=== PATIENT | female | born 1980 | race Caucasian/White ===

== ENCOUNTER 2022-09-08 14:30 | Inpatient (IN) | payer MEDICAID ==
[~2022-09-08] VITALS: Ht 157.5 cm; Wt 93.1 kg
[2022-09-08] MEDS ORDERED: SODIUM CHLORIDE 0.9% 1,000 ML IV ONE (15:00)
[2022-09-08 15:38] LABS: Mean Corpuscular Hemoglobin 28.1 pg (28.0-32.0); Mean Corpuscular Hgb Conc. 32.6 g/dL (32.0-36.0)
[2022-09-08 15:40] LABS: Mean Corpuscular Volume 86.1 fL (80.0-100.0); Red Blood Cells 4.99 10^6/uL (4.0-5.20)
[2022-09-08 15:49] LABS: White Blood Cell 34.9 10^3/uL (4.4-10.8)
[2022-09-08 15:50] LABS: Basophils % (manual) 0 (0.0-2.0); Blast Cells 0; Metamyelocytes % 0; Myelocytes % 0; Promyelocytes % 0
[2022-09-08 15:56] LABS: Anion Gap 7 (5-15); Blood Urea Nitrogen 25 mg/dL (7-18); Calcium 9.1 mg/dL (8.5-10.1); Carbon Dioxide 25 mmol/L (21-32); Chloride 104 mmol/L (98-107); Glucose 98 mg/dL (74-106); Potassium 3.8 mmol/L (3.5-5.1); Sodium 136 mmol/L (136-145)
[2022-09-08 15:58] LABS: Alanine Aminotransferase 15 U/L (13-56); Aspartate Aminotransferase 13 U/L (15-37); GFR African American 76 mL/min; GFR Non-African American 63 mL/min
[2022-09-08 16:00] LABS: Alkaline Phosphatase 116 U/L (45-117); Bilirubin, Total 0.4 mg/dL (0.2-1.0); Total Protein 7.1 g/dL (6.4-8.2)
[2022-09-08 16:01] LABS: Albumin 2.4 g/dL (3.4-5.0); BUN/Creatinine Ratio 24.5
[2022-09-08 16:20] LABS: Band Neutrophils % (manual) 9; Eosinophils % (manual) 1 (0-7); Lymphocytes % (manual) 8 (10.0-50.0); Monocytes % (manual) 6 (0-12); Reactive Lymphocytes 1
[2022-09-08] MEDS ORDERED: LABETALOL HCL 5 MG/ML 4ML SYRINGE IV ONE (16:45)
[2022-09-08] MEDS ORDERED: AZITHROMYCIN 500MG/ 250ML 250 ML IV ONE (16:45)
[2022-09-08] MEDS ORDERED: cefTRIAXone 1GM/50ML D5W 50 ML IV ONE (16:45)
[2022-09-08] MEDS ORDERED: IOHEXOL 350 MG/ML 100ML IJ ONE (16:46)
[2022-09-08 17:34] LABS: Urine Bacteria NONE SEEN /hpf (None Seen); Urine Blood 1+ /uL (Negative); Urine Specific Gravity 1.042 (1.001-1.035); Urine WBC 6 /hpf (0 - 5)
[2022-09-08] MEDS ORDERED: ACETAMINOPHEN 325 MG TAB PO PRN (18:15)
[2022-09-08] MEDS: HYDROcodone-ACET 5/325MG TAB PO PRN (18:46)
[2022-09-08 20:46] LABS: Basophils # (auto) 0 10 ^3/uL (0-0.2); Basophils % (auto) 0.1 % (0.0-2.0); Eosinophils # (auto) 0 10 ^3/uL (0-0.8); Hematocrit 37.1 % (36.0-46.0); Lymphocytes # (auto) 1.4 10 ^3/uL (0.4-5.4); Lymphocytes % (auto) 5.2 % (10.0-50.0); Mean Corpuscular Hemoglobin 27.6 pg (28.0-32.0); Mean Corpuscular Hgb Conc. 32.3 g/dL (32.0-36.0); Mean Corpuscular Volume 85.3 fL (80.0-100.0); Monocytes % (auto) 3.9 % (0.0-12.0); Neutrophils # (auto) 23.4 10 ^3/uL (1.6-8.6); Neutrophils % (auto) 90.8 % (37.0-80.0); Red Blood Cells 4.35 10^6/uL (4.0-5.20); White Blood Cell 25.7 10^3/uL (4.4-10.8)
[2022-09-08] MEDS: MORPHINE SULFATE INJ 2 MG/ml SYRG IV PRN (20:52)
[2022-09-08 20:58] LABS: BUN/Creatinine Ratio 21.1; Calcium 8.2 mg/dL (8.5-10.1)
[2022-09-09] MEDS: HYDROcodone-ACET 5/325MG TAB PO PRN ×3 (00:22→10:21)
[2022-09-09] MEDS: NITROGLYCERIN 0.4 MG SL TAB SL PRN (06:09)
[2022-09-09] MEDS: MORPHINE SULFATE INJ 2 MG/ml SYRG IV PRN ×4 (07:41→19:04)
[2022-09-09 10:00] VITALS: BP 125/74
[2022-09-09] MEDS: PANTOPRAZOLE 40 MG TAB PO SCH (10:21)
[2022-09-09 12:36] VITALS: BP 127/70
[2022-09-09] MEDS ORDERED: DEXTROSE (50%) 50ML SYRG IV PRN (14:45)
[2022-09-09] MEDS: AZITHROMYCIN 500MG/ 250ML 250 ML IV SCH (14:58)
[2022-09-09] MEDS ORDERED: ALBUTEROL MEDNEB 2.5 mg/3ml NEB NEB PRN (15:45)
[2022-09-09 16:59] VITALS: BP 131/73
[2022-09-09] MEDS: InsuLIN REG 1unit/0.01ml Soln (100units/ml) SC SCH ×2 (17:00→21:51)
[2022-09-09] MEDS: ACCU-CHEK COMFORT CURVE STRIP VI SCH ×2 (17:00→21:46)
[2022-09-09] MEDS: SODIUM CHLORIDE 0.9% 1,000 ML IV SCH (18:45)
[2022-09-09] MEDS: PIPERACILLIN-TAZOB 3.375GM 100 ML IV SCH (19:11)
[2022-09-09 19:28] VITALS: BP 127/70
[2022-09-09 22:00] VITALS: BP 120/55
[2022-09-09] MEDS: PROMETHAZINE W/CODEINE 5 ML ORAL SYRUP PO PRN (22:52)
[2022-09-10] MEDS: PIPERACILLIN-TAZOB 3.375GM 100 ML IV SCH ×3 (01:30→17:00)
[2022-09-10] MEDS: SODIUM CHLORIDE 0.9% 1,000 ML IV SCH ×3 (02:45→18:54)
[2022-09-10 05:00] VITALS: BP 120/60
[2022-09-10] MEDS: PROMETHAZINE W/CODEINE 5 ML ORAL SYRUP PO PRN ×2 (05:04→22:07)
[2022-09-10] MEDS: ACCU-CHEK COMFORT CURVE STRIP VI SCH ×4 (06:45→22:06)
[2022-09-10] MEDS: InsuLIN REG 1unit/0.01ml Soln (100units/ml) SC SCH ×5 (06:45→22:08)
[2022-09-10] MEDS: HYDROcodone-ACET 5/325MG TAB PO PRN ×3 (06:46→23:54)
[2022-09-10 09:13] VITALS: BP 116/62
[2022-09-10] MEDS: NITROGLYCERIN 0.4 MG SL TAB SL PRN (09:26)
[2022-09-10] MEDS: MORPHINE SULFATE INJ 2 MG/ml SYRG IV PRN (09:27)
[2022-09-10] MEDS: METHADONE HCL 10 MG TAB PO SCH (09:53)
[2022-09-10] MEDS: PANTOPRAZOLE 40 MG TAB PO SCH (09:54)
[2022-09-10] MEDS: ENOXAPARIN SOD 40 MG/0.4 ML SYRINGE SC SCH (09:54)
[2022-09-10 12:16] LABS: Albumin 1.6 g/dL (3.4-5.0); Calcium 7.9 mg/dL (8.5-10.1); Potassium 3.6 mmol/L (3.5-5.1)
[2022-09-10 12:19] LABS: BUN/Creatinine Ratio 17.3; Bilirubin, Total 0.2 mg/dL (0.2-1.0); Total Protein 5.9 g/dL (6.4-8.2)
[2022-09-10 12:51] VITALS: BP 118/66
[2022-09-10 13:49] LABS: Basophils # (auto) 0 10 ^3/uL (0-0.2); Basophils % (auto) 0.1 % (0.0-2.0); Eosinophils # (auto) 0.1 10 ^3/uL (0-0.8); Eosinophils % (auto) 0.4 % (0.0-7.0); Hematocrit 36.5 % (36.0-46.0); Hemoglobin 12.1 g/dL (12.2-16.2); Lymphocytes # (auto) 1.6 10 ^3/uL (0.4-5.4); Lymphocytes % (auto) 8.8 % (10.0-50.0); Mean Corpuscular Hemoglobin 27.9 pg (28.0-32.0); Mean Corpuscular Hgb Conc. 33.1 g/dL (32.0-36.0); Mean Corpuscular Volume 84.4 fL (80.0-100.0); Monocytes # (auto) 1.2 10 ^3/uL (0-1.3); Monocytes % (auto) 6.3 % (0.0-12.0); Neutrophils # (auto) 15.7 10 ^3/uL (1.6-8.6); Neutrophils % (auto) 84.4 % (37.0-80.0); Nucleated Red Blood Cells % 0.1 %; Red Blood Cells 4.32 10^6/uL (4.0-5.20); Red Cell Distribution Width 15.2 % (11.8-14.3); White Blood Cell 18.6 10^3/uL (4.4-10.8)
[2022-09-10] MEDS: AZITHROMYCIN 500MG/ 250ML 250 ML IV SCH (14:08)
[2022-09-10 16:39] VITALS: BP 119/72
[2022-09-10] MEDS: ALPRAZolam 0.5 MG TAB PO PRN (20:44)
[2022-09-10 22:00] VITALS: BP 127/69
[2022-09-11] MEDS: PIPERACILLIN-TAZOB 3.375GM 100 ML IV SCH ×3 (00:22→17:09)
[2022-09-11] MEDS: SODIUM CHLORIDE 0.9% 1,000 ML IV SCH ×3 (00:22→18:45)
[2022-09-11 05:00] VITALS: BP 110/58
[2022-09-11] MEDS: PROMETHAZINE W/CODEINE 5 ML ORAL SYRUP PO PRN ×3 (06:11→23:34)
[2022-09-11] MEDS: InsuLIN REG 1unit/0.01ml Soln (100units/ml) SC SCH ×4 (06:11→21:40)
[2022-09-11] MEDS: ACCU-CHEK COMFORT CURVE STRIP VI SCH ×4 (06:11→21:40)
[2022-09-11 08:20] VITALS: BP 115/59
[2022-09-11 09:00] VITALS: BP 115/59
[2022-09-11] MEDS: METHADONE HCL 10 MG TAB PO SCH (09:10)
[2022-09-11] MEDS: AZITHROMYCIN 500MG/ 250ML 250 ML IV SCH (09:11)
[2022-09-11] MEDS: PANTOPRAZOLE 40 MG TAB PO SCH (09:11)
[2022-09-11] MEDS: ENOXAPARIN SOD 40 MG/0.4 ML SYRINGE SC SCH (09:12)
[2022-09-11] MEDS: NICOTINE 21MG/24 HR TOPICAL PATCH TD SCH (09:16)
[2022-09-11 13:00] VITALS: BP 129/77
[2022-09-11 17:00] VITALS: BP 129/59
[2022-09-11] MEDS ORDERED: diphenhdrAMINE HCL 25 MG CAP PO PRN (18:15)
[2022-09-11] MEDS: ALPRAZolam 0.5 MG TAB PO PRN (21:17)
[2022-09-11 22:00] VITALS: BP 117/65
[2022-09-11 22:18] LABS: Alcohol, Urine < 3.0 mg/dL (0-10); Barbiturate Scree,Urine NEGATIVE (NEGATIVE); Benzodiazephine Screen, Urine NEGATIVE (NEGATIVE); Cannabinoid Screen, Urine NEGATIVE (NEGATIVE); Cocaine Screen, Urine NEGATIVE (NEGATIVE); Opiate Scree,Urine POSITIVE (NEGATIVE); Phencyclidine Screen, Urine NEGATIVE (NEGATIVE)
[2022-09-11 22:25] LABS: Amphetamine Screen, Urine NEGATIVE (NEGATIVE)
[2022-09-12] MEDS: PIPERACILLIN-TAZOB 3.375GM 100 ML IV SCH ×2 (00:53→10:30)
[2022-09-12] MEDS: SODIUM CHLORIDE 0.9% 1,000 ML IV SCH ×3 (02:45→18:45)
[2022-09-12] MEDS: HYDROcodone-ACET 5/325MG TAB PO PRN ×2 (03:07→23:39)
[2022-09-12 05:00] VITALS: BP 105/63
[2022-09-12] MEDS: ACCU-CHEK COMFORT CURVE STRIP VI SCH ×4 (06:45→22:16)
[2022-09-12] MEDS: InsuLIN REG 1unit/0.01ml Soln (100units/ml) SC SCH ×4 (06:46→22:00)
[2022-09-12] MEDS: PROMETHAZINE W/CODEINE 5 ML ORAL SYRUP PO PRN ×3 (07:20→20:59)
[2022-09-12 08:00] VITALS: BP 113/88
[2022-09-12] MEDS: AZITHROMYCIN 500MG/ 250ML 250 ML IV SCH (09:30)
[2022-09-12] MEDS: ENOXAPARIN SOD 40 MG/0.4 ML SYRINGE SC SCH (09:30)
[2022-09-12] MEDS: PANTOPRAZOLE 40 MG TAB PO SCH (09:31)
[2022-09-12] MEDS: NICOTINE 21MG/24 HR TOPICAL PATCH TD SCH (09:31)
[2022-09-12] MEDS: METHADONE HCL 10 MG TAB PO SCH (09:32)
[2022-09-12 12:00] VITALS: BP 129/71
[2022-09-12] MEDS: CEFEPIME 2 GM in SODIUM CHL 0.9% 50 ML IV SCH ×2 (14:34→20:59)
[2022-09-12 16:00] VITALS: BP 119/66
[2022-09-12] MEDS: ALPRAZolam 0.5 MG TAB PO PRN (20:58)
[2022-09-12 22:00] VITALS: BP 138/60
[2022-09-13 01:04] VITALS: BP 138/60
[2022-09-13 05:00] VITALS: BP 120/53
[2022-09-13] MEDS: CEFEPIME 2 GM in SODIUM CHL 0.9% 50 ML IV SCH ×2 (05:16→13:32)
[2022-09-13] MEDS: InsuLIN REG 1unit/0.01ml Soln (100units/ml) SC SCH (06:09)
[2022-09-13] MEDS: SODIUM CHLORIDE 0.9% 1,000 ML IV SCH ×3 (06:09→18:45)
[2022-09-13] MEDS: ACCU-CHEK COMFORT CURVE STRIP VI SCH (06:09)
[2022-09-13 09:00] VITALS: BP 136/74
[2022-09-13] MEDS: NICOTINE 21MG/24 HR TOPICAL PATCH TD SCH (10:00)
[2022-09-13] MEDS: METHADONE HCL 10 MG TAB PO SCH (10:06)
[2022-09-13] MEDS: AZITHROMYCIN 500MG/ 250ML 250 ML IV SCH (10:06)
[2022-09-13] MEDS: PANTOPRAZOLE 40 MG TAB PO SCH (10:07)
[2022-09-13] MEDS: ENOXAPARIN SOD 40 MG/0.4 ML SYRINGE SC SCH (10:07)
[2022-09-13] MEDS: PROMETHAZINE W/CODEINE 5 ML ORAL SYRUP PO PRN ×2 (10:07→16:28)
[2022-09-13 13:00] VITALS: BP 130/64
[2022-09-13 14:01] LABS: Albumin 1.5 g/dL (3.4-5.0); BUN/Creatinine Ratio 12.9; Bilirubin, Total 0.2 mg/dL (0.2-1.0); Calcium 7.7 mg/dL (8.5-10.1); Potassium 3.4 mmol/L (3.5-5.1); Total Protein 6.3 g/dL (6.4-8.2)
[2022-09-13] MEDS: CEFTRIAXONE SODIUM 2 GM in D5W 5% 50 ML IV SCH (14:30)
[2022-09-13 17:00] VITALS: BP 127/62
[2022-09-13 19:45] LABS: Basophils # (auto) 0.2 10 ^3/uL (0-0.2); Basophils % (auto) 1.1 % (0.0-2.0); Eosinophils # (auto) 0.1 10 ^3/uL (0-0.8); Eosinophils % (auto) 0.5 % (0.0-7.0); Hematocrit 33.9 % (36.0-46.0); Hemoglobin 11.1 g/dL (12.2-16.2); Lymphocytes # (auto) 2.4 10 ^3/uL (0.4-5.4); Lymphocytes % (auto) 11.6 % (10.0-50.0); Mean Corpuscular Hemoglobin 27.7 pg (28.0-32.0); Mean Corpuscular Hgb Conc. 32.7 g/dL (32.0-36.0); Mean Corpuscular Volume 84.6 fL (80.0-100.0); Monocytes # (auto) 1.5 10 ^3/uL (0-1.3); Monocytes % (auto) 7.3 % (0.0-12.0); Neutrophils # (auto) 16.2 10 ^3/uL (1.6-8.6); Neutrophils % (auto) 79.5 % (37.0-80.0); Nucleated Red Blood Cells % 0.1 %; Red Blood Cells 4.01 10^6/uL (4.0-5.20); Red Cell Distribution Width 15.5 % (11.8-14.3); White Blood Cell 20.3 10^3/uL (4.4-10.8)
[2022-09-13 20:07] LABS: Albumin 1.6 g/dL (3.4-5.0); BUN/Creatinine Ratio 14.1; Magnesium 2.1 mg/dL (1.6-2.6); Potassium 3.3 mmol/L (3.5-5.1)
[2022-09-13 20:10] LABS: Bilirubin, Total 0.4 mg/dL (0.2-1.0); Total Protein 7.1 g/dL (6.4-8.2)
[2022-09-13] MEDS: ALPRAZolam 0.5 MG TAB PO PRN (20:58)
[2022-09-13 22:00] VITALS: BP 115/66
[2022-09-14] MEDS: HYDROcodone-ACET 5/325MG TAB PO PRN ×2 (01:24→13:57)
[2022-09-14] MEDS: PROMETHAZINE W/CODEINE 5 ML ORAL SYRUP PO PRN ×3 (01:25→20:40)
[2022-09-14] MEDS: SODIUM CHLORIDE 0.9% 1,000 ML IV SCH ×3 (02:45→18:48)
[2022-09-14 05:00] VITALS: BP 127/66
[2022-09-14] MEDS: ALPRAZolam 0.5 MG TAB PO PRN ×2 (07:50→20:39)
[2022-09-14] MEDS: PANTOPRAZOLE 40 MG TAB PO SCH (08:54)
[2022-09-14] MEDS: METHADONE HCL 10 MG TAB PO SCH (08:54)
[2022-09-14] MEDS: AZITHROMYCIN 500MG/ 250ML 250 ML IV SCH (08:55)
[2022-09-14] MEDS: ENOXAPARIN SOD 40 MG/0.4 ML SYRINGE SC SCH (08:55)
[2022-09-14 09:00] VITALS: BP 137/80
[2022-09-14] MEDS: NICOTINE 21MG/24 HR TOPICAL PATCH TD SCH (09:00)
[2022-09-14] MEDS: CEFTRIAXONE SODIUM 2 GM in D5W 5% 50 ML IV SCH (10:49)
[2022-09-14 13:00] VITALS: BP 146/70
[2022-09-14 17:00] VITALS: BP 122/62
[2022-09-14 22:00] VITALS: BP 126/61
[2022-09-15] MEDS: SODIUM CHLORIDE 0.9% 1,000 ML IV SCH ×3 (00:06→18:14)
[2022-09-15] MEDS: HYDROcodone-ACET 5/325MG TAB PO PRN ×2 (00:07→14:21)
[2022-09-15] MEDS: PIPERACILLIN-TAZOB 3.375GM 100 ML IV SCH ×5 (00:07→23:09)
[2022-09-15] MEDS: ALPRAZolam 0.5 MG TAB PO PRN ×3 (04:40→23:09)
[2022-09-15] MEDS: PROMETHAZINE W/CODEINE 5 ML ORAL SYRUP PO PRN ×3 (04:41→23:10)
[2022-09-15 05:00] VITALS: BP 127/71
[2022-09-15 05:57] LABS: Basophils # (auto) 0 10 ^3/uL (0-0.2); Basophils % (auto) 0.2 % (0.0-2.0); Eosinophils # (auto) 0.1 10 ^3/uL (0-0.8); Eosinophils % (auto) 0.8 % (0.0-7.0); Hematocrit 30.1 % (36.0-46.0); Hemoglobin 9.5 g/dL (12.2-16.2); Lymphocytes # (auto) 1.6 10 ^3/uL (0.4-5.4); Lymphocytes % (auto) 11.2 % (10.0-50.0); Mean Corpuscular Hemoglobin 27.2 pg (28.0-32.0); Mean Corpuscular Hgb Conc. 31.8 g/dL (32.0-36.0); Mean Corpuscular Volume 85.5 fL (80.0-100.0); Monocytes # (auto) 1.3 10 ^3/uL (0-1.3); Neutrophils # (auto) 11.4 10 ^3/uL (1.6-8.6); Neutrophils % (auto) 78.8 % (37.0-80.0); Nucleated Red Blood Cells % 0.1 %; Red Blood Cells 3.52 10^6/uL (4.0-5.20); Red Cell Distribution Width 15.3 % (11.8-14.3); White Blood Cell 14.5 10^3/uL (4.4-10.8)
[2022-09-15 06:15] LABS: Albumin 1.3 g/dL (3.4-5.0); Calcium 7.9 mg/dL (8.5-10.1); Potassium 3.6 mmol/L (3.5-5.1)
[2022-09-15 06:17] LABS: BUN/Creatinine Ratio 15.8
[2022-09-15 06:19] LABS: Bilirubin, Total 0.3 mg/dL (0.2-1.0); Total Protein 6.5 g/dL (6.4-8.2)
[2022-09-15 08:33] VITALS: BP 105/56
[2022-09-15] MEDS: NICOTINE 21MG/24 HR TOPICAL PATCH TD SCH (08:42)
[2022-09-15] MEDS: PANTOPRAZOLE 40 MG TAB PO SCH (09:14)
[2022-09-15] MEDS: ENOXAPARIN SOD 40 MG/0.4 ML SYRINGE SC SCH (09:14)
[2022-09-15] MEDS: METOPROLOL SUCCINATE XL 50 MG TAB PO SCH (09:14)
[2022-09-15] MEDS: METHADONE HCL 10 MG TAB PO SCH (09:16)
[2022-09-15 13:07] VITALS: BP 131/64
[2022-09-15 16:54] VITALS: BP 110/65
[2022-09-15 20:00] VITALS: BP 101/57
[2022-09-15 22:00] VITALS: BP 101/57
[2022-09-16] VITALS (7 sets, daily range): BP systolic 101–121; BP diastolic 62–87
[2022-09-16] MEDS: SODIUM CHLORIDE 0.9% 1,000 ML IV SCH ×3 (02:45→17:52)
[2022-09-16] MEDS: ALPRAZolam 0.5 MG TAB PO PRN ×2 (05:28→21:42)
[2022-09-16] MEDS: PIPERACILLIN-TAZOB 3.375GM 100 ML IV SCH ×3 (05:28→17:51)
[2022-09-16] MEDS: PROMETHAZINE W/CODEINE 5 ML ORAL SYRUP PO PRN ×2 (05:30→21:42)
[2022-09-16 06:22] LABS: Albumin 1.4 g/dL (3.4-5.0); BUN/Creatinine Ratio 13.1; Calcium 7.4 mg/dL (8.5-10.1)
[2022-09-16 06:26] LABS: Basophils # (auto) 0 10 ^3/uL (0-0.2); Basophils % (auto) 0.3 % (0.0-2.0); Bilirubin, Total 0.4 mg/dL (0.2-1.0); Eosinophils # (auto) 0.1 10 ^3/uL (0-0.8); Eosinophils % (auto) 0.5 % (0.0-7.0); Hematocrit 27.9 % (36.0-46.0); Hemoglobin 9.1 g/dL (12.2-16.2); Lymphocytes # (auto) 1.6 10 ^3/uL (0.4-5.4); Lymphocytes % (auto) 10.3 % (10.0-50.0); Mean Corpuscular Hemoglobin 27.4 pg (28.0-32.0); Mean Corpuscular Hgb Conc. 32.6 g/dL (32.0-36.0); Mean Corpuscular Volume 84.1 fL (80.0-100.0); Monocytes # (auto) 1.5 10 ^3/uL (0-1.3); Monocytes % (auto) 9.6 % (0.0-12.0); Neutrophils # (auto) 12.5 10 ^3/uL (1.6-8.6); Neutrophils % (auto) 79.3 % (37.0-80.0); Red Blood Cells 3.32 10^6/uL (4.0-5.20); Total Protein 5.8 g/dL (6.4-8.2); White Blood Cell 15.8 10^3/uL (4.4-10.8)
[2022-09-16] MEDS: NICOTINE 21MG/24 HR TOPICAL PATCH TD SCH (10:21)
[2022-09-16] MEDS: METHADONE HCL 10 MG TAB PO SCH (10:21)
[2022-09-16] MEDS: METOPROLOL SUCCINATE XL 50 MG TAB PO SCH (10:21)
[2022-09-16] MEDS: ASPirin 81 mg TAB PO SCH (10:21)
[2022-09-16] MEDS: PANTOPRAZOLE 40 MG TAB PO SCH (10:21)
[2022-09-16] MEDS: ENOXAPARIN SOD 40 MG/0.4 ML SYRINGE SC SCH (10:22)
[2022-09-17] MEDS: SODIUM CHLORIDE 0.9% 1,000 ML IV SCH ×3 (02:53→21:01)
[2022-09-17] MEDS: HYDROcodone-ACET 5/325MG TAB PO PRN ×2 (03:06→23:00)
[2022-09-17 05:00] VITALS: BP 106/60
[2022-09-17] MEDS: PIPERACILLIN-TAZOB 3.375GM 100 ML IV SCH ×2 (06:00)
[2022-09-17] MEDS: ALPRAZolam 0.5 MG TAB PO PRN ×2 (07:33→18:16)
[2022-09-17 09:00] VITALS: BP 123/54
[2022-09-17] MEDS: ASPirin 81 mg TAB PO SCH (09:29)
[2022-09-17] MEDS: Pro-Stat SF 30ml Vanilla PO SCH (09:30)
[2022-09-17] MEDS: PANTOPRAZOLE 40 MG TAB PO SCH (09:30)
[2022-09-17] MEDS: METOPROLOL SUCCINATE XL 50 MG TAB PO SCH (09:30)
[2022-09-17] MEDS: ENOXAPARIN SOD 40 MG/0.4 ML SYRINGE SC SCH (09:31)
[2022-09-17] MEDS: NICOTINE 21MG/24 HR TOPICAL PATCH TD SCH (09:31)
[2022-09-17] MEDS: METHADONE HCL 10 MG TAB PO SCH (09:32)
[2022-09-17 10:48] LABS: Basophils # (auto) 0 10 ^3/uL (0-0.2); Eosinophils # (auto) 0.1 10 ^3/uL (0-0.8); Hematocrit 25.6 % (36.0-46.0); Hemoglobin 8.3 g/dL (12.2-16.2); Lymphocytes # (auto) 1.7 10 ^3/uL (0.4-5.4); Mean Corpuscular Hemoglobin 27.6 pg (28.0-32.0); Mean Corpuscular Volume 85.6 fL (80.0-100.0); Monocytes # (auto) 1.2 10 ^3/uL (0-1.3); Red Blood Cells 2.99 10^6/uL (4.0-5.20)
[2022-09-17 10:49] LABS: Basophils % (auto) 0.2 % (0.0-2.0); Eosinophils % (auto) 0.7 % (0.0-7.0); Lymphocytes % (auto) 13.5 % (10.0-50.0); Mean Corpuscular Hgb Conc. 32.3 g/dL (32.0-36.0); Monocytes % (auto) 9.5 % (0.0-12.0); Neutrophils # (auto) 9.5 10 ^3/uL (1.6-8.6); Neutrophils % (auto) 76.1 % (37.0-80.0); Red Cell Distribution Width 15.3 % (11.8-14.3); White Blood Cell 12.5 10^3/uL (4.4-10.8)
[2022-09-17 11:12] LABS: Albumin 1.4 g/dL (3.4-5.0); Calcium 7.7 mg/dL (8.5-10.1); Magnesium 2.6 mg/dL (1.6-2.6); Potassium 3.6 mmol/L (3.5-5.1)
[2022-09-17 11:27] LABS: BUN/Creatinine Ratio 11.4; Bilirubin, Total 0.4 mg/dL (0.2-1.0); Total Protein 6.6 g/dL (6.4-8.2)
[2022-09-17] MEDS: DOXYCYCLINE 100 MG TAB/CAP PO SCH ×2 (12:16→21:02)
[2022-09-17] MEDS: PROMETHAZINE W/CODEINE 5 ML ORAL SYRUP PO PRN ×2 (12:16→18:16)
[2022-09-17 13:00] VITALS: BP 111/69
[2022-09-17] MEDS: cefTRIAXone 1GM/50ML D5W 50 ML IV SCH (14:38)
[2022-09-17 17:10] VITALS: BP 102/51
[2022-09-17 22:00] VITALS: BP 113/60
[2022-09-18] MEDS: SODIUM CHLORIDE 0.9% 1,000 ML IV SCH (02:45)
[2022-09-18] MEDS: ALPRAZolam 0.5 MG TAB PO PRN ×2 (03:00→14:13)
[2022-09-18 05:00] VITALS: BP 110/56
[2022-09-18] MEDS: PROMETHAZINE W/CODEINE 5 ML ORAL SYRUP PO PRN ×2 (06:59→21:16)
[2022-09-18 08:35] VITALS: BP 107/51
[2022-09-18] MEDS: Pro-Stat SF 30ml Vanilla PO SCH (10:00)
[2022-09-18] MEDS: NICOTINE 21MG/24 HR TOPICAL PATCH TD SCH (10:00)
[2022-09-18] MEDS: METHADONE HCL 10 MG TAB PO SCH (10:52)
[2022-09-18] MEDS: METOPROLOL SUCCINATE XL 50 MG TAB PO SCH (10:53)
[2022-09-18] MEDS: ASPirin 81 mg TAB PO SCH (10:53)
[2022-09-18] MEDS: PANTOPRAZOLE 40 MG TAB PO SCH (10:53)
[2022-09-18] MEDS: DOXYCYCLINE 100 MG TAB/CAP PO SCH ×2 (10:54→21:16)
[2022-09-18] MEDS: cefTRIAXone 1GM/50ML D5W 50 ML IV SCH (10:56)
[2022-09-18] MEDS: ENOXAPARIN SOD 40 MG/0.4 ML SYRINGE SC SCH (11:00)
[2022-09-18 12:17] VITALS: BP 128/72
[2022-09-18 16:20] VITALS: BP 118/63
[2022-09-18] MEDS: FUROSEMIDE 40 MG/4 ML VIAL IV SCH (19:26)
[2022-09-18 22:00] VITALS: BP 118/62
[2022-09-19] MEDS: ALPRAZolam 0.5 MG TAB PO PRN ×2 (01:54→17:35)
[2022-09-19 05:00] VITALS: BP 110/58
[2022-09-19 06:22] LABS: Basophils # (auto) 0.1 10 ^3/uL (0-0.2); Basophils % (auto) 0.9 % (0.0-2.0); Eosinophils # (auto) 0.1 10 ^3/uL (0-0.8); Eosinophils % (auto) 0.7 % (0.0-7.0); Hematocrit 24.4 % (36.0-46.0); Hemoglobin 7.9 g/dL (12.2-16.2); Lymphocytes # (auto) 1.7 10 ^3/uL (0.4-5.4); Lymphocytes % (auto) 16.6 % (10.0-50.0); Mean Corpuscular Hemoglobin 27.1 pg (28.0-32.0); Mean Corpuscular Hgb Conc. 32.4 g/dL (32.0-36.0); Mean Corpuscular Volume 83.6 fL (80.0-100.0); Monocytes # (auto) 1.1 10 ^3/uL (0-1.3); Monocytes % (auto) 10.9 % (0.0-12.0); Neutrophils # (auto) 7.3 10 ^3/uL (1.6-8.6); Neutrophils % (auto) 70.9 % (37.0-80.0); Nucleated Red Blood Cells % 0.2 %; Red Blood Cells 2.92 10^6/uL (4.0-5.20); Red Cell Distribution Width 14.9 % (11.8-14.3); White Blood Cell 10.4 10^3/uL (4.4-10.8)
[2022-09-19] MEDS: FUROSEMIDE 40 MG/4 ML VIAL IV SCH ×2 (06:39→17:42)
[2022-09-19] MEDS: cefTRIAXone 1GM/50ML D5W 50 ML IV SCH (08:21)
[2022-09-19] MEDS: PROMETHAZINE W/CODEINE 5 ML ORAL SYRUP PO PRN ×2 (08:21→20:37)
[2022-09-19 08:44] LABS: Albumin 1.6 g/dL (3.4-5.0); BUN/Creatinine Ratio 11.4; Calcium 8.1 mg/dL (8.5-10.1)
[2022-09-19 08:46] LABS: Bilirubin, Total 0.5 mg/dL (0.2-1.0)
[2022-09-19 09:40] VITALS: BP 113/55
[2022-09-19] MEDS ORDERED: ALBUTEROL MEDNEB 2.5 mg/3ml NEB ONE ×4 (09:55→21:39)
[2022-09-19] MEDS: NICOTINE 21MG/24 HR TOPICAL PATCH TD SCH (10:00)
[2022-09-19] MEDS: ASPirin 81 mg TAB PO SCH (10:01)
[2022-09-19] MEDS: METOPROLOL SUCCINATE XL 50 MG TAB PO SCH (10:02)
[2022-09-19] MEDS: METHADONE HCL 10 MG TAB PO SCH (10:02)
[2022-09-19] MEDS: DOXYCYCLINE 100 MG TAB/CAP PO SCH ×2 (10:03→21:27)
[2022-09-19] MEDS: PANTOPRAZOLE 40 MG TAB PO SCH (10:03)
[2022-09-19] MEDS: POTASSIUM CHL 20 Meq TABLET PO SCH (10:03)
[2022-09-19] MEDS: ENOXAPARIN SOD 40 MG/0.4 ML SYRINGE SC SCH (10:03)
[2022-09-19] MEDS: ALBUTEROL SULF 2.5 MG/0.5ML(0.5%) NEB SOLN NEB SCH ×4 (10:56→21:49)
[2022-09-19] MEDS: IPRATROPIUM BROM 0.5 MG/2.5ML INH SOL NEB SCH ×4 (10:56→21:49)
[2022-09-19] MEDS: Pro-Stat SF 30ml Vanilla PO SCH (11:55)
[2022-09-19 13:12] VITALS: BP 92/54
[2022-09-19 17:14] VITALS: BP 102/48
[2022-09-19 22:00] VITALS: BP 103/50
[2022-09-20] VITALS (7 sets, daily range): BP systolic 96–125; BP diastolic 50–64
[2022-09-20] MEDS: ALPRAZolam 0.5 MG TAB PO PRN ×3 (01:43→20:52)
[2022-09-20] MEDS ORDERED: ALBUTEROL MEDNEB 2.5 mg/3ml NEB ONE ×6 (01:58→22:12)
[2022-09-20] MEDS: ALBUTEROL SULF 2.5 MG/0.5ML(0.5%) NEB SOLN NEB SCH ×5 (02:11→22:00)
[2022-09-20] MEDS: PROMETHAZINE W/CODEINE 5 ML ORAL SYRUP PO PRN ×2 (05:24→20:26)
[2022-09-20] MEDS: FUROSEMIDE 40 MG/4 ML VIAL IV SCH ×2 (06:11→18:44)
[2022-09-20] MEDS: IPRATROPIUM BROM 0.5 MG/2.5ML INH SOL NEB SCH ×4 (06:29→22:00)
[2022-09-20] MEDS: Pro-Stat SF 30ml Vanilla PO SCH (10:00)
[2022-09-20] MEDS: NICOTINE 21MG/24 HR TOPICAL PATCH TD SCH (10:00)
[2022-09-20 11:00] LABS: Basophils # (auto) 0 10 ^3/uL (0-0.2); Eosinophils # (auto) 0.1 10 ^3/uL (0-0.8); Hemoglobin 8.4 g/dL (12.2-16.2); Lymphocytes # (auto) 1.7 10 ^3/uL (0.4-5.4); Monocytes # (auto) 0.9 10 ^3/uL (0-1.3); Neutrophils # (auto) 7.2 10 ^3/uL (1.6-8.6)
[2022-09-20 11:01] LABS: Basophils % (auto) 0.3 % (0.0-2.0); Eosinophils % (auto) 0.6 % (0.0-7.0); Hematocrit 24.9 % (36.0-46.0); Mean Corpuscular Hemoglobin 28.1 pg (28.0-32.0); Mean Corpuscular Hgb Conc. 33.9 g/dL (32.0-36.0); Monocytes % (auto) 9.1 % (0.0-12.0); Red Cell Distribution Width 15.1 % (11.8-14.3); White Blood Cell 9.8 10^3/uL (4.4-10.8)
[2022-09-20] MEDS: cefTRIAXone 1GM/50ML D5W 50 ML IV SCH (11:05)
[2022-09-20] MEDS: ASPirin 81 mg TAB PO SCH (11:05)
[2022-09-20] MEDS: POTASSIUM CHL 20 Meq TABLET PO SCH (11:06)
[2022-09-20] MEDS: METHADONE HCL 10 MG TAB PO SCH (11:07)
[2022-09-20] MEDS: DOXYCYCLINE 100 MG TAB/CAP PO SCH ×2 (11:08→21:56)
[2022-09-20] MEDS: PANTOPRAZOLE 40 MG TAB PO SCH (11:09)
[2022-09-20] MEDS: METOPROLOL SUCCINATE XL 50 MG TAB PO SCH (11:09)
[2022-09-20] MEDS: ENOXAPARIN SOD 40 MG/0.4 ML SYRINGE SC SCH (11:10)
[2022-09-20 11:11] LABS: Albumin 1.6 g/dL (3.4-5.0); Calcium 8.2 mg/dL (8.5-10.1); Potassium 3.8 mmol/L (3.5-5.1)
[2022-09-20 11:15] LABS: BUN/Creatinine Ratio 12.3; Bilirubin, Total 0.4 mg/dL (0.2-1.0); Total Protein 7.8 g/dL (6.4-8.2)
[2022-09-20] MEDS: ACETAMINOPHEN 325 MG TAB PO PRN (11:20)
[2022-09-20] MEDS ORDERED: OXYCODONE W/ ACETAMINOPHEN 5/325MG TABLET PO ONE (11:45)
[2022-09-20] MEDS ORDERED: MILK OF MAGNESIA 30ML SUSP PO ONE (16:00)
[2022-09-21] MEDS: PROMETHAZINE W/CODEINE 5 ML ORAL SYRUP PO PRN ×3 (01:07→21:46)
[2022-09-21 05:00] VITALS: BP 112/66
[2022-09-21] MEDS: ALPRAZolam 0.5 MG TAB PO PRN ×2 (05:24→16:10)
[2022-09-21] MEDS: IPRATROPIUM BROM 0.5 MG/2.5ML INH SOL NEB SCH ×5 (06:00→22:00)
[2022-09-21] MEDS: ALBUTEROL SULF 2.5 MG/0.5ML(0.5%) NEB SOLN NEB SCH ×5 (06:00→22:00)
[2022-09-21] MEDS ORDERED: ALBUTEROL MEDNEB 2.5 mg/3ml NEB ONE ×2 (06:06→17:43)
[2022-09-21 06:11] LABS: Basophils # (auto) 0 10 ^3/uL (0-0.2); Eosinophils # (auto) 0.1 10 ^3/uL (0-0.8); Hemoglobin 8.3 g/dL (12.2-16.2); Lymphocytes # (auto) 1.9 10 ^3/uL (0.4-5.4); Monocytes # (auto) 0.9 10 ^3/uL (0-1.3)
[2022-09-21 06:18] LABS: Basophils % (auto) 0.4 % (0.0-2.0); Eosinophils % (auto) 1.4 % (0.0-7.0); Lymphocytes % (auto) 19.6 % (10.0-50.0); Mean Corpuscular Hemoglobin 28.6 pg (28.0-32.0); Mean Corpuscular Hgb Conc. 34.4 g/dL (32.0-36.0); Mean Corpuscular Volume 83.1 fL (80.0-100.0); Monocytes % (auto) 9.3 % (0.0-12.0); Neutrophils # (auto) 6.7 10 ^3/uL (1.6-8.6); Neutrophils % (auto) 69.3 % (37.0-80.0); Red Blood Cells 2.89 10^6/uL (4.0-5.20); Red Cell Distribution Width 14.8 % (11.8-14.3); White Blood Cell 9.7 10^3/uL (4.4-10.8)
[2022-09-21] MEDS ORDERED: MILK OF MAGNESIA 30ML SUSP PO ONE (06:30)
[2022-09-21 06:35] LABS: Potassium 4.5 mmol/L (3.5-5.1)
[2022-09-21 06:39] LABS: INR 1.09 (0.9-1.15); Partial Thromboplastin Time 28.1 sec (24.6-33.4)
[2022-09-21 06:46] LABS: Albumin 1.6 g/dL (3.4-5.0); BUN/Creatinine Ratio 14.1; Bilirubin, Total 0.4 mg/dL (0.2-1.0); Calcium 7.9 mg/dL (8.5-10.1); Total Protein 6.8 g/dL (6.4-8.2)
[2022-09-21] MEDS: FUROSEMIDE 40 MG/4 ML VIAL IV SCH (06:57)
[2022-09-21 09:00] VITALS: BP 109/54
[2022-09-21] MEDS: PANTOPRAZOLE 40 MG TAB PO SCH (09:22)
[2022-09-21] MEDS: cefTRIAXone 1GM/50ML D5W 50 ML IV SCH (09:22)
[2022-09-21] MEDS: POTASSIUM CHL 20 Meq TABLET PO SCH (09:23)
[2022-09-21] MEDS: DOXYCYCLINE 100 MG TAB/CAP PO SCH ×2 (09:24→21:46)
[2022-09-21] MEDS: METOPROLOL SUCCINATE XL 50 MG TAB PO SCH (09:27)
[2022-09-21] MEDS: ASPirin 81 mg TAB PO SCH ×2 (09:28→10:50)
[2022-09-21] MEDS: ENOXAPARIN SOD 40 MG/0.4 ML SYRINGE SC SCH (09:28)
[2022-09-21] MEDS: Pro-Stat SF 30ml Vanilla PO SCH (09:29)
[2022-09-21] MEDS: METHADONE HCL 10 MG TAB PO SCH (09:29)
[2022-09-21 13:00] VITALS: BP 110/48
[2022-09-21 17:00] VITALS: BP 110/48
[2022-09-21] MEDS: DOCUSATE SOD 100 MG CAP PO PRN (17:29)
[2022-09-21 22:00] VITALS: BP 109/47
[2022-09-22] MEDS: ACETAMINOPHEN 325 MG TAB PO PRN ×2 (00:33→23:37)
[2022-09-22] MEDS: ALPRAZolam 0.5 MG TAB PO PRN ×3 (00:33→21:40)
[2022-09-22] MEDS: PROMETHAZINE W/CODEINE 5 ML ORAL SYRUP PO PRN ×2 (04:35→13:13)
[2022-09-22 05:00] VITALS: BP 97/53
[2022-09-22] MEDS ORDERED: ALBUTEROL MEDNEB 2.5 mg/3ml NEB ONE ×4 (05:49→21:52)
[2022-09-22] MEDS: IPRATROPIUM BROM 0.5 MG/2.5ML INH SOL NEB SCH ×6 (05:54→22:10)
[2022-09-22] MEDS: ALBUTEROL SULF 2.5 MG/0.5ML(0.5%) NEB SOLN NEB SCH ×6 (05:54→22:10)
[2022-09-22 08:15] VITALS: BP 99/56
[2022-09-22] MEDS: PANTOPRAZOLE 40 MG TAB PO SCH (08:38)
[2022-09-22] MEDS: DOXYCYCLINE 100 MG TAB/CAP PO SCH ×2 (08:38→21:39)
[2022-09-22] MEDS: POTASSIUM CHL 20 Meq TABLET PO SCH (08:39)
[2022-09-22] MEDS: cefTRIAXone 1GM/50ML D5W 50 ML IV SCH (08:39)
[2022-09-22] MEDS: Pro-Stat SF 30ml Vanilla PO SCH (08:44)
[2022-09-22] MEDS: METOPROLOL SUCCINATE XL 50 MG TAB PO SCH (10:00)
[2022-09-22] MEDS ORDERED: METHADONE HCL 10 MG TAB PO ONE (11:00)
[2022-09-22 12:56] VITALS: BP 107/60
[2022-09-22 16:59] VITALS: BP 100/50
[2022-09-22 22:00] VITALS: BP 109/58
[2022-09-23 02:53] VITALS: BP 109/58
[2022-09-23 05:00] VITALS: BP 108/46
[2022-09-23] MEDS ORDERED: ALBUTEROL MEDNEB 2.5 mg/3ml NEB ONE ×4 (05:56→17:50)
[2022-09-23] MEDS: ALBUTEROL SULF 2.5 MG/0.5ML(0.5%) NEB SOLN NEB SCH ×5 (07:05→22:20)
[2022-09-23] MEDS: IPRATROPIUM BROM 0.5 MG/2.5ML INH SOL NEB SCH ×5 (07:05→22:20)
[2022-09-23 07:39] LABS: Basophils # (auto) 0 10 ^3/uL (0-0.2); Eosinophils # (auto) 0.1 10 ^3/uL (0-0.8); Lymphocytes # (auto) 1.6 10 ^3/uL (0.4-5.4); Monocytes # (auto) 0.9 10 ^3/uL (0-1.3)
[2022-09-23 07:41] LABS: Basophils % (auto) 0.4 % (0.0-2.0); Eosinophils % (auto) 0.6 % (0.0-7.0); Hematocrit 24.5 % (36.0-46.0); Hemoglobin 8.2 g/dL (12.2-16.2); Lymphocytes % (auto) 16.7 % (10.0-50.0); Mean Corpuscular Hemoglobin 28.2 pg (28.0-32.0); Mean Corpuscular Hgb Conc. 33.5 g/dL (32.0-36.0); Monocytes % (auto) 9.6 % (0.0-12.0); Neutrophils # (auto) 6.7 10 ^3/uL (1.6-8.6); Neutrophils % (auto) 72.7 % (37.0-80.0); Red Blood Cells 2.92 10^6/uL (4.0-5.20); White Blood Cell 9.3 10^3/uL (4.4-10.8)
[2022-09-23 07:53] LABS: INR 1.17 (0.9-1.15); Partial Thromboplastin Time 29.1 sec (24.6-33.4)
[2022-09-23 07:57] LABS: BUN/Creatinine Ratio 15.9; Calcium 8.6 mg/dL (8.5-10.1); Potassium 4.5 mmol/L (3.5-5.1)
[2022-09-23] MEDS ORDERED: LIDOCAINE 2% JELLY 11ml (GLYDO) ONE (08:36)
[2022-09-23] MEDS ORDERED: EPINEPHrine HCL 1 MG/1 ML AMP ONE (08:37)
[2022-09-23] MEDS ORDERED: LIDOCAINE 2%HCL (LOCAL ANESTH.) INJ 20ML MDV ONE (08:37)
[2022-09-23] MEDS ORDERED: GLYCOPYRROLATE 0.2 MG/ML 1ML VIAL ONE (08:37)
[2022-09-23] MEDS ORDERED: MIDAZOLAM HCL 2MG/2ML 2ml VIAL (1mg/ml) ONE (08:38)
[2022-09-23] MEDS ORDERED: diphenhdrAMINE HCL 50 MG/1 ML VL ONE (08:57)
[2022-09-23] MEDS: fentaNYL CITRATE 100 MCG/2 ML VL ONE ×2 (08:59→09:03)
[2022-09-23 09:00] VITALS: BP 118/61
[2022-09-23] MEDS: Pro-Stat SF 30ml Vanilla PO SCH (10:00)
[2022-09-23] MEDS: METOPROLOL SUCCINATE XL 50 MG TAB PO SCH (10:00)
[2022-09-23] MEDS: cefTRIAXone 1GM/50ML D5W 50 ML IV SCH (11:06)
[2022-09-23] MEDS: DOXYCYCLINE 100 MG TAB/CAP PO SCH ×2 (11:07→20:12)
[2022-09-23] MEDS: PANTOPRAZOLE 40 MG TAB PO SCH (11:07)
[2022-09-23] MEDS: ASPirin 81 mg TAB PO SCH (11:07)
[2022-09-23] MEDS: POTASSIUM CHL 20 Meq TABLET PO SCH (11:07)
[2022-09-23] MEDS: PROMETHAZINE W/CODEINE 5 ML ORAL SYRUP PO PRN (11:46)
[2022-09-23 17:00] VITALS: BP 104/50
[2022-09-23] MEDS: METHADONE HCL 10 MG TAB PO SCH (18:30)
[2022-09-23] MEDS: ACETAMINOPHEN 325 MG TAB PO PRN (20:13)
[2022-09-23] MEDS: ALPRAZolam 0.5 MG TAB PO PRN (20:13)
[2022-09-23 22:00] VITALS: BP 110/47
[2022-09-24] MEDS: PROMETHAZINE W/CODEINE 5 ML ORAL SYRUP PO PRN ×2 (02:05→19:03)
[2022-09-24 05:00] VITALS: BP 109/59
[2022-09-24] MEDS ORDERED: ALBUTEROL MEDNEB 2.5 mg/3ml NEB ONE ×3 (05:53→21:40)
[2022-09-24] MEDS: ALBUTEROL SULF 2.5 MG/0.5ML(0.5%) NEB SOLN NEB SCH ×7 (06:00→22:00)
[2022-09-24] MEDS: IPRATROPIUM BROM 0.5 MG/2.5ML INH SOL NEB SCH ×7 (06:00→22:00)
[2022-09-24 09:00] VITALS: BP 110/62
[2022-09-24] MEDS: cefTRIAXone 1GM/50ML D5W 50 ML IV SCH (09:23)
[2022-09-24] MEDS: ASPirin 81 mg TAB PO SCH (09:24)
[2022-09-24] MEDS: DOXYCYCLINE 100 MG TAB/CAP PO SCH (09:24)
[2022-09-24] MEDS: POTASSIUM CHL 20 Meq TABLET PO SCH (09:24)
[2022-09-24] MEDS: METOPROLOL SUCCINATE XL 50 MG TAB PO SCH (09:25)
[2022-09-24] MEDS: METHADONE HCL 10 MG TAB PO SCH (09:26)
[2022-09-24] MEDS: PANTOPRAZOLE 40 MG TAB PO SCH (09:30)
[2022-09-24] MEDS: Pro-Stat SF 30ml Vanilla PO SCH (09:33)
[2022-09-24 13:15] VITALS: BP 109/55
[2022-09-24 17:00] VITALS: BP 106/46
[2022-09-24] MEDS: ALPRAZolam 0.5 MG TAB PO PRN (19:03)
[2022-09-24] MEDS: metroNIDAZOLE 500 MG TAB PO SCH (21:30)
[2022-09-24] MEDS: ACETAMINOPHEN 325 MG TAB PO PRN (21:31)
[2022-09-24 22:00] VITALS: BP 105/55
[2022-09-25 05:00] VITALS: BP 121/64
[2022-09-25] MEDS: metroNIDAZOLE 500 MG TAB PO SCH ×3 (05:50→22:38)
[2022-09-25 06:33] LABS: BUN/Creatinine Ratio 18.5; Calcium 8.1 mg/dL (8.5-10.1); Potassium 4.5 mmol/L (3.5-5.1)
[2022-09-25] MEDS: PROMETHAZINE W/CODEINE 5 ML ORAL SYRUP PO PRN ×3 (06:37→22:40)
[2022-09-25] MEDS: ALPRAZolam 0.5 MG TAB PO PRN ×2 (06:48→16:15)
[2022-09-25] MEDS: IPRATROPIUM BROM 0.5 MG/2.5ML INH SOL NEB SCH ×6 (07:09→22:00)
[2022-09-25] MEDS: ALBUTEROL SULF 2.5 MG/0.5ML(0.5%) NEB SOLN NEB SCH ×5 (07:09→22:00)
[2022-09-25 08:30] VITALS: BP 111/52
[2022-09-25] MEDS ORDERED: PHYTONADIONE(VitK) ORAL Susp 10mg/10ml(1mg/ml) PO ONE (08:30)
[2022-09-25] MEDS ORDERED: PHYTONADIONE (VIT K)10 MG/ML 1ML VIAL SUBCUT ONE (08:30)
[2022-09-25 09:46] LABS: Basophils # (auto) 0 10 ^3/uL (0-0.2); Basophils % (auto) 0.3 % (0.0-2.0); Eosinophils # (auto) 0.1 10 ^3/uL (0-0.8); Lymphocytes # (auto) 1.4 10 ^3/uL (0.4-5.4); Monocytes # (auto) 0.8 10 ^3/uL (0-1.3); Nucleated Red Blood Cells % 0.1 %
[2022-09-25 09:48] LABS: Eosinophils % (auto) 0.9 % (0.0-7.0); Hematocrit 26.9 % (36.0-46.0); Hemoglobin 8.7 g/dL (12.2-16.2); Mean Corpuscular Hemoglobin 27.1 pg (28.0-32.0); Mean Corpuscular Hgb Conc. 32.5 g/dL (32.0-36.0); Mean Corpuscular Volume 83.6 fL (80.0-100.0); Monocytes % (auto) 9.2 % (0.0-12.0); Neutrophils # (auto) 6.4 10 ^3/uL (1.6-8.6); Neutrophils % (auto) 73.6 % (37.0-80.0); Red Blood Cells 3.22 10^6/uL (4.0-5.20); White Blood Cell 8.7 10^3/uL (4.4-10.8)
[2022-09-25 09:59] LABS: INR 1.16 (0.9-1.15)
[2022-09-25] MEDS: METOPROLOL SUCCINATE XL 50 MG TAB PO SCH (10:00)
[2022-09-25 10:09] LABS: Albumin 1.8 g/dL (3.4-5.0); Calcium 8.6 mg/dL (8.5-10.1); Potassium 4.2 mmol/L (3.5-5.1)
[2022-09-25 10:12] LABS: BUN/Creatinine Ratio 15.1; Bilirubin, Total 0.2 mg/dL (0.2-1.0)
[2022-09-25] MEDS: ASPirin 81 mg TAB PO SCH (10:15)
[2022-09-25] MEDS: HYDROcodone-ACET 10/325MG TAB PO PRN ×2 (10:15→22:56)
[2022-09-25] MEDS: POTASSIUM CHL 20 Meq TABLET PO SCH (10:15)
[2022-09-25] MEDS: cefTRIAXone 1GM/50ML D5W 50 ML IV SCH (10:15)
[2022-09-25] MEDS: PANTOPRAZOLE 40 MG TAB PO SCH (10:15)
[2022-09-25] MEDS: METHADONE HCL 10 MG TAB PO SCH (10:16)
[2022-09-25] MEDS: Pro-Stat SF 30ml Vanilla PO SCH (10:16)
[2022-09-25] MEDS ORDERED: ALBUTEROL MEDNEB 2.5 mg/3ml NEB ONE ×3 (10:37→18:04)
[2022-09-25] MEDS: MORPHINE SULFATE 4 MG/ML SYR/VIAL IV PRN (12:35)
[2022-09-25 13:00] VITALS: BP 101/48
[2022-09-25 16:38] VITALS: BP 117/57
[2022-09-25 22:00] VITALS: BP 106/50
[2022-09-26] VITALS (16 sets, daily range): BP systolic 117–162; BP diastolic 56–96
[2022-09-26] MEDS: ALPRAZolam 0.5 MG TAB PO PRN ×2 (01:41→19:58)
[2022-09-26] MEDS ORDERED: ALBUTEROL MEDNEB 2.5 mg/3ml NEB ONE ×2 (06:00→18:29)
[2022-09-26] MEDS: metroNIDAZOLE 500 MG TAB PO SCH ×3 (06:30→21:51)
[2022-09-26] MEDS: PROMETHAZINE W/CODEINE 5 ML ORAL SYRUP PO PRN (06:30)
[2022-09-26] MEDS: ALBUTEROL SULF 2.5 MG/0.5ML(0.5%) NEB SOLN NEB SCH ×4 (06:53→22:00)
[2022-09-26] MEDS: IPRATROPIUM BROM 0.5 MG/2.5ML INH SOL NEB SCH ×4 (06:53→22:00)
[2022-09-26 07:43] LABS: INR 1.18 (0.9-1.15); Partial Thromboplastin Time 25.8 sec (24.6-33.4)
[2022-09-26] MEDS ORDERED: POVIDONE IODINE 10 % TOPICAL OINT 30GM TOP ONE (07:48)
[2022-09-26] MEDS ORDERED: LIDOCAINE W/ EPINEPHRINE 2% INJ 20ML VIAL ONE (08:38)
[2022-09-26] MEDS ORDERED: BUPIVACAINE HCL 0.25% P/F 10 ML VIAL ONE (08:38)
[2022-09-26] MEDS: cefTRIAXone 1GM/50ML D5W 50 ML IV SCH (09:00)
[2022-09-26] MEDS ORDERED: ceFAZolin 1GM/50ML 100 ML IV ONE (09:00)
[2022-09-26] MEDS ORDERED: MIDAZOLAM HCL 2MG/2ML 2ml VIAL (1mg/ml) ONE (09:18)
[2022-09-26] MEDS ORDERED: LIDOCAINE 2% (LOCAL ANESTH.) PF 5ml SDV ONE (09:18)
[2022-09-26] MEDS ORDERED: DexAMETHasone SOD PHOS 10MG/1ML VIAL INJ ONE (09:18)
[2022-09-26] MEDS ORDERED: PROPOFOL 10 MG/ML 20 ML IV ONE (09:18)
[2022-09-26] MEDS ORDERED: fentaNYL CITRATE 100 MCG/2 ML VL ONE (09:18)
[2022-09-26] MEDS ORDERED: GLYCOPYRROLATE 0.2 MG/ML 1ML VIAL ONE (09:18)
[2022-09-26] MEDS ORDERED: ROCURONIUM 10MG/ML 10ML VIAL IV ONE (09:18)
[2022-09-26] MEDS ORDERED: HYDROmorphone HCL 2 MG/ML VL/or syr ONE ×2 (09:18→13:12)
[2022-09-26] MEDS ORDERED: ONDANSETRON HCL 4 MG/2 ML VIAL ONE (09:18)
[2022-09-26] MEDS ORDERED: PHENYLEPHRINE HCL 10 MG/ML VL ONE (09:19)
[2022-09-26] MEDS ORDERED: ePHEDrine SULFATE 50 MG/ML AMP ONE (09:19)
[2022-09-26] MEDS: METOPROLOL SUCCINATE XL 50 MG TAB PO SCH (10:00)
[2022-09-26] MEDS: PANTOPRAZOLE 40 MG TAB PO SCH (10:00)
[2022-09-26] MEDS: Pro-Stat SF 30ml Vanilla PO SCH (10:00)
[2022-09-26] MEDS: POTASSIUM CHL 20 Meq TABLET PO SCH (10:00)
[2022-09-26] MEDS: ASPirin 81 mg TAB PO SCH (10:00)
[2022-09-26] MEDS ORDERED: SUGAMMADEX 200mg/2ml Vial (100MG/ML) IV ONE (11:37)
[2022-09-26] MEDS ORDERED: MEPERIDINE HCL (50 MG/ML) 1 ML VIAL ONE (12:11)
[2022-09-26] MEDS ORDERED: ACCU-CHEK COMFORT CURVE STRIP VI ONE (13:15)
[2022-09-26] MEDS ORDERED: ONDANSETRON HCL 4 MG/2 ML VIAL IV PRN (13:15)
[2022-09-26] MEDS ORDERED: HYDROmorphone HCL 2 MG/ML VL/or syr IV ONE ×4 (13:15→13:45)
[2022-09-26] MEDS ORDERED: HYDROmorphone HCL 2 MG/ML VL/or syr IV PRN (13:15)
[2022-09-26] MEDS: METHADONE HCL 10 MG TAB PO SCH (14:15)
[2022-09-26] MEDS: MORPHINE SULFATE 4 MG/ML SYR/VIAL IV PRN ×2 (17:14→23:23)
[2022-09-26] MEDS: ONDANSETRON HCL 4 MG/2 ML VIAL IV PRN (19:56)
[2022-09-26] MEDS: HYDROcodone-ACET 10/325MG TAB PO PRN (21:09)
[2022-09-26] MEDS: D5W/SOD CHL 0.45%/KCL 20MEQ 1,000 ML IV SCH (21:51)
[2022-09-26] MEDS: CEFTRIAXONE SODIUM 2 GM in D5W 5% 50 ML IV SCH (21:52)
[2022-09-27] VITALS (49 sets, daily range): BP systolic 102–170; BP diastolic 33–94
[2022-09-27] MEDS: D5W/SOD CHL 0.45%/KCL 20MEQ 1,000 ML IV SCH ×2 (01:35→15:59)
[2022-09-27] MEDS: ALPRAZolam 0.5 MG TAB PO PRN ×2 (04:07→19:39)
[2022-09-27] MEDS: MORPHINE SULFATE 4 MG/ML SYR/VIAL IV PRN ×2 (05:04→09:06)
[2022-09-27] MEDS: metroNIDAZOLE 500 MG TAB PO SCH ×3 (05:26→21:39)
[2022-09-27] MEDS: ALBUTEROL SULF 2.5 MG/0.5ML(0.5%) NEB SOLN NEB SCH ×5 (06:00→18:12)
[2022-09-27] MEDS: IPRATROPIUM BROM 0.5 MG/2.5ML INH SOL NEB SCH ×5 (06:00→18:12)
[2022-09-27] MEDS ORDERED: ALBUTEROL MEDNEB 2.5 mg/3ml NEB ONE ×3 (06:07→21:32)
[2022-09-27] MEDS: HYDROcodone-ACET 10/325MG TAB PO PRN (06:28)
[2022-09-27] MEDS ORDERED: HYDROmorphone HCL 2 MG/ML VL/or syr IV ONE (10:00)
[2022-09-27] MEDS: Pro-Stat SF 30ml Vanilla PO SCH (10:00)
[2022-09-27] MEDS: POTASSIUM CHL 20 Meq TABLET PO SCH (10:00)
[2022-09-27] MEDS: ASPirin 81 mg TAB PO SCH (10:00)
[2022-09-27] MEDS: PANTOPRAZOLE 40 MG TAB PO SCH (10:31)
[2022-09-27] MEDS: CEFTRIAXONE SODIUM 2 GM in D5W 5% 50 ML IV SCH (10:31)
[2022-09-27] MEDS: METOPROLOL SUCCINATE XL 50 MG TAB PO SCH (10:33)
[2022-09-27] MEDS: KETOROLAC TROMETH 30 MG/ML 1ML VIAL IV PRN ×2 (11:09→19:44)
[2022-09-27] MEDS: METHADONE HCL 10 MG TAB PO SCH (11:19)
[2022-09-27] MEDS: HYDROmorphone HCL 2 MG/ML VL/or syr IV PRN ×3 (13:43→21:40)
[2022-09-27] MEDS: PROMETHAZINE W/CODEINE 5 ML ORAL SYRUP PO PRN (17:08)
[2022-09-27] MEDS: SODIUM CHLORIDE 0.9% 1,000 ML IV SCH (20:31)
[2022-09-28] VITALS (39 sets, daily range): BP systolic 109–163; BP diastolic 61–96
[2022-09-28] MEDS: HYDROmorphone HCL 2 MG/ML VL/or syr IV PRN ×6 (00:37→19:10)
[2022-09-28] MEDS: KETOROLAC TROMETH 30 MG/ML 1ML VIAL IV PRN ×4 (01:19→21:13)
[2022-09-28] MEDS: ONDANSETRON HCL 4 MG/2 ML VIAL IV PRN ×2 (03:41→11:40)
[2022-09-28] MEDS: PROMETHAZINE W/CODEINE 5 ML ORAL SYRUP PO PRN (04:25)
[2022-09-28] MEDS: metroNIDAZOLE 500 MG TAB PO SCH ×3 (05:37→22:00)
[2022-09-28 05:42] LABS: Basophils # (auto) 0 10 ^3/uL (0-0.2); Eosinophils # (auto) 0 10 ^3/uL (0-0.8); Hemoglobin 11.2 g/dL (12.2-16.2); Lymphocytes # (auto) 1.7 10 ^3/uL (0.4-5.4); Monocytes # (auto) 0.6 10 ^3/uL (0-1.3); Nucleated Red Blood Cells % 0.1 %
[2022-09-28 05:46] LABS: Basophils % (auto) 0.2 % (0.0-2.0); Eosinophils % (auto) 0.4 % (0.0-7.0); Hematocrit 32.8 % (36.0-46.0); Lymphocytes % (auto) 15.2 % (10.0-50.0); Mean Corpuscular Hemoglobin 28.5 pg (28.0-32.0); Mean Corpuscular Volume 83.8 fL (80.0-100.0); Monocytes % (auto) 5.5 % (0.0-12.0); Neutrophils % (auto) 78.7 % (37.0-80.0); Red Blood Cells 3.92 10^6/uL (4.0-5.20); Red Cell Distribution Width 15.7 % (11.8-14.3); White Blood Cell 11.5 10^3/uL (4.4-10.8)
[2022-09-28 05:59] LABS: Potassium 4.5 mmol/L (3.5-5.1)
[2022-09-28 06:02] LABS: Albumin 1.7 g/dL (3.4-5.0); BUN/Creatinine Ratio 23.6; Calcium 8.5 mg/dL (8.5-10.1); Magnesium 2.2 mg/dL (1.6-2.6)
[2022-09-28] MEDS ORDERED: ALBUTEROL MEDNEB 2.5 mg/3ml NEB ONE ×5 (06:06→21:52)
[2022-09-28] MEDS: ALBUTEROL SULF 2.5 MG/0.5ML(0.5%) NEB SOLN NEB SCH ×5 (06:14→22:00)
[2022-09-28] MEDS: IPRATROPIUM BROM 0.5 MG/2.5ML INH SOL NEB SCH ×5 (06:14→22:00)
[2022-09-28 06:17] LABS: Bilirubin, Total 0.2 mg/dL (0.2-1.0); Total Protein 6.6 g/dL (6.4-8.2)
[2022-09-28] MEDS: PANTOPRAZOLE 40 MG TAB PO SCH (09:52)
[2022-09-28] MEDS: CEFTRIAXONE SODIUM 2 GM in D5W 5% 50 ML IV SCH (09:52)
[2022-09-28] MEDS: METOPROLOL SUCCINATE XL 50 MG TAB PO SCH (09:52)
[2022-09-28] MEDS: ASPirin 81 mg TAB PO SCH (09:52)
[2022-09-28] MEDS: Pro-Stat SF 30ml Vanilla PO SCH (10:00)
[2022-09-28] MEDS: METHADONE HCL 10 MG TAB PO SCH (12:23)
[2022-09-28] MEDS: SODIUM CHLORIDE 0.9% 1,000 ML IV SCH (15:45)
[2022-09-28] MEDS: ALPRAZolam 0.5 MG TAB PO PRN (20:54)
[2022-09-29] VITALS (24 sets, daily range): BP systolic 132–162; BP diastolic 59–92
[2022-09-29] MEDS: HYDROmorphone HCL 2 MG/ML VL/or syr IV PRN ×8 (01:49→22:12)
[2022-09-29] MEDS: SODIUM CHLORIDE 0.9% 1,000 ML IV SCH (02:38)
[2022-09-29] MEDS: KETOROLAC TROMETH 30 MG/ML 1ML VIAL IV PRN ×4 (03:13→23:54)
[2022-09-29] MEDS: ALBUTEROL SULF 2.5 MG/0.5ML(0.5%) NEB SOLN NEB SCH ×4 (05:54→18:00)
[2022-09-29] MEDS: IPRATROPIUM BROM 0.5 MG/2.5ML INH SOL NEB SCH ×4 (05:54→18:00)
[2022-09-29] MEDS: metroNIDAZOLE 500 MG TAB PO SCH ×3 (06:23→22:12)
[2022-09-29] MEDS: METHADONE HCL 10 MG TAB PO SCH (10:20)
[2022-09-29] MEDS: METOPROLOL SUCCINATE XL 50 MG TAB PO SCH (10:20)
[2022-09-29] MEDS: ASPirin 81 mg TAB PO SCH (10:20)
[2022-09-29] MEDS: Pro-Stat SF 30ml Vanilla PO SCH (10:21)
[2022-09-29] MEDS: PANTOPRAZOLE 40 MG TAB PO SCH (10:22)
[2022-09-29] MEDS: CEFTRIAXONE SODIUM 2 GM in D5W 5% 50 ML IV SCH (10:23)
[2022-09-29 12:27] LABS: Albumin 1.9 g/dL (3.4-5.0); Anion Gap 6 (5-15); Blood Urea Nitrogen 12 mg/dL (7-18); Carbon Dioxide 24 mmol/L (21-32); Chloride 106 mmol/L (98-107); Glucose 91 mg/dL (74-106); Potassium 4.9 mmol/L (3.5-5.1); Sodium 136 mmol/L (136-145)
[2022-09-29 12:30] LABS: Alanine Aminotransferase 20 U/L (13-56); Alkaline Phosphatase 140 U/L (45-117); Aspartate Aminotransferase 36 U/L (15-37); BUN/Creatinine Ratio 20.3; Bilirubin, Total 0.2 mg/dL (0.2-1.0); GFR African American 143 mL/min; GFR Non-African American 118 mL/min; Total Protein 6.5 g/dL (6.4-8.2)
[2022-09-29] MEDS ORDERED: ALBUTEROL MEDNEB 2.5 mg/3ml NEB ONE (21:53)
[2022-09-30] VITALS (22 sets, daily range): BP systolic 131–162; BP diastolic 65–98
[2022-09-30] MEDS: ALBUTEROL SULF 2.5 MG/0.5ML(0.5%) NEB SOLN NEB SCH ×2 (00:26→05:42)
[2022-09-30] MEDS: IPRATROPIUM BROM 0.5 MG/2.5ML INH SOL NEB SCH ×2 (00:26→05:41)
[2022-09-30] MEDS: HYDROmorphone HCL 2 MG/ML VL/or syr IV PRN ×7 (01:16→17:20)
[2022-09-30] MEDS: SODIUM CHLORIDE 0.9% 1,000 ML IV SCH (02:59)
[2022-09-30 05:33] LABS: Anion Gap 6 (5-15); BUN/Creatinine Ratio 19.4; Blood Urea Nitrogen 12 mg/dL (7-18); Calcium 8.2 mg/dL (8.5-10.1); Carbon Dioxide 26 mmol/L (21-32); Chloride 104 mmol/L (98-107); GFR African American 135 mL/min; GFR Non-African American 112 mL/min; Glucose 93 mg/dL (74-106); Magnesium 1.7 mg/dL (1.6-2.6); Potassium 4.6 mmol/L (3.5-5.1); Sodium 136 mmol/L (136-145)
[2022-09-30] MEDS: KETOROLAC TROMETH 30 MG/ML 1ML VIAL IV PRN ×2 (05:45→19:56)
[2022-09-30] MEDS: metroNIDAZOLE 500 MG TAB PO SCH ×3 (06:05→21:33)
[2022-09-30 07:59] LABS: Hematocrit 32.1 % (36.0-46.0); Hemoglobin 10.5 g/dL (12.2-16.2); Mean Corpuscular Hemoglobin 27.8 pg (28.0-32.0); Mean Corpuscular Hgb Conc. 32.9 g/dL (32.0-36.0); Mean Corpuscular Volume 84.7 fL (80.0-100.0); Red Blood Cells 3.79 10^6/uL (4.0-5.20); Red Cell Distribution Width 15.5 % (11.8-14.3); White Blood Cell 9.2 10^3/uL (4.4-10.8)
[2022-09-30] MEDS ORDERED: hydrALAZINE HCL 20 MG/ML VL IV PRN (08:00)
[2022-09-30 08:07] LABS: Basophils % (manual) 0 (0.0-2.0); Blast Cells 0; Myelocytes % 0; Promyelocytes % 0; Reactive Lymphocytes 0
[2022-09-30] MEDS: Pro-Stat SF 30ml Vanilla PO SCH (09:21)
[2022-09-30] MEDS: ASPirin 81 mg TAB PO SCH (09:43)
[2022-09-30] MEDS: PANTOPRAZOLE 40 MG TAB PO SCH (09:43)
[2022-09-30] MEDS: METOPROLOL SUCCINATE XL 50 MG TAB PO SCH (09:43)
[2022-09-30] MEDS: CEFTRIAXONE SODIUM 2 GM in D5W 5% 50 ML IV SCH (09:43)
[2022-09-30] MEDS: METHADONE HCL 10 MG TAB PO SCH (10:02)
[2022-09-30 10:36] LABS: Band Neutrophils % (manual) 7; Eosinophils % (manual) 1 (0-7); Lymphocytes % (manual) 16 (10.0-50.0); Metamyelocytes % 1; Monocytes % (manual) 4 (0-12)
[2022-09-30] MEDS: ALPRAZolam 0.5 MG TAB PO PRN ×2 (11:07→19:57)
[2022-09-30] MEDS: CYCLOBENZAPRINE HCL 10 MG TAB PO PRN (11:07)
[2022-09-30] MEDS: Ensure HIGH Protein Chocolate 8oz Bottle PO SCH (14:00)
[2022-10-01] VITALS (19 sets, daily range): BP systolic 115–146; BP diastolic 55–87
[2022-10-01] MEDS: SODIUM CHLORIDE 0.9% 1,000 ML IV SCH (02:19)
[2022-10-01] MEDS: KETOROLAC TROMETH 30 MG/ML 1ML VIAL IV PRN ×3 (03:04→21:49)
[2022-10-01] MEDS: HYDROmorphone HCL 2 MG/ML VL/or syr IV PRN ×4 (06:07→18:49)
[2022-10-01] MEDS: metroNIDAZOLE 500 MG TAB PO SCH ×3 (06:07→21:49)
[2022-10-01] MEDS: Ensure HIGH Protein Chocolate 8oz Bottle PO SCH ×2 (08:44→18:39)
[2022-10-01] MEDS: CEFTRIAXONE SODIUM 2 GM in D5W 5% 50 ML IV SCH (10:20)
[2022-10-01] MEDS: PANTOPRAZOLE 40 MG TAB PO SCH (10:20)
[2022-10-01] MEDS: ASPirin 81 mg TAB PO SCH (10:20)
[2022-10-01] MEDS: METOPROLOL SUCCINATE XL 50 MG TAB PO SCH (10:21)
[2022-10-01] MEDS: METHADONE HCL 10 MG TAB PO SCH (10:22)
[2022-10-01] MEDS: Pro-Stat SF 30ml Vanilla PO SCH (10:22)
[2022-10-01] MEDS: ALPRAZolam 0.5 MG TAB PO PRN (20:06)
[2022-10-02] MEDS: SODIUM CHLORIDE 0.9% 1,000 ML IV SCH ×2 (02:03→23:40)
[2022-10-02] MEDS: HYDROmorphone HCL 2 MG/ML VL/or syr IV PRN ×4 (02:03→18:45)
[2022-10-02] MEDS: KETOROLAC TROMETH 30 MG/ML 1ML VIAL IV PRN ×2 (04:01→14:45)
[2022-10-02 05:00] VITALS: BP 126/74
[2022-10-02] MEDS: metroNIDAZOLE 500 MG TAB PO SCH ×2 (06:11→12:31)
[2022-10-02] MEDS: Ensure HIGH Protein Chocolate 8oz Bottle PO SCH ×2 (08:00→18:01)
[2022-10-02 08:26] VITALS: BP 138/87
[2022-10-02] MEDS: METOPROLOL SUCCINATE XL 50 MG TAB PO SCH (10:28)
[2022-10-02] MEDS: ASPirin 81 mg TAB PO SCH (10:28)
[2022-10-02] MEDS: PANTOPRAZOLE 40 MG TAB PO SCH (10:28)
[2022-10-02] MEDS: METHADONE HCL 10 MG TAB PO SCH (11:29)
[2022-10-02] MEDS: Pro-Stat SF 30ml Vanilla PO SCH (11:30)
[2022-10-02] MEDS: CEFTRIAXONE SODIUM 2 GM in D5W 5% 50 ML IV SCH (12:31)
[2022-10-02] MEDS: MORPHINE SULF 15mg ER tab PO SCH ×2 (12:47→22:44)
[2022-10-02 12:59] VITALS: BP 145/79
[2022-10-02 16:33] VITALS: BP 117/62
[2022-10-02] MEDS: ALPRAZolam 0.5 MG TAB PO PRN (21:56)
[2022-10-02 22:00] VITALS: BP 159/79
[2022-10-03] MEDS: KETOROLAC TROMETH 30 MG/ML 1ML VIAL IV PRN ×2 (04:44→14:09)
[2022-10-03 05:00] VITALS: BP 131/77
[2022-10-03 06:43] LABS: Hematocrit 35.1 % (36.0-46.0); Hemoglobin 11.8 g/dL (12.2-16.2); Mean Corpuscular Hemoglobin 28.2 pg (28.0-32.0); Mean Corpuscular Hgb Conc. 33.7 g/dL (32.0-36.0); Mean Corpuscular Volume 83.6 fL (80.0-100.0); Red Cell Distribution Width 16.7 % (11.8-14.3); White Blood Cell 7.5 10^3/uL (4.4-10.8)
[2022-10-03 06:49] LABS: Basophils % (manual) 0 (0.0-2.0); Blast Cells 0; Myelocytes % 0; Reactive Lymphocytes 0
[2022-10-03 07:22] LABS: BUN/Creatinine Ratio 26.2; Calcium 8.6 mg/dL (8.5-10.1); Magnesium 1.9 mg/dL (1.6-2.6); Potassium 4.1 mmol/L (3.5-5.1)
[2022-10-03 08:40] LABS: Band Neutrophils % (manual) 3; Eosinophils % (manual) 1 (0-7); Lymphocytes % (manual) 16 (10.0-50.0); Metamyelocytes % 1; Monocytes % (manual) 8 (0-12); Promyelocytes % 1
[2022-10-03] MEDS: Ensure HIGH Protein Chocolate 8oz Bottle PO SCH ×2 (08:51→18:45)
[2022-10-03 09:24] VITALS: BP 156/83
[2022-10-03] MEDS: HYDROmorphone HCL 2 MG/ML VL/or syr IV PRN ×2 (10:10→19:46)
[2022-10-03] MEDS: ASPirin 81 mg TAB PO SCH (10:36)
[2022-10-03] MEDS: PANTOPRAZOLE 40 MG TAB PO SCH (10:36)
[2022-10-03] MEDS: CEFTRIAXONE SODIUM 2 GM in D5W 5% 100 ML IV SCH (10:36)
[2022-10-03] MEDS: METOPROLOL SUCCINATE XL 50 MG TAB PO SCH (10:37)
[2022-10-03] MEDS: MORPHINE SULF 15mg ER tab PO SCH ×2 (10:37→21:43)
[2022-10-03] MEDS: Pro-Stat SF 30ml Vanilla PO SCH (10:39)
[2022-10-03] MEDS: METHADONE HCL 10 MG TAB PO SCH (12:00)
[2022-10-03] MEDS ORDERED: SENNA 8.6 MG TAB PO ONE (12:15)
[2022-10-03 12:35] VITALS: BP 146/80
[2022-10-03] MEDS: SODIUM CHLORIDE 0.9% 1,000 ML IV SCH (15:59)
[2022-10-03 16:59] VITALS: BP 126/73
[2022-10-03] MEDS: ALPRAZolam 0.5 MG TAB PO PRN (18:46)
[2022-10-03 22:00] VITALS: BP 133/77
[2022-10-04] MEDS: HYDROmorphone HCL 2 MG/ML VL/or syr IV PRN ×3 (01:07→14:35)
[2022-10-04] MEDS: KETOROLAC TROMETH 30 MG/ML 1ML VIAL IV PRN ×2 (04:08→18:31)
[2022-10-04 05:00] VITALS: BP 130/76
[2022-10-04] MEDS: SODIUM CHLORIDE 0.9% 1,000 ML IV SCH (07:00)
[2022-10-04 09:00] VITALS: BP 148/71
[2022-10-04] MEDS: ALPRAZolam 0.5 MG TAB PO PRN ×2 (09:06→18:24)
[2022-10-04] MEDS: Ensure HIGH Protein Chocolate 8oz Bottle PO SCH ×2 (09:10→17:39)
[2022-10-04] MEDS: PANTOPRAZOLE 40 MG TAB PO SCH (10:10)
[2022-10-04] MEDS: MORPHINE SULF 15mg ER tab PO SCH ×2 (10:10→21:17)
[2022-10-04] MEDS: ASPirin 81 mg TAB PO SCH (10:10)
[2022-10-04] MEDS: CEFTRIAXONE SODIUM 2 GM in D5W 5% 100 ML IV SCH (10:11)
[2022-10-04] MEDS: METOPROLOL SUCCINATE XL 50 MG TAB PO SCH (10:11)
[2022-10-04] MEDS: METHADONE HCL 10 MG TAB PO SCH (11:08)
[2022-10-04] MEDS: Pro-Stat SF 30ml Vanilla PO SCH (11:11)
[2022-10-04] MEDS: DOCUSATE SOD 100 MG CAP PO PRN ×2 (12:47→21:17)
[2022-10-04 13:00] VITALS: BP 138/73
[2022-10-04 17:00] VITALS: BP 146/83
[2022-10-04 22:00] VITALS: BP 136/74
[2022-10-05] MEDS: HYDROmorphone HCL 2 MG/ML VL/or syr IV PRN ×4 (01:34→22:44)
[2022-10-05 05:00] VITALS: BP 150/80
[2022-10-05] MEDS: ALPRAZolam 0.5 MG TAB PO PRN ×2 (05:51→18:17)
[2022-10-05] MEDS: KETOROLAC TROMETH 30 MG/ML 1ML VIAL IV PRN ×2 (05:51→15:24)
[2022-10-05] MEDS: SODIUM CHLORIDE 0.9% 1,000 ML IV SCH (07:43)
[2022-10-05] MEDS: Ensure HIGH Protein Chocolate 8oz Bottle PO SCH ×2 (08:00→18:27)
[2022-10-05 09:00] VITALS: BP 128/78
[2022-10-05] MEDS: PANTOPRAZOLE 40 MG TAB PO SCH (09:05)
[2022-10-05] MEDS: DOCUSATE SOD 100 MG CAP PO PRN ×2 (09:05→21:34)
[2022-10-05] MEDS: ASPirin 81 mg TAB PO SCH (09:05)
[2022-10-05] MEDS: CEFTRIAXONE SODIUM 2 GM in D5W 5% 100 ML IV SCH (09:05)
[2022-10-05] MEDS: METOPROLOL SUCCINATE XL 50 MG TAB PO SCH (09:06)
[2022-10-05] MEDS: MORPHINE SULF 15mg ER tab PO SCH ×2 (09:07→21:34)
[2022-10-05] MEDS: METHADONE HCL 10 MG TAB PO SCH (09:09)
[2022-10-05] MEDS: Pro-Stat SF 30ml Vanilla PO SCH (10:00)
[2022-10-05 12:34] VITALS: BP 132/70
[2022-10-05 16:30] VITALS: BP 143/82
[2022-10-05 22:00] VITALS: BP 144/90
[2022-10-06] MEDS: KETOROLAC TROMETH 30 MG/ML 1ML VIAL IV PRN ×2 (02:01→08:22)
[2022-10-06 05:00] VITALS: BP 146/75
[2022-10-06] MEDS: SODIUM CHLORIDE 0.9% 1,000 ML IV SCH (05:11)
[2022-10-06] MEDS: HYDROmorphone HCL 2 MG/ML VL/or syr IV PRN ×5 (05:32→19:07)
[2022-10-06] MEDS: ALPRAZolam 0.5 MG TAB PO PRN ×2 (06:46→18:08)
[2022-10-06] MEDS: ASPirin 81 mg TAB PO SCH (08:08)
[2022-10-06] MEDS: METOPROLOL SUCCINATE XL 50 MG TAB PO SCH (08:17)
[2022-10-06] MEDS: CEFTRIAXONE SODIUM 2 GM in D5W 5% 100 ML IV SCH (08:19)
[2022-10-06 09:06] VITALS: BP 155/79
[2022-10-06] MEDS: DOCUSATE SOD 100 MG CAP PO PRN (09:47)
[2022-10-06] MEDS: Pro-Stat SF 30ml Vanilla PO SCH (10:00)
[2022-10-06] MEDS: PANTOPRAZOLE 40 MG TAB PO SCH (10:00)
[2022-10-06] MEDS: MORPHINE SULF 15mg ER tab PO SCH ×2 (11:05→21:33)
[2022-10-06] MEDS: METHADONE HCL 10 MG TAB PO SCH (11:05)
[2022-10-06 12:47] VITALS: BP 139/77
[2022-10-06] MEDS: Ensure HIGH Protein Chocolate 8oz Bottle PO SCH ×2 (14:14→19:36)
[2022-10-06 16:16] VITALS: BP 148/89
[2022-10-06 22:00] VITALS: BP 148/84
[2022-10-07] MEDS: HYDROmorphone HCL 2 MG/ML VL/or syr IV PRN ×6 (00:08→21:37)
[2022-10-07] MEDS: KETOROLAC TROMETH 30 MG/ML 1ML VIAL IV PRN (03:12)
[2022-10-07 05:00] VITALS: BP 136/74
[2022-10-07] MEDS: SODIUM CHLORIDE 0.9% 1,000 ML IV SCH ×2 (06:30→10:56)
[2022-10-07 09:00] VITALS: BP 147/80
[2022-10-07] MEDS: ALPRAZolam 0.5 MG TAB PO PRN ×2 (10:14→20:25)
[2022-10-07] MEDS: Ensure HIGH Protein Chocolate 8oz Bottle PO SCH ×2 (10:55→19:28)
[2022-10-07] MEDS: MORPHINE SULF 15mg ER tab PO SCH ×2 (10:55→21:10)
[2022-10-07] MEDS: CEFTRIAXONE SODIUM 2 GM in D5W 5% 100 ML IV SCH (10:55)
[2022-10-07] MEDS: ASPirin 81 mg TAB PO SCH (10:55)
[2022-10-07] MEDS: METHADONE HCL 10 MG TAB PO SCH (10:56)
[2022-10-07] MEDS: Pro-Stat SF 30ml Vanilla PO SCH (10:56)
[2022-10-07] MEDS: METOPROLOL SUCCINATE XL 50 MG TAB PO SCH (10:57)
[2022-10-07 13:00] VITALS: BP 154/85
[2022-10-07 16:58] VITALS: BP 146/78
[2022-10-07] MEDS: PANTOPRAZOLE 40 MG TAB PO SCH (19:28)
[2022-10-07] MEDS: CYCLOBENZAPRINE HCL 10 MG TAB PO PRN (20:25)
[2022-10-07 22:00] VITALS: BP 164/90
[2022-10-08] MEDS: HYDROmorphone HCL 2 MG/ML VL/or syr IV PRN ×5 (00:45→14:18)
[2022-10-08 05:00] VITALS: BP 150/88
[2022-10-08] MEDS: CYCLOBENZAPRINE HCL 10 MG TAB PO PRN (05:55)
[2022-10-08 06:04] LABS: Hematocrit 38.2 % (36.0-46.0); Hemoglobin 12.6 g/dL (12.2-16.2); Mean Corpuscular Hemoglobin 27.3 pg (28.0-32.0); Mean Corpuscular Volume 82.7 fL (80.0-100.0); Red Blood Cells 4.62 10^6/uL (4.0-5.20); Red Cell Distribution Width 16.9 % (11.8-14.3); White Blood Cell 12.1 10^3/uL (4.4-10.8)
[2022-10-08 06:05] LABS: Alanine Aminotransferase 31 U/L (13-56); Albumin 2.3 g/dL (3.4-5.0); Anion Gap 9 (5-15); Aspartate Aminotransferase 33 U/L (15-37); BUN/Creatinine Ratio 19.6; Blood Urea Nitrogen 10 mg/dL (7-18); Calcium 8.9 mg/dL (8.5-10.1); Carbon Dioxide 24 mmol/L (21-32); Chloride 104 mmol/L (98-107); GFR African American 169 mL/min; GFR Non-African American 140 mL/min; Glucose 89 mg/dL (74-106); Magnesium 1.9 mg/dL (1.6-2.6); Potassium 4.2 mmol/L (3.5-5.1); Sodium 137 mmol/L (136-145)
[2022-10-08 06:08] LABS: Alkaline Phosphatase 130 U/L (45-117); Bilirubin, Total 0.3 mg/dL (0.2-1.0); Total Protein 7.5 g/dL (6.4-8.2)
[2022-10-08 07:18] LABS: Basophils % (manual) 0 (0.0-2.0); Blast Cells 0; Metamyelocytes % 0; Myelocytes % 0; Promyelocytes % 0; Reactive Lymphocytes 0
[2022-10-08 07:39] LABS: Band Neutrophils % (manual) 4; Eosinophils % (manual) 1 (0-7); Lymphocytes % (manual) 54 (10.0-50.0); Monocytes % (manual) 7 (0-12)
[2022-10-08] MEDS: PANTOPRAZOLE 40 MG TAB PO SCH (08:20)
[2022-10-08] MEDS: ASPirin 81 mg TAB PO SCH (08:20)
[2022-10-08] MEDS: ALPRAZolam 0.5 MG TAB PO PRN ×2 (08:20→21:02)
[2022-10-08] MEDS: MORPHINE SULF 15mg ER tab PO SCH ×2 (08:20→21:23)
[2022-10-08] MEDS: DOCUSATE SOD 100 MG CAP PO PRN (08:20)
[2022-10-08] MEDS: METOPROLOL SUCCINATE XL 50 MG TAB PO SCH (08:21)
[2022-10-08] MEDS: Ensure HIGH Protein Chocolate 8oz Bottle PO SCH ×2 (08:21→18:28)
[2022-10-08] MEDS: Pro-Stat SF 30ml Vanilla PO SCH (08:22)
[2022-10-08 09:00] VITALS: BP 142/83
[2022-10-08] MEDS: CEFTRIAXONE SODIUM 2 GM in D5W 5% 100 ML IV SCH (10:38)
[2022-10-08] MEDS: METHADONE HCL 10 MG TAB PO SCH (11:37)
[2022-10-08 13:00] VITALS: BP 138/74
[2022-10-08 17:00] VITALS: BP 135/74
[2022-10-08] MEDS ORDERED: MORPHINE SULFATE 10 MG/5 ML ORAL SOLN PO PRN (17:30)
[2022-10-08] MEDS: MORPHINE SULFATE 10 MG/5 ML ORAL SOLN PO PRN (18:47)
[2022-10-08 22:00] VITALS: BP 135/73
[2022-10-09] MEDS: MORPHINE SULFATE 10 MG/5 ML ORAL SOLN PO PRN ×3 (02:28→15:20)
[2022-10-09] MEDS: CYCLOBENZAPRINE HCL 10 MG TAB PO PRN (04:54)
[2022-10-09 05:00] VITALS: BP 133/81
[2022-10-09 06:46] LABS: Basophils # (auto) 0 10 ^3/uL (0-0.2); Basophils % (auto) 0.7 % (0.0-2.0); Eosinophils # (auto) 0.2 10 ^3/uL (0-0.8); Eosinophils % (auto) 2.7 % (0.0-7.0); Hematocrit 35.2 % (36.0-46.0); Lymphocytes # (auto) 1.8 10 ^3/uL (0.4-5.4); Mean Corpuscular Hemoglobin 28.1 pg (28.0-32.0); Mean Corpuscular Volume 82.6 fL (80.0-100.0); Monocytes # (auto) 0.5 10 ^3/uL (0-1.3); Neutrophils # (auto) 3.7 10 ^3/uL (1.6-8.6); Neutrophils % (auto) 59.6 % (37.0-80.0); Nucleated Red Blood Cells % 0.1 %; Red Blood Cells 4.27 10^6/uL (4.0-5.20); White Blood Cell 6.1 10^3/uL (4.4-10.8)
[2022-10-09] MEDS: Ensure HIGH Protein Chocolate 8oz Bottle PO SCH ×2 (08:38→17:59)
[2022-10-09 08:52] LABS: Albumin 2.3 g/dL (3.4-5.0); BUN/Creatinine Ratio 32.1; Bilirubin, Total 0.2 mg/dL (0.2-1.0); Calcium 8.9 mg/dL (8.5-10.1); Potassium 4.2 mmol/L (3.5-5.1); Total Protein 7.4 g/dL (6.4-8.2)
[2022-10-09 09:00] VITALS: BP 144/75
[2022-10-09] MEDS: ALPRAZolam 0.5 MG TAB PO PRN ×2 (09:02→19:04)
[2022-10-09] MEDS: METHADONE HCL 10 MG TAB PO SCH (10:44)
[2022-10-09] MEDS: PANTOPRAZOLE 40 MG TAB PO SCH (10:45)
[2022-10-09] MEDS: MORPHINE SULF 15mg ER tab PO SCH ×2 (10:45→21:26)
[2022-10-09] MEDS: CEFTRIAXONE SODIUM 2 GM in D5W 5% 100 ML IV SCH (10:45)
[2022-10-09] MEDS: ASPirin 81 mg TAB PO SCH (10:45)
[2022-10-09] MEDS: METOPROLOL SUCCINATE XL 50 MG TAB PO SCH (10:46)
[2022-10-09] MEDS: Pro-Stat SF 30ml Vanilla PO SCH (10:46)
[2022-10-09 13:00] VITALS: BP 122/70
[2022-10-09] MEDS ORDERED: FLUCONAZOLE 100 MG TAB PO ONE (15:30)
[2022-10-09 16:41] VITALS: BP 118/65
[2022-10-09] MEDS ORDERED: LACTULOSE 20Gm/30ML SOLN PO PRN (17:45)
[2022-10-09 22:00] VITALS: BP 129/70
[2022-10-10] MEDS: MORPHINE SULFATE 10 MG/5 ML ORAL SOLN PO PRN ×3 (00:39→17:47)
[2022-10-10 05:00] VITALS: BP 130/69
[2022-10-10] MEDS: ALPRAZolam 0.5 MG TAB PO PRN ×2 (06:54→19:57)
[2022-10-10 09:00] VITALS: BP 134/75
[2022-10-10] MEDS: ASPirin 81 mg TAB PO SCH (09:22)
[2022-10-10] MEDS: METHADONE HCL 10 MG TAB PO SCH (09:23)
[2022-10-10] MEDS: MORPHINE SULF 15mg ER tab PO SCH ×2 (09:23→21:03)
[2022-10-10] MEDS: Pro-Stat SF 30ml Vanilla PO SCH (09:24)
[2022-10-10] MEDS: PANTOPRAZOLE 40 MG TAB PO SCH (09:24)
[2022-10-10] MEDS: METOPROLOL SUCCINATE XL 50 MG TAB PO SCH (09:24)
[2022-10-10] MEDS: Ensure HIGH Protein Chocolate 8oz Bottle PO SCH ×2 (09:25→18:32)
[2022-10-10] MEDS: CEFTRIAXONE SODIUM 2 GM in D5W 5% 100 ML IV SCH (09:25)
[2022-10-10] MEDS ORDERED: FLUCONAZOLE 100 MG TAB PO ONE (09:30)
[2022-10-10 12:29] VITALS: BP 124/67
[2022-10-10 17:00] VITALS: BP 110/54
[2022-10-10 22:00] VITALS: BP 109/53
[2022-10-11] MEDS: KETOROLAC TROMETH 30 MG/ML 1ML VIAL IV PRN ×2 (01:12→20:51)
[2022-10-11 05:00] VITALS: BP 125/73
[2022-10-11] MEDS: MORPHINE SULFATE 10 MG/5 ML ORAL SOLN PO PRN ×2 (05:56→15:31)
[2022-10-11 09:45] VITALS: BP 135/77
[2022-10-11] MEDS: CEFTRIAXONE SODIUM 2 GM in D5W 5% 100 ML IV SCH (10:47)
[2022-10-11] MEDS: ASPirin 81 mg TAB PO SCH (10:48)
[2022-10-11] MEDS: METHADONE HCL 10 MG TAB PO SCH (10:50)
[2022-10-11] MEDS: ALPRAZolam 0.5 MG TAB PO PRN ×2 (10:50→17:54)
[2022-10-11] MEDS: Ensure HIGH Protein Chocolate 8oz Bottle PO SCH ×2 (10:51→18:49)
[2022-10-11] MEDS: Pro-Stat SF 30ml Vanilla PO SCH (10:51)
[2022-10-11] MEDS: PANTOPRAZOLE 40 MG TAB PO SCH (10:51)
[2022-10-11] MEDS: MORPHINE SULF 15mg ER tab PO SCH ×2 (10:51→22:47)
[2022-10-11] MEDS: METOPROLOL SUCCINATE XL 50 MG TAB PO SCH (10:52)
[2022-10-11 13:13] VITALS: BP 135/74
[2022-10-11 16:13] VITALS: BP 132/72
[2022-10-11] MEDS: CYCLOBENZAPRINE HCL 10 MG TAB PO PRN (17:54)
[2022-10-11 21:51] VITALS: BP 123/66
[2022-10-12] MEDS: MORPHINE SULFATE 10 MG/5 ML ORAL SOLN PO PRN ×2 (04:42→15:38)
[2022-10-12 05:00] VITALS: BP 118/73
[2022-10-12 06:11] LABS: Basophils # (auto) 0 10 ^3/uL (0-0.2); Basophils % (auto) 0.1 % (0.0-2.0); Eosinophils # (auto) 0.3 10 ^3/uL (0-0.8); Eosinophils % (auto) 5.2 % (0.0-7.0); Hematocrit 34.1 % (36.0-46.0); Hemoglobin 11.1 g/dL (12.2-16.2); Lymphocytes # (auto) 2.3 10 ^3/uL (0.4-5.4); Mean Corpuscular Hemoglobin 27.6 pg (28.0-32.0); Mean Corpuscular Hgb Conc. 32.6 g/dL (32.0-36.0); Mean Corpuscular Volume 84.7 fL (80.0-100.0); Monocytes # (auto) 0.7 10 ^3/uL (0-1.3); Monocytes % (auto) 12.2 % (0.0-12.0); Neutrophils # (auto) 2.2 10 ^3/uL (1.6-8.6); Neutrophils % (auto) 40.5 % (37.0-80.0); Nucleated Red Blood Cells % 0.4 %; Red Blood Cells 4.03 10^6/uL (4.0-5.20); Red Cell Distribution Width 17.3 % (11.8-14.3); White Blood Cell 5.4 10^3/uL (4.4-10.8)
[2022-10-12 06:33] LABS: Potassium 4.7 mmol/L (3.5-5.1)
[2022-10-12] MEDS: CYCLOBENZAPRINE HCL 10 MG TAB PO PRN ×2 (07:56→17:07)
[2022-10-12] MEDS: ALPRAZolam 0.5 MG TAB PO PRN ×2 (07:56→18:55)
[2022-10-12] MEDS: Pro-Stat SF 30ml Vanilla PO SCH (08:15)
[2022-10-12] MEDS: Ensure HIGH Protein Chocolate 8oz Bottle PO SCH ×2 (08:15→17:42)
[2022-10-12 09:00] VITALS: BP 123/68
[2022-10-12] MEDS: ASPirin 81 mg TAB PO SCH (09:29)
[2022-10-12] MEDS: MORPHINE SULF 15mg ER tab PO SCH ×2 (09:29→22:17)
[2022-10-12] MEDS: PANTOPRAZOLE 40 MG TAB PO SCH (09:29)
[2022-10-12] MEDS: METOPROLOL SUCCINATE XL 50 MG TAB PO SCH (09:31)
[2022-10-12] MEDS: METHADONE HCL 10 MG TAB PO SCH (09:32)
[2022-10-12] MEDS: CEFTRIAXONE SODIUM 2 GM in D5W 5% 100 ML IV SCH (09:32)
[2022-10-12 13:00] VITALS: BP 115/62
[2022-10-12 17:00] VITALS: BP 124/74
[2022-10-12 21:41] VITALS: BP 115/58
[2022-10-13] MEDS: KETOROLAC TROMETH 30 MG/ML 1ML VIAL IV PRN ×2 (00:31→23:40)
[2022-10-13 04:34] VITALS: BP 139/78
[2022-10-13] MEDS: MORPHINE SULFATE 10 MG/5 ML ORAL SOLN PO PRN ×3 (06:24→20:36)
[2022-10-13 09:00] VITALS: BP 134/66
[2022-10-13] MEDS: Ensure HIGH Protein Chocolate 8oz Bottle PO SCH ×2 (10:13→18:35)
[2022-10-13] MEDS: ASPirin 81 mg TAB PO SCH (10:23)
[2022-10-13] MEDS: PANTOPRAZOLE 40 MG TAB PO SCH (10:23)
[2022-10-13] MEDS: CEFTRIAXONE SODIUM 2 GM in D5W 5% 100 ML IV SCH (10:23)
[2022-10-13] MEDS: MORPHINE SULF 15mg ER tab PO SCH (10:24)
[2022-10-13] MEDS: METOPROLOL SUCCINATE XL 50 MG TAB PO SCH (10:24)
[2022-10-13] MEDS: METHADONE HCL 10 MG TAB PO SCH (10:25)
[2022-10-13] MEDS: Pro-Stat SF 30ml Vanilla PO SCH (11:50)
[2022-10-13 12:52] VITALS: BP 149/79
[2022-10-13 17:00] VITALS: BP 134/83
[2022-10-13] MEDS: ALPRAZolam 0.5 MG TAB PO PRN (21:20)
[2022-10-13 22:16] VITALS: BP 134/81
[2022-10-14] MEDS: ACETAMINOPHEN 325 MG TAB PO PRN (04:44)
[2022-10-14 04:46] VITALS: BP 138/79
[2022-10-14] MEDS: ALPRAZolam 0.5 MG TAB PO PRN ×2 (06:12→14:36)
[2022-10-14] MEDS: Ensure HIGH Protein Chocolate 8oz Bottle PO SCH ×2 (08:00→17:54)
[2022-10-14 09:00] VITALS: BP 142/91
[2022-10-14] MEDS: METOPROLOL SUCCINATE XL 50 MG TAB PO SCH (09:01)
[2022-10-14] MEDS: METHADONE HCL 10 MG TAB PO SCH (09:02)
[2022-10-14] MEDS: PANTOPRAZOLE 40 MG TAB PO SCH (09:02)
[2022-10-14] MEDS: ASPirin 81 mg TAB PO SCH (09:03)
[2022-10-14] MEDS: MORPHINE SULFATE 10 MG/5 ML ORAL SOLN PO PRN ×4 (09:03→22:43)
[2022-10-14] MEDS: Pro-Stat SF 30ml Vanilla PO SCH (09:27)
[2022-10-14] MEDS: CEFTRIAXONE SODIUM 2 GM in D5W 5% 100 ML IV SCH (10:10)
[2022-10-14 13:00] VITALS: BP 121/77
[2022-10-14] MEDS: CYCLOBENZAPRINE HCL 10 MG TAB PO PRN ×2 (13:04→21:26)
[2022-10-14 17:06] VITALS: BP 128/73
[2022-10-14] MEDS: KETOROLAC TROMETH 30 MG/ML 1ML VIAL IV PRN (19:30)
[2022-10-14 22:42] VITALS: BP 115/58
[2022-10-15] MEDS: ACETAMINOPHEN 325 MG TAB PO PRN (04:02)
[2022-10-15 05:00] VITALS: BP 144/77
[2022-10-15] MEDS: ALPRAZolam 0.5 MG TAB PO PRN (06:32)
[2022-10-15] MEDS: CEFTRIAXONE SODIUM 2 GM in D5W 5% 100 ML IV SCH (08:36)
[2022-10-15] MEDS: PANTOPRAZOLE 40 MG TAB PO SCH (08:37)
[2022-10-15] MEDS: METOPROLOL SUCCINATE XL 50 MG TAB PO SCH (08:37)
[2022-10-15] MEDS: ASPirin 81 mg TAB PO SCH (08:37)
[2022-10-15] MEDS: Ensure HIGH Protein Chocolate 8oz Bottle PO SCH ×2 (08:38→17:50)
[2022-10-15] MEDS: METHADONE HCL 10 MG TAB PO SCH (08:38)
[2022-10-15 09:00] VITALS: BP 137/78
[2022-10-15] MEDS: Pro-Stat SF 30ml Vanilla PO SCH (09:53)
[2022-10-15] MEDS: MORPHINE SULFATE 10 MG/5 ML ORAL SOLN PO PRN ×2 (12:53→18:32)
[2022-10-15 13:00] VITALS: BP 167/84
[2022-10-15] MEDS: CYCLOBENZAPRINE HCL 10 MG TAB PO PRN (15:30)
[2022-10-15 16:44] VITALS: BP 154/83
[2022-10-15] MEDS ORDERED: ALPRAZolam 0.5 MG TAB PO PRN (20:15)
[2022-10-15 22:00] VITALS: BP 141/79
[2022-10-16] MEDS: MORPHINE SULFATE 10 MG/5 ML ORAL SOLN PO PRN ×3 (02:08→14:18)
[2022-10-16 05:00] VITALS: BP 150/89
[2022-10-16 08:00] VITALS: BP 135/94
[2022-10-16] MEDS: Ensure HIGH Protein Chocolate 8oz Bottle PO SCH (08:06)
[2022-10-16] MEDS: ASPirin 81 mg TAB PO SCH (09:33)
[2022-10-16] MEDS: CEFTRIAXONE SODIUM 2 GM in D5W 5% 100 ML IV SCH (09:33)
[2022-10-16] MEDS: PANTOPRAZOLE 40 MG TAB PO SCH (09:33)
[2022-10-16] MEDS: METHADONE HCL 10 MG TAB PO SCH (09:33)
[2022-10-16] MEDS: Pro-Stat SF 30ml Vanilla PO SCH (09:34)
[2022-10-16 12:00] VITALS: BP 145/83
[2022-10-16] MEDS ORDERED: LEVO500T31 PO (12:08)
[2022-10-16] MEDS ORDERED: ALPR0.25 PO (12:08)
[2022-10-16] MEDS ORDERED: ASPI-325 PO (12:08)
[2022-10-16] MEDS ORDERED: CLIN-203 PO (12:08)
[2022-10-16] MEDS ORDERED: MORP1TAB12 PO (12:08)
== END 2022-10-16 15:20 | disposition home or self-care (01) | DRG 710 ==
LOC: ER 14:30 → TELE 18:09 → TELE-EAST 09-09 09:50 → DOU IN ICU 09-26 16:30 → ICU CENTRL 09-28 22:41 → DOU IN ICU 10-01 02:33 → TELE-CENTR 10-01 17:54
PROVIDERS: ADMIT Internal Medicine; ATTEND Nurse Practitioner
PROC: 0W9B3ZZ Drainage of Left Pleural Cavity, Percutaneous Approach (ICD-10-PCS; principal; 2022-09-17)
PROC: 0BJ08ZZ Inspection of Tracheobronchial Tree, Via Natural or Artificial Opening Endoscopic (ICD-10-PCS; 2022-09-23)
PROC: 0BCJ0ZZ Extirpation of Matter from Left Lower Lung Lobe, Open Approach (ICD-10-PCS; 2022-09-26)
PROC: 30233N1 Transfusion of Nonautologous Red Blood Cells into Peripheral Vein, Percutaneous Approach (ICD-10-PCS; 2022-09-26)
PROC: 05HB33Z Insertion of Infusion Device into Right Basilic Vein, Percutaneous Approach (ICD-10-PCS; 2022-09-29)
DX: A41.9 Sepsis, unspecified organism (principal); J96.01 Acute respiratory failure with hypoxia; J86.9 Pyothorax without fistula; E43 Unspecified severe protein-calorie malnutrition; J18.9 Pneumonia, unspecified organism; J44.0 Chronic obstructive pulmonary disease with (acute) lower respiratory infection; J91.8 Pleural effusion in other conditions classified elsewhere; J45.901 Unspecified asthma with (acute) exacerbation; K76.0 Fatty (change of) liver, not elsewhere classified; S00.83XA Contusion of other part of head, initial encounter; E66.01 Morbid (severe) obesity due to excess calories; R91.1 Solitary pulmonary nodule; L02.31 Cutaneous abscess of buttock; J44.1 Chronic obstructive pulmonary disease with (acute) exacerbation; I16.0 Hypertensive urgency; J98.11 Atelectasis; Z90.49 Acquired absence of other specified parts of digestive tract; Z91.14 Patient's other noncompliance with medication regimen; E11.65 Type 2 diabetes mellitus with hyperglycemia; F11.20 Opioid dependence, uncomplicated; F17.210 Nicotine dependence, cigarettes, uncomplicated; K56.41 Fecal impaction; Z20.822 Contact with and (suspected) exposure to COVID-19; Z68.37 Body mass index [BMI] 37.0-37.9, adult; X58.XXXA Exposure to other specified factors, initial encounter; Y93.89 Activity, other specified; Y92.89 Other specified places as the place of occurrence of the external cause; Y99.8 Other external cause status; I10 Essential (primary) hypertension
CPT/HCPCS: 31622; 32555; 36415; 71045; 71046; 71250; 71260; 71275; 74176; 76604; 80048; 80053; 80307; 81001; 82270; 82962; 83036; 83605; 83735; 83880; 83986; 84443; 84484; 84702; 85007; 85025; 85027; 85379; 85610; 85730; 86850; 86900; 86901; 86920; 87040; 87070; 87075; 87077; 87081; 87186; 87205; 87426; 87804; 89051; 93005; 93306; 93970; 94640; 96361; 96365; 96367; 97110; 97116; 97163; 97530; 99291; A4565; G0378; J0171; J0690; J0696; J1100; J1815; J1885; J2001; J2250; J2405; J2543; J2704; J3430; J3490; J7060

== ENCOUNTER 2024-08-29 16:34 | Inpatient (IN) | payer MEDICAID ==
[~2024-08-29] VITALS: Ht 162.6 cm; Wt 100.7 kg
[~2024-08-29 16:34] MED LIST: ALPR0.25 PO; ASPI-325 PO; CLIN-203 PO; LEVO500T31 PO; MORP1TAB12 PO
[2024-08-29 17:30] LABS: Basophils # (auto) 0.1 10 ^3/uL (0-0.2); Basophils % (auto) 0.5 % (0.0-2.0); Eosinophils # (auto) 0.1 10 ^3/uL (0-0.8); Hemoglobin 13.1 g/dL (12.2-16.2); Lymphocytes # (auto) 1.8 10 ^3/uL (0.4-5.4); Monocytes # (auto) 0.7 10 ^3/uL (0-1.3); Nucleated Red Blood Cells % 0.1 %
[2024-08-29 17:31] LABS: Eosinophils % (auto) 0.7 % (0.0-7.0); Hematocrit 38.5 % (36.0-46.0); Lymphocytes % (auto) 15.1 % (10.0-50.0); Mean Corpuscular Hemoglobin 29.6 pg (28.0-32.0); Mean Corpuscular Hgb Conc. 33.9 g/dL (32.0-36.0); Mean Corpuscular Volume 87.3 fL (80.0-100.0); Monocytes % (auto) 5.7 % (0.0-12.0); Neutrophils # (auto) 9.3 10 ^3/uL (1.6-8.6); Platelet Count (auto) 514 10^3/uL (140-450); Red Blood Cells 4.41 10^6/uL (4.0-5.20); Red Cell Distribution Width 13.6 % (11.8-14.3); White Blood Cell 11.9 10^3/uL (4.4-10.8)
--- NOTE | 2024-08-29 17:49 | DVH ---
EXAM: XY CHEST PORTABLE TECHNIQUE: Single frontal chest radiograph CLINICAL HISTORY: SOB COMPARISON: XY CHEST PORTABLE on DOS: 10/16/22, XY CHEST PORTABLE on DOS: 10/15/22, XY CHEST XRAY 1 VIE W on DOS: 10/14/22 Findings/Impression: Frontal chest radiograph demonstrates no acute osseous or superficial soft tissue abnormalities. The trachea is midline. The cardiac silhouette and mediastinum are within normal limits. Patchy airspace opacities in the right mid to lower lung norman. No pneumothorax or pleural effusions.
[2024-08-29 17:53] LABS: Alanine Aminotransferase 16 U/L (7-40); Albumin 4.1 g/dL (3.2-4.8); Anion Gap 15 (5-15); BUN/Creatinine Ratio 24.1 (10.0-20.0); Bilirubin, Total 0.3 mg/dL (0.2-1.0); Blood Urea Nitrogen 14 mg/dL (9-23); Calcium 9.5 mg/dL (8.7-10.4); Carbon Dioxide 21 mmol/L (20-31); Chloride 101 mmol/L (98-107); Glucose 99 mg/dL (74-106); Potassium 4.4 mmol/L (3.5-5.1); Sodium 137 mmol/L (136-145); Total Protein 7.6 g/dL (5.7-8.2)
[2024-08-29] MEDS: cefTRIAXone 1GM/50ML D5W 50 ML IV ONE (18:01)
[2024-08-29] MEDS: SODIUM CHLORIDE 0.9% 1,000 ML IV ONE (18:01)
[2024-08-29 18:46] LABS: Alkaline Phosphatase 153 U/L (46-116); Aspartate Aminotransferase 51 U/L (13-40)
--- NOTE | 2024-08-29 18:51 | ED.PDOC ---
SOB-HPI HPI Comments 44y F who presents to the ED via EMS for chief complaint of shortness of breath. Pt states she has been having shortness of breath for the past 2 days with fever getting worse and called EMS to the scene. Per EMS arrival, pt had 02 sat of 76% on room air and was placed on 6 L via nc and 02 sat increased to 94% and pt was brought to the ED. Pt in the ED, noted to be short of breath when attempting to speak and has noted heart rate of 140 and BP is noted to be 240/ 120. Pt otherwise denies chest pain, fever, cough, or chills. Pt has noted history of COPD and states she has been out of her medications for the past 2 years. Pt also state she had bronchoscopy performed 2 years prior. Chief Complaint: Shortness of Breath Time Seen by MD: 18:45 Primary Care Provider: CHANG Coats notes: Hand Dry Cleaner Notes Information Source: Patient, Emergency Med Personnel Mode of Arrival: EMS Brought in by: EMS Past Medical History PAST MEDICAL HISTORY: COPD Surgical History: Denies all surgeries NURSERY HELPER History: No Pertinent NURSERY HELPER History Family History Family History: Unknown Social History Smoker: Non-Smoker Alcohol: Denies ETOH Use Drugs: Denies Drug Use Lives In: Home Constitutional: reports: fever; denies: chills, diaphoresis, fatigue, malaise, sweats, weakness, others EENTM: denies: blurred vision, double vision, ear bleeding, ear discharge, ear drainage, ear pain, ear ringing, eye pain, eye redness, hearing loss, mouth pain, mouth swelling, nasal discharge, nose bleeding, nose congestion, nose pain, photophobia, tearing, throat pain, throat swelling, voice changes, others Respiratory: reports: SOB at rest, shortness of breath, SOB with excertion; denies: cough, hemoptysis, orthopnea, stridor, wheezing, others Cardiovascular: denies: chest pain, dizzy spells, diaphoresis, Dyspnea on exertion, edema, irregular heart beat, left arm pain, lightheadedness, palpitations, PND, syncope, others Gastrointestinal: denies: abdomen distended, abdominal pain, blood streaked bowels, constipated, diarrhea, dysphagia, difficulty swallowing, hematemesis, melena, nausea, poor appetite, poor fluid intake, rectal bleeding, rectal pain, vomiting, others Genitourinary: denies: abnormal vagina bleeding, burning, dyspareunia, dysuria, flank pain, frequency, hematuria, incontinence, pain, , vagina d ischarge, urgency, others Neurological: denies: dizziness, fainting, headache, left sided numbness, left sided weakness, numbness, paresthesia, pre-existing deficit, right sided numbness, right sided weakness, seizure, speech problems, tingling, tremors, weakness, others Musculoskeletal: denies: back pain, gout, joint pain, joint swelling, muscle pain, muscle stiffness, neck pain, others Integumetry: denies: bruises, change in color, change in hair/nails, dryness, laceration, lesions, lumps, rash, wounds, others Allergic/Immunocompromised: denies: Difficulty Healing, Frequent Infections, Hives, Itching, others Hematologic/Lymphatic: denies: anemia, blood clots, easy bleeding, easy bruising, swollen glands, others Endocrine: denies: excessive hunger, excessive sweating, excessive thirst, excessive urination, flushing, intolerance to cold, intolerance to heat, unexplained weight gain, unexplained weight loss, others Psychiatric: denies: anxiety, bipolar disorder, depression, hopeless, panic disorder, schizophrenia, sleepless, suicidal, others All Other Systems: Reviewed and Negative Physical Exam General Appearance: Moderate Distress, Normal HEENT: Normal ENT Inspection, Pharynx Normal, TMs Normal Neck: Full Range of Motion, Non-Tender, Normal, Normal Inspection Respiratory: Decreased Breath Sounds, Respiratory Distress Cardiovascular: None, Tachycardia Breast Exam: Deferred Gastrointestinal: No Organomegaly, Non Tender, No Pulsatile Mass, Normal Bowel Sounds, Soft, Other (UROSTOMY BAG with yellow urine) Genitalia: Deferred Pelvic: Deferred Rectal: Deferred Extremities: No calf tenderness, Normal capillary refill, Normal inspection, Normal range of motion, Non-tender, No pedal edema Musculoskeletal : Apperance: Normal Neurologic: Alert, hand folder II-XII nml as Tested, No Motor Deficits, Normal Affect, Normal Mood, No Sensory Deficits Cerebellar Function: Normal Reflexes: Normal Skin: Dry, Normal Color, Warm Lymphatic: No Adenopathy Was a procedure done? Was a procedure done?: No Differential Dx Differential Diagnosis: Bronchitis, CHF, COPD, Pneumonia, Pulmonary Embolism, Respiratory Distress, Pharyngitis, URI Comments acute respiratory failure , Influeza A and B, X-Ray, Labs, Meds, VS Vital Signs Date Time Temp Pulse Resp B/P (MAP) Pulse Ox O2 Delivery O2 Flow Rate FiO2 08/29/24 19:03 113 25 182/105 08/29/24 17:47 118 08/29/24 17:31 100.2 133 32 205/115 (145) 95 100.2 08/29/24 17:07 94 Nasal Cannula* 6 44 08/29/24 17:07 28 94 Nasal Cannula* 6 44 08/29/24 16:58 100.0 140 28 240/120 (160) 94 08/29/24 16:50 131 Lab Test 08/29/24 18:27 08/29/24 18:18 08/29/24 17:49 08/29/24 16:58 Range/Units Troponin I High Sensitivity 44 *H 45 *H </=34 ng/L Influenza Type A Antigen Pending Influenza Type B Antigen Pending SARS-CoV-2 Antigen (Rapid) Pending Lactic Acid Level 1.4 0.4-2.0 mmol/L White Blood Count 11.9 H 4.4-10.8 10^3/uL Red Blood Count 4.41 4.0-5.20 10^6/uL Hemoglobin 13.1 12.2-16.2 g/dL Hematocrit 38.5 36.0-46.0 % Mean Corpuscular Volume 87.3 80.0-100.0 fL Mean Corpuscular Hemoglobin 29.6 28.0-32.0 pg Mean Corpuscular Hemoglobin Concent 33.9 32.0-36.0 g/dL Red Cell Distribution Width 13.6 11.8-14.3 % Platelet Count 514 H 140-450 10^3/uL Mean Platelet Volume 7.3 6.9-10.8 fL Neutrophils (%) (Auto) 78.0 37.0-80.0 % Lymphocytes (%) (Auto) 15.1 10.0-50.0 % Monocytes (%) (Auto) 5.7 0.0-12.0 % Eosinophils (%) (Auto) 0.7 0.0-7.0 % Basophils (%) (Auto) 0.5 0.0-2.0 % Neutrophils # (Auto) 9.3 H 1.6-8.6 10 ^3/uL Lymphocytes # (Auto) 1.8 0.4-5.4 10 ^3/uL Monocytes # (Auto) 0.7 0-1.3 10 ^3/uL Eosinophils # (Auto) 0.1 0-0.8 10 ^3/uL Basophils # (Auto) 0.1 0-0.2 10 ^3/uL Nucleated Red Blood Cells 0.1 % Platelet Estimate Pending Prothrombin Time 11.4 9.3-11.8 sec Prothrombin Time INR 1.08 0.9-1.15 Activated Partial Thromboplast Time 27.8 24.5-34.5 SEC D-Dimer, Quantitative 1.38 H 0.0-0.49 mg/L FEU Sodium Level 137 136-145 mmol/L Potassium Level 4.4 3.5-5.1 mmol/L Chloride Level 101 98-107 mmol/L Carbon Dioxide Level 21 20-31 mmol/L Anion Gap 15 5-15 Blood Urea Nitrogen 14 9-23 mg/dL Creatinine 0.58 0.550-1.02 mg/dL Glomerular Filtration Rate Calc 114 >90 mL/min BUN/Creatinine Ratio 24.1 H 10.0-20.0 Serum Glucose 99 74-106 mg/dL Calcium Level 9.5 8.7-10.4 mg/dL Total Bilirubin 0.3 0.2-1.0 mg/dL Aspartate Amino Transferase (AST) 51 H 13-40 U/L Alanine Aminotransferase (ALT) 16 7-40 U/L Alkaline Phosphatase 153 H 46-116 U/L Total Protein 7.6 5.7-8.2 g/dL Albumin 4.1 3.2-4.8 g/dL Current Medications Medications (Trade) Dose Ordered Sig/Mata Route Start Time Stop Time Status Last Admin Sodium Chloride 1,000 ml @ 1,000 mls/hr Q1H ONCE IV 08/29/24 17:30 08/29/24 18:29 DC 08/29/24 18:01 Ceftriaxone Sodium 50 ml @ 100 mls/hr ONCE ONCE IV 08/29/24 17:30 08/29/24 17:59 DC 08/29/24 18:01 Morphine Sulfate 4 mg ONCE ONCE IV 08/29/24 19:00 08/29/24 19:01 DC 08/29/24 19:03 Ondansetron HCl (Zofran) 4 mg ONCE ONCE IV 08/29/24 19:00 08/29/24 19:01 DC 08/29/24 19:[address] [address] Ph: [phone] DIAGNOSTIC IMAGING Diagnostic Imaging Report : [id number] Signed PATIENT: JENN RUSH ACCT: [id number] UNIT: [id number] : 1980 LOC: ER ROOM / BED: / AGE / SEX: 44 / F ADM STATUS: REG ER SERVICE 559 ORDERING PHYSICIAN: LASHON BEGUM MD PROCEDURE(s): CXRP - CHEST PORTABLE REASON: SOB ORDER NUMBER(s): [id number], ACCESSION NUMBER(s): [id number] EXAM: XY CHEST PORTABLE TECHNIQUE: Single frontal chest radiograph CLINICAL HISTORY: SOB COMPARISON: XY CHEST PORTABLE on DOS: 10/16/22, XY CHEST PORTABLE on DOS: 10/15/22, XY CHEST XRAY 1 VIEW on DOS: 10/14/22 Findings/Impression: Frontal chest radiograph demonstrates no acute osseous or superficial soft tissue abnormalities. The trachea is midline. The cardiac silhouette and mediastinum are within normal limits. Patchy airspace opacities in the right mid to lower lung norman. No pneumothorax or pleural effusions. ATED BY: EMILY FLETCHER DO DICTATED DATE/TIME: 08/29/241745 SIGNED BY: EMILY FLETCHER DO SIGNED DATE/TIME: 08/29/241745 CC: Time of 1ST Reevaluation: 19:15 Reevaluation 1ST: Unchanged Time of 2ND Reevaluation: 19:11 Reevaluation 2ND: Unchanged Patient Education/Counseling: Diagnosis, Treatment Family Education/Counseling: No Family Present Sepsis Sepsis Reasesment Focused Exam Sepsis focused exam: focus exam completed, time: (1800) Departure 1 Departure Time of Disposition: 19:12 Impression: Primary Impression: Pneumonia Additional Impressions: Disseminated ovarian cancer Intermediate coronary syndrome Disposition: ADMITTED INPATIENT Admit to: [facility] Condition: Guarded Discharged With: Self Critical Care Note Critical Care Time?: Yes (45 min-critical care time only) Critical care comment: Total critical care time: Approximately 36 minutes Due to a high probability of clinically significant, life threatening deterioration, the patient required my highest level of preparedness to intervene emergently and I personally spent this critical care time directly and personally managing the patient. This critical care time included obtaining a history; examining the patient; pulse oximetry; ordering and review of studies; arranging urgent treatment with development of a management plan; evaluation of patient's response to treatment; frequent reassessment; and, discussions with other providers. This critical care time was performed to assess and manage the high probability of imminent, life-threatening deterioration that could result in multi-organ failure. It was exclusive of separately billable procedures and treating other patients. Stability Stability form required: No Heart Score Heart Score: Heart Score Response (Comments) Value History Slightly Suspicious 0 EKG Normal 0 Age 45-64 1 Risk Factors 1 or 2 risk factors 1 Troponin 1-2 x's Normal limit 1 Total 3 I personally scribed for LASHON BEGUM MD ([email or web address]) on 08/29/24 at 18:51. Electronically submitted by Jimy Morris ([email or web address]). LASHON BEGUM MD Aug 29, 2024 18:51
[2024-08-29] MEDS: ONDANSETRON HCL 4 MG/2 ML VIAL IV ONE (19:02)
[2024-08-29] MEDS: MORPHINE SULFATE 4 MG/ML SYR/VIAL IV ONE (19:03)
[2024-08-29 19:06] LABS: INR 1.08 (0.9-1.15); Partial Thromboplastin Time 27.8 SEC (24.5-34.5); Prothrombin Time 11.4 sec (9.3-11.8)
[2024-08-29] MEDS: IOHEXOL 350 MG/ML 100ML IJ ONE (19:25)
[2024-08-29 19:26] LABS: Platelet Estimate Increased; RBC Morphology Normal
[2024-08-29 19:27] LABS: Large Platelets FEW
[2024-08-29 19:30] VITALS: PULSE 114; RESP 35; O2SAT 95
[2024-08-29 19:37] LABS: Rapid Influenza A Negative (Negative); Rapid Influenza B Negative (Negative)
[2024-08-29 19:38] LABS: COVID19 ANTIGEN SOFIA FIA NEGATIVE (NEGATIVE)
--- NOTE | 2024-08-29 19:42 | DVHHP2 ---
Admitting Diagnosis: Shortness of breath History of Present Illness 44 yo female patient with hx of COPD c/o shortness of breath x 2 days. Patient reports that she has been having a fever that has been worsening. Patient was found to be sating at 76% on RA by EMS. Patient reports being out of her COPD medication x 2 years. While in the emergency department the patient was evaluated by the provider, As per provider: Labs, vital signs, and imagining monitored. Patient will be admitted for further evaluation and treatment. I discussed admission with the patient/family and is in agreement to treatment plan. Patient Family History: Hypertension G8 MOTHER, Onset:40's - 50 Ischemic heart disease G8 MOTHER Allergies: Coded Allergies: NO KNOWN ALLERGIES (Unverified , 06/13/14) Home Meds Active Scripts Alprazolam (Xanax) 0.25 Mg Tb, 1 TAB PO BID for 5 Days, #10 TAB Prov:JULIAN WILSON Jaime ACCOUNT RESOLUTION SPECIALIST 10/16/22 Morphine Sulfate (Morphine Sulfate Cr) 15 Mg Tab, 1 TAB PO BID for 5 Days, #10 T AB Prov:JULIAN WILSON Jaime ACCOUNT RESOLUTION SPECIALIST 10/16/22 Clindamycin HCl (Clindamycin Hydrochloride) 300 Mg Cap, 300 MG PO TID for 14 Days, #42 CAP Prov:JULIAN WILSON Jaime ACCOUNT RESOLUTION SPECIALIST 10/16/22 Levofloxacin (Levaquin) 500 Mg Tab, 500 MG PO DAILY for 14 Days, #14 TAB Prov:JULIAN WILSON Jaime ACCOUNT RESOLUTION SPECIALIST 10/16/22 Aspirin (Aspirin Low Dose) 81 Mg Tab, 81 MG PO DAILY for 30 Days, #30 TAB Prov:JULIAN WILSON Jaime ACCOUNT RESOLUTION SPECIALIST 10/16/22 Current Medications Current Medications Medications (Trade) Dose Ordered Sig/Mata Route PRN Reason Start Time Stop Time Status Last Admin Enoxaparin Sodium (Lovenox) 40 mg DAILY SC 08/30/24 10:00 08/30/24 10:30 Methylprednisolone Sodium Succinate (Solu Medrol) 40 mg Q6HR IV 08/30/24 00:00 08/30/24 17:55 Azithromycin 250 ml @ 125 mls/hr DAILY IV 08/30/24 10:00 08/30/24 15:51 Pantoprazole Sodium (Protonix) 40 mg DAILY IV 08/30/24 10:00 08/30/24 11:22 Ceftriaxone Sodium 50 ml @ 100 mls/hr DAILY@09 IV 08/30/24 09:00 08/30/24 11:23 Methadone HCl (Methadone HCl Tablet) 120 mg DAILY PO 08/30/24 10:00 08/30/24 16:06 DC Methadone HCl (Methadone HCl Tablet) 120 mg DAILY PO 08/30/24 16:05 Hold Review of Systems Constitutional: denies chills, denies fever, denies malaise Eyes: denies eye pain, denies vision change ENT: denies ear pain, denies headache, denies nasal congestion, denies painful swallowing, denies voice change Cardiovascular: denies chest pain, denies edema, denies orthopnea, denies palpitations, denies paroxysmal nocturnal dyspnea Respiratory: denies cough, denies shortness of breath Gastrointestinal: denies constipation, denies diarrhea, denies nausea, denies vomiting Genitourinary: denies dysuria, denies frequent urination, denies urethral discharge Musculoskeletal: denies back pain, denies joint pain, denies muscle pain Skin: denies bruising, denies itching, denies rash Neurological: denies focal weakness, denies headache, denies sensory changes Psychiatric: denies anxiety, denies depression Endocrine: denies polydipsia, denies polyuria Hematologic/Lymphatic: denies easy bleeding, denies easy bruising, denies enlarged lymph nodes Allergic/Immunologic: denies allergy, denies hives Vital Signs Vital Signs Date Time Temp Pulse Resp B/P (MAP) Pulse Ox O2 Delivery O2 Flow Rate FiO2 08/30/24 22:32 94 20 95 08/30/24 22:26 Nasal Cannula 3.0 08/30/24 22:26 32 08/30/24 21:00 98.7 155/88 (110) 98.7 Physical Exam General Appearance: alert, no distress HEENT: EOMI, PERRLA, normal external inspect of ears, no icterus, no nasal drainage Neck: no carotid bruit, no jugular venous distention (JVD), no lymphadenopathy Chest: normal thorax Respiratory: clear to auscultation, normal air movement Cardiovascular: regular rate and rhythm, no diastolic murmur, no jugular venous distention (JVD), no rub, no systolic murmur Abdominal: soft, no hepatomegaly, no mass, no splenomegaly, no tenderness Genitourinary: grossly normal external Musculoskeletal: no joint tenderness, no swelling Extremities: normal pulses, no calf tenderness, no clubbing, no cyanosis, no edema Skin: no bruising, no jaundice, no rash Neurological: alert, No focal deficit Results Labs Test 08/30/24 08:22 08/30/24 07:22 08/29/24 20:48 08/29/24 18:18 Range/Units Triglycerides Level 94 < 150 mg/dL Cholesterol Level 164 < 200 mg/dL LDL Cholesterol 120 H < 100 mg/dL HDL Cholesterol 37 L 40-59 mg/dL White Blood Count 9.9 4.4-10.8 10^3/uL Red Blood Count 4.02 4.0-5.20 10^6/uL Hemoglobin 11.7 L 12.2-16.2 g/dL Hematocrit 35.0 L 36.0-46.0 % Mean Corpuscular Volume 87.1 80.0-100.0 fL Mean Corpuscular Hemoglobin 29.1 28.0-32.0 pg Mean Corpuscular Hemoglobin Concent 33.4 32.0-36.0 g/dL Red Cell Distribution Width 13.6 11.8-14.3 % Platelet Count 551 H 140-450 10^3/uL Mean Platelet Volume 7.2 6.9-10.8 fL Neutrophils (%) (Auto) 85.5 H 37.0-80.0 % Lymphocytes (%) (Auto) 11.3 10.0-50.0 % Monocytes (%) (Auto) 2.5 0.0-12.0 % Eosinophils (%) (Auto) 0.1 0.0-7.0 % Basophils (%) (Auto) 0.6 0.0-2.0 % Neutrophils # (Auto) 8.4 1.6-8.6 10 ^3/uL Lymphocytes # (Auto) 1.1 0.4-5.4 10 ^3/uL Monocytes # (Auto) 0.2 0-1.3 10 ^3/uL Eosinophils # (Auto) 0 0-0.8 10 ^3/uL Basophils # (Auto) 0.1 0-0.2 10 ^3/uL Nucleated Red Blood Cells 0.1 % Sodium Level 135 L 136-145 mmol/L Potassium Level 3.8 3.5-5.1 mmol/L Chloride Level 101 98-107 mmol/L Carbon Dioxide Level 26 20-31 mmol/L Anion Gap 8 5-15 Blood Urea Nitrogen 11 9-23 mg/dL Creatinine 0.66 0.550-1.02 mg/dL Glomerular Filtration Rate Calc 110 >90 mL/min BUN/Creatinine Ratio 16.7 10.0-20.0 Serum Glucose 127 H 74-106 mg/dL Calcium Level 9.5 8.7-10.4 mg/dL Total Bilirubin 0.2 0.2-1.0 mg/dL Aspartate Amino Transferase (AST) 28 13-40 U/L Alanine Aminotransferase (ALT) 10 7-40 U/L Alkaline Phosphatase 144 H 46-116 U/L Total Protein 8.3 H 5.7-8.2 g/dL Albumin 4.6 3.2-4.8 g/dL Troponin I High Sensitivity 50 *H </=34 ng/L Influenza Type A Antigen Negative Negative Influenza Type B Antigen Negative Negative SARS-CoV-2 Antigen (Rapid) Negative NEGATIVE Test 08/29/24 17:49 08/29/24 16:58 Range/Units Lactic Acid Level 1.4 0.4-2.0 mmol/L Platelet Estimate Increased Large Platelets Few Red Blood Cell Morphology Normal Prothrombin Time 11.4 9.3-11.8 sec Prothrombin Time INR 1.08 0.9-1.15 Activated Partial Thromboplast Time 27.8 24.5-34.5 SEC D-Dimer, Quantitative 1.38 H 0.0-0.49 mg/L FEU Microbiology Date/Time Source Procedure Growth Status 08/29/24 17:49 Blood Blood Culture - Preliminary NO GROWTH AFTER 24 HOURS OF INCUBATION. Resulted Plan 1. Acute hypoxic respiratory failure Monitor, supplemental O2, pulmonary consult, med neb tx 2. Right lobe pneumonia Monitor, supplemental O2, pulmonary consult, IV abx 3. Morbid obesity Monitor, PPI 4. S/p thoracotomy Monitor, DVT prophylaxis 5. Opioid dependence Monitor, resume home methadone Plan discussed with: Patient, Other JULIAN WILSON NP Aug 29, 2024 19:42
[2024-08-29] MEDS ORDERED: ONDANSETRON HCL 4 MG/2 ML VIAL IV PRN (19:45)
[2024-08-29] MEDS ORDERED: MORPHINE SULFATE INJ 2 MG/ml SYRG IV PRN (19:45)
[2024-08-29] MEDS ORDERED: NITROGLYCERIN 0.4 MG SL TAB SL PRN (19:45)
[2024-08-29] MEDS: ACETAMINOPHEN 325 MG TAB PO ONE (20:20)
[2024-08-29] MEDS: HYDROcodone-ACET 5/325MG TAB PO PRN (20:28)
[2024-08-29 20:36] VITALS: BP 169/110; PULSE 112; RESP 22; TEMP 100.4; O2SAT 97
[2024-08-29] MEDS: hydrALAZINE HCL 20 MG/ML VL IV PRN (21:03)
[2024-08-29 21:43] VITALS: PULSE 89; RESP 18; O2SAT 93
[2024-08-29] MEDS: ALBUTEROL SULF 2.5 MG/0.5ML(0.5%) NEB SOLN NEB SCH (21:43)
[2024-08-29] MEDS: IPRATROPIUM BROM 0.5 MG/2.5ML INH SOL NEB SCH (21:43)
[2024-08-29 21:51] VITALS: PULSE 111; RESP 20; O2SAT 97
--- NOTE | 2024-08-29 21:52 | DVH ---
CT ANGIOGRAM CHEST WITH CONTRAST FOR PULMONARY EMBOLUS CLINICAL HISTORY: h/o ovarian cancer now SOB and chest pain TECHNIQUE: Helical axial scans of the chest during dynamic intravenous contrast injection. Pulmonary embolism protocol. Multiplanar reformats. Postprocessing MIP images. One or more of the following rad iation dose reduction techniques were used for this examination: automated exposure control, adjustme nt of the mA and/or kV according to patient size, use of iterative reconstruction technique. COMPARISON: Chest x-ray obtained earlier the same day. Chest CT dated 10/08/2022. FINDINGS: Pulmonary arteries: Adequate enhancement of the pulmonary arterial systems or the proximal segmental level. As visualized, no discrete filling defects to suggest pulmonary embolism are identified at thi s time. Mediastinum: Heart is normal in size. No appreciable mediastinal adenopathy. No pericardial effusion . Lung parenchyma: Diffuse ground-glass opacities throughout the right lung. Similar scattered ground-g lass opacities in the left lung, although to a lesser extent, predominantly in the left upper and per ipheral left lower lobes. Scattered small pulmonary nodules noted in both lungs, mainly in a peripher al/subpleural distribution. The largest measures approximately 1 cm in the anterior right upper lobe. Pleura: No sizable pleural effusion or pneumothorax. Chest wall and axillae: No axillary adenopathy. Upper abdomen: No acute findings as visualized. Gallbladder is surgically absent. IMPRESSION: No definite evidence of pulmonary embolism. Bilateral airspace opacities, worse in the right lung. These may be of infectious etiology. Recommend follow-up to resolution. Multiple small bilateral pulmonary nodules. Some of these may be reactive, however, metastatic diseas e is also a possibility given the clinical history.
[2024-08-29 23:13] VITALS: BP 151/70; PULSE 115; RESP 22; TEMP 100.2; O2SAT 94
[2024-08-29] MEDS: methylPREDNISolone SOD SUCC 40 MG/ML VL IV SCH (23:29)
[2024-08-29] MEDS: MORPHINE SULFATE INJ 2 MG/ml SYRG IV PRN (23:35)
[2024-08-30] VITALS (20 sets, daily range): BP systolic 146–165; BP diastolic 63–99; PULSE 90–116; RESP 16–22; TEMP 98.3–98.9; O2SAT 92–99
--- NOTE | 2024-08-30 06:37 | ECG ---
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
[2024-08-30 08:01] LABS: Eosinophils # (auto) 0 10 ^3/uL (0-0.8); Eosinophils % (auto) 0.1 % (0.0-7.0); Hemoglobin 11.7 g/dL (12.2-16.2); Mean Corpuscular Hgb Conc. 33.4 g/dL (32.0-36.0); Monocytes # (auto) 0.2 10 ^3/uL (0-1.3); Monocytes % (auto) 2.5 % (0.0-12.0); Nucleated Red Blood Cells % 0.1 %; Red Blood Cells 4.02 10^6/uL (4.0-5.20); Red Cell Distribution Width 13.6 % (11.8-14.3)
[2024-08-30 08:07] LABS: Basophils # (auto) 0.1 10 ^3/uL (0-0.2); Basophils % (auto) 0.6 % (0.0-2.0); Lymphocytes # (auto) 1.1 10 ^3/uL (0.4-5.4); Lymphocytes % (auto) 11.3 % (10.0-50.0); Mean Corpuscular Hemoglobin 29.1 pg (28.0-32.0); Mean Corpuscular Volume 87.1 fL (80.0-100.0); Neutrophils # (auto) 8.4 10 ^3/uL (1.6-8.6); Neutrophils % (auto) 85.5 % (37.0-80.0); Platelet Count (auto) 551 10^3/uL (140-450); White Blood Cell 9.9 10^3/uL (4.4-10.8)
[2024-08-30 08:32] LABS: Alanine Aminotransferase 10 U/L (7-40); Albumin 4.6 g/dL (3.2-4.8); Anion Gap 8 (5-15); Aspartate Aminotransferase 28 U/L (13-40); BUN/Creatinine Ratio 16.7 (10.0-20.0); Blood Urea Nitrogen 11 mg/dL (9-23); Calcium 9.5 mg/dL (8.7-10.4); Carbon Dioxide 26 mmol/L (20-31); Chloride 101 mmol/L (98-107); Potassium 3.8 mmol/L (3.5-5.1)
[2024-08-30 08:40] LABS: Alkaline Phosphatase 144 U/L (46-116); Bilirubin, Total 0.2 mg/dL (0.2-1.0); Glucose 127 mg/dL (74-106); Sodium 135 mmol/L (136-145); Total Protein 8.3 g/dL (5.7-8.2)
--- NOTE | 2024-08-30 08:50 | DVHPN2 ---
Progress Note - Dictate Date Seen: Aug 30, 2024 Medical Necessity Reason Pt with a Central, PICC or Fol: No vital signs Vital Sign Date Time Temp Pulse Resp B/P (MAP) Pulse Ox O2 Delivery O2 Flow Rate FiO2 08/30/24 08:43 98.9 107 18 162/99 (120) 97 98.9 08/30/24 06:24 Nasal Cannula* 5 40 Total Intake and Output 08/29/24 08/29/24 08/30/24 15:00 23:00 07:00 Intake Total 750 ml 700 ml Balance 750 ml 700 ml medications Current Medications Medications Dose Ordered Sig/Mata Route Start Time Stop Time Status Last Admin Dose Admin Acetaminophen/ Hydrocodone Bitart 1 tab Q4HP PRN PO 08/29/24 19:45 08/30/24 05:48 1 TAB Temazepam 15 mg QHSP PRN PO 08/29/24 19:45 Ondansetron HCl 4 mg Q4HP PRN IV 08/29/24 19:45 Acetaminophen 650 mg Q6HP PRN PO 08/29/24 19:45 Morphine Sulfate 2 mg Q4HPRN PRN IV 08/29/24 19:45 08/29/24 23:35 2 MG Enoxaparin Sodium 40 mg DAILY SC 08/30/24 10:00 Ipratropium Gause 0.5 mg Q4HR NEB 08/29/24 22:00 08/30/24 06:24 0.5 MG Albuterol 2.5 mg Q4HR NEB 08/29/24 22:00 08/30/24 06:24 2.5 MG Methylprednisolone Sodium Succinate 40 mg Q6HR IV 08/30/24 00:00 08/29/24 23:29 40 MG Azithromycin 250 ml @ 125 mls/hr DAILY IV 08/30/24 10:00 Pantoprazole Sodium 40 mg DAILY IV 08/30/24 10:00 Nitroglycerin 0.4 mg Q5MINP PRN SL 08/29/24 19:45 Morphine Sulfate 2 mg Q30M PRN IV 08/29/24 19:45 Hydralazine HCl 10 mg Q6HP PRN IV 08/29/24 20:45 08/29/24 21:03 10 MG objective General Appearance: alert, no distress HEENT: EOMI, PERRLA, normal external inspect of ears, no icterus, no nasal drainage Neck: no carotid bruit, no jugular venous distention (JVD), no lymphadenopathy Chest: normal thorax Respiratory: clear to auscultation, normal air movement Cardiovascular: regular rate and rhythm, no diastolic murmur, no jugular venous distention (JVD), no rub, no systolic murmur Abdominal: soft, no hepatomegaly, no mass, no splenomegaly, no tenderness Genitourinary: grossly normal external Musculoskeletal: no joint tenderness, no swelling Extremities: normal pulses, no calf tenderness, no clubbing, no cyanosis, no edema Skin: no bruising, no jaundice, no rash Neurological: alert, No focal deficit laboratory and microbiology Laboratory Tests 08/30/24 07:22 Test 08/30/24 07:22 Range/Units Serum Glucose 127 H 74-106 mg/dL Problem List 1. Acute hypoxic respiratory failure Monitor, supplemental O2, pulmonary consult, med neb tx 2. Right lobe pneumonia Monitor, supplemental O2, pulmonary consult, IV abx 3. Morbid obesity Monitor, PPI 4. S/p thoracotomy Monitor, DVT prophylaxis 5. Opioid dependence Monitor, resume home methadone Assessment/Plan Subjective Patient is awake alert. Objective Patient was admitted for shortness of breath. Patient was found to have pneumonia to the right lobe. Patient has mildly elevated troponin levels. I did speak with Dr. Baker who was consulted in regards to care. Plan Continue current treatment. Resume home methadone dose. Continue breathing treatments and IV antibiotics. Per cardiology elevated troponin most likely due to pneumonia. Plan discussed with: Patient, Other JULIAN WILSON NP Aug 30, 2024 08:50
[2024-08-30 09:53] LABS: Triglycerides 94 mg/dL (< 150)
[2024-08-30 09:55] LABS: Cholesterol 164 mg/dL (< 200)
[2024-08-30] MEDS ORDERED: METHADONE HCL 10 MG TAB PO SCH (10:00)
[2024-08-30 10:06] LABS: HDL Cholesterol 37 mg/dL (40-59); LDL Cholesterol 120 mg/dL (< 100)
[2024-08-30] MEDS: ENOXAPARIN SOD 40 MG/0.4 ML SYRINGE SC SCH (10:30)
--- NOTE | 2024-08-30 10:54 | DVHINCON2 ---
Date of service: Aug 30, 2024 History of Present Illness HPI Patient was a 44-year-old female who presented with few days of fevers/shortness of breath and cough. Reportedly, the oxygen saturation was 76% at home. On arrival to emergency room it is reported that the blood pressure was 240/120 and heart rate was 120s. Cardiology is involved for cardiac has been of care. Patient was a known to us from previous visit in 2022. She never followed as ou tpatient with us in the office. Home Meds Active Scripts Alprazolam (Xanax) 0.25 Mg Tb, 1 TAB PO BID for 5 Days, #10 TAB Prov:JULIAN WILSON MANAGER OF ADMINISTRATION 10/16/22 Morphine Sulfate (Morphine Sulfate Cr) 15 Mg Tab, 1 TAB PO BID for 5 Days, #10 TAB Prov:JULIAN WILSON MANAGER OF ADMINISTRATION 10/16/22 Clindamycin HCl (Clindamycin Hydrochloride) 300 Mg Cap, 300 MG PO TID for 14 Days, #42 CAP Prov:JULIAN WILSON MANAGER OF ADMINISTRATION 10/16/22 Levofloxacin (Levaquin) 500 Mg Tab, 500 MG PO DAILY for 14 Days, #14 TAB Prov:JULIAN WILSON MANAGER OF ADMINISTRATION 10/16/22 Aspirin (Aspirin Low Dose) 81 Mg Tab, 81 MG PO DAILY for 30 Days, #30 TAB Prov:JULIAN WILSON MANAGER OF ADMINISTRATION 10/16/22 Past Medical History Others Past medical history includes obesity, asthma/COPD, diabetes mellitus, history of pneumonia/empyema, history of chest tube implantations (some years ago) and old history of substance (heroin) abuse. She is status post cholecystectomy. She quit smoking two years ago. There is no relevant family history. Patient Family History: FH: heart attack G8 FATHER Hypertension G8 MOTHER, Onset:40's - 50 Ischemic heart disease G8 MOTHER Smoker: Quit Alocohol: None Review of Systems Constitutional: Chills, Fever Pulmonary/Respiratory: Dyspnea, Cough All Other Systems Fourteen point review of system was performed. Relevant findings as per above and as per HPI. Otherwise negative H&P Exam Vital Signs Vital Signs Date Time Temp Pulse Resp B/P (MAP) Pulse Ox O2 Delivery O2 Flow Rate FiO2 08/30/24 10:17 100 20 97 08/30/24 10:08 Nasal Cannula* 4 36 08/30/24 08:43 98.9 162/99 (120) 98.9 General Appeara: Well developed Head Exam: Normal inspection Neck Exam: Normal inspection Eye Exam: bilateral eye PERRL Pulmonary/Respiratory: Rhonci Cardiovascular/Chest: Normal inspection, Regular rate, Systolic murmur Peripheral Pulses: 2+ carotid (R), 2+ carotid (L), 2+ femoral (R), 2+ femoral (L), 2+ dorsalis pedis (R), 2+ dorsalis pedis (L), 2+ Radial (R), 2+ Radial (L) Abdominal Exam: Normal bowel sounds, Soft Neuro/Mental St: Alert, Oriented Appearance: Appropriate appearance Eye contact/ Speech: Cooperative Labs/Xrays Labs Test 08/30/24 08:22 08/30/24 07:22 08/29/24 20:48 08/29/24 18:18 Range/Units Triglycerides Level 94 < 150 mg/dL Cholesterol Level 164 < 200 mg/dL LDL Cholesterol 120 H < 100 mg/dL HDL Cholesterol 37 L 40-59 mg/dL White Blood Count 9.9 4.4-10.8 10^3/uL Red Blood Count 4.02 4.0-5.20 10^6/uL Hemoglobin 11.7 L 12.2-16.2 g/dL Hematocrit 35.0 L 36.0-46.0 % Mean Corpuscular Volume 87.1 80.0-100.0 fL Mean Corpuscular Hemoglobin 29.1 28.0-32.0 pg Mean Corpuscular Hemoglobin Concent 33.4 32.0-36.0 g/dL Red Cell Distribution Width 13.6 11.8-14.3 % Platelet Count 551 H 140-450 10^3/uL Mean Platelet Volume 7.2 6.9-10.8 fL Neutrophils (%) (Auto) 85.5 H 37.0-80.0 % Lymphocytes (%) (Auto) 11.3 10.0-50.0 % Monocytes (%) (Auto) 2.5 0.0-12.0 % Eosinophils (%) (Auto) 0.1 0.0-7.0 % Basophils (%) (Auto) 0.6 0.0-2.0 % Neutrophils # (Auto) 8.4 1.6-8.6 10 ^3/uL Lymphocytes # (Auto) 1.1 0.4-5.4 10 ^3/uL Monocytes # (Auto) 0.2 0-1.3 10 ^3/uL Eosinophils # (Auto) 0 0-0.8 10 ^3/uL Basophils # (Auto) 0.1 0-0.2 10 ^3/uL Nucleated Red Blood Cells 0.1 % Sodium Level 135 L 136-145 mmol/L Potassium Level 3.8 3.5-5.1 mmol/L Chloride Level 101 98-107 mmol/L Carbon Dioxide Level 26 20-31 mmol/L Anion Gap 8 5-15 Blood Urea Nitrogen 11 9-23 mg/dL Creatinine 0.66 0.550-1.02 mg/dL Glomerular Filtration Rate Calc 110 >90 mL/min BUN/Creatinine Ratio 16.7 10.0-20.0 Serum Glucose 127 H 74-106 mg/dL Calcium Level 9.5 8.7-10.4 mg/dL Total Bilirubin 0.2 0.2-1.0 mg/dL Aspartate Amino Transferase (AST) 28 13-40 U/L Alanine Aminotransferase (ALT) 10 7-40 U/L Alkaline Phosphatase 144 H 46-116 U/L Total Protein 8.3 H 5.7-8.2 g/dL Albumin 4.6 3.2-4.8 g/dL Troponin I High Sensitivity 50 *H </=34 ng/L Influenza Type A Antigen Negative Negative Influenza Type B Antigen Negative Negative SARS-CoV-2 Antigen (Rapid) Negative NEGATIVE Test 08/29/24 17:49 08/29/24 16:58 Range/Units Lactic Acid Level 1.4 0.4-2.0 mmol/L Platelet Estimate Increased Large Platelets Few Red Blood Cell Morphology Normal Prothrombin Time 11.4 9.3-11.8 sec Prothrombin Time INR 1.08 0.9-1.15 Activated Partial Thromboplast Time 27.8 24.5-34.5 SEC D-Dimer, Quantitative 1.38 H 0.0-0.49 mg/L FEU Assessment/Plan Plan Patient was a 44-year-old female who presented with few days of fevers/shortness of breath and cough. Reportedly, the oxygen saturation was 76% at home. On arrival to emergency room it is reported that the blood pressure was 240/120 and heart rate was 120s. Cardiology is involved for cardiac has been of care. Patient was a known to us from previous visit in 2022. She never followed as outpatient with us in the office. Obese patient, not in acute distress. Not using accessory muscles of breathing. No JVD. Mucosa is pink and wet. No carotid bruit. Cardiac: Regular, no thrill/gallop. Chest: Scattered rhonchi in the lungs is heard. Abdomen: Bowel sounds positive. Abdomen is soft. There is no hepatomegaly. There was no mass. There was no edema. Past medical history includes obesity, asthma/COPD, diabetes mellitus, history of pneumonia/empyema, history of chest tube implantations (some years ago) and old history of substance (heroin) abuse. She is status post cholecystectomy. She quit smoking two years ago. There is no relevant family history. Echocardiogram of September 2022 reported ejection fraction of 60 65%, normal diastolic, trace TR and right ventricular systolic pressure of 30 mm Hg WBC: 11.9 - 9.9 D-dimer: 1.38 Creatinine: 0.5 -0.66 Potassium: 4.4 - 3.8 Troponin (high sensitive): 45 - 44 - 50 Chest x-ray reported: Findings/Impression: Frontal chest radiograph demonstrates no acute osseous or superficial soft tissue abnormalities. The trachea is midline. The cardiac silhouette and mediastinum are within normal limits. Patchy airspace opacities in the right mid to lower lung norman. No pneumothorax or pleural effusions. CT angio of the lungs reported: IMPRESSION: No definite evidence of pulmonary embolism. Bilateral airspace opacities, worse in the right lung. These may be of infectious etiology. Recommend follow-up to resolution. Multiple small bilateral pulmonary nodules. Some of these may be reactive, however, metastatic disease is also a possibility given the clinical history. EKG revealed sinus tachycardia, left atrial enlargement and nonspecific ST-T changes Telemetry shows sinus rhythm Patient is a 44-year-old female who presented with shortness of breaths/fever. Presentation is in favor of pneumonia. Does have history of pneumonia/empyema few years back. On arrival, blood pressure was 240/120 and hypertensive emergency could have contributed clinical picture. It was of note that the patient does have history of hypertension and is noncompliant with medication and follow up. She never follow up with any physician as outpatient recently. Minimal increase/flat cardiac enzyme he was observed. It was in favor of demand ischemia. Acute coronary syndrome is not considered at this point. D-dimer was elevated, but CT angio of the lungs ruled out pulmonary emboli Sepsis Pneumonia, community-acquired Hypertensive emergency COPD exacerbation Diabetes mellitus Mild abnormal high sensitive troponin Abnormal D-dimer History of substance abuse Cardiac suggestion for management: Manage on Tele Follow-up electrolytes and kidney function tests and correct abnormalities Request for echocardiogram Considered urine toxicology Evaluation and management of possible pneumonia/sepsis as per primary team Controlled-10 Pulmonary consultation Further evaluation and management depends on the above and clinical course Thank you for consultation A total of 75 minutes was spent reviewing the patient record, examining the patient, making a diagnostic and therapeutic plan, discussing this plan with medical personnel, following up on diagnostic studies and following the patient for clinical stability excluding any and all procedures. At least 50% of this time was spent in direct, [id number] contact. Thank you for allowing me to participate in this patient's care. Further recommendations will depend on patient's clinical course. Please do not hesitate to contact me if you have any questions or concerns. This medical document was created using electronic medical record system with [employer] computerized dictation system. Although this document has been carefully reviewed, there may still be some phonetic and typographical errors. These areas are purely typographical due to the imperfection of the software programs, and do not reflect any compromise in the patient's medical care. Plan discussed with: Patient, Other (Nurse) OLIVIA LUJAN MD Aug 30, 2024 10:54
[2024-08-30] MEDS: PANTOPRAZOLE 40 MG/10 ML VIAL INJ IV SCH (11:22)
[2024-08-30] MEDS: cefTRIAXone 1GM/50ML D5W 50 ML IV SCH (11:23)
[2024-08-30] MEDS: AZITHROMYCIN 500MG/ 250ML 250 ML IV SCH (15:51)
[2024-08-30] MEDS: METHADONE HCL 10 MG TAB PO SCH (16:05)
[2024-08-30] MEDS: TEMAZEPAM 15 MG CAP PO PRN (21:24)
[2024-08-30] MEDS: ACETAMINOPHEN 325 MG TAB PO PRN (21:24)
--- NOTE | 2024-08-30 22:59 | DVHINCON2 ---
Date of service: Aug 30, 2024 Referring Physician Julian Wilson NP Reason for Consultation COPD exacerbation, acute hypoxic respiratory failure, asthma History of Present Illness A 44-year-old woman with past medical history of COPD who presented to ED on 08/29/24 with complaint of shortness of breath x 2 days. Patient reported she has been having a fever that has been worsening. Patient was found to be satting at 76% on RA by EMS. Patient reports being out of her COPD medication x 2 years. Patient was admitted for further care and pulmonary consultation is requested for evaluation and management due to the above findings. Review of Systems: 14-point review of systems negative unless otherwise noted above. Past Medical History: COPD Past Surgical History: None Medications: Reviewed. Allergies: No known drug allergies. Family History: Hypertension and heart disease ([place]). Social History: Nonsmoker. No alcohol or illicit drug use. Family History: FH: heart attack G8 FATHER Hypertension G8 MOTHER, Onset:40's - 50 Ischemic heart disease G8 MOTHER Allergies: Coded Allergies: NO KNOWN ALLERGIES (Unverified , 06/13/14) Home Meds Active Scripts Doxycycline (Monohydrate) (Doxycycline) 100 Mg Cap, 100 MG PO BID for 7 Days, #14 CAP Prov:JULIAN WILSON PROGRAMMING EQUIPMENT OPERATOR 08/31/24 Alprazolam (Xanax) 0.25 Mg Tb, 1 TAB PO BID for 5 Days, #10 TAB Prov:JULIAN WILSON PROGRAMMING EQUIPMENT OPERATOR 10/16/22 Morphine Sulfate (Morphine Sulfate Cr) 15 Mg Tab, 1 TAB PO BID for 5 Days, #10 TAB Prov:JULIAN WILSON NP 10/16/22 Clindamycin HCl (Clindamycin Hydrochloride) 300 Mg Cap, 300 MG PO TID for 14 Days, #42 CAP Prov:JULIAN WILSON NP 10/16/22 Aspirin (Aspirin Low Dose) 81 Mg Tab, 81 MG PO DAILY for 30 Days, #30 TAB Prov:JULIAN WLISON NP 10/16/22 Discontinued Scripts Levofloxacin (Levaquin) 500 Mg Tab, 500 MG PO DAILY for 14 Days, #14 TAB Prov:JULIAN WILSON NP 10/16/22 Current Medications Current Medications Medications (Trade) Dose Ordered Sig/Mata Route PRN Reason Start Time Stop Time Status Last Admin Enoxaparin Sodium (Lovenox) 40 mg DAILY SC 08/30/24 10:00 08/30/24 10:30 Methylprednisolone Sodium Succinate (Solu Medrol) 40 mg Q6HR IV 08/30/24 00:00 08/30/24 17:55 Azithromycin 250 ml @ 125 mls/hr DAILY IV 08/30/24 10:00 08/30/24 15:51 Pantoprazole Sodium (Protonix) 40 mg DAILY IV 08/30/24 10:00 08/30/24 11:22 Ceftriaxone Sodium 50 ml @ 100 mls/hr DAILY@09 IV 08/30/24 09:00 08/30/24 11:23 Methadone HCl (Methadone HCl Tablet) 120 mg DAILY PO 08/30/24 10:00 08/30/24 16:06 DC Methadone HCl (Methadone HCl Tablet) 120 mg DAILY PO 08/30/24 16:05 Hold Vital Signs Vital Signs Date Time Temp Pulse Resp B/P (MAP) Pulse Ox O2 Delivery O2 Flow Rate FiO2 08/30/24 22:32 94 20 95 08/30/24 22:26 Nasal Cannula 3.0 08/30/24 22:26 32 08/30/24 21:00 98.7 155/88 (110) 98.7 Physical Exam Gen.: Patient lying in bed in no apparent distress. On supplemental oxygen. Head: Normocephalic, atraumatic. Eyes: EOMI/PERRLA. Ears: Normal hearing. Normal anatomy. Neck/trachea: Trachea midline, supple. Nose: Normal external anatomy. Mouth: Moist mucous membranes. Chest: Decreased air entry bilaterally. No wheezing or rhonchi. Cardiovascular: Positive S1, positive S2. Regular rate and rhythm. Abdomen: Positive bowel sounds in all 4 quadrants. Soft, non-tender, non- distended. : Deferred. Rectal: Deferred. Skin: Warm, dry. Intact. Extremities: 2+ radial pulses bilaterally. No lower extremity edema. Neuro: Awake, alert, oriented x3. No gross motor or sensory deficits. Cranial nerves II through XII intact. Gait not assessed. Labs/Diagnostic Data Labs Test 08/30/24 08:22 08/30/24 07:22 08/29/24 20:48 08/29/24 18:18 Range/Units Triglycerides Level 94 < 150 mg/dL Cholesterol Level 164 < 200 mg/dL LDL Cholesterol 120 H < 100 mg/dL HDL Cholesterol 37 L 40-59 mg/dL White Blood Count 9.9 4.4-10.8 10^3/uL Red Blood Count 4.02 4.0-5.20 10^6/uL Hemoglobin 11.7 L 12.2-16.2 g/dL Hematocrit 35.0 L 36.0-46.0 % Mean Corpuscular Volume 87.1 80.0-100.0 fL Mean Corpuscular Hemoglobin 29.1 28.0-32.0 pg Mean Corpuscular Hemoglobin Concent 33.4 32.0-36.0 g/dL Red Cell Distribution Width 13.6 11.8-14.3 % Platelet Count 551 H 140-450 10^3/uL Mean Platelet Volume 7.2 6.9-10.8 fL Neutrophils (%) (Auto) 85.5 H 37.0-80.0 % Lymphocytes (%) (Auto) 11.3 10.0-50.0 % Monocytes (%) (Auto) 2.5 0.0-12.0 % Eosinophils (%) (Auto) 0.1 0.0-7.0 % Basophils (%) (Auto) 0.6 0.0-2.0 % Neutrophils # (Auto) 8.4 1.6-8.6 10 ^3/uL Lymphocytes # (Auto) 1.1 0.4-5.4 10 ^3/uL Monocytes # (Auto) 0.2 0-1.3 10 ^3/uL Eosinophils # (Auto) 0 0-0.8 10 ^3/uL Basophils # (Auto) 0.1 0-0.2 10 ^3/uL Nucleated Red Blood Cells 0.1 % Sodium Level 135 L 136-145 mmol/L Potassium Level 3.8 3.5-5.1 mmol/L Chloride Level 101 98-107 mmol/L Carbon Dioxide Level 26 20-31 mmol/L Anion Gap 8 5-15 Blood Urea Nitrogen 11 9-23 mg/dL Creatinine 0.66 0.550-1.02 mg/dL Glomerular Filtration Rate Calc 110 >90 mL/min BUN/Creatinine Ratio 16.7 10.0-20.0 Serum Glucose 127 H 74-106 mg/dL Calcium Level 9.5 8.7-10.4 mg/dL Total Bilirubin 0.2 0.2-1.0 mg/dL Aspartate Amino Transferase (AST) 28 13-40 U/L Alanine Aminotransferase (ALT) 10 7-40 U/L Alkaline Phosphatase 144 H 46-116 U/L Total Protein 8.3 H 5.7-8.2 g/dL Albumin 4.6 3.2-4.8 g/dL Troponin I High Sensitivity 50 *H </=34 ng/L Influenza Type A Antigen Negative Negative Influenza Type B Antigen Negative Negative SARS-CoV-2 Antigen (Rapid) Negative NEGATIVE Test 08/29/24 17:49 08/29/24 16:58 Range/Units Lactic Acid Level 1.4 0.4-2.0 mmol/L Platelet Estimate Increased Large Platelets Few Red Blood Cell Morphology Normal Prothrombin Time 11.4 9.3-11.8 sec Prothrombin Time INR 1.08 0.9-1.15 Activated Partial Thromboplast Time 27.8 24.5-34.5 SEC D-Dimer, Quantitative 1.38 H 0.0-0.49 mg/L FEU Microbiology Date/Time Source Procedure Growth Status 08/29/24 17:49 Blood Blood Culture - Preliminary NO GROWTH AFTER 24 HOURS OF INCUBATION. Resulted Assessment Impression: Acute hypoxic respiratory failure Dependence on supplemental oxygen Acute COPD exacerbation Hx of nicotine dependence Asthma due to seasonal allergies Environmental allergies Obesity BMI 38.1 Plan: Supplemental oxygen 4 LPM NC Titrate to keep O2 sats above 92%. Taper O2 as tolerated. Continue bronchodilators. IV steroids Continue antibiotics Incentive spirometry Monitor renal function. Monitor electrolytes. Supplement as necessary. Monitor ins and outs. Diet and lifestyle modifications for weight reduction Obesity - complicates all care DVT prophylaxis. Prognosis: Poor given patient's multiple co-morbidities. Rest of plan per hospitalist and other consultants. Thank you, ABIDA Wilson, for allowing me to participate in this patient's care. Further recommendations will depend on the patient's clinical course. Please do not hesitate to contact me if you have any questions or concerns. This medical document was created using an electronic medical record system with [employer] system. Although these documentations are being carefully reviewed, there may still be some phonetic and typographical changes. The errors are purely typographical, due to imperfection on the software program, and do not reflect any compromise in the patient's medical care. Plan discussed with: Patient, Other (ANALI Oconnell/ABIDA Wilson/) NATHALY NARAYAN MD Aug 30, 2024 22:59
[2024-08-31] VITALS (12 sets, daily range): BP systolic 124–160; BP diastolic 63–91; PULSE 79–113; RESP 16–20; TEMP 97.9–98.8; O2SAT 93–99
--- NOTE | 2024-08-31 06:11 | DVHSR ---
APPROVED REPORT EXAM: Two-dimensional and M-mode echocardiogram with Doppler and color Doppler. Blood Pressure: 160/[address] orders RISK FACTORS Height: 64, Weight: 209 DIMENSIONS LVDd4.8 (3.8-5.7cm)LA (2D)4.8 (1.9-4.0cm)Aortic Root2.8 (2.0-3.7cm) LVDs3.3 (2.5-4.0cm)LA (MM) (1.9-4.0cm)Aortic Cusp Exc1.9 (1.5-2.0cm) EF (%) 60.0 (55-70%)Rt. Atrium4.2 (1.9-4.0cm)Asc. Aorta cm IVSd1.1 (0.7-1.1cm)RV (D) (1.8-2.4cm) PWd1.2 (0.7-1.1cm) Mitral Valve MitralMitral Stenosis E wave1.29m/sMV Mean GR.4mmHg A wave1.33m/sMV Peak GR.130mmHg E/A ratio1.02D MVAcm2 DECEL [id number] 1/2 [id number] IVRTmsDop MVA4.15cm2 Aortic Valve Aortic ValveAortic Stenosis V11.70m/Yandel Mean GR.9mmHg V22.03m/Yandel Peak GR.16mmHg LVOT Diameter1.8 (1.8-2.4cm)Doppler AVA2.13cm2 Pulmonic Valve V20.89m/s Tricuspid Valve TR Velocity3.29m/s [id number] Conclusion Left ventricle: Mild concentric left ventricular hypertrophy was seen. LVEF 60-65%. There was no gr oss wall motion abnormality. Right ventricle was mildly dilated with normal systolic function. Both atria were mildly dilated. Aortic valve was not well visualized. There was no aortic insufficiency/stenosis. For was mild mitr al regurgitation. There was trace pulmonary valve insufficiency. There was trace tricuspid valve re gurgitation. Right ventricular systolic pressure was assessed at 55 mm Hg. There was trace pericardial effusion.
--- NOTE | 2024-08-31 06:27 | DVHPN2 ---
Progress Note - Dictate Date Seen: Aug 31, 2024 Medical Necessity Reason Pt with a Central, PICC or Fol: No vital signs Vital Sign Date Time Temp Pulse Resp B/P (MAP) Pulse Ox O2 Delivery O2 Flow Rate FiO2 08/31/24 05:57 79 20 148/79 08/31/24 05:00 98.8 96 98.8 08/31/24 02:00 Nasal Cannula 4.0 08/31/24 02:00 36 Total Intake and Output 08/30/24 08/30/24 08/31/24 15:00 23:00 07:00 Intake Total 50 ml 850 ml 900 ml Balance 50 ml 850 ml 900 ml medications Current Medications Medications Dose Ordered Sig/Mata Route Start Time Stop Time Status Last Admin Dose Admin Acetaminophen/ Hydrocodone Bitart 1 tab Q4HP PRN PO 08/29/24 19:45 08/30/24 17:55 1 TAB Temazepam 15 mg QHSP PRN PO 08/29/24 19:45 08/30/24 21:24 15 MG Ondansetron HCl 4 mg Q4HP PRN IV 08/29/24 19:45 Acetaminophen 650 mg Q6HP PRN PO 08/29/24 19:45 08/31/24 05:57 650 MG Morphine Sulfate 2 mg Q4HPRN PRN IV 08/29/24 19:45 08/31/24 05:57 2 MG Enoxaparin Sodium 40 mg DAILY SC 08/30/24 10:00 08/30/24 10:30 40 MG Ipratropium [place] 0.5 mg Q4HR NEB 08/29/24 22:00 08/30/24 22:26 0.5 MG Albuterol 2.5 mg Q4HR NEB 08/29/24 22:00 08/30/24 22:26 2.5 MG Methylprednisolone Sodium Succinate 40 mg Q6HR IV 08/30/24 00:00 08/31/24 05:49 40 MG Azithromycin 250 ml @ 125 mls/hr DAILY IV 08/30/24 10:00 08/30/24 15:51 125 MLS/HR Pantoprazole Sodium 40 mg DAILY IV 08/30/24 10:00 08/30/24 11:22 40 MG Nitroglycerin 0.4 mg Q5MINP PRN SL 08/29/24 19:45 Morphine Sulfate 2 mg Q30M PRN IV 08/29/24 19:45 Hydralazine HCl 10 mg Q6HP PRN IV 08/29/24 20:45 08/30/24 11:22 10 MG Ceftriaxone Sodium 50 ml @ 100 mls/hr DAILY@09 IV 08/30/24 09:00 08/30/24 11:23 100 MLS/HR Methadone HCl 120 mg DAILY PO 08/30/24 16:05 Hold laboratory and microbiology Laboratory Tests 08/30/24 07:22 Test 08/30/24 07:22 Range/Units Serum Glucose 127 H 74-106 mg/dL Assessment/Plan Patient was a 44-year-old female who presented with few days of fevers/shortness of breath and cough. Reportedly, the oxygen saturation was 76% at home. On arrival to emergency room it is reported that the blood pressure was 240/120 and heart rate was 120s. Cardiology is involved for cardiac has been of care. Patient was a known to us from previous visit in 2022. She never followed as outpatient with us in the office. Obese patient, not in acute distress. Not using accessory muscles of breathing. No JVD. Mucosa is pink and wet. No carotid bruit. Cardiac: Regular, no thrill/gallop. Chest: Scattered rhonchi in the lungs is heard. Abdomen: Bowel sounds positive. Abdomen is soft. There is no hepatomegaly. There was no mass. There was no edema. Past medical history includes obesity, asthma/COPD, diabetes mellitus, history of pneumonia/empyema, history of chest tube implantations (some years ago) and old history of substance (heroin) abuse. She is status post cholecystectomy. She quit smoking two years ago. There is no relevant family history. Echocardiogram of September 2022 reported ejection fraction of 60 65%, normal diastolic, trace TR and right ventricular systolic pressure of 30 mm Hg WBC: 11.9 - 9.9 D-dimer: 1.38 Creatinine: 0.5 -0.66 Potassium: 4.4 - 3.8 Troponin (high sensitive): 45 - 44 - 50 Chest x-ray reported: Findings/Impression: Frontal chest radiograph demonstrates no acute osseous or superficial soft tissue abnormalities. The trachea is midline. The cardiac silhouette and mediastinum are within normal limits. Patchy airspace opacities in the right mid to lower lung norman. No pneumothorax or pleural effusions. CT angio of the lungs reported: IMPRESSION: No definite evidence of pulmonary embolism. Bilateral airspace opacities, worse in the right lung. These may be of infectious etiology. Recommend follow-up to resolution. Multiple small bilateral pulmonary nodules. Some of these may be reactive, however, metastatic disease is also a possibility given the clinical history. EKG revealed sinus tachycardia, left atrial enlargement and nonspecific ST-T changes Telemetry shows sinus rhythm Echocardiogram revealed: Left ventricle: Mild concentric left ventricular hypertrophy was seen. LVEF 60-65%. There was no gross wall motion abnormality. Right ventricle was mildly dilated with normal systolic function. Both atria were mildly dilated. Aortic valve was not well visualized. There was no aortic insufficiency/stenosis. For was mild mitral regurgitation. There was trace pulmonary valve insufficiency. There was trace tricuspid valve regurgitation. Right ventricular systolic pressure was assessed at 55 mm Hg. There was trace pericardial effusion. Patient is a 44-year-old female who presented with shortness of breaths/fever. Presentation is in favor of pneumonia. Does have history of pneumonia/empyema few years back. On arrival, blood pressure was 240/120 and hypertensive emergency could have contributed clinical picture. It was of note that the patient does have history of hypertension and is noncompliant with medication and follow up. She never follow up with any physician as outpatient recently. Minimal increase/flat cardiac enzyme he was observed. It was in favor of demand ischemia. Acute coronary syndrome is not considered at this point. D-dimer was elevated, but CT angio of the lungs ruled out pulmonary emboli. Echo revealed increased RVSP and in favor of some component of pulmonary Hypertension which could explain clinical presentation, imaging and also mild increase in Trop also. Sepsis Pneumonia, community-acquired Hypertensive emergency COPD exacerbation Acute Respiratory failure Diabetes mellitus Mild abnormal high sensitive troponin Abnormal D-dimer History of substance abuse Pulmonary Hypertension. Cardiac suggestion for management: Manage on Tele Follow-up electrolytes and kidney function tests and correct abnormalities Considered urine toxicology Evaluation and management of possible pneumonia/sepsis as per primary team Control Hypertension Pulmonary follow up Further evaluation and management depends on the above and clinical course A total of 55 minutes was spent reviewing the patient record, examining the patient, making a diagnostic and therapeutic plan, discussing this plan with medical personnel, following up on diagnostic studies and following the patient for clinical stability excluding any and all procedures. At least 50% of this time was spent in direct, [id number] contact. Thank you for allowing me to participate in this patient's care. Further recommendations will depend on patient's clinical course. Please do not hesitate to contact me if you have any questions or concerns. This medical document was created using electronic medical record system with [id number] computerized dictation system. Although this document has been carefully reviewed, there may still be some phonetic and typographical errors. These areas are purely typographical due to the imperfection of the software programs, and do not reflect any compromise in the patient's medical care. Plan discussed with: Patient, Other (nurse) OLIVIA LUJAN MD Aug 31, 2024 06:27
[2024-08-31 08:08] LABS: Benzodiazephine Screen, Urine Neg (NEGATIVE)
[2024-08-31 08:09] LABS: Amphetamine Screen, Urine Neg (NEGATIVE); Barbiturate Scree,Urine Neg (NEGATIVE); Cannabinoid Screen, Urine Neg (NEGATIVE); Cocaine Screen, Urine Neg (NEGATIVE); Opiate Scree,Urine Pos (NEGATIVE); Phencyclidine Screen, Urine Neg (NEGATIVE)
--- NOTE | 2024-08-31 13:45 | DVHPN2 ---
Progress Note - Dictate Medical Necessity Reason Pt with a Central, PICC or Fol: No vital signs Vital Sign Date Time Temp Pulse Resp B/P (MAP) Pulse Ox O2 Delivery O2 Flow Rate FiO2 08/31/24 11:57 97.9 113 17 160/91 (114) 97 97.9 08/31/24 10:22 Nasal Cannula* 2 28 Total Intake and Output 08/30/24 08/30/24 08/31/24 15:00 23:00 07:00 Intake Total 50 ml 850 ml 900 ml Balance 50 ml 850 ml 900 ml medications Current Medications Medications Dose Ordered Sig/Mata Route Start Time Stop Time Status Last Admin Dose Admin Acetaminophen/ Hydrocodone Bitart 1 tab Q4HP PRN PO 08/29/24 19:45 08/30/24 17:55 1 TAB Temazepam 15 mg QHSP PRN PO 08/29/24 19:45 08/30/24 21:24 15 MG Ondansetron HCl 4 mg Q4HP PRN IV 08/29/24 19:45 Acetaminophen 650 mg Q6HP PRN PO 08/29/24 19:45 08/31/24 05:57 650 MG Morphine Sulfate 2 mg Q4HPRN PRN IV 08/29/24 19:45 08/31/24 11:19 2 MG Enoxaparin Sodium 40 mg DAILY SC 08/30/24 10:00 08/31/24 10:03 40 MG Ipratropium [place] 0.5 mg Q4HR NEB 08/29/24 22:00 08/31/24 10:21 0.5 MG Albuterol 2.5 mg Q4HR NEB 08/29/24 22:00 08/31/24 10:22 2.5 MG Methylprednisolone Sodium Succinate 40 mg Q6HR IV 08/30/24 00:00 08/31/24 12:14 40 MG Azithromycin 250 ml @ 125 mls/hr DAILY IV 08/30/24 10:00 08/31/24 09:51 125 MLS/HR Pantoprazole Sodium 40 mg DAILY IV 08/30/24 10:00 08/31/24 09:51 40 MG Nitroglycerin 0.4 mg Q5MINP PRN SL 08/29/24 19:45 Morphine Sulfate 2 mg Q30M PRN IV 08/29/24 19:45 Hydralazine HCl 10 mg Q6HP PRN IV 08/29/24 20:45 08/30/24 11:22 10 MG Ceftriaxone Sodium 50 ml @ 100 mls/hr DAILY@09 IV 08/30/24 09:00 08/31/24 08:46 100 MLS/HR Methadone HCl 120 mg DAILY PO 08/30/24 16:05 08/31/24 09:51 120 MG objective General Appearance: alert, no distress HEENT: EOMI, PERRLA, normal external inspect of ears, no icterus, no nasal drainage Neck: no carotid bruit, no jugular venous distention (JVD), no lymphadenopathy Chest: normal thorax Respiratory: clear to auscultation, normal air movement Cardiovascular: regular rate and rhythm, no diastolic murmur, no jugular venous distention (JVD), no rub, no systolic murmur Abdominal: soft, no hepatomegaly, no mass, no splenomegaly, no tenderness Genitourinary: grossly normal external Musculoskeletal: no joint tenderness, no swelling Extremities: normal pulses, no calf tenderness, no clubbing, no cyanosis, no edema Skin: no bruising, no jaundice, no rash Neurological: alert, No focal deficit laboratory and microbiology Laboratory Tests 08/30/24 07:22 Test 08/30/24 07:22 Range/Units Serum Glucose 127 H 74-106 mg/dL Problem List 1. Acute hypoxic respiratory failure Monitor, supplemental O2, pulmonary consult, med neb tx 2. Right lobe pneumonia Monitor, supplemental O2, pulmonary consult, IV abx 3. Morbid obesity Monitor, PPI 4. S/p thoracotomy Monitor, DVT prophylaxis 5. Opioid dependence Monitor, resume home methadone Assessment/Plan Subjective Patient is awake alert. Objective Patient was admitted for shortness of breath. Patient was found to have pneumonia to the right lobe. Patient has mildly elevated troponin levels. I did speak with Dr. Baker who was consulted in regards to care. Plan Continue current treatment. Resume home methadone dose. Continue breathing treatments and IV antibiotics. Per cardiology elevated troponin most likely due to pneumonia. JULIAN WILSON NP Aug 31, 2024 13:45
--- NOTE | 2024-08-31 13:50 | DVHDS2 ---
Discharge Summary Date of Admission Aug 29, 2024 at 19:42 Date of Discharge: Aug 31, 2024 Labs/Diagnostic Data: Laboratory Results Test 08/31/24 07:00 08/30/24 08:22 08/30/24 07:22 08/29/24 20:48 Urine Opiates Screen Pos (NEGATIVE) Urine Fentanyl Screen Neg (NEGATIVE) Urine Barbiturates Screen Neg (NEGATIVE) Urine Phencyclidine Screen Neg (NEGATIVE) Urine Amphetamines Screen Neg (NEGATIVE) Urine Benzodiazepines Screen Neg (NEGATIVE) Urine Cocaine Screen Neg (NEGATIVE) Urine Cannabinoids Screen Neg (NEGATIVE) Triglycerides Level 94 mg/dL (< 150) Cholesterol Level 164 mg/dL (< 200) LDL Cholesterol 120 mg/dL (< 100) HDL Cholesterol 37 mg/dL (40-59) White Blood Count 9.9 10^3/uL (4.4-10.8) Red Blood Count 4.02 10^6/uL (4.0-5.20) Hemoglobin 11.7 g/dL (12.2-16.2) Hematocrit 35.0 % (36.0-46.0) Mean Corpuscular Volume 87.1 fL (80.0-100.0) Mean Corpuscular Hemoglobin 29.1 pg (28.0-32.0) Mean Corpuscular Hemoglobin Concent 33.4 g/dL (32.0-36.0) Red Cell Distribution Width 13.6 % (11.8-14.3) Platelet Count 551 10^3/uL (140-450) Mean Platelet Volume 7.2 fL (6.9-10.8) Neutrophils (%) (Auto) 85.5 % (37.0-80.0) Lymphocytes (%) (Auto) 11.3 % (10.0-50.0) Monocytes (%) (Auto) 2.5 % (0.0-12.0) Eosinophils (%) (Auto) 0.1 % (0.0-7.0) Basophils (%) (Auto) 0.6 % (0.0-2.0) Neutrophils # (Auto) 8.4 10 ^3/uL (1.6-8.6) Lymphocytes # (Auto) 1.1 10 ^3/uL (0.4-5.4) Monocytes # (Auto) 0.2 10 ^3/uL (0-1.3) Eosinophils # (Auto) 0 10 ^3/uL (0-0.8) Basophils # (Auto) 0.1 10 ^3/uL (0-0.2) Nucleated Red Blood Cells 0.1 % Sodium Level 135 mmol/L (136-145) Potassium Level 3.8 mmol/L (3.5-5.1) Chloride Level 101 mmol/L (98-107) Carbon Dioxide Level 26 mmol/L (20-31) Anion Gap 8 (5-15) Blood Urea Nitrogen 11 mg/dL (9-23) Creatinine 0.66 mg/dL (0.550-1.02) Glomerular Filtration Rate Calc 110 mL/min (>90) BUN/Creatinine Ratio 16.7 (10.0-20.0) Serum Glucose 127 mg/dL (74-106) Calcium Level 9.5 mg/dL (8.7-10.4) Total Bilirubin 0.2 mg/dL (0.2-1.0) Aspartate Amino Transferase (AST) 28 U/L (13-40) Alanine Aminotransferase (ALT) 10 U/L (7-40) Alkaline Phosphatase 144 U/L (46-116) Total Protein 8.3 g/dL (5.7-8.2) Albumin 4.6 g/dL (3.2-4.8) Troponin I High Sensitivity 50 ng/L (</=34) Test 08/29/24 18:18 08/29/24 17:49 08/29/24 16:58 Influenza Type A Antigen Negative (Negative) Influenza Type B Antigen Negative (Negative) SARS-CoV-2 Antigen (Rapid) Negative (NEGATIVE) Lactic Acid Level 1.4 mmol/L (0.4-2.0) Platelet Estimate Increased Large Platelets Few Red Blood Cell Morphology Normal Prothrombin Time 11.4 sec (9.3-11.8) Prothrombin Time INR 1.08 (0.9-1.15) Activated Partial Thromboplast Time 27.8 SEC (24.5-34.5) D-Dimer, Quantitative 1.38 mg/L FEU (0.0-0.49) Other Laboratory Tests 08/30/24 07:22 Brief Hx & Hospital Course: 44 yo female patient with hx of COPD c/o shortness of breath x 2 days. Patient reports that she has been having a fever that has been worsening. Patient was found to be sating at 76% on RA by EMS. Patient reports being out of her COPD medication x 2 years. While in the emergency department the patient was evaluated by the provider, As per provider: Labs, vital signs, and imagining monitored. Patient was admitted on 08/29/2024 for acute on chronic hypoxic respiratory failure. Patient was found to have pneumonia. Patient was treated with antibiotics. Patient was seen by cardiology. Chest pain was related to underlying pneumonia and acute coronary syndrome was ruled out. Sepsis also ruled out. Patient was discharged home on oral antibiotics. Patient will follow-up with his PCP Dr. Bowling in 1 week. The patient received proper medical treatment and medications. Vital signs, Imaging and Laboratory Work was monitored daily. All consults recommendations were followed as provided. There were no complaints or new complaints upon discharge, all questions and concerns were answered. Patient was advised to return to the ER or call 911 if any headaches, dizziness, shortness of breath, chest pain, bleeding, fevers, or worsening of medical condition. Patient/Family was counseled about treatment plan, medications, possible side effects, patient verbalized understanding. All questions were answered to the best of my ability. The patient symptoms improved and they are okay to be DC. Condition at Discharge: Stable Final Diagnosis/Problems List Acute hypoxic respiratory failure Pneumonia Morbid obesity Opioid dependence Discharge Disposition: Home Discharge Instruct/Medications Follow Up/Referral: pcp 1 week Discharge Statement: "Patient was advised to return to the ER or call 911 if any headaches, dizziness, shortness of breath, chest pain, abdominal pain, bleeding, fevers, or worsening of medical condition. Patient was counseled about treatment plan, medications, possible side effects, patientverbalized understanding. All questions were answered to the best of my ability. This discharge took greater then 30 minutes in planning, reviewing documentation, counseling the patient, and discussing with other team members." ASSESSMENT ASSESSMENT Assessment JULIAN WILSON NP Aug 31, 2024 13:50
[2024-08-31] MEDS ORDERED: DOXY100C79 PO (13:51)
--- NOTE | 2024-08-31 23:55 | DVHPN2 ---
Progress Note - Dictate Date Seen: Aug 31, 2024 Medical Necessity Reason Pt with a Central, PICC or Fol: No Subjective Patient seen and examined at bedside. Remains on supplemental oxygen Overnight events reviewed. vital signs Vital Sign Date Time Temp Pulse Resp B/P (MAP) Pulse Ox O2 Delivery O2 Flow Rate FiO2 08/31/24 14:40 100 18 96 08/31/24 14:35 Room Air* 0 21 08/31/24 11:57 97.9 160/91 (114) 97.9 Total Intake and Output 08/30/24 08/30/24 08/31/24 15:00 23:00 07:00 Intake Total 50 ml 850 ml 900 ml Balance 50 ml 850 ml 900 ml objective Gen.: Patient lying in bed in no apparent distress. On supplemental oxygen. Head: Normocephalic, atraumatic. Eyes: EOMI/PERRLA. Ears: Normal hearing. Normal anatomy. Neck/trachea: Trachea midline, supple. Nose: Normal external anatomy. Mouth: Moist mucous membranes. Chest: Decreased air entry bilaterally. No wheezing or rhonchi. Cardiovascular: Positive S1, positive S2. Regular rate and rhythm. Abdomen: Positive bowel sounds in all 4 quadrants. Soft, non-tender, non- distended. : Deferred. Rectal: Deferred. Skin: Warm, dry. Intact. Extremities: 2+ radial pulses bilaterally. No lower extremity edema. Neuro: Awake, alert, oriented x3. No gross motor or sensory deficits. Cranial nerves II through XII intact. Gait not assessed. laboratory and microbiology Laboratory Tests 08/30/24 07:22 Test 08/30/24 07:22 Range/Units Serum Glucose 127 H 74-106 mg/dL Assessment/Plan Impression: Acute hypoxic respiratory failure Dependence on supplemental oxygen Acute COPD exacerbation Hx of nicotine dependence Asthma due to seasonal allergies Environmental allergies Obesity BMI 38.1 Events: Remains on supplemental oxygen, 2 LPM NC Taper O2 as tolerated Continue bronchodilators Continue steroids Continue antibiotics Patient is stable for discharge from the pulmonary standpoint. Follow up in 2-3 weeks in Pulmonary Clinic. Recommend repeat CXR in 6-8 weeks Labs and imaging reviewed. Rest of plan as noted below. Plan: Supplemental oxygen Titrate to keep O2 sats above 92%. Continue bronchodilators. IV steroids Continue antibiotics Incentive spirometry Monitor renal function. Monitor electrolytes. Supplement as necessary. Monitor ins and outs. Diet and lifestyle modifications for weight reduction Obesity - complicates all care DVT prophylaxis. Prognosis: Guarded given patient's multiple co-morbidities. Rest of plan per hospitalist and other consultants. Thank you, ABIDA Acuña, for allowing me to participate in this patient's care. Further recommendations will depend on the patient's clinical course. Please do not hesitate to contact me if you have any questions or concerns. This medical document was created using an electronic medical record system with [employer] dictation system. Although these documentations are being carefully reviewed, there may still be some phonetic and typographical changes. The errors are purely typographical, due to imperfection on the software program, and do not reflect any compromise in the patient's medical care. Plan discussed with: Patient, Other (ANALI Carroll) NATHALY NARAYAN MD Aug 31, 2024 23:55
== END 2024-08-31 17:15 | disposition home or self-care (01) | DRG 720 ==
LOC: ER 16:34 → TELE 19:42 → TELE-WESTW 23:13
PROVIDERS: ADMIT Nurse Practitioner; ATTEND Nurse Practitioner
DX: A41.50 Gram-negative sepsis, unspecified (principal); J96.21 Acute and chronic respiratory failure with hypoxia; J15.69 Pneumonia due to other Gram-negative bacteria; I21.A1 Myocardial infarction type 2; I27.20 Pulmonary hypertension, unspecified; I20.0 Unstable angina; J15.9 Unspecified bacterial pneumonia; J44.1 Chronic obstructive pulmonary disease with (acute) exacerbation; Z20.822 Contact with and (suspected) exposure to COVID-19; I10 Essential (primary) hypertension; E11.9 Type 2 diabetes mellitus without complications; E66.01 Morbid (severe) obesity due to excess calories; F11.20 Opioid dependence, uncomplicated; I16.1 Hypertensive emergency; Z90.49 Acquired absence of other specified parts of digestive tract; Z99.81 Dependence on supplemental oxygen; Z87.891 Personal history of nicotine dependence; Z82.49 Family history of ischemic heart disease and other diseases of the circulatory system; Z68.36 Body mass index [BMI] 36.0-36.9, adult; J44.0 Chronic obstructive pulmonary disease with (acute) lower respiratory infection
CPT/HCPCS: 36415; 71045; 71275; 76937; 80053; 80061; 80307; 83605; 84484; 85025; 85379; 85610; 85730; 87040; 87426; 87804; 93005; 93306; 94640; 99291; G0378; J2405; J2470

== ENCOUNTER 2024-10-05 16:42 | Emergency (ER) | payer MEDICAID ==
[~2024-10-05] VITALS: Ht 162.6 cm; Wt 95.3 kg
[~2024-10-05 16:42] MED LIST changes: +DOXY100C79 PO; -LEVO500T31 PO
--- NOTE | 2024-10-05 17:29 | ED.PDOC ---
History of Present Illness HPI Comments 44F presents to the ER via wheelchair and w/ prior Hx of COPD, being on 4L NC of O2 at home, ND, Double Lung Sx and Stents placed which all may be associated to the c/c of SOB. Pt reports on having her BP over the 160's w/ worsened SOB, cough and congestion, all for the past 3 days. Pt notes that she did take her medications today due from her BP being 170/91 in the triage room. PMHx of HTN. SHx of Ovarian Cyst and Appendectomy. Time Seen by MD: 17:20 Primary Care Provider: CHANG Coats Notes: Nurses Notes, Medications, Allergies Allergies: Coded Allergies: NO KNOWN ALLERGIES (Unverified , 06/13/14) Home Meds Active Scripts Doxycycline (Monohydrate) (Doxycycline) 100 Mg Cap, 100 MG PO BID for 7 Days, #14 CAP Prov:STEVEJULIAN Jaime HAZARDOUS WASTE MATERIAL TECHNICIAN 08/31/24 Alprazolam (Xanax) 0.25 Mg Tb, 1 TAB PO BID for 5 Days, #10 TAB Prov:STEVEJULIAN M HAZARDOUS WASTE MATERIAL TECHNICIAN 10/16/22 Morphine Sulfate (Morphine Sulfate Cr) 15 Mg Tab, 1 TAB PO BID for 5 Days, #10 TAB Prov:JULIAN WILSON Jaime HAZARDOUS WASTE MATERIAL TECHNICIAN 10/16/22 Clindamycin HCl (Clindamycin Hydrochloride) 300 Mg Cap, 300 MG PO TID for 14 Days, #42 CAP Prov:JULIAN WILSON Jaime HAZARDOUS WASTE MATERIAL TECHNICIAN 10/16/22 Aspirin (Aspirin Low Dose) 81 Mg Tab, 81 MG PO DAILY for 30 Days, #30 TAB Prov:JULIAN WILSON Jaime HAZARDOUS WASTE MATERIAL TECHNICIAN 10/16/22 Information Source: Patient Mode of Arrival: Wheelchair Severity: Moderate Timing: Days Duration: Since onset, Days Prehospital treatment: None Past Medical History PAST MEDICAL HISTORY: COPD, HTN, ND Past Medical History (Other): 4L of NC of O2 at home Surgical History: Appendectomy Surgical History (Other): Double lung Sx, Stent BACK UP WORKER History: Ovarian Cysts Family History Family History: Reviewed,noncontributory to illness, Unknown Social History Smoker: Non-Smoker Alcohol: Denies ETOH Use Drugs: Denies Drug Use Lives In: Home Constitutional: denies: chills, diaphoresis, fatigue, fever, malaise, sweats, weakness, others EENTM: denies: blurred vision, double vision, ear bleeding, ear discharge, ear drainage, ear pain, ear ringing, eye pain, eye redness, hearing loss, mouth pain, mouth swelling, nasal discharge, nose bleeding, nose congestion, nose pain, photophobia, tearing, throat pain, throat swelling, voice changes, others Respiratory: reports: shortness of breath; denies: cough, hemoptysis, orthopnea, SOB at rest, SOB with excertion, stridor, wheezing, others Cardiovascular: denies: chest pain, dizzy spells, diaphoresis, Dyspnea on exertion, edema, irregular heart beat, left arm pain, lightheadedness, palpitations, PND, syncope, others Gastrointestinal: denies: abdomen distended, abdominal pain, blood streaked bowels, constipated, diarrhea, dysphagia, difficulty swallowing, hematemesis, melena, nausea, poor appetite, poor fluid intake, rectal bleeding, rectal pain, vomiting, others Genitourinary: denies: abnormal vagina bleeding, burning, dyspareunia, dysuria, flank pain, frequency, hematuria, incontinence, pain, , vagina discharge, urgency, others Neurological: denies: dizziness, fainting, headache, left sided numbness, left sided weakness, numbness, paresthesia, pre-existing deficit, right sided numbness, right sided weakness, seizure, speech problems, tingling, tremors, wea kness, others Musculoskeletal: denies: back pain, gout, joint pain, joint swelling, muscle pain, muscle stiffness, neck pain, others Integumetry: denies: bruises, change in color, change in hair/nails, dryness, l aceration, lesions, lumps, rash, wounds, others Allergic/Immunocompromised: denies: Difficulty Healing, Frequent Infections, Hives, Itching, others Hematologic/Lymphatic: denies: anemia, blood clots, easy bleeding, easy bruising, swollen glands, others Endocrine: denies: excessive hunger, excessive sweating, excessive thirst, excessive urination, flushing, intolerance to cold, intolerance to heat, unexplained weight gain, unexplained weight loss, others Psychiatric: denies: anxiety, bipolar disorder, depression, hopeless, panic disorder, schizophrenia, sleepless, suicidal, others All Other Systems: Reviewed and Negative Physical Exam General Appearance: No Apparent Distress, Normal HEENT: Normal ENT Inspection, Pharynx Normal, TMs Normal Neck: Full Range of Motion, Non-Tender, Normal, Normal Inspection Respiratory: Chest Non-Tender, Lungs Clear, No Accessory Muscle Use, No Respiratory Distress, Normal Breath Sounds Cardiovascular: No Edema, No JVD, No Murmur, No Gallop, Normal Peripheral Pulses, Regular Rate/Rhythm Breast Exam: Deferred Gastrointestinal: No Organomegaly, Non Tender, No Pulsatile Mass, Normal Bowel Sounds, Soft Genitalia: Deferred Pelvic: Deferred Rectal: Deferred Extremities: No calf tenderness, Normal capillary refill, Normal inspection, Normal range of motion, Non-tender, No pedal edema Musculoskeletal : Apperance: Normal Neurologic: Alert, wet process head miller II-XII nml as Tested, No Motor Deficits, Normal Affect, Normal Mood, No Sensory Deficits Cerebellar Function: Normal Reflexes: Normal Skin: Dry, Normal Color, Warm Lymphatic: No Adenopathy Was a procedure done? Was a procedure done?: No Differential Dx Considerations may include: PNEUMONIA, COPD EXACERBATION, BRONCHITIS. URI, INFLUENZA, COVID, STREP THROAT, PHARYNGITIS, PNEUMONIA X-Ray, Labs, Meds, VS Vital Signs Date Time Temp Pulse Resp B/P (MAP) Pulse Ox O2 Delivery O2 Flow Rate FiO2 10/05/24 20:28 98.1 84 16 164/92 (116) 94 98.1 10/05/24 17:18 91 10/05/24 16:52 99.2 92 28 170/91 (117) 90 Lab Test 10/05/24 19:41 10/05/24 18:35 Range/Units Troponin I High Sensitivity 28 28 </=34 ng/L White Blood Count 8.8 4.4-10.8 10^3/uL Red Blood Count 4.85 4.0-5.20 10^6/uL Hemoglobin 12.9 12.2-16.2 g/dL Hematocrit 39.8 36.0-46.0 % Mean Corpuscular Volume 82.1 80.0-100.0 fL Mean Corpuscular Hemoglobin 26.6 L 28.0-32.0 pg Mean Corpuscular Hemoglobin Concent 32.4 32.0-36.0 g/dL Red Cell Distribution Width 15.2 H 11.8-14.3 % Platelet Count 337 140-450 10^3/uL Mean Platelet Volume 7.4 6.9-10.8 fL Neutrophils (%) (Auto) 84.0 H 37.0-80.0 % Lymphocytes (%) (Auto) 11.8 10.0-50.0 % Monocytes (%) (Auto) 2.9 0.0-12.0 % Eosinophils (%) (Auto) 0.9 0.0-7.0 % Basophils (%) (Auto) 0.4 0.0-2.0 % Neutrophils # (Auto) 7.4 1.6-8.6 10 ^3/uL Lymphocytes # (Auto) 1.0 0.4-5.4 10 ^3/uL Monocytes # (Auto) 0.3 0-1.3 10 ^3/uL Eosinophils # (Auto) 0.1 0-0.8 10 ^3/uL Basophils # (Auto) 0 0-0.2 10 ^3/uL Nucleated Red Blood Cells 0.0 % Sodium Level 136 136-145 mmol/L Potassium Level 3.9 3.5-5.1 mmol/L Chloride Level 99 98-107 mmol/L Carbon Dioxide Level 28 20-31 mmol/L Anion Gap 9 5-15 Blood Urea Nitrogen 12 9-23 mg/dL Creatinine 0.77 0.550-1.02 mg/dL Glomerular Filtration Rate Calc 97 >90 mL/min BUN/Creatinine Ratio 15.6 10.0-20.0 Serum Glucose 94 74-106 mg/dL Calcium Level 10.5 H 8.7-10.4 mg/dL Total Bilirubin 0.3 0.2-1.0 mg/dL Aspartate Amino Transferase (AST) 31 13-40 U/L Alanine Aminotransferase (ALT) 15 7-40 U/L Alkaline Phosphatase 159 H 46-116 U/L Total Protein 7.8 5.7-8.2 g/dL Albumin 4.4 3.2-4.8 g/dL X-Ray, Labs, Meds, VS Comment IMAGING: X-RAYS AND CT SCANS WERE REVIEWED AND INTERPRETED BY THIS PROVIDER, IMAGING SHOWS NO FRACTURES AND NO PATHOLOGICAL DISEASE. PENDING RADIOLOGY REVIEW. LABORATORY: LABS REVIEWED AND INTERPRETED BY THIS PROVIDER. NO SIGNIFICANT ABNORMALITIES NOTED. PATIENT HAS PRIOR MEDICAL VISITS REVIEWED. MED RECONCILIATION PERFORMED VITAL SIGNS REVIEWED Time of 1ST Reevaluation: 17:50 Reevaluation 1ST: Unchanged Patient Education/Counseling: Diagnosis, Treatment, Prognosis, Need For Follow Up (PATIENT ADVISED TO FOLLOW-UP IN THE EMERGENCY ROOM IN THE NEXT 24 TO 48 HOURS IF SYMPTOMS DO NOT IMPROVE. ADVISED FOLLOW-UP WITH PCP IN THE NEXT 3 TO 5 DAYS. PATIENT VERBALIZED UNDERSTANDING. ) Family Education/Counseling: No Family Present Departure 1 Departure Time of Disposition: 20:46 Impression: Primary Impression: Empyema Additional Impression: Pneumonia Qualified Codes: J18.9 - Pneumonia, unspecified organism Disposition: HOME / SELF CARE / HOMELESS Condition: Fair Discharged With: Self Critical Care Note Critical Care Time?: No Stability Stability form required: No Heart Score Heart Score: Heart Score Response (Comments) Value History N/A 0 EKG N/A 0 Age N/A 0 Risk Factors N/A 0 Troponin N/A 0 Total 0 I personally scribed for KIRIT PALACIOS ([email or web address]) on 10/05/24 at 17:29. Electronically submitted by Jewel Whatley ([email or web address]). KIRIT PALACIOS Oct 05, 2024 17:29
--- NOTE | 2024-10-05 18:43 | DVH ---
CHEST RADIOGRAPH Indication: SOB Technique: Single frontal view of the chest was obtained Comparison: XY CHEST PORTABLE on DOS: 08/29/24, XY CHEST PORTABLE on DOS: 10/16/22, XY CHEST PORTABLE o n DOS: 10/15/22 FINDINGS: Lines and Tubes: None Lungs: Hazy increased density over the lower lung norman. may represent pulmonary airspace disease o r may be secondary to breast tissue. Pleura: No effusion. No pneumothorax. Cardiomediastinal contours: Unremarkable Bones: No acute osseous abnormality. IMPRESSION: 1. Hazy ill-defined tissue density over lower lung nroman bilaterally. May represent airspace disease or overlying breast tissue
[2024-10-05 19:13] LABS: Basophils # (auto) 0 10 ^3/uL (0-0.2); Basophils % (auto) 0.4 % (0.0-2.0); Eosinophils # (auto) 0.1 10 ^3/uL (0-0.8); Eosinophils % (auto) 0.9 % (0.0-7.0); Hematocrit 39.8 % (36.0-46.0); Hemoglobin 12.9 g/dL (12.2-16.2); Lymphocytes % (auto) 11.8 % (10.0-50.0); Mean Corpuscular Hemoglobin 26.6 pg (28.0-32.0); Mean Corpuscular Hgb Conc. 32.4 g/dL (32.0-36.0); Mean Corpuscular Volume 82.1 fL (80.0-100.0); Monocytes # (auto) 0.3 10 ^3/uL (0-1.3); Monocytes % (auto) 2.9 % (0.0-12.0); Neutrophils # (auto) 7.4 10 ^3/uL (1.6-8.6); Platelet Count (auto) 337 10^3/uL (140-450); Red Blood Cells 4.85 10^6/uL (4.0-5.20); Red Cell Distribution Width 15.2 % (11.8-14.3); White Blood Cell 8.8 10^3/uL (4.4-10.8)
[2024-10-05 19:25] LABS: Alanine Aminotransferase 15 U/L (7-40); Anion Gap 9 (5-15); Aspartate Aminotransferase 31 U/L (13-40); BUN/Creatinine Ratio 15.6 (10.0-20.0); Blood Urea Nitrogen 12 mg/dL (9-23); Carbon Dioxide 28 mmol/L (20-31); Chloride 99 mmol/L (98-107); Glucose 94 mg/dL (74-106); Potassium 3.9 mmol/L (3.5-5.1); Sodium 136 mmol/L (136-145); Total Protein 7.8 g/dL (5.7-8.2)
[2024-10-05 19:26] LABS: Albumin 4.4 g/dL (3.2-4.8); Bilirubin, Total 0.3 mg/dL (0.2-1.0)
[2024-10-05 19:28] LABS: Alkaline Phosphatase 159 U/L (46-116); Calcium 10.5 mg/dL (8.7-10.4)
[2024-10-05 20:28] VITALS: BP 164/92; TEMP 98.1
[2024-10-05] MEDS ORDERED: FLUT1AER3 IN (20:47)
[2024-10-05] MEDS ORDERED: PRED20TA2 PO (20:47)
[2024-10-05] MEDS: IPRATROPIUM BROM 0.5 MG/2.5ML INH SOL ONE (21:07)
[2024-10-05] MEDS: ALBUTEROL SULF 2.5 MG/0.5ML(0.5%) NEB SOLN ONE (21:07)
[2024-10-05 21:30] VITALS: PULSE 96; RESP 18; O2SAT 93
[2024-10-05] MEDS: ALBUTEROL SULF 2.5 MG/0.5ML(0.5%) NEB SOLN NEB ONE (21:50)
[2024-10-05] MEDS: methylPREDNISolone SOD SUCC 125 MG/2 ML VL IM ONE (21:50)
[2024-10-05] MEDS: IPRATROPIUM BROM 0.5 MG/2.5ML INH SOL NEB ONE (21:50)
--- NOTE | 2024-10-06 13:37 | ECG ---
[facility] Test Date: 2024-10-05 Test Time: 17:18:23 Pat Name: JENN RUSH Department: ER Room: Gender: F Tin Stacker: MILENA : 1980 Requested By: KIRIT PALACIOS Order Number: [id number] Reading MD: Domenic Horan Measurements Intervals [place] Rate: 91 P: 79 TX: 152 QRS: 46 QRSD: 83 T: 60 QT: 346 QTc: 426 Interpretive Statements Sinus rhythm Probable left atrial enlargement Baseline wander in lead(s) III,V4,V5 Electronically Signed On 10-08-2024 17:54:36 PST by Domenic Horan Please click the below link to view image of tracing.
== END 2024-10-05 21:54 | disposition home or self-care (01) ==
LOC: ER 16:42
DX: J86.9 Pyothorax without fistula (principal); J18.9 Pneumonia, unspecified organism; J44.9 Chronic obstructive pulmonary disease, unspecified; R05.9 Cough, unspecified; I10 Essential (primary) hypertension; I25.2 Old myocardial infarction; Z90.49 Acquired absence of other specified parts of digestive tract; Z79.899 Other long term (current) drug therapy; Z79.82 Long term (current) use of aspirin
CPT/HCPCS: 36415; 71045; 80053; 84484; 85025; 93005

== ENCOUNTER 2024-11-09 15:04 | Emergency (ER) | payer MEDICAID ==
[~2024-11-09] VITALS: Ht 162.6 cm; Wt 91.0 kg
[~2024-11-09 15:04] MED LIST changes: +ALBU0.084 NEB; -CLIN-203 PO; +CLON0.1T PO; +CLON0.5T3 PO; +FLUT1AER3 IN; +LEVO500T91 PO; +LISI10TA34 PO; +MET25T PO; +PANT40T PO; +PRED20TA2 PO; +ZOFR4T PO
--- NOTE | 2024-11-09 15:20 | ED.PDOC ---
Musculoskeletal HPI Comments jenn Marcano: HPI: Poor Historian. 44-year-old female presents to emergency department for two day history of pitting edema of the left ankle without any associated pain or redness or shor tness of breath or chest pain or any other symptoms. Patient was recently admitted and discharged from the hospital on the 27 of October. Patient denies being on any blood thinners. Past Medical history: -metabolic encephalopathy due to acute hypoxic respiratory failure/pneumonia Gram-positive versus Gram-negative -septic shock -acute hypoxic respiratory failure likely due to pneumonia Gram-positive versus Gram-negative -acute pulmonary edema due to acute diastolic heart failure -NSTEMI type 2 likely due to demand related ischemia -history of hypertension -coronary artery disease, status post HI, status post PCI -acute exacerbation of COPD -pneumonia Gram-positive versus Gram-negative -RAZIA likely due to VMN -diabetes mellitus type 2 Constipation Past Surgical history: Appendectomy, Other (left thoracotomy September 2022) Medications: clonidine, lisinopril, metroprolol Allergies: nkda Social History: denies ETOH, denies tobacco use, denies drug use REVIEW OF SYSTEMS: CONSTITUTIONAL: Denies acute: fever, diaphoresis, chills, generalized weakness. HEAD: Denies acute: headache, photophobia Eyes: Denies acute: Double vision, vision loss, eye pain, eye discharge. EARS: Denies acute: tinnitus, hearing loss, ear discharge, ear pain, THROAT: Denies acute: sore throat, swelling, difficulty swallowing , pain with swallowing, change in voice. NECK: Denies acute: neck pain, neck swelling, stiff neck. HEART: Denies acute : chest pain, palpitations, LUNGS: Denies acute: SOB, wheezing, cough, hemoptysis ABDOMEN: Denies acute: abdominal pain, Nausea, Vomiting, diarrhea, melena , hematemesis, hematochezia SKIN: Denies acute: rash, redness, lesions, itchiness. EXTREMITIES: Denies acute: calf pain, numbness, tingling, weakness, denies pain in extremity. Denies acute: Low back pain. Neuro: Denies acute: focal neurological deficit, motor or sensory focal neurological deficit, tremors, seizure like activity, confusion, dizziness, change in mental status, loss of bowel or bladder function, cauda equina like symptoms. : Denies acute: dysuria, hematuria, flank pain, increase in urinary frequency. PSYCH: Denies acute: hallucination, suicidal ideation, homicidal ideation. FEMALE: Denies acute: abnormal vaginal bleeding, foul odor, unusual discharge. PHYSICAL EXAM: General: ----no----acute distress, awake and alert. Head: normocephalic, atraumatic. Neck: supple, trachea is midline, no swelling. Throat: Normal phonation. Eyes:, no erythema, no purulent discharge, no proptosis, no icterus. Heart: regular rate, regular rhythm, no significant murmur appreciated. Lungs: no apparent respiratory distress, Able to speak in full sentences. No wheezing, no rhonchi, no crackles. No stridors Clear to auscultation bilaterally. Abdomen: non tender to palpation, non distended, soft, no guarding, no rebound, + bowel sounds. Neuro: Awake, Alert, oriented to name, self, situation, follows commands GCS=15. Speech is normal. Skin: no petechia, no purpura, no cyanosis, non-pale, not jaundice. Left Lower extremities: --no - Pitting edema no deformity, no focal swelling, no calf TTP. Right lower extremity: Noted to/four pitting edema around the ankle and the foot. No deformity, no focal swelling there, no calf tenderness. No erythema. Makes eye contact. moves all four extremities. Face: no apparent facial droop. Pedal pulses are palpable. ED COURSE: Time Seen by MD: 15:10 Reviewed Notes: Nurses Notes, Medications, Allergies Allergies: Coded Allergies: NO KNOWN ALLERGIES (Unverified , 06/13/14) Home Meds Active Scripts Furosemide (Lasix) 20 Mg Tb, 1 TAB PO DAILY for 4 Days, #4 TAB 0 Refills Prov:MICHELLE YANG DO 11/09/24 Ondansetron Odt 4MG Tab (ZOFRAN PO) 4 Mg Tb, 4 MG PO Q6HPRN PRN for 5 Days, #20 TAB ODT TAB-DISSOLVE IN MOUTH, THEN SWALLOW Prov:PIPER OBRIEN RESIDENT 10/27/24 Pantoprazole Sodium Sesquihydr (Pantoprazole Sodium) 40 Mg Tab, 40 MG PO DAILY for 14 Days, #14 TAB [facility] 10/27/24 Albuterol Sulfate (Albuterol Sulfate) 0.083 % Neb, 1 VIAL NEB Q6HP PRN for 90 Days, #100 VIAL [facility] 10/27/24 Prednisone (Prednisone) 20 Mg Tab, 30 MG PO DAILY for 5 Days, #5 MG [facility] 10/27/24 Levofloxacin Hemihydrate (LEVOFLOXACIN) 500 Mg Tab, 750 MG PO DAILY for 5 Days, #8 TAB Prov:[facility] 10/27/24 Vznnsqmpfpa-Okiutiomuzmt-Bbbec (Trelegy Ellipta 100-62.5-25 Mcg/INH) 1 Aer Aer, 1 AER IN DAILY for 30 Days, #1 AER Prov:KIRIT PALACIOS [facility] 10/05/24 Prednisone (Prednisone) 20 Mg Tab, 40 MG PO DAILY for 5 Days, #10 MG Prov:KIRIT PALACIOS COMPUTER MECHANIC 10/05/24 Doxycycline (Monohydrate) (Doxycycline) 100 Mg Cap, 100 MG PO BID for 7 Days, #14 CAP Prov:JULIAN WILSON BAKERY MANAGER 08/31/24 Alprazolam (Xanax) 0.25 Mg Tb, 1 TAB PO BID for 5 Days, #10 TAB Prov:JULIAN WILSON BAKERY MANAGER 10/16/22 Morphine Sulfate (Morphine Sulfate Cr) 15 Mg Tab, 1 TAB PO BID for 5 Days, #10 TAB Prov:JULIAN WILSON BAKERY MANAGER 10/16/22 Aspirin (Aspirin Low Dose) 81 Mg Tab, 81 MG PO DAILY for 30 Days, #30 TAB Prov:JULIAN WILSON BAKERY MANAGER 10/16/22 Reported Medications Clonazepam (KlonoPIN TABLET) 0.5 Mg Tb, 1 TAB PO BIDP PRN for 30 Days, #60 TAB 10/27/24 Clonidine Hydrochloride (Clonidine Hcl) 0.1 Mg Tab, 1 TAB PO DAILY 10/17/24 Lisinopril (Lisinopril) 10 Mg Tab, 1 TAB PO DAILY 10/17/24 Metoprolol Tartrate (Lopressor) 25 Mg Tb, 1 TAB PO BID 10/17/24 Information Source: Patient Mode of Arrival: Wheelchair Location: Left Extremity Location: Ankle, Foot Timing: Days Prehospital treatment: None Severity: Moderate Able to Move Extremity: Yes Bear Weight: Limited Pain: Moderate Hand Dominance: Right Mechanism: No Trauma Circumstances: Unknown Onset of Symptoms: Spontaneous Symptoms: Swelling Associated signs and symptoms: Swelling, Ankle pain, Foot pain Past Medical History PAST MEDICAL HISTORY: COPD, Denies Past Medical History (Other): Home O2, CKD and Intubated due from Pneumonia Surgical History: Denies all surgeries SPORTS DEVELOPMENT OFFICER History: No Pertinent SPORTS DEVELOPMENT OFFICER History Family History Family History: Reviewed,noncontributory to illness, Unknown Social History Smoker: Non-Smoker Alcohol: Denies ETOH Use Drugs: Denies Drug Use Lives In: Home Was a procedure done? Was a procedure done?: No Differential Diagnosis EXT Differential Diagnosis: Other (Leg swellingDdx include but not limited to DVT, ischemic limb, pitting edema, volume overload, CHF, cellulitis, hematoma, comp artment syndrome, dependent edema, venous stasis.) X-Ray, Labs, Meds, VS Vital Signs Date Time Temp Pulse Resp B/P (MAP) Pulse Ox O2 Delivery O2 Flow Rate FiO2 11/09/24 18:15 132/78 11/09/24 15:28 97.0 94 18 175/87 (116) 96 97.0 Lab Test 11/09/24 15:56 Range/Units White Blood Count 9.3 4.4-10.8 10^3/uL Red Blood Count 4.17 4.0-5.20 10^6/uL Hemoglobin 10.7 L 12.2-16.2 g/dL Hematocrit 33.7 L 36.0-46.0 % Mean Corpuscular Volume 80.9 80.0-100.0 fL Mean Corpuscular Hemoglobin 25.7 L 28.0-32.0 pg Mean Corpuscular Hemoglobin Concent 31.8 L 32.0-36.0 g/dL Red Cell Distribution Width 17.4 H 11.8-14.3 % Platelet Count 227 140-450 10^3/uL Mean Platelet Volume 7.1 6.9-10.8 fL Neutrophils (%) (Auto) 83.4 H 37.0-80.0 % Lymphocytes (%) (Auto) 12.1 10.0-50.0 % Monocytes (%) (Auto) 4.2 0.0-12.0 % Eosinophils (%) (Auto) 0.1 0.0-7.0 % Basophils (%) (Auto) 0.2 0.0-2.0 % Neutrophils # (Auto) 7.7 1.6-8.6 10 ^3/uL Lymphocytes # (Auto) 1.1 0.4-5.4 10 ^3/uL Monocytes # (Auto) 0.4 0-1.3 10 ^3/uL Eosinophils # (Auto) 0 0-0.8 10 ^3/uL Basophils # (Auto) 0 0-0.2 10 ^3/uL Nucleated Red Blood Cells 0.0 % Sodium Level 138 136-145 mmol/L Potassium Level 4.0 3.5-5.1 mmol/L Chloride Level 100 98-107 mmol/L Carbon Dioxide Level 28 20-31 mmol/L Anion Gap 10 5-15 Blood Urea Nitrogen 16 9-23 mg/dL Creatinine 1.08 H 0.550-1.02 mg/dL Glomerular Filtration Rate Calc 65 >90 mL/min BUN/Creatinine Ratio 14.8 10.0-20.0 Serum Glucose 105 74-106 mg/dL Lactic Acid Level 1.1 0.4-2.0 mmol/L Calcium Level 9.6 8.7-10.4 mg/dL Total Bilirubin 0.2 0.2-1.0 mg/dL Aspartate Amino Transferase (AST) 15 13-40 U/L Alanine Aminotransferase (ALT) 16 7-40 U/L Alkaline Phosphatase 113 46-116 U/L Troponin I High Sensitivity 6 </=34 ng/L B-Type Natriuretic Peptide 338.98 0-100 pg/mL Total Protein 6.6 5.7-8.2 g/dL Albumin 4.0 3.2-4.8 g/dL Time of 1ST Reevaluation: 15:40 Reevaluation 1ST: Unchanged Patient Education/Counseling: Diagnosis, Treatment, Prognosis Family Education/Counseling: No Family Present Comments Patient presented with the above HPI.----left lower extremity pitting morgan ma--workup was initiated. patient was found with the above mentioned diagnosis. the following medications were ordered: please refer to order lists of meds and tests obtained by myself Dr. Yang. Patient ED course and VS have been stabilized. Patient has been reassessed in the ED and remained in a stable condition. Pertinent incidental findings were discussed with the patient and/or family. Patient/family voices understanding and is agreeable with plan. Patient has been observed in the ED adequate length of time to insure improvement/stability. Escalation of care considered: Consideration of escalation to observation or admission Patient denies any chest pain shortness of breath or calf tenderness. No erythema Patient was DISCHARGED home in a stable condition. All the reports of any imaging studies that were ordered by myself were reviewed by myself. Departure 1 Departure Time of Disposition: 18:27 Impression: Primary Impression: Pitting edema Disposition: HOME / SELF CARE / HOMELESS Condition: Stable Additional Instructions: Additional discharge instructions: You MUST follow-up with your primary care/family doctor in 1 to 2 days. If you are unable to see your primary care/family doctor, please return to our emergency room for re-assessment and re-evaluation in 1 to 2 days. Return to the emergency room here in our facility or to the nearest ER [facility] if your symptoms change or worsen. CONSULTATIONS: you MUST Follow-up for consultation as soon as possible with: -cardiology in 1-2 days. Please call for appointment. You MUST call the consultants office yourself to make an appointment. You may need to arrange that through your insurance and/or your primary/family doctor. If you are unable to see the change management consultant in 1 to 2 days, you must return to our emergency room (or any other ER of your choice) for re-assessment and re-alka luation. Adequate fluid hydration. Leg elevation. Wear compression stockings. Repeat ultrasound of the extremity in 4-5 days if symptoms persist. Below is a copy of your radiological report for follow up: [address] [address] Ph: [phone] DIAGNOSTIC IMAGING Diagnostic Imaging Report : [id number] Signed PATIENT: JENN MARCANO ACCT: [id number] UNIT: [id number] : 1980 LOC: ER ROOM / BED: / AGE / SEX: 44 / F ADM STATUS: REG ER SERVICE 1523 ORDERING PHYSICIAN: MICHELLE YANG DO PROCEDURE(s): LLDVT - LT Lower DVT REASON: swelling ORDER NUMBER(s): [id number], ACCESSION NUMBER(s): [id number] Left lower extremity venous duplex Clinical History: swelling Comparison: None Technique: Duplex Doppler evaluation of the deep venous system of the left lower extremity from the common femoral vein to the popliteal vein including color Doppler and spectral/pulsed waveform analysis was performed. Findings: The common femoral vein demonstrates appropriate compressibility and waveform variability. There is compressibility/patency of the great saphenous vein at the proximal thigh. The femoral vein demonstrates appropriate compressibility and waveform variability. The deep femoral vein demonstrates appropriate compressibility and waveform variability. The popliteal vein demonstrates appropriate compressibility and waveform variability. There is normal compressibility at the tibioperoneal trunk. Impression: 1. No left femoropopliteal venous thrombosis. ATED BY: MADHU PAYTON MD DICTATED DATE/TIME: 11/09/241544 SIGNED BY: MADHU PAYTON MD SIGNED DATE/TIME: 11/09/241544 CC: e-Prescriptions Furosemide (Lasix) 20 Mg Tb 1 TAB PO DAILY for 4 Days, #4 TAB 0 Refills Prov: MICHELLE YANG DO 11/09/24 Discharged With: Self Critical Care Note Critical Care Time?: No I personally scribed for MICHELLE YANG DO ([email or web address]) on 11/09/24 at 15:20. Electronically submitted by Jewel Whatley ([email or web address]). I personally scribed for MICHELLE YANG DO ([email or web address]) on 11/09/24 at 15:32. Electronically submitted by Jewel Whatley ([email or web address]). MICHELLE YANG DO Nov 09, 2024 15:20
[2024-11-09 15:28] VITALS: BP 175/87; PULSE 94; RESP 18; TEMP 97; O2SAT 96
--- NOTE | 2024-11-09 15:48 | DVH ---
Left lower extremity venous duplex Clinical History: swelling Comparison: None Technique: Duplex Doppler evaluation of the deep venous system of the left lower extremity from the common femor al vein to the popliteal vein including color Doppler and spectral/pulsed waveform analysis was perfo rmed. Findings: The common femoral vein demonstrates appropriate compressibility and waveform variability. There is compressibility/patency of the great saphenous vein at the proximal thigh. The femoral vein demonstrates appropriate compressibility and waveform variability. The deep femoral vein demonstrates appropriate compressibility and waveform variability. The popliteal vein demonstrates appropriate compressibility and waveform variability. There is normal compressibility at the tibioperoneal trunk. Impression: 1. No left femoropopliteal venous thrombosis.
[2024-11-09 16:20] LABS: Basophils # (auto) 0 10 ^3/uL (0-0.2); Basophils % (auto) 0.2 % (0.0-2.0); Eosinophils # (auto) 0 10 ^3/uL (0-0.8); Eosinophils % (auto) 0.1 % (0.0-7.0); Hematocrit 33.7 % (36.0-46.0); Hemoglobin 10.7 g/dL (12.2-16.2); Lymphocytes # (auto) 1.1 10 ^3/uL (0.4-5.4); Lymphocytes % (auto) 12.1 % (10.0-50.0); Mean Corpuscular Hemoglobin 25.7 pg (28.0-32.0); Mean Corpuscular Hgb Conc. 31.8 g/dL (32.0-36.0); Mean Corpuscular Volume 80.9 fL (80.0-100.0); Monocytes # (auto) 0.4 10 ^3/uL (0-1.3); Monocytes % (auto) 4.2 % (0.0-12.0); Neutrophils # (auto) 7.7 10 ^3/uL (1.6-8.6); Neutrophils % (auto) 83.4 % (37.0-80.0); Platelet Count (auto) 227 10^3/uL (140-450); Red Blood Cells 4.17 10^6/uL (4.0-5.20); Red Cell Distribution Width 17.4 % (11.8-14.3); White Blood Cell 9.3 10^3/uL (4.4-10.8)
[2024-11-09 16:35] LABS: Alanine Aminotransferase 16 U/L (7-40); Alkaline Phosphatase 113 U/L (46-116); Anion Gap 10 (5-15); Aspartate Aminotransferase 15 U/L (13-40); BUN/Creatinine Ratio 14.8 (10.0-20.0); Blood Urea Nitrogen 16 mg/dL (9-23); Calcium 9.6 mg/dL (8.7-10.4); Carbon Dioxide 28 mmol/L (20-31); Chloride 100 mmol/L (98-107); Glucose 105 mg/dL (74-106); Sodium 138 mmol/L (136-145); Total Protein 6.6 g/dL (5.7-8.2)
[2024-11-09 16:44] LABS: Bilirubin, Total 0.2 mg/dL (0.2-1.0)
[2024-11-09] MEDS: FUROSEMIDE 20 MG TAB PO ONE (18:15)
[2024-11-09] MEDS ORDERED: FURO1TAB33 PO (18:28)
== END 2024-11-09 19:30 | disposition home or self-care (01) ==
LOC: ER 15:04 → EDUNIT# 15:04 → ER 19:30
DX: R60.9 Edema, unspecified (principal); M25.572 Pain in left ankle and joints of left foot; J44.9 Chronic obstructive pulmonary disease, unspecified; R06.2 Wheezing; Z79.82 Long term (current) use of aspirin; Z79.899 Other long term (current) drug therapy; Z90.49 Acquired absence of other specified parts of digestive tract
CPT/HCPCS: 36415; 80053; 83605; 83880; 84484; 85025; 93971

== ENCOUNTER 2024-11-10 16:57 | Inpatient (IN) | payer MEDICAID ==
[~2024-11-10] VITALS: Ht 162.6 cm; Wt 91.7 kg
[~2024-11-10 16:57] MED LIST changes: +FURO1TAB33 PO
--- NOTE | 2024-11-10 18:17 | DVH ---
EXAM: XY CHEST PORTABLE TECHNIQUE: Single frontal chest radiograph CLINICAL HISTORY: HTN COMPARISON: XY CHEST PORTABLE on DOS: 10/24/24, XY CHEST PORTABLE on DOS: 10/22/24, XY CHEST PORTABLE o n DOS: 10/21/24 Findings/Impression: Frontal chest radiograph demonstrates no acute osseous or superficial soft tissue abnormalities. The trachea is midline. The cardiac silhouette and mediastinum are within normal limits. No pneumothorax, pleural effusions, or consolidations.
--- NOTE | 2024-11-10 18:18 | DVH ---
EXAM: CT HEAD WITHOUT CONTRAST INDICATION: HTN TECHNIQUE: CT of the head without intravenous contrast. Radiation Dose : 1. Head: CT Dose: CTDI volume is 59.09 mGy. Dose-length product is 947.13 mGy*cm The dose indicators for CT are the volume Computed Tomography (CT) Dose Index (CTDIvol) and the Dose Length Product (DLP), and are measured in units of mGy and mGy-cm, respectively. These indicators are not patient dose, but values generated from the CT scanner acquisition factors. The report includes radiation exposure data for exposures received during this examination. COMPARISON: None FINDINGS: There is no evidence of acute intracranial hemorrhage, extra-axial collection, mass effect, midline s hift, herniation or hydrocephalus. The ventricles, sulci and cisterns are age appropriate. The gross-white differentiation is intact. Patchy periventricular and subcortical white matter hypoattenuation is nonspecific but may be related to small vessel ischemic disease. The visualized paranasal sinuses and mastoid air cells are clear. The surrounding soft tissues and osseous structures are unremarkable. IMPRESSION: 1. No acute intracranial abnormality. Radiation optimization: All CT scans at this facility use at least one of these dose optimization reagan hniques: automated exposure control mA and/or kV adjustment per patient size (includes targeted exam s where dose is matched to clinical indication) or iterative reconstruction.
[2024-11-10 18:32] LABS: Basophils # (auto) 0 10 ^3/uL (0-0.2); Eosinophils # (auto) 0.1 10 ^3/uL (0-0.8); Eosinophils % (auto) 1.1 % (0.0-7.0); Lymphocytes # (auto) 0.7 10 ^3/uL (0.4-5.4); Mean Corpuscular Volume 81.6 fL (80.0-100.0); Monocytes # (auto) 0.2 10 ^3/uL (0-1.3)
[2024-11-10 18:34] LABS: Basophils % (auto) 0.1 % (0.0-2.0); Hematocrit 36.9 % (36.0-46.0); Hemoglobin 11.5 g/dL (12.2-16.2); Lymphocytes % (auto) 6.8 % (10.0-50.0); Mean Corpuscular Hemoglobin 25.3 pg (28.0-32.0); Mean Corpuscular Hgb Conc. 31.1 g/dL (32.0-36.0); Neutrophils # (auto) 9.8 10 ^3/uL (1.6-8.6); Nucleated Red Blood Cells % 0.1 %; Platelet Count (auto) 136 10^3/uL (140-450); Red Blood Cells 4.52 10^6/uL (4.0-5.20); Red Cell Distribution Width 17.8 % (11.8-14.3); White Blood Cell 10.8 10^3/uL (4.4-10.8)
--- NOTE | 2024-11-10 18:42 | ED.PDOC ---
HPI Comments HPI: 44y F who presents to the ED for chief complaint of elevated blood pressure - pt states she has history of HTN and states despite takign her HTN medications earlier this AM, she is having associated elevated blood pressure values at home - pt stats her BP at home after taking HTN medications was 213/109 and states she started to have associated dizziness and lightheadedness and felt as if she was going to pass out - pt in the ED, has noted BP of 189/96 after repeat measurement -pt states in the ED, she still is feeling dizziness and weakness but is otherwise [id number] and no noted changes in vision, gait or speech are noted - pt otherwise denies any other symptoms at this time. - pt was at [facility] yesterday for other complaint and was otherwise discharged Past Medical history: -metabolic encephalopathy due to acute hypoxic respiratory failure/pneumonia Gram-positive versus Gram-negative -septic shock -acute hypoxic respiratory failure likely due to pneumonia Gram-positive versus Gram-negative -acute pulmonary edema due to acute diastolic heart failure -NSTEMI type 2 likely due to demand related ischemia -history of hypertension -coronary artery disease, status post MD, status post PCI -acute exacerbation of COPD -pneumonia Gram-positive versus Gram-negative -RAZIA likely due to VMN -diabetes mellitus type 2 Constipation Past Surgical history: Appendectomy, Other (left thoracotomy September 2022) Medications: clonidine, lisinopril, metroprolol Allergies: nkda Social History: denies ETOH, denies tobacco use, denies drug use HPI: Poor Historian. REVIEW OF SYSTEMS: CONSTITUTIONAL: Denies acute: fever, diaphoresis, chills, HEAD: Denies acute: headache, photophobia Eyes: Denies acute: Double vision, vision loss, eye pain, eye discharge. EARS: Denies acute: tinnitus, hearing loss, ear discharge, ear pain, THROAT: Denies acute: sore throat, swelling, difficulty swallowing , pain with swallowing, change in voice. NECK: Denies acute: neck pain, neck swelling, stiff neck. HEART: Denies acute : chest pain, palpitations, LUNGS: Denies acute: SOB, wheezing, cough, hemoptysis ABDOMEN: Denies acute: abdominal pain, Nausea, Vomiting, diarrhea, melena , hematemesis, hematochezia SKIN: Denies acute: rash, redness, lesions, itchiness. EXTREMITIES: Denies acute: calf pain, numbness, tingling, weakness, denies pain in extremity. Denies acute: Low back pain. Neuro: Denies acute: focal neurological deficit, motor or sensory focal neurological deficit, tremors, seizure like activity, confusion, change in mental status, loss of bowel or bladder function, cauda equina like symptoms. : Denies acute: dysuria, hematuria, flank pain, increase in urinary frequency. PSYCH: Denies acute: hallucination, suicidal ideation, homicidal ideation. FEMALE: Denies acute: abnormal vaginal bleeding, foul odor, unusual discharge. PHYSICAL EXAM: General: ---no-----acute distress, awake and alert. Head: normocephalic, atraumatic. Neck: supple, trachea is midline, no swelling. Throat: Normal phonation. Eyes:, no erythema, no purulent discharge, no proptosis, no icterus. Heart: regular rate, regular rhythm, no significant murmur appreciated. Lungs: no apparent respiratory distress, Able to speak in full sentences. No wheezing, no rhonchi, no crackles. No stridors Clear to auscultation bilaterally. Abdomen: non tender to palpation, non distended, soft, no guarding, no rebound, + bowel sounds. Neuro: Awake, Alert, oriented to name, self, situation, follows commands GCS=15. Speech is normal. Skin: no petechia, no purpura, no cyanosis, non-pale, not jaundice. Lower extremities: --no - Pitting edema no deformity, no focal swelling, no calf TTP. Makes eye contact. moves all four extremities. Face: no apparent facial droop. ED COURSE: Chief Complaint: High Blood Pressure Time Seen by MD: 18:41 Primary Care Provider: KEN Reviewed Notes: Nurses Notes, Medications, Allergies Allergies: Coded Allergies: NO KNOWN ALLERGIES (Unverified , 06/13/14) Home Meds Active Scripts Furosemide (Lasix) 20 Mg Tb, 1 TAB PO DAILY for 4 Days, #4 TAB 0 Refills Prov:MICHELLE YANG DO 11/09/24 Ondansetron Odt 4MG Tab (ZOFRAN PO) 4 Mg Tb, 4 MG PO Q6HPRN PRN for 5 Days, #20 TAB ODT TAB-DISSOLVE IN MOUTH, THEN SWALLOW Prov:[facility] 10/27/24 Pantoprazole Sodium Sesquihydr (Pantoprazole Sodium) 40 Mg Tab, 40 MG PO DAILY for 14 Days, #14 TAB Prov:[facility] 10/27/24 Albuterol Sulfate (Albuterol Sulfate) 0.083 % Neb, 1 VIAL NEB Q6HP PRN for 90 Days, #100 VIAL Prov:[facility] 10/27/24 Prednisone (Prednisone) 20 Mg Tab, 30 MG PO DAILY for 5 Days, #5 MG Prov:[facility] 10/27/24 Levofloxacin Hemihydrate (LEVOFLOXACIN) 500 Mg Tab, 750 MG PO DAILY for 5 Days, #8 TAB Prov:[facility] 10/27/24 Pfkjaszoqxn-Msgzhdlkvttr-Yuyiz (Trelegy Ellipta 100-62.5-25 Mcg/INH) 1 Aer Aer, 1 AER IN DAILY for 30 Days, #1 AER Prov:KIRIT PALACIOS [employer] 10/05/24 Prednisone (Prednisone) 20 Mg Tab, 40 MG PO DAILY for 5 Days, #10 MG Prov:KIRIT PALACIOS [employer] 10/05/24 Doxycycline (Monohydrate) (Doxycycline) 100 Mg Cap, 100 MG PO BID for 7 Days, #14 CAP Prov:JULIAN WILSON LEAD CONSULTANT 08/31/24 Alprazolam (Xanax) 0.25 Mg Tb, 1 TAB PO BID for 5 Days, #10 TAB Prov:JULIAN WILSON LEAD CONSULTANT 10/16/22 Morphine Sulfate (Morphine Sulfate Cr) 15 Mg Tab, 1 TAB PO BID for 5 Days, #10 TAB Prov:JULIAN WILSON LEAD CONSULTANT 10/16/22 Aspirin (Aspirin Low Dose) 81 Mg Tab, 81 MG PO DAILY for 30 Days, #30 TAB Prov:JULIAN WILSON LEAD CONSULTANT 10/16/22 Reported Medications Clonazepam (KlonoPIN TABLET) 0.5 Mg Tb, 1 TAB PO BIDP PRN for 30 Days, #60 TAB 10/27/24 Clonidine Hydrochloride (Clonidine Hcl) 0.1 Mg Tab, 1 TAB PO DAILY 10/17/24 Lisinopril (Lisinopril) 10 Mg Tab, 1 TAB PO DAILY 10/17/24 Metoprolol Tartrate (Lopressor) 25 Mg Tb, 1 TAB PO BID 10/17/24 Information Source: Patient, Spouse Mode of Arrival: Wheelchair Past Medical History PAST MEDICAL HISTORY: COPD, Denies Surgical History: Denies all surgeries 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 Was a procedure done?: No CP Differential Dx Differential Diagnosis: N/A Differential Diagnosis: Other (DDX include renal disease, thyroid disease, electrolyte abnormality, increased salt intake, medications non-compliance, undiagnosed HTN, Hypertensive crisis, hypertensive urgency., drug toxicity.) X-Ray, Labs, Meds, VS Vital Signs Date Time Temp Pulse Resp B/P (MAP) Pulse Ox O2 Delivery O2 Flow Rate FiO2 11/10/24 23:07 169/93 11/10/24 23:04 90 11/10/24 22:41 169/93 11/10/24 21:56 186/91 11/10/24 21:30 88 16 99 Room Air* 0 21 11/10/24 21:30 99.0 88 16 186/91 (122) 99 99.0 11/10/24 17:25 97.2 94 20 189/96 (127) 82 97.2 Lab Test 11/10/24 21:08 11/10/24 20:45 11/10/24 19:03 11/10/24 18:10 Range/Units Troponin I High Sensitivity 6 7 7 </=34 ng/L Urine Color Light-yellow Yellow Urine Clarity Clear Clear Urine pH 6.0 5.0-9.0 Urine Specific [place] 1.012 1.001-1.035 Urine Protein Negative Negative Urine Ketones Negative Negative Urine Blood Negative Negative /uL Urine Nitrite Negative Negative Urine Bilirubin Negative Negative Urine Urobilinogen Normal Negative mg/dL Urine Leukocyte Esterase Trace Negative /uL Urine RBC 2 0 - 4 /hpf Urine Microscopic WBC 7 H 0-5 /HPF Urine Squamous Epithelial Cells Few <5 /hpf Urine Bacteria None seen None Seen /hpf Urine Glucose Normal Normal mg/dL Urine Test Negative Negative Urine Opiates Screen Neg NEGATIVE Urine Fentanyl Screen Neg NEGATIVE Urine Barbiturates Screen Neg NEGATIVE Urine Phencyclidine Screen Neg NEGATIVE Urine Amphetamines Screen Neg NEGATIVE Urine Benzodiazepines Screen Pos NEGATIVE Urine Cocaine Screen Neg NEGATIVE Urine Cannabinoids Screen Neg NEGATIVE White Blood Count 10.8 4.4-10.8 10^3/uL Red Blood Count 4.52 4.0-5.20 10^6/uL Hemoglobin 11.5 L 12.2-16.2 g/dL Hematocrit 36.9 36.0-46.0 % Mean Corpuscular Volume 81.6 80.0-100.0 fL Mean Corpuscular Hemoglobin 25.3 L 28.0-32.0 pg Mean Corpuscular Hemoglobin Concent 31.1 L 32.0-36.0 g/dL Red Cell Distribution Width 17.8 H 11.8-14.3 % Platelet Count 136 L 140-450 10^3/uL Mean Platelet Volume 7.0 6.9-10.8 fL Neutrophils (%) (Auto) 90.0 H 37.0-80.0 % Lymphocytes (%) (Auto) 6.8 L 10.0-50.0 % Monocytes (%) (Auto) 2.0 0.0-12.0 % Eosinophils (%) (Auto) 1.1 0.0-7.0 % Basophils (%) (Auto) 0.1 0.0-2.0 % Neutrophils # (Auto) 9.8 H 1.6-8.6 10 ^3/uL Lymphocytes # (Auto) 0.7 0.4-5.4 10 ^3/uL Monocytes # (Auto) 0.2 0-1.3 10 ^3/uL Eosinophils # (Auto) 0.1 0-0.8 10 ^3/uL Basophils # (Auto) 0 0-0.2 10 ^3/uL Nucleated Red Blood Cells 0.1 % Platelet Estimate Adequate Clumped Platelets Few Large Platelets Few Sodium Level 138 136-145 mmol/L Potassium Level 3.8 3.5-5.1 mmol/L Chloride Level 101 98-107 mmol/L Carbon Dioxide Level 26 20-31 mmol/L Anion Gap 11 5-15 Blood Urea Nitrogen 15 9-23 mg/dL Creatinine 1.24 H 0.550-1.02 mg/dL Glomerular Filtration Rate Calc 55 >90 mL/min BUN/Creatinine Ratio 12.1 10.0-20.0 Serum Glucose 107 H 74-106 mg/dL Lactic Acid Level 0.9 0.4-2.0 mmol/L Calcium Level 9.8 8.7-10.4 mg/dL Total Bilirubin 0.3 0.2-1.0 mg/dL Aspartate Amino Transferase (AST) 20 13-40 U/L Alanine Aminotransferase (ALT) 18 7-40 U/L Alkaline Phosphatase 130 H 46-116 U/L B-Type Natriuretic Peptide 282.78 0-100 pg/mL Total Protein 6.8 5.7-8.2 g/dL Albumin 4.2 3.2-4.8 g/dL Test 11/10/24 17:23 Range/Units POC Glucose 110 H 70-106 mg/dl Microbiology Date/Time Source Procedure Growth Status 11/10/24 23:39 Blood Blood Culture - Preliminary Resulted 11/10/24 20:45 Voided Urine Urine Culture - Preliminary Resulted [place] [id number] Ph: [phone] DIAGNOSTIC IMAGING Diagnostic Imaging Report : [id number] Signed PATIENT: JENN RUSH IESHACCT: [id number] UNIT: [id number] : 1980 LOC: ER ROOM / BED: / AGE / SEX: 44 / F ADM STATUS: REG ER SERVICE 1722 ORDERING PHYSICIAN: MICHELLE YANG DO PROCEDURE(s): HWOCT - HEAD WITHOUT CONTRAST REASON: HTN ORDER NUMBER(s): [id number], ACCESSION NUMBER(s): [id number] EXAM: CT HEAD WITHOUT CONTRAST INDICATION: HTN TECHNIQUE: CT of the head without intravenous contrast. Radiation Dose : 1. Head: CT Dose: CTDI volume is 59.09 mGy. Dose-length product is 947.13 mGy*cm The dose indicators for CT are the volume Computed Tomography (CT) Dose Index ( CTDIvol) and the Dose Length Product (DLP), and are measured in units of mGy and mGy-cm, respectively. These indicators are not patient dose, but values generated from the CT scanner acquisition factors. The report includes radiation exposure data for exposures received during this examination. COMPARISON: None FINDINGS: There is no evidence of acute intracranial hemorrhage, extra-axial collection, mass effect, midline shift, herniation or hydrocephalus. The ventricles, sulci and cisterns are age appropriate. The gross-white differentiation is intact. Patchy periventricular and subcortical white matter hypoattenuation is n onspecific but may be related to small vessel ischemic disease. The visualized paranasal sinuses and mastoid air cells are clear. The surrounding soft tissues and osseous structures are unremarkable. IMPRESSION: 1. No acute intracranial abnormality. Radiation optimization: All CT scans at this facility use at least one of these dose optimization techniques: automated exposure control mA and/or kV adjustment per patient size (includes targeted exams where dose is matched to clinical indication) or iterative reconstruction. ATED BY: MADHU PAYTON MD DICTATED DATE/TIME: 11/10/241814 SIGNED BY: MADHU PAYTON MD SIGNED DATE/TIME: 11/10/241814 CC: [place] [id number] Ph: [phone] DIAGNOSTIC IMAGING Diagnostic Imaging Report : [id number] Signed PATIENT: JENN RUSHCCT: [id number] UNIT: [id number] : 1980 LOC: ER ROOM / BED: / AGE / SEX: 44 / F ADM STATUS: REG ER SERVICE 21 ORDERING PHYSICIAN: MICHELLE YANG DO PROCEDURE(s): CXRP - CHEST PORTABLE REASON: HTN ORDER NUMBER(s): [id number], ACCESSION NUMBER(s): [id number] EXAM: XY CHEST PORTABLE TECHNIQUE: Single frontal chest radiograph CLINICAL HISTORY: HTN COMPARISON: XY CHEST PORTABLE on DOS: 10/24/24, XY CHEST PORTABLE on DOS: 10/22/24, XY CHEST PORTABLE on DOS: 10/21/24 Findings/Impression: Frontal chest radiograph demonstrates no acute osseous or superficial soft tissue abnormalities. The trachea is midline. The cardiac silhouette and mediastinum are within normal limits. No pneumothorax, pleural effusions, or consolidations. ATED BY: EMILY FLETCHER DO DICTATED DATE/TIME: 11/10/241814 SIGNED BY: EMILY FLETCHER DO SIGNED DATE/TIME: 11/10/24 1815 CC: Time of 1ST Reevaluation: 00:00 Reevaluation 1ST: Improved Patient Education/Counseling: Diagnosis, Treatment Family Education/Counseling: Diagnosis, Treatment Comments Patient presented with the above HPI.---hypertension and dyspnea---workup was initiated. patient was found with the above mentioned diagnosis. the following medications were ordered: please refer to order lists of meds and tests obtained by myself Dr. Yang. Patient ED course and VS have been stabilized. Patient has been reassessed in the ED and remained in a stable condition. Pertinent incidental findings were discussed with the patient and/or family. Patient/family voices understanding and is agreeable with plan. Patient has been observed in the ED adequate length of time to insure improvement/stability. Escalation of care considered: Consideration of escalation to observation or admission Patient has multiple comorbidities. Patient requested a breathing treatment here in the ED. Patient was ADMITTED to the medicine team for further evaluation and treatment of their presentation. All the reports of any imaging studies that were ordered by myself were reviewed by myself. Departure 1 Departure Time of Disposition: 21:26 Impression: Primary Impression: Hypertensive urgency Additional Impressions: Thrombocytopenia Dyspnea Disposition: ADMITTED INPATIENT Condition: Guarded Discharged With: Self Critical Care Note Critical Care Time?: Yes (45 min-critical care time only) Heart Score Heart Score: Heart Score Response (Comments) Value History Moderate Suspicious 1 EKG Normal 0 Age 45-64 1 Risk Factors 1 or 2 risk factors 1 Troponin Normal limit 0 Total 3 I personally scribed for MICHELLE YANG DO ([email or web address]) on 11/10/24 at 18:42. Electronically submitted by Jimy Morris ([email or web address]). MICHELLE YANG DO Nov 10, 2024 18:42
[2024-11-10 18:51] LABS: Alanine Aminotransferase 18 U/L (7-40); Albumin 4.2 g/dL (3.2-4.8); Anion Gap 11 (5-15); Aspartate Aminotransferase 20 U/L (13-40); BUN/Creatinine Ratio 12.1 (10.0-20.0); Bilirubin, Total 0.3 mg/dL (0.2-1.0); Blood Urea Nitrogen 15 mg/dL (9-23); Chloride 101 mmol/L (98-107); Potassium 3.8 mmol/L (3.5-5.1); Sodium 138 mmol/L (136-145); Total Protein 6.8 g/dL (5.7-8.2)
[2024-11-10 18:53] LABS: Alkaline Phosphatase 130 U/L (46-116); Calcium 9.8 mg/dL (8.7-10.4); Carbon Dioxide 26 mmol/L (20-31); Glucose 107 mg/dL (74-106)
[2024-11-10 19:44] LABS: Platelet Estimate Adequate
[2024-11-10 19:46] LABS: Large Platelets FEW
[2024-11-10 21:15] LABS: Urine Bacteria None Seen /hpf (None Seen)
[2024-11-10] MEDS: ALBUTEROL SULF 2.5 MG/0.5ML(0.5%) NEB SOLN NEB ONE (21:28)
[2024-11-10] MEDS: IPRATROPIUM BROM 0.5 MG/2.5ML INH SOL NEB ONE (21:28)
[2024-11-10 21:30] VITALS: PULSE 88; RESP 16; O2SAT 99
[2024-11-10 21:36] LABS: Urine Blood Negative /uL (Negative); Urine Clarity Clear (Clear); Urine Color Light-Yellow (Yellow); Urine Protein, UAD Negative (Negative); Urine Specific Gravity 1.012 (1.001-1.035); Urine Squamous Epithelial Cell FEW /hpf (<5); Urine Urobilinogen Normal (Negative); Urine WBC 7 /HPF (0-5)
[2024-11-10] MEDS: NITROGLYCERIN 0.4 MG SL TAB SL ONE ×2 (21:56→23:07)
[2024-11-10] MEDS: methylPREDNISolone SOD SUCC 125 MG/2 ML VL IV ONE (22:40)
--- NOTE | 2024-11-10 23:39 | DVHHPRES ---
History of Present Illness Resident Creating Document: MARCELINO CARTER History of Present Illness Faye Sage is a 44-year-old female patient who presents to the ED with chief complaint of dizziness, lightheadedness, dyspnea and functional class IV associated with hypertension (systolic blood pressure at home was approximately 200's), prompting her visit to the ED. she also is complaining of epigastric pain which radiates towards left hypochondrium in towards back, she describes as her as her normal chronic pancreatitis pain which is exacerbated currently. Quincy lazo also presented less than 24 hours ago to ED with chief complaint of lower left extremity swelling, ruling out DVT. Denies chest pain, palpitation, syncope, unintentional weight loss, fever, chills, nausea, vomiting, diarrhea, constipation, bleeding, recent travel, sick contacts and motor or sensory deficits. 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 Surgical history: Thoracotomy, biliary stent placement, ovarian tumor removal. Family history: Mother had kidney cancer Social history: Lives in [place] with . Ex tobacco abuse (30 pack-year history of smoking). History of opiate addiction due to chronic pancreatitis, has been clean for the past 15 years and is on methadone Denies current tobacco, alcohol and other drug abuse Allergies: Denies Home medication: Methadone 120 mg p.o. daily, albuterol p.r.n., alprazolam, aspirin 81 mg p.o. daily, clonidine 0.1 mg p.o. daily, Trelegy, furosemide 20 mg p.o. daily, lisinopril 10 mg p.o. daily, metoprolol 25 mg p.o. b.i.d., ondansetron p.r.n., pantoprazole 40 mg p.o. daily Patient seen and examined at bedside. Currently complains of chronic pancreatitis pain intensity 8/10, due to history of opiate abuse we will avoid opiates (only continue with methadone), indicated Tylenol which did not produce relief of pain, indicated Ketoralac (patient has chronic kidney disease) Past Medical History Per HPI Past Surgical History Per HPI Family History Per HPI Past Social History Per HPI Review of Systems Review of Systems Per HPI Allergies: Coded Allergies: NO KNOWN ALLERGIES (Unverified , 06/13/14) Exam Vital Signs Vital Signs Date Time Temp Pulse Resp B/P (MAP) Pulse Ox O2 Delivery O2 Flow Rate FiO2 11/10/24 23:07 169/93 11/10/24 21:30 88 16 99 Room Air* 0 21 11/10/24 21:30 99.0 99.0 Exam Patient lying in bed, in no acute distress General: Lucid, afebrile, mucosae are moist Cardiovascular: Normal S1 and S2. No murmurs, gallops or rubs Respiratory: Regular ventilation mechanics. Decreased lung sounds on auscultation. Currently on nasal cannula at 3 L/min Abdomen: Soft, epigastric tenderness on superficial palpation, rest of abdomen nontender, no organomegaly, normal bowel sounds MSK/skin: Mobilizes 4 limbs. Skin is dry and warm. Mild nonpitting edema on left lower limb. Neurological: Oriented in 3 spheres. No motor no sensitive deficits. Pupils are isocoric and reactive Labs/Xrays Labs Test 11/10/24 21:08 11/10/24 20:45 11/10/24 18:10 11/10/24 17:23 Range/Units Troponin I High Sensitivity 6 </=34 ng/L Urine Color Light-yellow Yellow Urine Clarity Clear Clear Urine pH 6.0 5.0-9.0 Urine Specific [place] 1.012 1.001-1.035 Urine Protein Negative Negative Urine Ketones Negative Negative Urine Blood Negative Negative /uL Urine Nitrite Negative Negative Urine Bilirubin Negative Negative Urine Urobilinogen Normal Negative mg/dL Urine Leukocyte Esterase Trace Negative /uL Urine RBC 2 0 - 4 /hpf Urine Microscopic WBC 7 H 0-5 /HPF Urine Squamous Epithelial Cells Few <5 /hpf Urine Bacteria None seen None Seen /hpf Urine Glucose Normal Normal mg/dL White Blood Count 10.8 4.4-10.8 10^3/uL Red Blood Count 4.52 4.0-5.20 10^6/uL Hemoglobin 11.5 L 12.2-16.2 g/dL Hematocrit 36.9 36.0-46.0 % Mean Corpuscular Volume 81.6 80.0-100.0 fL Mean Corpuscular Hemoglobin 25.3 L 28.0-32.0 pg Mean Corpuscular Hemoglobin Concent 31.1 L 32.0-36.0 g/dL Red Cell Distribution Width 17.8 H 11.8-14.3 % Platelet Count 136 L 140-450 10^3/uL Mean Platelet Volume 7.0 6.9-10.8 fL Neutrophils (%) (Auto) 90.0 H 37.0-80.0 % Lymphocytes (%) (Auto) 6.8 L 10.0-50.0 % Monocytes (%) (Auto) 2.0 0.0-12.0 % Eosinophils (%) (Auto) 1.1 0.0-7.0 % Basophils (%) (Auto) 0.1 0.0-2.0 % Neutrophils # (Auto) 9.8 H 1.6-8.6 10 ^3/uL Lymphocytes # (Auto) 0.7 0.4-5.4 10 ^3/uL Monocytes # (Auto) 0.2 0-1.3 10 ^3/uL Eosinophils # (Auto) 0.1 0-0.8 10 ^3/uL Basophils # (Auto) 0 0-0.2 10 ^3/uL Nucleated Red Blood Cells 0.1 % Platelet Estimate Adequate Clumped Platelets Few Large Platelets Few Sodium Level 138 136-145 mmol/L Potassium Level 3.8 3.5-5.1 mmol/L Chloride Level 101 98-107 mmol/L Carbon Dioxide Level 26 20-31 mmol/L Anion Gap 11 5-15 Blood Urea Nitrogen 15 9-23 mg/dL Creatinine 1.24 H 0.550-1.02 mg/dL Glomerular Filtration Rate Calc 55 >90 mL/min BUN/Creatinine Ratio 12.1 10.0-20.0 Serum Glucose 107 H 74-106 mg/dL Lactic Acid Level 0.9 0.4-2.0 mmol/L Calcium Level 9.8 8.7-10.4 mg/dL Total Bilirubin 0.3 0.2-1.0 mg/dL Aspartate Amino Transferase (AST) 20 13-40 U/L Alanine Aminotransferase (ALT) 18 7-40 U/L Alkaline Phosphatase 130 H 46-116 U/L B-Type Natriuretic Peptide 282.78 0-100 pg/mL Total Protein 6.8 5.7-8.2 g/dL Albumin 4.2 3.2-4.8 g/dL POC Glucose 110 H 70-106 mg/dl Assessment/Plan Assessment/Plan Assessment: Acute on chronic respiratory failure COPD exacerbation Acute on chronic diastolic congestive heart failure (HFpEF, LVEF 55%, RVSP 55 mmHg) Hypertensive urgency Rule out PE Ruled out DVT Chronic kidney disease Recently diagnosed ovarian cancer Chronic pancreatitis secondary to sphincter of Oddi dysfunction History of emphysema/COPD/asthma, on home oxygen at 2-5 L/min History of opiate dependence, currently on methadone History of DC with no stent placement History of CVA History of severe pneumonia complicated with empyema with requirement thoracotomy Plan: Currently on bronchodilators, IV steroids, oxygen therapy and empiric IV antibiotic (azithromycin). Received one dose of IV diuretics. Last echocardiogram completed cousin three months ago. Ordered cultures (blood, urine and sputum) Has abdominal pain which she believes is secondary to her chronic pancreatitis, did not respond with p.o. Tylenol, gave one dose of Ketoralac (patient does have chronic kidney disease). Continue with methadone. Ordered V/Q scan to rule out pulmonary embolism Patient was not able to follow up with Cardiology and pulmonology specialist as outpatient. Have consulted Dr. Saba and Dr. Baker. Per patient, she was going to completed left heart catheterization as outpatient. Goals of care discussed with patient for over 18 minutes: Full code status Discussed plan with Dr. SAWYER, patient and nurses: Currently under bronchodilators, IV steroids, oxygen therapy in, empiric IV antibiotic and received one dose of IV diuretics. Consulted pulmonology and him specialist. Pending V/Q scan to rule out pulmonary embolism. Plan discussed with: Patient, Other (Nurses) Date of Service: Nov 10, 2024 Billing Provider: MAGGIE LUCIO MD Common Visit Codes: [id number] INP/OBS CARE (HIGH) MARCELINO CARTER RESIDENT Nov 10, 2024 23:39 MAGGIE LUCIO MD Nov 11, 2024 19:33
[2024-11-10] MEDS ORDERED: ONDANSETRON HCL 4 MG/2 ML VIAL IV PRN (23:45)
[2024-11-11] VITALS (21 sets, daily range): BP systolic 128–177; BP diastolic 70–99; PULSE 65–93; RESP 16–20; TEMP 97.8–99; O2SAT 83–100
[2024-11-11] MEDS: ALBUTEROL MEDNEB 2.5 mg/3ml NEB NEB PRN (00:54)
[2024-11-11] MEDS: ACETAMINOPHEN 500 MG TAB or CAP PO ONE (00:54)
[2024-11-11 01:41] LABS: Triglycerides 116 mg/dL (< 150)
[2024-11-11 01:44] LABS: Cholesterol 236 mg/dL (< 200); HDL Cholesterol 40 mg/dL (40-59); LDL Cholesterol 174 mg/dL (< 100)
[2024-11-11] MEDS: KETOROLAC TROMETH 30 MG/ML 1ML VIAL IV ONE (02:14)
[2024-11-11 04:34] LABS: Benzodiazephine Screen, Urine Pos (NEGATIVE)
[2024-11-11 04:37] LABS: Amphetamine Screen, Urine Neg (NEGATIVE); Barbiturate Scree,Urine Neg (NEGATIVE); Cannabinoid Screen, Urine Neg (NEGATIVE); Cocaine Screen, Urine Neg (NEGATIVE); Opiate Scree,Urine Neg (NEGATIVE); Phencyclidine Screen, Urine Neg (NEGATIVE)
[2024-11-11] MEDS: FUROSEMIDE 20 MG/2 ML VIAL IV ONE (04:47)
[2024-11-11] MEDS: ATORVASTATIN 20 MG TAB PO ONE (04:49)
[2024-11-11 06:56] LABS: Basophils # (auto) 0 10 ^3/uL (0-0.2); Basophils % (auto) 0.2 % (0.0-2.0); Eosinophils # (auto) 0 10 ^3/uL (0-0.8); Eosinophils % (auto) 0.1 % (0.0-7.0); Hematocrit 32.8 % (36.0-46.0); Hemoglobin 10.7 g/dL (12.2-16.2); Lymphocytes # (auto) 0.6 10 ^3/uL (0.4-5.4); Mean Corpuscular Hemoglobin 26.2 pg (28.0-32.0); Mean Corpuscular Hgb Conc. 32.8 g/dL (32.0-36.0); Mean Corpuscular Volume 79.9 fL (80.0-100.0); Monocytes # (auto) 0.1 10 ^3/uL (0-1.3); Monocytes % (auto) 0.8 % (0.0-12.0); Neutrophils # (auto) 7.2 10 ^3/uL (1.6-8.6); Neutrophils % (auto) 91.9 % (37.0-80.0); Nucleated Red Blood Cells % 0.1 %; Platelet Count (auto) 244 10^3/uL (140-450); Red Cell Distribution Width 17.6 % (11.8-14.3); White Blood Cell 7.8 10^3/uL (4.4-10.8)
[2024-11-11] MEDS: AZITHROMYCIN 500MG/ 250ML 250 ML IV ONE (06:56)
[2024-11-11] MEDS: IPRATROPIUM BROM 0.5 MG/2.5ML INH SOL NEB SCH ×2 (06:59→22:55)
[2024-11-11 07:09] LABS: Alanine Aminotransferase 16 U/L (7-40); Albumin 4.3 g/dL (3.2-4.8); Anion Gap 11 (5-15); Aspartate Aminotransferase 14 U/L (13-40); BUN/Creatinine Ratio 11.4 (10.0-20.0); Blood Urea Nitrogen 14 mg/dL (9-23); Calcium 10.1 mg/dL (8.7-10.4); Carbon Dioxide 27 mmol/L (20-31); Potassium 3.8 mmol/L (3.5-5.1); Total Protein 7.1 g/dL (5.7-8.2)
[2024-11-11 07:10] LABS: Bilirubin, Total 0.3 mg/dL (0.2-1.0)
[2024-11-11 07:12] LABS: Alkaline Phosphatase 121 U/L (46-116); Chloride 98 mmol/L (98-107); Glucose 174 mg/dL (74-106); Sodium 136 mmol/L (136-145)
[2024-11-11] MEDS: NIFEdipine ER 30 MG TAB PO ONE (09:17)
--- NOTE | 2024-11-11 09:28 | DVHINCON2 ---
Date of service: Nov 11, 2024 History of Present Illness HPI Patient is a 44-year-old female who presented with dizziness and presyncope. She found her on blood pressure to be 213/109 and decided to come to the hospital. In emergency room, the blood pressure was 189/96. Patient is admitted with hypertensive urgency/emergency. Cardiology is called for cardiac aspects of care. Patient denies chest pains.. Patient is known to our practice from previous admissions. Does have long history of pulmonary problems. She has a had repeated respiratory failures from before and is on home oxygen. Home Meds Active Scripts Furosemide (Lasix) 20 Mg Tb, 1 TAB PO DAILY for 4 Days, #4 TAB 0 Refills Prov:MICHELLE YANG DO 11/09/24 Ondansetron Odt 4MG Tab (ZOFRAN PO) 4 Mg Tb, 4 MG PO Q6HPRN PRN for 5 Days, #20 TAB ODT TAB-DISSOLVE IN MOUTH, THEN SWALLOW Prov:[facility] 10/27/24 Pantoprazole Sodium Sesquihydr (Pantoprazole Sodium) 40 Mg Tab, 40 MG PO DAILY for 14 Days, #14 TAB Prov:[facility] 10/27/24 Albuterol Sulfate (Albuterol Sulfate) 0.083 % Neb, 1 VIAL NEB Q6HP PRN for 90 Days, #100 VIAL Prov:[facility] 10/27/24 Prednisone (Prednisone) 20 Mg Tab, 30 MG PO DAILY for 5 Days, #5 MG Prov:[facility] 10/27/24 Levofloxacin Hemihydrate (LEVOFLOXACIN) 500 Mg Tab, 750 MG PO DAILY for 5 Days, #8 TAB [facility] 10/27/24 Ssiaebvzsxi-Wmsunsjzfpqm-Sokzb (Trelegy Ellipta 100-62.5-25 Mcg/INH) 1 Aer Aer, 1 AER IN DAILY for 30 Days, #1 AER Prov:KIIRT PALACIOSP 10/05/24 Prednisone (Prednisone) 20 Mg Tab, 40 MG PO DAILY for 5 Days, #10 MG Prov:KIRIT PALACIOSP 10/05/24 Doxycycline (Monohydrate) (Doxycycline) 100 Mg Cap, 100 MG PO BID for 7 Days, #14 CAP Prov:JULIAN WILSON SPD TECH 08/31/24 Alprazolam (Xanax) 0.25 Mg Tb, 1 TAB PO BID for 5 Days, #10 TAB Prov:JULIAN WILSON [employer] TECH 10/16/22 Morphine Sulfate (Morphine Sulfate Cr) 15 Mg Tab, 1 TAB PO BID for 5 Days, #10 TAB Prov:JULIAN WILSON SPD TECH 10/16/22 Aspirin (Aspirin Low Dose) 81 Mg Tab, 81 MG PO DAILY for 30 Days, #30 TAB Prov:JULIAN WILSON SPD TECH 10/16/22 Reported Medications Clonazepam (KlonoPIN TABLET) 0.5 Mg Tb, 1 TAB PO BIDP PRN for 30 Days, #60 TAB 10/27/24 Clonidine Hydrochloride (Clonidine Hcl) 0.1 Mg Tab, 1 TAB PO DAILY 10/17/24 Lisinopril (Lisinopril) 10 Mg Tab, 1 TAB PO DAILY 10/17/24 Metoprolol Tartrate (Lopressor) 25 Mg Tb, 1 TAB PO BID 10/17/24 Past Medical History Others Past medical history includes obesity, pulmonary of the addition/diastolic heart failure, CKD, ovarian cancer, chronic pancreatitis, old history of CVA, asthma/COPD, diabetes mellitus, history of pneumonia/empyema, history of chest tube implantations (some years ago), chronic respiratory failure and on home oxygen and old history of substance (heroin) abuse (on methadone). She is status post cholecystectomy/appendectomy. She quit smoking two years ago. There is no relevant family history. Family History: No pertinent Hx Patient Family History: FH: heart attack G8 FATHER FH: kidney cancer Hypertension G8 MOTHER, Onset:40's - 50 Ischemic heart disease G8 MOTHER Smoker: Quit Alocohol: None Review of Systems All Other Systems Fourteen point review of system was performed. Relevant findings as per above and as per HPI. Otherwise negative. H&P Exam Vital Signs Vital Signs Date Time Temp Pulse Resp B/P (MAP) Pulse Ox O2 Delivery O2 Flow Rate FiO2 11/11/24 08:47 98.0 84 17 165/94 (117) 94 98.0 11/11/24 06:59 Nasal Cannula* 4 36 General Appeara: Well developed Head Exam: Normal inspection Eye Exam: bilateral eye PERRL Pulmonary/Respiratory: Rhonci Cardiovascular/Chest: Normal inspection, Regular rate Peripheral Pulses: 2+ carotid (R), 2+ carotid (L), 2+ femoral (R), 2+ femoral (L), 2+ dorsalis pedis (R), 2+ dorsalis pedis (L), 2+ Radial (R), 2+ Radial (L) Abdominal Exam: Normal bowel sounds, Soft, No hepatospenomegaly Neuro/Mental St: Alert, Oriented Appearance: Appropriate appearance Eye contact/ Speech: Cooperative Labs/Xrays Labs Test 11/11/24 05:15 11/10/24 23:49 11/10/24 21:08 11/10/24 20:45 Range/Units White Blood Count 7.8 # 4.4-10.8 10^3/uL Red Blood Count 4.10 4.0-5.20 10^6/uL Hemoglobin 10.7 L 12.2-16.2 g/dL Hematocrit 32.8 #L 36.0-46.0 % Mean Corpuscular Volume 79.9 L 80.0-100.0 fL Mean Corpuscular Hemoglobin 26.2 L 28.0-32.0 pg Mean Corpuscular Hemoglobin Concent 32.8 32.0-36.0 g/dL Red Cell Distribution Width 17.6 H 11.8-14.3 % Platelet Count 244 140-450 10^3/uL Mean Platelet Volume 7.2 6.9-10.8 fL Neutrophils (%) (Auto) 91.9 H 37.0-80.0 % Lymphocytes (%) (Auto) 7.0 L 10.0-50.0 % Monocytes (%) (Auto) 0.8 0.0-12.0 % Eosinophils (%) (Auto) 0.1 0.0-7.0 % Basophils (%) (Auto) 0.2 0.0-2.0 % Neutrophils # (Auto) 7.2 1.6-8.6 10 ^3/uL Lymphocytes # (Auto) 0.6 0.4-5.4 10 ^3/uL Monocytes # (Auto) 0.1 0-1.3 10 ^3/uL Eosinophils # (Auto) 0 0-0.8 10 ^3/uL Basophils # (Auto) 0 0-0.2 10 ^3/uL Nucleated Red Blood Cells 0.1 % Sodium Level 136 136-145 mmol/L Potassium Level 3.8 3.5-5.1 mmol/L Chloride Level 98 98-107 mmol/L Carbon Dioxide Level 27 20-31 mmol/L Anion Gap 11 5-15 Blood Urea Nitrogen 14 9-23 mg/dL Creatinine 1.23 H 0.550-1.02 mg/dL Glomerular Filtration Rate Calc 55 >90 mL/min BUN/Creatinine Ratio 11.4 10.0-20.0 Serum Glucose 174 H 74-106 mg/dL Calcium Level 10.1 8.7-10.4 mg/dL Total Bilirubin 0.3 0.2-1.0 mg/dL Aspartate Amino Transferase (AST) 14 13-40 U/L Alanine Aminotransferase (ALT) 16 7-40 U/L Alkaline Phosphatase 121 H 46-116 U/L Total Protein 7.1 5.7-8.2 g/dL Albumin 4.3 3.2-4.8 g/dL Lipase 30 12-53 U/L Triglycerides Level 116 < 150 mg/dL Cholesterol Level 236 H < 200 mg/dL LDL Cholesterol 174 H < 100 mg/dL HDL Cholesterol 40 40-59 mg/dL Troponin I High Sensitivity 6 </=34 ng/L Urine Color Light-yellow Yellow Urine Clarity Clear Clear Urine pH 6.0 5.0-9.0 Urine Specific [place] 1.012 1.001-1.035 Urine Protein Negative Negative Urine Ketones Negative Negative Urine Blood Negative Negative /uL Urine Nitrite Negative Negative Urine Bilirubin Negative Negative Urine Urobilinogen Normal Negative mg/dL Urine Leukocyte Esterase Trace Negative /uL Urine RBC 2 0 - 4 /hpf Urine Microscopic WBC 7 H 0-5 /HPF Urine Squamous Epithelial Cells Few <5 /hpf Urine Bacteria None seen None Seen /hpf Urine Glucose Normal Normal mg/dL Urine Test Negative Negative Urine Opiates Screen Neg NEGATIVE Urine Fentanyl Screen Neg NEGATIVE Urine Barbiturates Screen Neg NEGATIVE Urine Phencyclidine Screen Neg NEGATIVE Urine Amphetamines Screen Neg NEGATIVE Urine Benzodiazepines Screen Pos NEGATIVE Urine Cocaine Screen Neg NEGATIVE Urine Cannabinoids Screen Neg NEGATIVE Test 11/10/24 18:10 11/10/24 17:23 Range/Units Platelet Estimate Adequate Clumped Platelets Few Large Platelets Few Lactic Acid Level 0.9 0.4-2.0 mmol/L B-Type Natriuretic Peptide 282.78 0-100 pg/mL POC Glucose 110 H 70-106 mg/dl Assessment/Plan Plan Patient is a 44-year-old female who presented with dizziness and presyncope. She found her on blood pressure to be 213/109 and decided to come to the hospital. In emergency room, the blood pressure was 189/96. Patient is admitted with hypertensive urgency/emergency. Cardiology is called for cardiac aspects of care. Patient denies chest pains.. Patient is known to our practice from previous admissions. Does have long history of pulmonary problems. She has a had repeated respiratory failures from before and is on home oxygen. She never followed as outpatient with us in the office. Obese patient, not in acute distress. Not using accessory muscles of breathing. No JVD. Mucosa is pink and wet. No carotid bruit. Cardiac: Regular, no thrill/gallop. Chest: Scattered rhonchi in the lungs is heard. Abdomen: Bowel sounds positive. Abdomen is soft. There is no hepatomegaly. There was no mass. There was no edema. 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 She is status post cholecystectomy/appendectomy. She quit smoking two years ago. There is no relevant family history. Echocardiogram of September 2022 reported ejection fraction of 60 65%, normal diastolic, trace TR and right ventricular systolic pressure of 30 mm Hg Echocardiogram of August 30, 2024 revealed ejection fraction of 60-65%, mild biatrial enlargement, mild right ventricular enlargement, good right ventricular systolic pressure and right ventricular systolic pressure 55 mm Hg Trapped in: 1.24 Potassium: 3.8 LDL: 174 ENT: 282.78 Troponin (high sensitive): 7 - 7 - 6 Urine toxicology was positive for benzodiazepine Chest x-ray reported: Findings/Impression: Frontal chest radiograph demonstrates no acute osseous or superficial soft tissue abnormalities. The trachea is midline. The cardiac silhouette and mediastinum are within normal limits. No pneumothorax, pleural effusions, or consolidations. CT of the head revealed: IMPRESSION: 1. No acute intracranial abnormality. EKG revealed sinus tachycardia, left atrial enlargement and nonspecific ST-T changes Telemetry shows sinus rhythm Patient is a 44-year-old female who presented with dizziness/presyncope. Have shortness of breath. Blood pressure was high on arrival. Presentation he has consider hypertensive emergency and COPD exacerbation. Does have history of multiple lung problems. Has had pneumonia/empyema before. Has had COPD exacerbations before. Does have chronic respiratory failure and on home oxygen. Acute coronary syndrome is not considered at this point. Hypertensive emergency COPD exacerbation Acute Respiratory failure Diabetes mellitus History of substance abuse Pulmonary Hypertension. Cardiac suggestion for management: Manage on Tele Follow-up electrolytes and kidney function tests and correct abnormalities Control blood pressure Nifedipine ER at 60 mg daily to be considered Pulmonary evaluation/consultation he suggested. Further evaluation and management depends on the above and clinical course Thank you for consultation A total of 75 minutes was spent reviewing the patient record, examining the patient, making a diagnostic and therapeutic plan, discussing this plan with medical personnel, following up on diagnostic studies and following the patient for clinical stability excluding any and all procedures. At least 50% of this time was spent in direct, [id number] contact. Thank you for allowing me to participate in this patient's care. Further recommendations will depend on patient's clinical course. Please do not hesitate to contact me if you have any questions or concerns. This medical document was created using electronic medical record system with [employer] computerized dictation system. Although this document has been carefully reviewed, there may still be some phonetic and typographical errors. These areas are purely typographical due to the imperfection of the software programs, and do not reflect any compromise in the patient's medical care. Plan discussed with: Patient, Other (nurse) OLIVIA LUJAN MD Nov 11, 2024 09:28
[2024-11-11] MEDS: PANTOPRAZOLE 40 MG TAB PO SCH (09:43)
[2024-11-11] MEDS: ASPirin-EC 81 mg tab PO SCH (09:43)
[2024-11-11] MEDS: methylPREDNISolone SOD SUCC 40 MG/ML VL IV SCH (09:45)
[2024-11-11] MEDS: ENOXAPARIN SOD 40 MG/0.4 ML SYRINGE SC SCH (09:45)
[2024-11-11] MEDS: METHADONE HCL 10 MG TAB PO SCH (09:52)
[2024-11-11] MEDS: FLUTICASONE UMECLIDINIUM VILAN IN SCH (09:55)
[2024-11-11 10:30] LABS: INR 1.08 (0.9-1.15); Partial Thromboplastin Time 26.1 SEC (24.5-34.5); Prothrombin Time 11.4 sec (9.3-11.8)
--- NOTE | 2024-11-11 11:05 | DVHINCON2 ---
Date of service: Nov 10, 2024 Referring Physician Ignacio Reyez MD Reason for Consultation Acute on chronic hypoxic respiratory failure, COPD exacerbation, pneumonia History of Present Illness A 44-year-old woman with PMHx that includes emphysema/COPD/asthma on O2 up to 5 L/min, hypertension, MD, CVA and chronic kidney disease who presented to ED on 11/10/24 with chief complaint of dizziness and presyncope; noted blood pressure at home of 213/109 prompting her visit to the ED. Patient also c/o dyspnea and epigastric pain, which she describes as her as her normal chronic pancreatitis pain which is exacerbated currently. Note, pt had presented less than 24 hours prior to ED with chief complaint of left lower extremity swelling, DVT was ruled out. Denied chest pain, palpitations, fever, chills, N/V/D or other complaints. In the ED, blood pressure was noted to be 189/96 and patient was admitted with hypertensive urgency/emergency. Pulmonary consultation is requested for evaluation and management due to the above findings. Review of Systems: 14-point review of systems negative unless otherwise noted above. 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 Medications: Reviewed. Allergies: No known drug allergies. Family History: Ischemic heart disase, hypertension, kidney cancer Social History: Former smoker (30 pack-year history of smoking) History of opiate addiction due to chronic pancreatitis, has been clean for the past 15 years and is on methadone Denies current tobacco, alcohol and other drug abuse Family History: FH: heart attack G8 FATHER FH: kidney cancer Hypertension G8 MOTHER, Onset:40's - 50 Ischemic heart disease G8 MOTHER Allergies: Coded Allergies: NO KNOWN ALLERGIES (Unverified , 06/13/14) Home Meds Active Scripts Furosemide (Lasix) 20 Mg Tb, 1 TAB PO DAILY for 4 Days, #4 TAB 0 Refills Prov:MICHELLE YANG DO 11/09/24 Ondansetron Odt 4MG Tab (ZOFRAN PO) 4 Mg Tb, 4 MG PO Q6HPRN PRN for 5 Days, #20 TAB ODT TAB-DISSOLVE IN MOUTH, THEN SWALLOW [facility] 10/27/24 Pantoprazole Sodium Sesquihydr (Pantoprazole Sodium) 40 Mg Tab, 40 MG PO DAILY for 14 Days, #14 TAB [facility] 10/27/24 Albuterol Sulfate (Albuterol Sulfate) 0.083 % Neb, 1 VIAL NEB Q6HP PRN for 90 Days, #100 VIAL Prov:[facility] 10/27/24 Prednisone (Prednisone) 20 Mg Tab, 30 MG PO DAILY for 5 Days, #5 MG Prov:[facility] 10/27/24 Levofloxacin Hemihydrate (LEVOFLOXACIN) 500 Mg Tab, 750 MG PO DAILY for 5 Days, #8 TAB Prov:[facility] 10/27/24 Buxdnwkefte-Kpztfqizvfec-Gsnpi (Trelegy Ellipta 100-62.5-25 Mcg/INH) 1 Aer Aer, 1 AER IN DAILY for 30 Days, #1 AER Prov:KIRIT PALACIOS CARDIOLOGY CLINICAL NURSE SPECIALIST 10/05/24 Prednisone (Prednisone) 20 Mg Tab, 40 MG PO DAILY for 5 Days, #10 MG Prov:KIRIT PALACIOS CARDIOLOGY CLINICAL NURSE SPECIALIST 10/05/24 Doxycycline (Monohydrate) (Doxycycline) 100 Mg Cap, 100 MG PO BID for 7 Days, #14 CAP Prov:JULIAN WILSON [employer] TECHNICIAN 08/31/24 Alprazolam (Xanax) 0.25 Mg Tb, 1 TAB PO BID for 5 Days, #10 TAB Prov:JULIAN WILSON [employer] TECHNICIAN 10/16/22 Morphine Sulfate (Morphine Sulfate Cr) 15 Mg Tab, 1 TAB PO BID for 5 Days, #10 TAB Prov:JULIAN WILSON [employer] TECHNICIAN 10/16/22 Aspirin (Aspirin Low Dose) 81 Mg Tab, 81 MG PO DAILY for 30 Days, #30 TAB Prov:JULIAN WILSON [employer] TECHNICIAN 10/16/22 Reported Medications Clonazepam (KlonoPIN TABLET) 0.5 Mg Tb, 1 TAB PO BIDP PRN for 30 Days, #60 TAB 10/27/24 Clonidine Hydrochloride (Clonidine Hcl) 0.1 Mg Tab, 1 TAB PO DAILY 10/17/24 Lisinopril (Lisinopril) 10 Mg Tab, 1 TAB PO DAILY 10/17/24 Metoprolol Tartrate (Lopressor) 25 Mg Tb, 1 TAB PO BID 10/17/24 Current Medications Current Medications Medications (Trade) Dose Ordered Sig/Mata Route PRN Reason Start Time Stop Time Status Last Admin Ondansetron HCl (Zofran) 4 mg Q4HP PRN IV NAUSEA / VOMITING 11/10/24 23:45 Enoxaparin Sodium (Lovenox) 40 mg DAILY SC 11/11/24 10:00 11/11/24 09:45 Methadone HCl (Methadone HCl Tablet) 120 mg DAILY PO 11/11/24 10:00 11/11/24 09:52 Alprazolam (Xanax Tablet) 0.25 mg BID PO 11/11/24 10:00 Aspirin (Ecotrin Enteric Coated Tablet) 81 mg DAILY PO 11/11/24 10:00 11/11/24 09:43 Clonidine HCl (Catapres Tablet) 0.1 mg DAILY PO 11/11/24 10:00 Furosemide (Lasix Tablet) 20 mg DAILY PO 11/11/24 10:00 Metoprolol Tartrate (Lopressor Tablet) 25 mg BID PO 11/11/24 10:00 Pantoprazole Sodium (Protonix Tablet) 40 mg DAILY PO 11/11/24 10:00 11/11/24 09:43 Albuterol (Ventolin Medneb) 2.5 mg Q6HPRN PRN NEB SOB/WHEEZING 11/11/24 01:00 11/11/24 00:54 Patient Own Medication 1 aer DAILY IN 11/11/24 10:00 11/11/24 09:55 Lisinopril (Zestril Tablet) 10 mg DAILY PO 11/11/24 10:00 Ipratropium [place] (Atrovent Medneb) 0.5 mg Q6HWA NEB 11/11/24 06:00 11/11/24 06:59 Methylprednisolone Sodium Succinate (Solu Medrol) 40 mg BID IV 11/11/24 10:00 11/11/24 09:45 Acetaminophen (Tylenol Tablet Or Capsule) 500 mg Q6HP PRN PO MODERATE PAIN (4-6 PAIN SCALE) 11/11/24 00:30 Atorvastatin Calcium (Lipitor) 40 mg HS PO 11/11/24 22:00 Azithromycin 250 ml @ 125 mls/hr DAILY IV 11/12/24 10:00 Nifedipine (Procardia Xl (Time-Release)) 60 mg DAILY PO 11/12/24 10:00 Vital Signs Vital Signs Date Time Temp Pulse Resp B/P (MAP) Pulse Ox O2 Delivery O2 Flow Rate FiO2 11/11/24 09:17 165/94 11/11/24 08:47 98.0 84 17 94 98.0 11/11/24 06:59 Nasal Cannula* 4 36 Physical Exam Gen.: Patient lying in bed in no apparent distress. On supplemental oxygen. Head: Normocephalic, atraumatic. Eyes: EOMI/PERRLA. Ears: Normal hearing. Normal anatomy. Neck/trachea: Trachea midline, supple. Nose: Normal external anatomy. Mouth: Moist mucous membranes. Chest: Decreased air entry bilaterally. No wheezing or rhonchi. Cardiovascular: Positive S1, positive S2. Regular rate and rhythm. Abdomen: Positive bowel sounds in all 4 quadrants. Soft, non-tender, non- distended. : Deferred. Rectal: Deferred. Skin: Warm, dry. Intact. Extremities: 2+ radial pulses bilaterally. No lower extremity edema. Neuro: Awake, alert, oriented x3. No gross motor or sensory deficits. Cranial nerves II through XII intact. Gait not assessed. Labs/Diagnostic Data Labs Test 11/11/24 09:51 11/11/24 05:15 11/10/24 23:49 11/10/24 21:08 Range/Units Prothrombin Time 11.4 9.3-11.8 sec Prothrombin Time INR 1.08 0.9-1.15 Activated Partial Thromboplast Time 26.1 24.5-34.5 SEC D-Dimer, Quantitative < 0.19 0.0-0.49 mg/L FEU White Blood Count 7.8 # 4.4-10.8 10^3/uL Red Blood Count 4.10 4.0-5.20 10^6/uL Hemoglobin 10.7 L 12.2-16.2 g/dL Hematocrit 32.8 #L 36.0-46.0 % Mean Corpuscular Volume 79.9 L 80.0-100.0 fL Mean Corpuscular Hemoglobin 26.2 L 28.0-32.0 pg Mean Corpuscular Hemoglobin Concent 32.8 32.0-36.0 g/dL Red Cell Distribution Width 17.6 H 11.8-14.3 % Platelet Count 244 140-450 10^3/uL Mean Platelet Volume 7.2 6.9-10.8 fL Neutrophils (%) (Auto) 91.9 H 37.0-80.0 % Lymphocytes (%) (Auto) 7.0 L 10.0-50.0 % Monocytes (%) (Auto) 0.8 0.0-12.0 % Eosinophils (%) (Auto) 0.1 0.0-7.0 % Basophils (%) (Auto) 0.2 0.0-2.0 % Neutrophils # (Auto) 7.2 1.6-8.6 10 ^3/uL Lymphocytes # (Auto) 0.6 0.4-5.4 10 ^3/uL Monocytes # (Auto) 0.1 0-1.3 10 ^3/uL Eosinophils # (Auto) 0 0-0.8 10 ^3/uL Basophils # (Auto) 0 0-0.2 10 ^3/uL Nucleated Red Blood Cells 0.1 % Sodium Level 136 136-145 mmol/L Potassium Level 3.8 3.5-5.1 mmol/L Chloride Level 98 98-107 mmol/L Carbon Dioxide Level 27 20-31 mmol/L Anion Gap 11 5-15 Blood Urea Nitrogen 14 9-23 mg/dL Creatinine 1.23 H 0.550-1.02 mg/dL Glomerular Filtration Rate Calc 55 >90 mL/min BUN/Creatinine Ratio 11.4 10.0-20.0 Serum Glucose 174 H 74-106 mg/dL Calcium Level 10.1 8.7-10.4 mg/dL Total Bilirubin 0.3 0.2-1.0 mg/dL Aspartate Amino Transferase (AST) 14 13-40 U/L Alanine Aminotransferase (ALT) 16 7-40 U/L Alkaline Phosphatase 121 H 46-116 U/L Total Protein 7.1 5.7-8.2 g/dL Albumin 4.3 3.2-4.8 g/dL Lipase 30 12-53 U/L Triglycerides Level 116 < 150 mg/dL Cholesterol Level 236 H < 200 mg/dL LDL Cholesterol 174 H < 100 mg/dL HDL Cholesterol 40 40-59 mg/dL Troponin I High Sensitivity 6 </=34 ng/L Test 11/10/24 20:45 11/10/24 18:10 11/10/24 17:23 Range/Units Urine Color Light-yellow Yellow Urine Clarity Clear Clear Urine pH 6.0 5.0-9.0 Urine Specific [place] 1.012 1.001-1.035 Urine Protein Negative Negative Urine Ketones Negative Negative Urine Blood Negative Negative /uL Urine Nitrite Negative Negative Urine Bilirubin Negative Negative Urine Urobilinogen Normal Negative mg/dL Urine Leukocyte Esterase Trace Negative /uL Urine RBC 2 0 - 4 /hpf Urine Microscopic WBC 7 H 0-5 /HPF Urine Squamous Epithelial Cells Few <5 /hpf Urine Bacteria None seen None Seen /hpf Urine Glucose Normal Normal mg/dL Urine Test Negative Negative Urine Opiates Screen Neg NEGATIVE Urine Fentanyl Screen Neg NEGATIVE Urine Barbiturates Screen Neg NEGATIVE Urine Phencyclidine Screen Neg NEGATIVE Urine Amphetamines Screen Neg NEGATIVE Urine Benzodiazepines Screen Pos NEGATIVE Urine Cocaine Screen Neg NEGATIVE Urine Cannabinoids Screen Neg NEGATIVE Platelet Estimate Adequate Clumped Platelets Few Large Platelets Few Lactic Acid Level 0.9 0.4-2.0 mmol/L B-Type Natriuretic Peptide 282.78 0-100 pg/mL POC Glucose 110 H 70-106 mg/dl Assessment Impression: Acute on chronic hypoxic respiratory failure Dependence on supplemental oxygen COPD exacerbation Community-acquired pneumonia Hx of nicotine dependence Acute on chronic diastolic congestive heart failure (HFpEF, LVEF 55%, RVSP 55 mmHg) Chronic kidney disease Recent dx of ovarian cancer Plan: Supplemental oxygen Titrate to keep O2 sats above 92%. Continue bronchodilators. Continue antibiotics IV steroids Monitor renal function. Monitor electrolytes. Supplement as necessary. Monitor ins and outs. GI prophylaxis - Protonix DVT prophylaxis - Lovenox. Prognosis: Poor given patient's multiple co-morbidities. Rest of plan per hospitalist and other consultants. Thank you, Dr. Reyez, for allowing me to participate in this patient's care. Further recommendations will depend on the patient's clinical course. Please do not hesitate to contact me if you have any questions or concerns. This medical document was created using an electronic medical record system with [employer] dictation system. Although these documentations are being carefully reviewed, there may still be some phonetic and typographical changes. The errors are purely typographical, due to imperfection on the software program, and do not reflect any compromise in the patient's medical care. Plan discussed with: Other (RN/Dr. Reyez) NATHALY NARAYAN MD Nov 11, 2024 11:05
[2024-11-11] MEDS: FUROSEMIDE 20 MG TAB PO SCH (11:14)
[2024-11-11] MEDS: cloNIDine HCL 0.1 MG TAB PO SCH (11:14)
[2024-11-11] MEDS: LISINOPRIL 5 MG TAB PO SCH (11:15)
[2024-11-11] MEDS: METOPROLOL TARTRATE 25 MG TAB PO SCH (11:15)
--- NOTE | 2024-11-11 12:03 | DVHPN2 ---
Reviewed: Care Plan, H&P, Labs, Medications, Previous Orders, Radiology Changes from previous H/P or p: No Changes Objective Vitals Vital Signs Date Time Temp Pulse Resp B/P (MAP) Pulse Ox O2 Delivery O2 Flow Rate FiO2 11/11/24 11:15 181/98 11/11/24 11:15 84 11/11/24 08:47 98.0 17 94 98.0 11/11/24 06:59 Nasal Cannula* 4 36 Intake/Output Intake and Output 11/11/24 07:00 Intake Total 0 ml Balance 0 ml Intake Oral 0 ml Medications Current Medications Medications Dose Ordered Sig/Mata Route Start Time Stop Time Status Last Admin Dose Admin Ondansetron HCl 4 mg Q4HP PRN IV 11/10/24 23:45 Enoxaparin Sodium 40 mg DAILY SC 11/11/24 10:00 11/11/24 09:45 40 MG Methadone HCl 120 mg DAILY PO 11/11/24 10:00 11/11/24 09:52 120 MG Alprazolam 0.25 mg BID PO 11/11/24 10:00 Aspirin 81 mg DAILY PO 11/11/24 10:00 11/11/24 09:43 81 MG Clonidine HCl 0.1 mg DAILY PO 11/11/24 10:00 11/11/24 11:14 0.1 MG Furosemide 20 mg DAILY PO 11/11/24 10:00 11/11/24 11:14 20 MG Metoprolol Tartrate 25 mg BID PO 11/11/24 10:00 11/11/24 11:15 25 MG Pantoprazole Sodium 40 mg DAILY PO 11/11/24 10:00 11/11/24 09:43 40 MG Albuterol 2.5 mg Q6HPRN PRN NEB 11/11/24 01:00 11/11/24 00:54 2.5 MG Patient Own Medication 1 aer DAILY IN 11/11/24 10:00 11/11/24 09:55 1 AER Lisinopril 10 mg DAILY PO 11/11/24 10:00 11/11/24 11:15 10 MG Ipratropium [place] 0.5 mg Q6HWA NEB 11/11/24 06:00 11/11/24 06:59 0.5 MG Methylprednisolone Sodium Succinate 40 mg BID IV 11/11/24 10:00 11/11/24 09:45 40 MG Acetaminophen 500 mg Q6HP PRN PO 11/11/24 00:30 Atorvastatin Calcium 40 mg HS PO 11/11/24 22:00 Azithromycin 250 ml @ 125 mls/hr DAILY IV 11/12/24 10:00 Nifedipine 60 mg DAILY PO 11/12/24 10:00 Laboratory Results Laboratory Tests 11/11/24 05:15 Chemistry Test 11/10/24 18:10 11/11/24 05:15 Albumin 4.2 g/dL (3.2-4.8) 4.3 g/dL (3.2-4.8) Calcium Level 9.8 mg/dL (8.7-10.4) 10.1 mg/dL (8.7-10.4) Total Protein 6.8 g/dL (5.7-8.2) 7.1 g/dL (5.7-8.2) Coagulation Test 11/11/24 09:51 Prothrombin Time 11.4 sec (9.3-11.8) Prothrombin Time INR 1.08 (0.9-1.15) Activated Partial Thromboplast Time 26.1 SEC (24.5-34.5) D-Dimer, Quantitative < 0.19 mg/L FEU (0.0-0.49) Lipid panel Test 11/10/24 23:49 11/11/24 05:15 Cholesterol Level 236 mg/dL (< 200) H HDL Cholesterol 40 mg/dL (40-59) Triglycerides Level 116 mg/dL (< 150) Lipase 30 U/L (12-53) Cardiac Markers Test 11/10/24 18:10 B-Type Natriuretic Peptide 282.78 pg/mL (0-100) LFT Test 11/10/24 18:10 11/11/24 05:15 Alanine Aminotransferase (ALT) 18 U/L (7-40) 16 U/L (7-40) Alkaline Phosphatase 130 U/L (46-116) H 121 U/L (46-116) H Aspartate Amino Transferase (AST) 20 U/L (13-40) 14 U/L (13-40) Total Bilirubin 0.3 mg/dL (0.2-1.0) 0.3 mg/dL (0.2-1.0) Urinalysis Test 11/10/24 20:45 Urine Color Light-yellow (Yellow) Urine Clarity Clear (Clear) Urine pH 6.0 (5.0-9.0) Urine Specific [place] 1.012 (1.001-1.035) Urine Protein Negative (Negative) Urine Ketones Negative (Negative) Urine Blood Negative /uL (Negative) Urine Nitrite Negative (Negative) Urine Bilirubin Negative (Negative) Urine Urobilinogen Normal mg/dL (Negative) Urine Leukocyte Esterase Trace /uL (Negative) Urine RBC 2 /hpf (0 - 4) Urine Microscopic WBC 7 /HPF (0-5) H Urine Squamous Epithelial Cells Few /hpf (<5) Urine Bacteria None seen /hpf (None Seen) Urine Glucose Normal mg/dL (Normal) Urine Test Negative (Negative) Labs and/or images reviewed: Labs reviewed by me, Image(s) reviewed by me Assessment/Plan Assessment/Plan Acute on chronic respiratory failure consult by Dr. Saba appreciated COPD exacerbation, Solu-Medrol We will community-acquired pneumonia: Azithromycin Acute on chronic diastolic congestive heart failure (HFpEF, LVEF 55%, RVSP 55 mmHg), consult by Dr. 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
--- NOTE | 2024-11-11 13:28 | DVHINCON2 ---
Date of service: Nov 11, 2024 Referring Physician hospitalist Reason for Consultation fu ovarian ca History of Present Illness pt is female admitted for hypertensive emergency crisis .pt reports being evaluated in october at [facility] for cancer but failed her fu apts.her last pap was 5 yr s ago and she does have hx of abn pap.she denies having any abnormal uterine bleeding . Past Medical History htn,copd,mi,chronic kidney ds, pancreatitis Past Surgical History thoracotomy,biliary stent Family History na Social History addiction to opiates ,previous smoker Patient Family History: FH: heart attack G8 FATHER FH: kidney cancer Hypertension G8 MOTHER, Onset:40's - 50 Ischemic heart disease G8 MOTHER Allergies: Coded Allergies: NO KNOWN ALLERGIES (Unverified , 06/13/14) Home Meds Active Scripts Furosemide (Lasix) 20 Mg Tb, 1 TAB PO DAILY for 4 Days, #4 TAB 0 Refills Prov:MICHELLE YANG DO 11/09/24 Ondansetron Odt 4MG Tab (ZOFRAN PO) 4 Mg Tb, 4 MG PO Q6HPRN PRN for 5 Days, #20 TAB ODT TAB-DISSOLVE IN MOUTH, THEN SWALLOW Prov:PIPER OBRIEN RESIDENT 10/27/24 Pantoprazole Sodium Sesquihydr (Pantoprazole Sodium) 40 Mg Tab, 40 MG PO DAILY for 14 Days, #14 TAB Prov:[facility] RESIDENT 10/27/24 Albuterol Sulfate (Albuterol Sulfate) 0.083 % Neb, 1 VIAL NEB Q6HP PRN for 90 Days, #100 VIAL [facility] 10/27/24 Prednisone (Prednisone) 20 Mg Tab, 30 MG PO DAILY for 5 Days, #5 MG Prov:[facility] 10/27/24 Levofloxacin Hemihydrate (LEVOFLOXACIN) 500 Mg Tab, 750 MG PO DAILY for 5 Days, #8 TAB Prov[facility] 10/27/24 Bekwvdwxfwb-Aounafuibkjp-Qudgn (Trelegy Ellipta 100-62.5-25 Mcg/INH) 1 Aer Aer, 1 AER IN DAILY for 30 Days, #1 AER Prov:KIRIT PALACIOS 10/05/24 Prednisone (Prednisone) 20 Mg Tab, 40 MG PO DAILY for 5 Days, #10 MG Prov:KIRIT PALACIOS IMPORT CLERK 10/05/24 Doxycycline (Monohydrate) (Doxycycline) 100 Mg Cap, 100 MG PO BID for 7 Days, #14 CAP Prov:JULIAN WILSON KITCHEN HELPER 08/31/24 Alprazolam (Xanax) 0.25 Mg Tb, 1 TAB PO BID for 5 Days, #10 TAB Prov:JULIAN WILSON KITCH[employer] HELPER 10/16/22 Morphine Sulfate (Morphine Sulfate Cr) 15 Mg Tab, 1 TAB PO BID for 5 Days, #10 TAB Prov:JULIAN WILSON KITCH[employer] HELPER 10/16/22 Aspirin (Aspirin Low Dose) 81 Mg Tab, 81 MG PO DAILY for 30 Days, #30 TAB Prov:JULIAN WILSON KITCHEN HELPER 10/16/22 Reported Medications Clonazepam (KlonoPIN TABLET) 0.5 Mg Tb, 1 TAB PO BIDP PRN for 30 Days, #60 TAB 10/27/24 Clonidine Hydrochloride (Clonidine Hcl) 0.1 Mg Tab, 1 TAB PO DAILY 10/17/24 Lisinopril (Lisinopril) 10 Mg Tab, 1 TAB PO DAILY 10/17/24 Metoprolol Tartrate (Lopressor) 25 Mg Tb, 1 TAB PO BID 10/17/24 Current Medications Current Medications Medications (Trade) Dose Ordered Sig/Mata Route PRN Reason Start Time Stop Time Status Last Admin Ondansetron HCl (Zofran) 4 mg Q4HP PRN IV NAUSEA / VOMITING 11/10/24 23:45 Enoxaparin Sodium (Lovenox) 40 mg DAILY SC 11/11/24 10:00 11/11/24 09:45 Methadone HCl (Methadone HCl Tablet) 120 mg DAILY PO 11/11/24 10:00 11/11/24 09:52 Alprazolam (Xanax Tablet) 0.25 mg BID PO 11/11/24 10:00 Aspirin (Ecotrin Enteric Coated Tablet) 81 mg DAILY PO 11/11/24 10:00 11/11/24 09:43 Clonidine HCl (Catapres Tablet) 0.1 mg DAILY PO 11/11/24 10:00 11/11/24 11:14 Furosemide (Lasix Tablet) 20 mg DAILY PO 11/11/24 10:00 11/11/24 11:14 Metoprolol Tartrate (Lopressor Tablet) 25 mg BID PO 11/11/24 10:00 11/11/24 11:15 Pantoprazole Sodium (Protonix Tablet) 40 mg DAILY PO 11/11/24 10:00 11/11/24 09:43 Albuterol (Ventolin Medneb) 2.5 mg Q6HPRN PRN NEB SOB/WHEEZING 11/11/24 01:00 11/11/24 00:54 Patient Own Medication 1 aer DAILY IN 11/11/24 10:00 11/11/24 09:55 Lisinopril (Zestril Tablet) 10 mg DAILY PO 11/11/24 10:00 11/11/24 11:15 Ipratropium [place] (Atrovent Medneb) 0.5 mg Q6HWA NEB 11/11/24 06:00 11/11/24 12:46 Methylprednisolone Sodium Succinate (Solu Medrol) 40 mg BID IV 11/11/24 10:00 11/11/24 09:45 Acetaminophen (Tylenol Tablet Or Capsule) 500 mg Q6HP PRN PO MODERATE PAIN (4-6 PAIN SCALE) 11/11/24 00:30 Atorvastatin Calcium (Lipitor) 40 mg HS PO 11/11/24 22:00 Azithromycin 250 ml @ 125 mls/hr DAILY IV 11/12/24 10:00 Nifedipine (Procardia Xl (Time-Release)) 60 mg DAILY PO 11/12/24 10:00 Review of Systems Constitutional: no fever, chill, weight loss HEENT: no eye pain, no hearing loss, no oral lesion, no scleral icterus Heart: no chest pain, no chest pressure Lung: no cough, no dyspnea with exertion Abdomen: see HPI : no pain with urination, normal appearing urine Musculoskeletal: no joint pain, no muscle pain Neurological: no seizure, no loss of sensation, no weakness in extremities Pysch: no depression, no anxiety Derm: no rash, no jaundice Vital Signs Vital Signs Date Time Temp Pulse Resp B/P (MAP) Pulse Ox O2 Delivery O2 Flow Rate FiO2 11/11/24 12:53 84 18 100 11/11/24 12:46 Nasal Cannula* 4 36 11/11/24 11:15 181/98 11/11/24 08:47 98.0 98.0 Physical Exam SKIN: nl HEENT: nl breasts -symmetrical ,no masses PULMONARY: deminishes bs ABDOMEn- - nt,not distended ,pos bs ,no rigidty pelvic- ext genitalia nl,vag nl no bleeding noted,cx nl ,uterus nl size,nt Labs/Diagnostic Data Labs Test 11/11/24 09:51 11/11/24 05:15 11/10/24 23:49 11/10/24 21:08 Range/Units Prothrombin Time 11.4 9.3-11.8 sec Prothrombin Time INR 1.08 0.9-1.15 Activated Partial Thromboplast Time 26.1 24.5-34.5 SEC D-Dimer, Quantitative < 0.19 0.0-0.49 mg/L FEU White Blood Count 7.8 # 4.4-10.8 10^3/uL Red Blood Count 4.10 4.0-5.20 10^6/uL Hemoglobin 10.7 L 12.2-16.2 g/dL Hematocrit 32.8 #L 36.0-46.0 % Mean Corpuscular Volume 79.9 L 80.0-100.0 fL Mean Corpuscular Hemoglobin 26.2 L 28.0-32.0 pg Mean Corpuscular Hemoglobin Concent 32.8 32.0-36.0 g/dL Red Cell Distribution Width 17.6 H 11.8-14.3 % Platelet Count 244 140-450 10^3/uL Mean Platelet Volume 7.2 6.9-10.8 fL Neutrophils (%) (Auto) 91.9 H 37.0-80.0 % Lymphocytes (%) (Auto) 7.0 L 10.0-50.0 % Monocytes (%) (Auto) 0.8 0.0-12.0 % Eosinophils (%) (Auto) 0.1 0.0-7.0 % Basophils (%) (Auto) 0.2 0.0-2.0 % Neutrophils # (Auto) 7.2 1.6-8.6 10 ^3/uL Lymphocytes # (Auto) 0.6 0.4-5.4 10 ^3/uL Monocytes # (Auto) 0.1 0-1.3 10 ^3/uL Eosinophils # (Auto) 0 0-0.8 10 ^3/uL Basophils # (Auto) 0 0-0.2 10 ^3/uL Nucleated Red Blood Cells 0.1 % Sodium Level 136 136-145 mmol/L Potassium Level 3.8 3.5-5.1 mmol/L Chloride Level 98 98-107 mmol/L Carbon Dioxide Level 27 20-31 mmol/L Anion Gap 11 5-15 Blood Urea Nitrogen 14 9-23 mg/dL Creatinine 1.23 H 0.550-1.02 mg/dL Glomerular Filtration Rate Calc 55 >90 mL/min BUN/Creatinine Ratio 11.4 10.0-20.0 Serum Glucose 174 H 74-106 mg/dL Calcium Level 10.1 8.7-10.4 mg/dL Total Bilirubin 0.3 0.2-1.0 mg/dL Aspartate Amino Transferase (AST) 14 13-40 U/L Alanine Aminotransferase (ALT) 16 7-40 U/L Alkaline Phosphatase 121 H 46-116 U/L Total Protein 7.1 5.7-8.2 g/dL Albumin 4.3 3.2-4.8 g/dL Lipase 30 12-53 U/L Triglycerides Level 116 < 150 mg/dL Cholesterol Level 236 H < 200 mg/dL LDL Cholesterol 174 H < 100 mg/dL HDL Cholesterol 40 40-59 mg/dL Troponin I High Sensitivity 6 </=34 ng/L Test 11/10/24 20:45 11/10/24 18:10 11/10/24 17:23 Range/Units Urine Color Light-yellow Yellow Urine Clarity Clear Clear Urine pH 6.0 5.0-9.0 Urine Specific [place] 1.012 1.001-1.035 Urine Protein Negative Negative Urine Ketones Negative Negative Urine Blood Negative Negative /uL Urine Nitrite Negative Negative Urine Bilirubin Negative Negative Urine Urobilinogen Normal Negative mg/dL Urine Leukocyte Esterase Trace Negative /uL Urine RBC 2 0 - 4 /hpf Urine Microscopic WBC 7 H 0-5 /HPF Urine Squamous Epithelial Cells Few <5 /hpf Urine Bacteria None seen None Seen /hpf Urine Glucose Normal Normal mg/dL Urine Test Negative Negative Urine Opiates Screen Neg NEGATIVE Urine Fentanyl Screen Neg NEGATIVE Urine Barbiturates Screen Neg NEGATIVE Urine Phencyclidine Screen Neg NEGATIVE Urine Amphetamines Screen Neg NEGATIVE Urine Benzodiazepines Screen Pos NEGATIVE Urine Cocaine Screen Neg NEGATIVE Urine Cannabinoids Screen Neg NEGATIVE Platelet Estimate Adequate Clumped Platelets Few Large Platelets Few Lactic Acid Level 0.9 0.4-2.0 mmol/L B-Type Natriuretic Peptide 282.78 0-100 pg/mL POC Glucose 110 H 70-106 mg/dl Primary Diagnosis hypertensive emergency 2' Diagnosis/Comorbidities hx of ovarian ca per pt no documents available -wk up and fu at [facility] Plan pt needs immediate fu with [facility] Plan discussed with: Patient Visit Coding OBGYN Date of Service: Nov 11, 2024 Billing Provider: CHETAN GUSMAN DO CHEMICAL RECLAMATION EQUIPMENT OPERATOR Common Visit Codes: [id number] INP/OBS CARE (HIGH) CHEMICAL RECLAMATION EQUIPMENT OPERATOR Consultation Codes: [id number] CONSULT <80MIN CHETAN GUSMAN DO Nov 11, 2024 13:28
--- NOTE | 2024-11-11 14:19 | DVH ---
NUCLEAR MEDICINE VENTILATION/PERFUSION LUNG SCAN. INDICATION: PULMONARY EMBOLISM COMPARISON: None TECHNIQUE: Following intravenous demonstration of 4.2 millicuries of technetium 99m MAA, and inhala tion of 7 mCi of Xe 133 scintigrams were obtained in multiple projections of the lungs. FINDINGS: There is normal uptake of radionuclide on both the ventilation and perfusion portions of the examinat ion. No mismatched perfusion defects are demonstrated. Uptake is normally homogeneous. IMPRESSION: Low probability for PE.
--- NOTE | 2024-11-11 15:05 | ECG ---
[facility] Test Date: 2024-11-10 Test Time: 17:30:43 Pat Name: JENN RUSH Department: ED Room: 0279T A Gender: F Slicing Machine Feeder: NORA : 1980 Requested By: MICHELLE YANG Order Number: [id number] Reading MD: Domenic Horan Measurements Intervals [place] Rate: 82 P: 76 AK: 132 QRS: 46 QRSD: 83 T: 57 QT: 364 QTc: 425 Interpretive Statements Sinus rhythm Probable left atrial enlargement RSR' in V1 or V2, probably normal variant Probable left ventricular hypertrophy Baseline wander in lead(s) III,V6 Electronically Signed On 11-16-2024 20:39:55 PDT by Domenic Horan Please click the below link to view image of tracing.
--- NOTE | 2024-11-11 15:06 | ECG ---
[facility] Test Date: 2024-11-10 Test Time: 23:04:04 Pat Name: JENN RUSH Department: ER Room: [facility]9T A Gender: F Production Team Member: : 1980 Requested By: MARCELINO CARTER Order Number: [id number] Reading MD: Domenic Horan Measurements Intervals [employer] Rate: 90 P: 78 AR: 140 QRS: 51 QRSD: 78 T: 68 QT: 358 QTc: 438 Interpretive Statements Sinus rhythm Probable left atrial enlargement Probable left ventricular hypertrophy Electronically Signed On 11-16-2024 20:41:30 PDT by Domenic Horan Please click the below link to view image of tracing.
[2024-11-11] MEDS: ALPRAZolam 0.25 MG TAB PO SCH (15:08)
[2024-11-11] MEDS: ACETAMINOPHEN 500 MG TAB or CAP PO PRN (15:29)
[2024-11-11 16:41] LABS: Rapid Influenza A Negative (Negative); Rapid Influenza B Negative (Negative)
[2024-11-11 16:42] LABS: COVID19 ANTIGEN SOFIA FIA NEGATIVE (NEGATIVE)
--- NOTE | 2024-11-11 17:41 | DVHSR ---
APPROVED REPORT EXAM: LIMITED Two-dimensional and M-mode echocardiogram with Doppler and color Doppler. Blood Pressure: 164/93 mmHg INDICATION CHF RISK FACTORS Height: 64, Weight: 197 DIMENSIONS LVDd4.4 (3.8-5.7cm)LA (2D) (1.9-4.0cm)Aortic Root (2.0-3.7cm) LVDs2.9 (2.5-4.0cm)LA (MM) (1.9-4.0cm)Aortic Cusp Exc (1.5-2.0cm) EF (%) 61.0 (55-70%)Rt. Atrium (1.9-4.0cm)Asc. Aorta cm IVSd1.2 (0.7-1.1cm)RV (D) (1.8-2.4cm) PWd1.2 (0.7-1.1cm) Mitral Valve MitralMitral Stenosis E/A ratio0.02D MVAcm2 Tricuspid Valve TR Velocity2.83m/s [id number] Other Information Technically limited study due to LVEF and RVSP only. Conclusion Limited echocardiogram was performed: Left ventricle: Concentric left ventricular hypertrophy was seen. Left ventricular systolic functio n was normal. LVEF was around 65-70%. There was no gross wall motion abnormality. Right ventricle was mildly dilated with normal systolic function. Both atria were mildly dilated. Aortic valve was not well visualized. There was no aortic insufficiency/stenosis. There was mild mi tral/tricuspid regurgitation. Pulmonary valve was not well visualized. IVC was normal-sized with normal respiratory variation. Right ventricular systolic pressure was asse ssed at 39 mm Hg. There was no pericardial effusion.
[2024-11-11] MEDS: ATORVASTATIN 20 MG TAB PO SCH (21:39)
[2024-11-11] MEDS ORDERED: IPRATROPIUM BROM 0.5 MG/2.5ML INH SOL NEB PRN ×2 (21:45→23:30)
--- NOTE | 2024-11-11 22:22 | DVHPN2 ---
Progress Note - Dictate Date Seen: Nov 11, 2024 Medical Necessity Reason Pt with a Central, PICC or Fol: No Subjective Patient seen and examined at bedside. Remains on supplemental oxygen Overnight events reviewed. vital signs Vital Sign Date Time Temp Pulse Resp B/P (MAP) Pulse Ox O2 Delivery O2 Flow Rate FiO2 11/11/24 21:40 65 128/71 11/11/24 20:34 97.8 16 97 97.8 11/11/24 18:24 Nasal Cannula 4.0 11/11/24 18:24 36 Total Intake and Output 11/10/24 11/10/24 11/11/24 15:00 23:00 07:00 Intake Total 0 ml Balance 0 ml medications Current Medications Medications Dose Ordered Sig/Mata Route Start Time Stop Time Status Last Admin Dose Admin Ondansetron HCl 4 mg Q4HP PRN IV 11/10/24 23:45 Enoxaparin Sodium 40 mg DAILY SC 11/11/24 10:00 11/11/24 09:45 40 MG Methadone HCl 120 mg DAILY PO 11/11/24 10:00 11/11/24 09:52 120 MG Alprazolam 0.25 mg BID PO 11/11/24 10:00 11/11/24 21:39 0.25 MG Aspirin 81 mg DAILY PO 11/11/24 10:00 11/11/24 09:43 81 MG Clonidine HCl 0.1 mg DAILY PO 11/11/24 10:00 11/11/24 11:14 0.1 MG Furosemide 20 mg DAILY PO 11/11/24 10:00 11/11/24 11:14 20 MG Metoprolol Tartrate 25 mg BID PO 11/11/24 10:00 11/11/24 21:40 25 MG Pantoprazole Sodium 40 mg DAILY PO 11/11/24 10:00 11/11/24 09:43 40 MG Patient Own Medication 1 aer DAILY IN 11/11/24 10:00 11/11/24 09:55 1 AER Lisinopril 10 mg DAILY PO 11/11/24 10:00 11/11/24 11:15 10 MG Methylprednisolone Sodium Succinate 40 mg BID IV 11/11/24 10:00 11/11/24 09:45 40 MG Acetaminophen 500 mg Q6HP PRN PO 11/11/24 00:30 11/11/24 15:29 500 MG Atorvastatin Calcium 40 mg HS PO 11/11/24 22:00 11/11/24 21:39 40 MG Azithromycin 250 ml @ 125 mls/hr DAILY IV 11/12/24 10:00 Nifedipine 60 mg DAILY PO 11/12/24 10:00 Ipratropium [facility] [place] 0.5 mg Q6HR NEB 11/12/24 00:00 Levalbuterol HCl 1.25 mg Q6HR NEB 11/12/24 00:00 Ipratropium [facility] [place] 0.5 mg Q6HPRN PRN NEB 11/11/24 21:45 Levalbuterol HCl 1.25 mg Q6HPRN NEB 11/12/24 00:00 objective Gen.: Patient lying in bed in no apparent distress. On supplemental oxygen. Head: Normocephalic, atraumatic. Eyes: EOMI/PERRLA. Ears: Normal hearing. Normal anatomy. Neck/trachea: Trachea midline, supple. Nose: Normal external anatomy. Mouth: Moist mucous membranes. Chest: Decreased air entry bilaterally. Bilateral wheezing. No rhonchi. Cardiovascular: Positive S1, positive S2. Regular rate and rhythm. Abdomen: Positive bowel sounds in all 4 quadrants. Soft, non-tender, non- distended. : Deferred. Rectal: Deferred. Skin: Warm, dry. Intact. Extremities: 2+ radial pulses bilaterally. No lower extremity edema. Neuro: Awake, alert, oriented x3. No gross motor or sensory deficits. Cranial nerves II through XII intact. Gait not assessed. laboratory and microbiology Laboratory Tests 11/11/24 05:15 Test 11/11/24 05:15 Range/Units Serum Glucose 174 H 74-106 mg/dL Assessment/Plan Impression: Acute on chronic hypoxic respiratory failure Dependence on supplemental oxygen COPD exacerbation Community-acquired pneumonia Hx of nicotine dependence Acute on chronic diastolic congestive heart failure (HFpEF, LVEF 55%, RVSP 55 mmHg) Chronic kidney disease Recent dx of ovarian cancer Events: Remains on supplemental oxygen, 3 LPM NC Taper O2 as tolerated Continue bronchodilators q.6 hours Continue steroids - Solu-Medrol 40 mg BID Wheezing - Mucinex q.6/q.4 hours PRN. Diurese as tolerated w/ Lasix 20 mg QD Monitor renal function. Monitor electrolytes. Supplement as necessary. Labs and imaging reviewed. Rest of plan as noted below. Plan: Supplemental oxygen Titrate to keep O2 sats above 92%. Continue bronchodilators. Continue antibiotics IV steroids Monitor renal function. Monitor electrolytes. Supplement as necessary. Monitor ins and outs. GI prophylaxis - Protonix DVT prophylaxis - Lovenox. Prognosis: Poor given patient's multiple co-morbidities. Rest of plan per hospitalist and other consultants. Thank you, Dr. Reyez, for allowing me to participate in this patient's care. Further recommendations will depend on the patient's clinical course. Please do not hesitate to contact me if you have any questions or concerns. This medical document was created using an electronic medical record system with [employer] dictation system. Although these documentations are being carefully reviewed, there may still be some phonetic and typographical changes. The errors are purely typographical, due to imperfection on the software program, and do not reflect any compromise in the patient's medical care. Plan discussed with: Patient, Other (RN) NATHALY NARAYAN MD Nov 11, 2024 22:22
[2024-11-11] MEDS: LEVALBUTEROL HCL 1.25 MG/3 ML NEB NEB SCH (22:56)
[2024-11-11] MEDS ORDERED: LEVALBUTEROL HCL 1.25 MG/3 ML NEB NEB PRN (23:30)
[2024-11-12] VITALS (17 sets, daily range): BP systolic 124–145; BP diastolic 47–94; PULSE 64–89; RESP 16–20; TEMP 97.5–98.2; O2SAT 95–100
[2024-11-12] MEDS ORDERED: LEVALBUTEROL HCL 1.25 MG/3 ML NEB NEB SCH ×2 (02:00)
--- NOTE | 2024-11-12 08:55 | DVHPN2 ---
Progress Note - Dictate Date Seen: Nov 12, 2024 Medical Necessity Reason Pt with a Central, PICC or Fol: No vital signs Vital Sign Date Time Temp Pulse Resp B/P (MAP) Pulse Ox O2 Delivery O2 Flow Rate FiO2 11/12/24 08:47 97.9 64 19 129/47 (74) 97 97.9 11/12/24 07:21 Nasal Cannula* 4 36 Total Intake and Output 11/11/24 11/11/24 11/12/24 15:00 23:00 07:00 Intake Total 1200 ml 580 ml Balance 1200 ml 580 ml medications Current Medications Medications Dose Ordered Sig/Mata Route Start Time Stop Time Status Last Admin Dose Admin Ondansetron HCl 4 mg Q4HP PRN IV 11/10/24 23:45 Enoxaparin Sodium 40 mg DAILY SC 11/11/24 10:00 11/11/24 09:45 40 MG Methadone HCl 120 mg DAILY PO 11/11/24 10:00 11/11/24 09:52 120 MG Alprazolam 0.25 mg BID PO 11/11/24 10:00 11/11/24 21:39 0.25 MG Aspirin 81 mg DAILY PO 11/11/24 10:00 11/11/24 09:43 81 MG Clonidine HCl 0.1 mg DAILY PO 11/11/24 10:00 11/11/24 11:14 0.1 MG Furosemide 20 mg DAILY PO 11/11/24 10:00 11/11/24 11:14 20 MG Metoprolol Tartrate 25 mg BID PO 11/11/24 10:00 11/11/24 21:40 25 MG Pantoprazole Sodium 40 mg DAILY PO 11/11/24 10:00 11/11/24 09:43 40 MG Patient Own Medication 1 aer DAILY IN 11/11/24 10:00 11/11/24 09:55 1 AER Lisinopril 10 mg DAILY PO 11/11/24 10:00 11/11/24 11:15 10 MG Methylprednisolone Sodium Succinate 40 mg BID IV 11/11/24 10:00 11/11/24 09:45 40 MG Acetaminophen 500 mg Q6HP PRN PO 11/11/24 00:30 11/11/24 15:29 500 MG Atorvastatin Calcium 40 mg HS PO 11/11/24 22:00 11/11/24 21:39 40 MG Azithromycin 250 ml @ 125 mls/hr DAILY IV 11/12/24 10:00 Nifedipine 60 mg DAILY PO 11/12/24 10:00 Ipratropium [place] 0.5 mg Q6HR NEB 11/12/24 00:00 11/12/24 07:21 0.5 MG Levalbuterol HCl 1.25 mg Q6HR NEB 11/12/24 00:00 11/12/24 07:21 1.25 MG Ipratropium [place] 0.5 mg Q4HP PRN NEB 11/11/24 23:30 Levalbuterol HCl 1.25 mg Q4HPRN PRN NEB 11/11/24 23:30 laboratory and microbiology Laboratory Tests 11/11/24 05:15 Test 11/11/24 05:15 Range/Units Serum Glucose 174 H 74-106 mg/dL Assessment/Plan Patient is a 44-year-old female who presented with dizziness and presyncope. She found her on blood pressure to be 213/109 and decided to come to the hospital. In emergency room, the blood pressure was 189/96. Patient is admitted with hypertensive urgency/emergency. Cardiology is called for cardiac aspects of care. Patient denies chest pains.. Patient is known to our practice from previous admissions. Does have long history of pulmonary problems. She has a had repeated respiratory failures from before and is on home oxygen. She never followed as outpatient with us in the office. Obese patient, not in acute distress. Not using accessory muscles of breathing. No JVD. Mucosa is pink and wet. No carotid bruit. Cardiac: Regular, no thrill/gallop. Chest: Scattered rhonchi in the lungs is heard. Abdomen: Bowel sounds positive. Abdomen is soft. There is no hepatomegaly. There was no mass. There was no edema. 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 She is status post cholecystectomy/appendectomy. She quit smoking two years ago. There is no relevant family history. Echocardiogram of September 2022 reported ejection fraction of 60 65%, normal diastolic, trace TR and right ventricular systolic pressure of 30 mm Hg Echocardiogram of August 30, 2024 revealed ejection fraction of 60-65%, mild biatrial enlargement, mild right ventricular enlargement, good right ventricular systolic pressure and right ventricular systolic pressure 55 mm Hg Creat: 1.24 - 1.23 Potassium: 3.8 - 3.8 LDL: 174 BNP: 282.78 Troponin (high sensitive): 7 - 7 - 6 D-dimer: <0.19 Urine toxicology was positive for benzodiazepine Chest x-ray reported: Findings/Impression: Frontal chest radiograph demonstrates no acute osseous or superficial soft tissue abnormalities. The trachea is midline. The cardiac silhouette and mediastinum are within normal limits. No pneumothorax, pleural effusions, or consolidations. CT of the head revealed: IMPRESSION: 1. No acute intracranial abnormality. V/Q scan: IMPRESSION: Low probability for PE. EKG revealed sinus tachycardia, left atrial enlargement and nonspecific ST-T changes Telemetry shows sinus rhythm Patient is a 44-year-old female who presented with dizziness/presyncope. Have shortness of breath. Blood pressure was high on arrival. Presentation he has consider hypertensive emergency and COPD exacerbation. Does have history of multiple lung problems. Has had pneumonia/empyema before. Has had COPD exacerbations before. Does have chronic respiratory failure and on home oxygen. Acute coronary syndrome is not considered at this point. Hypertensive emergency COPD exacerbation Acute Respiratory failure Diabetes mellitus History of substance abuse Pulmonary Hypertension. Cardiac suggestion for management: Manage on Tele Follow-up electrolytes and kidney function tests and correct abnormalities Control blood pressure Increase Atorvastatin to 80 mg HS Pulmonary follow up Further evaluation and management depends on the above and clinical course A total of 55 minutes was spent reviewing the patient record, examining the patient, making a diagnostic and therapeutic plan, discussing this plan with medical personnel, following up on diagnostic studies and following the patient for clinical stability excluding any and all procedures. At least 50% of this time was spent in direct, [id number] contact. Thank you for allowing me to participate in this patient's care. Further recommendations will depend on patient's clinical course. Please do not hesitate to contact me if you have any questions or concerns. This medical document was created using electronic medical record system with [employer] dictation system. Although this document has been carefully reviewed, there may still be some phonetic and typographical errors. These areas are purely typographical due to the imperfection of the software programs, and do not reflect any compromise in the patient's medical care. Plan discussed with: Patient, Other (nurse) OLIVIA LUJAN MD Nov 12, 2024 08:55
[2024-11-12] MEDS: AZITHROMYCIN 500MG/ 250ML 250 ML IV SCH (10:13)
[2024-11-12] MEDS: NIFEdipine ER 30 MG TAB PO SCH (10:15)
--- NOTE | 2024-11-12 10:16 | DVHPN2 ---
Reviewed: Care Plan, H&P, Labs, Medications, Previous Orders, Radiology Changes from previous H/P or p: No Changes Objective Vitals Vital Signs Date Time Temp Pulse Resp B/P (MAP) Pulse Ox O2 Delivery O2 Flow Rate FiO2 11/12/24 08:47 97.9 64 19 143/83 (103) 100 97.9 11/12/24 07:21 Nasal Cannula* 4 36 Intake/Output Intake and Output 11/12/24 07:00 Intake Total 1780 ml Balance 1780 ml Intake Oral 1780 ml # Voids 10 Medications Current Medications Medications Dose Ordered Sig/Mata Route Start Time Stop Time Status Last Admin Dose Admin Ondansetron HCl 4 mg Q4HP PRN IV 11/10/24 23:45 Enoxaparin Sodium 40 mg DAILY SC 11/11/24 10:00 11/11/24 09:45 40 MG Methadone HCl 120 mg DAILY PO 11/11/24 10:00 11/11/24 09:52 120 MG Alprazolam 0.25 mg BID PO 11/11/24 10:00 11/11/24 21:39 0.25 MG Aspirin 81 mg DAILY PO 11/11/24 10:00 11/11/24 09:43 81 MG Clonidine HCl 0.1 mg DAILY PO 11/11/24 10:00 11/11/24 11:14 0.1 MG Furosemide 20 mg DAILY PO 11/11/24 10:00 11/11/24 11:14 20 MG Metoprolol Tartrate 25 mg BID PO 11/11/24 10:00 11/11/24 21:40 25 MG Pantoprazole Sodium 40 mg DAILY PO 11/11/24 10:00 11/11/24 09:43 40 MG Patient Own Medication 1 aer DAILY IN 11/11/24 10:00 11/11/24 09:55 1 AER Lisinopril 10 mg DAILY PO 11/11/24 10:00 11/11/24 11:15 10 MG Methylprednisolone Sodium Succinate 40 mg BID IV 11/11/24 10:00 11/11/24 09:45 40 MG Acetaminophen 500 mg Q6HP PRN PO 11/11/24 00:30 11/11/24 15:29 500 MG Atorvastatin Calcium 40 mg HS PO 11/11/24 22:00 11/11/24 21:39 40 MG Azithromycin 250 ml @ 125 mls/hr DAILY IV 11/12/24 10:00 Nifedipine 60 mg DAILY PO 11/12/24 10:00 Ipratropium [place] 0.5 mg Q6HR NEB 11/12/24 00:00 11/12/24 07:21 0.5 MG Levalbuterol HCl 1.25 mg Q6HR NEB 11/12/24 00:00 11/12/24 07:21 1.25 MG Ipratropium [place] 0.5 mg Q4HP PRN NEB 11/11/24 23:30 Levalbuterol HCl 1.25 mg Q4HPRN PRN NEB 11/11/24 23:30 Laboratory Results Laboratory Tests 11/11/24 05:15 Urinalysis Test 11/10/24 20:45 Urine Color Light-yellow (Yellow) Urine Clarity Clear (Clear) Urine pH 6.0 (5.0-9.0) Urine Specific [place] 1.012 (1.001-1.035) Urine Protein Negative (Negative) Urine Ketones Negative (Negative) Urine Blood Negative /uL (Negative) Urine Nitrite Negative (Negative) Urine Bilirubin Negative (Negative) Urine Urobilinogen Normal mg/dL (Negative) Urine Leukocyte Esterase Trace /uL (Negative) Urine RBC 2 /hpf (0 - 4) Urine Microscopic WBC 7 /HPF (0-5) H Urine Squamous Epithelial Cells Few /hpf (<5) Urine Bacteria None seen /hpf (None Seen) Urine Glucose Normal mg/dL (Normal) Urine Test Negative (Negative) Microbiology Microbiology Date/Time Source Procedure Growth Status 11/11/24 04:00 Nose MRSA Screen - Final Complete 11/10/24 23:49 Blood Blood Culture - Preliminary NO GROWTH AFTER 24 HOURS OF INCUBATION. Resulted Labs and/or images reviewed: Labs reviewed by me, Image(s) reviewed by me Assessment/Plan Assessment/Plan Acute on chronic respiratory failure consult by Dr. Saba appreciated COPD exacerbation, Solu-Medrol Community-acquired pneumonia: Azithromycin Acute on chronic diastolic congestive heart failure ejection fraction 55 %, consult by Dr. 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
--- NOTE | 2024-11-12 13:49 | DVHPN2 ---
Progress Note - Dictate Date Seen: Nov 12, 2024 Medical Necessity Reason Pt with a Central, PICC or Fol: No Subjective Patient seen and examined Overnight events reviewed vital signs Vital Sign Date Time Temp Pulse Resp B/P (MAP) Pulse Ox O2 Delivery O2 Flow Rate FiO2 11/12/24 13:00 98.2 72 20 138/94 (109) 95 98.2 11/12/24 11:39 Nasal Cannula 4.0 11/12/24 11:39 36 Total Intake and Output 11/11/24 11/11/24 11/12/24 15:00 23:00 07:00 Intake Total 1200 ml 580 ml Balance 1200 ml 580 ml medications Current Medications Medications Dose Ordered Sig/Mata Route Start Time Stop Time Status Last Admin Dose Admin Ondansetron HCl 4 mg Q4HP PRN IV 11/10/24 23:45 Enoxaparin Sodium 40 mg DAILY SC 11/11/24 10:00 11/12/24 10:11 40 MG Methadone HCl 120 mg DAILY PO 11/11/24 10:00 11/12/24 10:09 120 MG Alprazolam 0.25 mg BID PO 11/11/24 10:00 11/12/24 12:13 0.25 MG Aspirin 81 mg DAILY PO 11/11/24 10:00 11/12/24 10:12 81 MG Clonidine HCl 0.1 mg DAILY PO 11/11/24 10:00 11/11/24 11:14 0.1 MG Furosemide 20 mg DAILY PO 11/11/24 10:00 11/11/24 11:14 20 MG Metoprolol Tartrate 25 mg BID PO 11/11/24 10:00 11/12/24 10:12 25 MG Pantoprazole Sodium 40 mg DAILY PO 11/11/24 10:00 11/12/24 10:12 40 MG Patient Own Medication 1 aer DAILY IN 11/11/24 10:00 11/11/24 09:55 1 AER Lisinopril 10 mg DAILY PO 11/11/24 10:00 11/12/24 10:13 10 MG Acetaminophen 500 mg Q6HP PRN PO 11/11/24 00:30 Hold 11/11/24 15:29 500 MG Atorvastatin Calcium 40 mg HS PO 11/11/24 22:00 11/11/24 21:39 40 MG Azithromycin 250 ml @ 125 mls/hr DAILY IV 11/12/24 10:00 11/12/24 10:13 125 MLS/HR Nifedipine 60 mg DAILY PO 11/12/24 10:00 11/12/24 10:15 60 MG Ipratropium [place] 0.5 mg Q6HR NEB 11/12/24 00:00 11/12/24 11:39 0.5 MG Levalbuterol HCl 1.25 mg Q6HR NEB 11/12/24 00:00 11/12/24 11:39 1.25 MG Ipratropium [place] 0.5 mg Q4HP PRN NEB 11/11/24 23:30 Levalbuterol HCl 1.25 mg Q4HPRN PRN NEB 11/11/24 23:30 Tramadol HCl 50 mg Q6HP PRN PO 11/12/24 10:30 Methylprednisolone Sodium Succinate 40 mg BID IV 11/12/24 12:30 laboratory and microbiology Laboratory Tests 11/11/24 05:15 Test 11/11/24 05:15 Range/Units Serum Glucose 174 H 74-106 mg/dL Assessment/Plan Impression Acute COPD exacerbation Chronic oxygen dependency Hx of ovarian cancer CKD Patient seen and examined Events Low oxygen requirements On 4 liters nasal cannula No distress Labs and imaging reviewed Management Supplemental oxygen Titrate to maintain sats 90% or above Incentive spirometry Continue antibiotics F/u cultures Bronchodilators Continue steroids Solumedrol 40mg IV BID Diurese Monitor renal function Monitor electrolytes Supplement as needed DVT prophylaxis Plan discussed with: Patient SUNNY HELMS MD Nov 12, 2024 13:49
[2024-11-12] MEDS: methylPREDNISolone SOD SUCC 125 MG/2 ML VL IV SCH (14:44)
[2024-11-12] MEDS: traMADol HCL 50 MG TAB PO PRN (15:33)
[2024-11-13] VITALS (13 sets, daily range): BP systolic 143–158; BP diastolic 81–88; PULSE 66–89; RESP 16–20; TEMP 97.2–98; O2SAT 95–99
--- NOTE | 2024-11-13 11:10 | DVHPN2 ---
Reviewed: Care Plan, H&P, Labs, Medications, Previous Orders, Radiology Changes from previous H/P or p: No Changes Objective Vitals Vital Signs Date Time Temp Pulse Resp B/P (MAP) Pulse Ox O2 Delivery O2 Flow Rate FiO2 11/13/24 09:24 144/83 11/13/24 09:23 89 11/13/24 09:00 97.8 18 97 97.8 11/13/24 06:44 Nasal Cannula 4.0 11/13/24 06:44 36 Intake/Output Intake and Output 11/13/24 07:00 Intake Total 2710 ml Balance 2710 ml Intake Oral 2460 ml IV Total 250 ml # Voids 5 Medications Current Medications Medications Dose Ordered Sig/Mata Route Start Time Stop Time Status Last Admin Dose Admin Ondansetron HCl 4 mg Q4HP PRN IV 11/10/24 23:45 Enoxaparin Sodium 40 mg DAILY SC 11/11/24 10:00 11/13/24 09:20 40 MG Methadone HCl 120 mg DAILY PO 11/11/24 10:00 11/13/24 09:25 120 MG Alprazolam 0.25 mg BID PO 11/11/24 10:00 11/13/24 09:39 0.25 MG Aspirin 81 mg DAILY PO 11/11/24 10:00 11/13/24 09:21 81 MG Clonidine HCl 0.1 mg DAILY PO 11/11/24 10:00 11/13/24 09:24 0.1 MG Furosemide 20 mg DAILY PO 11/11/24 10:00 11/13/24 09:22 20 MG Metoprolol Tartrate 25 mg BID PO 11/11/24 10:00 11/13/24 09:23 25 MG Pantoprazole Sodium 40 mg DAILY PO 11/11/24 10:00 11/13/24 09:23 40 MG Patient Own Medication 1 aer DAILY IN 11/11/24 10:00 11/13/24 09:20 1 AER Lisinopril 10 mg DAILY PO 11/11/24 10:00 11/13/24 09:22 10 MG Acetaminophen 500 mg Q6HP PRN PO 11/11/24 00:30 Hold 11/11/24 15:29 500 MG Atorvastatin Calcium 40 mg HS PO 11/11/24 22:00 11/12/24 21:56 40 MG Azithromycin 250 ml @ 125 mls/hr DAILY IV 11/12/24 10:00 11/12/24 10:13 125 MLS/HR Nifedipine 60 mg DAILY PO 11/12/24 10:00 11/13/24 09:24 60 MG Ipratropium [place] 0.5 mg Q6HR NEB 11/12/24 00:00 11/13/24 06:44 0.5 MG Levalbuterol HCl 1.25 mg Q6HR NEB 11/12/24 00:00 11/13/24 06:44 1.25 MG Ipratropium [place] 0.5 mg Q4HP PRN NEB 11/11/24 23:30 Levalbuterol HCl 1.25 mg Q4HPRN PRN NEB 11/11/24 23:30 Tramadol HCl 50 mg Q6HP PRN PO 11/12/24 10:30 11/13/24 05:51 50 MG Methylprednisolone Sodium Succinate 40 mg BID IV 11/12/24 12:30 11/12/24 22:04 40 MG Laboratory Results Laboratory Tests 11/11/24 05:15 Urinalysis Test 11/10/24 20:45 Urine Color Light-yellow (Yellow) Urine Clarity Clear (Clear) Urine pH 6.0 (5.0-9.0) Urine Specific [place] 1.012 (1.001-1.035) Urine Protein Negative (Negative) Urine Ketones Negative (Negative) Urine Blood Negative /uL (Negative) Urine Nitrite Negative (Negative) Urine Bilirubin Negative (Negative) Urine Urobilinogen Normal mg/dL (Negative) Urine Leukocyte Esterase Trace /uL (Negative) Urine RBC 2 /hpf (0 - 4) Urine Microscopic WBC 7 /HPF (0-5) H Urine Squamous Epithelial Cells Few /hpf (<5) Urine Bacteria None seen /hpf (None Seen) Urine Glucose Normal mg/dL (Normal) Urine Test Negative (Negative) Microbiology Microbiology Date/Time Source Procedure Growth Status 11/11/24 04:00 Nose MRSA Screen - Final Complete 11/10/24 23:49 Blood Blood Culture - Preliminary NO GROWTH AFTER 48 HOURS OF INCUBATION. Resulted 11/10/24 20:45 Voided Urine Urine Culture - Preliminary Resulted Labs and/or images reviewed: Labs reviewed by me Assessment/Plan Assessment/Plan Acute on chronic respiratory failure consult by Dr. Saba appreciated COPD exacerbation, Solu-Medrol Community-acquired pneumonia: Azithromycin Acute on chronic diastolic congestive heart failure ejection fraction 55 %, consult by Dr. 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 History of emphysema/COPD/asthma, on home oxygen at 2-5 L/min History of opiate dependence, currently on methadone History of ID with no stent placement History of CVA History of severe pneumonia complicated with empyema with requirement of thoracotomy and intubation two weeks ago Time spent 50 minutes Advanced care planning time 20 minutes Possible DC Thursday Plan discussed with: Patient My Orders Orders - FESTUS MURRIETA MD Procedure Category Date Status Time Methylprednisolone PHA 11/12/24 In Process Sod Succ (Solu Medrol 12:30 Date of Service: Nov 13, 2024 Billing Provider: FESTUS MURRIETA MD Common Visit Codes: [id number] INP/OBS CARE(HIGH) FESTUS MURRIETA MD Nov 13, 2024 11:10
--- NOTE | 2024-11-13 13:38 | DVHPN2 ---
Progress Note - Dictate Date Seen: Nov 13, 2024 Medical Necessity Reason Pt with a Central, PICC or Fol: No Subjective Patient seen and examined Overnight events reviewed vital signs Vital Sign Date Time Temp Pulse Resp B/P (MAP) Pulse Ox O2 Delivery O2 Flow Rate FiO2 11/13/24 11:32 68 16 98 11/13/24 11:24 Nasal Cannula* 4 36 11/13/24 09:24 144/83 11/13/24 09:00 97.8 97.8 Total Intake and Output 11/12/24 11/12/24 11/13/24 15:00 23:00 07:00 Intake Total 250 ml 1460 ml 1000 ml Balance 250 ml 1460 ml 1000 ml medications Current Medications Medications Dose Ordered Sig/Mata Route Start Time Stop Time Status Last Admin Dose Admin Ondansetron HCl 4 mg Q4HP PRN IV 11/10/24 23:45 Enoxaparin Sodium 40 mg DAILY SC 11/11/24 10:00 11/13/24 09:20 40 MG Methadone HCl 120 mg DAILY PO 11/11/24 10:00 11/13/24 09:25 120 MG Alprazolam 0.25 mg BID PO 11/11/24 10:00 11/13/24 09:39 0.25 MG Aspirin 81 mg DAILY PO 11/11/24 10:00 11/13/24 09:21 81 MG Clonidine HCl 0.1 mg DAILY PO 11/11/24 10:00 11/13/24 09:24 0.1 MG Furosemide 20 mg DAILY PO 11/11/24 10:00 11/13/24 09:22 20 MG Metoprolol Tartrate 25 mg BID PO 11/11/24 10:00 11/13/24 09:23 25 MG Pantoprazole Sodium 40 mg DAILY PO 11/11/24 10:00 11/13/24 09:23 40 MG Patient Own Medication 1 aer DAILY IN 11/11/24 10:00 11/13/24 09:20 1 AER Lisinopril 10 mg DAILY PO 11/11/24 10:00 11/13/24 09:22 10 MG Acetaminophen 500 mg Q6HP PRN PO 11/11/24 00:30 Hold 11/11/24 15:29 500 MG Atorvastatin Calcium 40 mg HS PO 11/11/24 22:00 11/12/24 21:56 40 MG Azithromycin 250 ml @ 125 mls/hr DAILY IV 11/12/24 10:00 11/13/24 11:20 125 MLS/HR Nifedipine 60 mg DAILY PO 11/12/24 10:00 11/13/24 09:24 60 MG Ipratropium [place] 0.5 mg Q6HR NEB 11/12/24 00:00 11/13/24 11:24 0.5 MG Levalbuterol HCl 1.25 mg Q6HR NEB 11/12/24 00:00 11/13/24 11:24 1.25 MG Ipratropium [place] 0.5 mg Q4HP PRN NEB 11/11/24 23:30 Levalbuterol HCl 1.25 mg Q4HPRN PRN NEB 11/11/24 23:30 Tramadol HCl 50 mg Q6HP PRN PO 11/12/24 10:30 11/13/24 05:51 50 MG Methylprednisolone Sodium Succinate 40 mg BID IV 11/12/24 12:30 11/13/24 11:20 40 MG laboratory and microbiology Laboratory Tests 11/11/24 05:15 Test 11/11/24 05:15 Range/Units Serum Glucose 174 H 74-106 mg/dL Assessment/Plan Impression Acute COPD exacerbation Chronic oxygen dependency Hx of ovarian cancer CKD Patient seen and examined Events Low oxygen requirements On 4 liters nasal cannula No distress Labs and imaging reviewed Management Supplemental oxygen Titrate to maintain sats 90% or above Incentive spirometry Continue antibiotics F/u cultures Bronchodilators Continue steroids Diurese Monitor renal function Monitor electrolytes Supplement as needed DVT prophylaxis Plan discussed with: Other (pt) SUNNY HELMS MD Nov 13, 2024 13:38
--- NOTE | 2024-11-13 19:29 | DVHPN2 ---
Progress Note - Dictate Date Seen: Nov 13, 2024 Medical Necessity Reason Pt with a Central, PICC or Fol: No vital signs Vital Sign Date Time Temp Pulse Resp B/P (MAP) Pulse Ox O2 Delivery O2 Flow Rate FiO2 11/13/24 18:57 77 20 96 11/13/24 18:57 Nasal Cannula* 4 36 11/13/24 17:00 97.9 152/86 (108) 97.9 Total Intake and Output 11/12/24 11/12/24 11/13/24 15:00 23:00 07:00 Intake Total 250 ml 1460 ml 1000 ml Balance 250 ml 1460 ml 1000 ml medications Current Medications Medications Dose Ordered Sig/Mata Route Start Time Stop Time Status Last Admin Dose Admin Ondansetron HCl 4 mg Q4HP PRN IV 11/10/24 23:45 Enoxaparin Sodium 40 mg DAILY SC 11/11/24 10:00 11/13/24 09:20 40 MG Methadone HCl 120 mg DAILY PO 11/11/24 10:00 11/13/24 09:25 120 MG Alprazolam 0.25 mg BID PO 11/11/24 10:00 11/13/24 09:39 0.25 MG Aspirin 81 mg DAILY PO 11/11/24 10:00 11/13/24 09:21 81 MG Clonidine HCl 0.1 mg DAILY PO 11/11/24 10:00 11/13/24 09:24 0.1 MG Furosemide 20 mg DAILY PO 11/11/24 10:00 11/13/24 09:22 20 MG Metoprolol Tartrate 25 mg BID PO 11/11/24 10:00 11/13/24 09:23 25 MG Pantoprazole Sodium 40 mg DAILY PO 11/11/24 10:00 11/13/24 09:23 40 MG Patient Own Medication 1 aer DAILY IN 11/11/24 10:00 11/13/24 09:20 1 AER Lisinopril 10 mg DAILY PO 11/11/24 10:00 11/13/24 09:22 10 MG Acetaminophen 500 mg Q6HP PRN PO 11/11/24 00:30 Hold 11/11/24 15:29 500 MG Atorvastatin Calcium 40 mg HS PO 11/11/24 22:00 11/12/24 21:56 40 MG Azithromycin 250 ml @ 125 mls/hr DAILY IV 11/12/24 10:00 11/13/24 11:20 125 MLS/HR Nifedipine 60 mg DAILY PO 11/12/24 10:00 11/13/24 09:24 60 MG Ipratropium [place] 0.5 mg Q6HR NEB 11/12/24 00:00 11/13/24 18:57 0.5 MG Levalbuterol HCl 1.25 mg Q6HR NEB 11/12/24 00:00 11/13/24 18:57 1.25 MG Ipratropium [place] 0.5 mg Q4HP PRN NEB 11/11/24 23:30 Levalbuterol HCl 1.25 mg Q4HPRN PRN NEB 11/11/24 23:30 Tramadol HCl 50 mg Q6HP PRN PO 11/12/24 10:30 11/13/24 15:24 50 MG Methylprednisolone Sodium Succinate 40 mg BID IV 11/12/24 12:30 11/13/24 11:20 40 MG laboratory and microbiology Laboratory Tests 11/11/24 05:15 Test 11/11/24 05:15 Range/Units Serum Glucose 174 H 74-106 mg/dL Assessment/Plan Patient is a 44-year-old female who presented with dizziness and presyncope. She found her on blood pressure to be 213/109 and decided to come to the hospital. In emergency room, the blood pressure was 189/96. Patient is admitted with hypertensive urgency/emergency. Cardiology is called for cardiac aspects of care. Patient denies chest pains.. Patient is known to our practice from previous admissions. Does have long history of pulmonary problems. She has a had repeated respiratory failures from before and is on home oxygen. She never followed as outpatient with us in the office. Obese patient, not in acute distress. Not using accessory muscles of breathing. No JVD. Mucosa is pink and wet. No carotid bruit. Cardiac: Regular, no thrill/gallop. Chest: Scattered rhonchi in the lungs is heard. Abdomen: Bowel sounds positive. Abdomen is soft. There is no hepatomegaly. There was no mass. There was no edema. 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 She is status post cholecystectomy/appendectomy. She quit smoking two years ago. There is no relevant family history. Echocardiogram of September 2022 reported ejection fraction of 60 65%, normal diastolic, trace TR and right ventricular systolic pressure of 30 mm Hg Echocardiogram of August 30, 2024 revealed ejection fraction of 60-65%, mild biatrial enlargement, mild right ventricular enlargement, good right ventricular systolic pressure and right ventricular systolic pressure 55 mm Hg Creat: 1.24 - 1.23 Potassium: 3.8 - 3.8 LDL: 174 BNP: 282.78 Troponin (high sensitive): 7 - 7 - 6 D-dimer: <0.19 Urine toxicology was positive for benzodiazepine Chest x-ray reported: Findings/Impression: Frontal chest radiograph demonstrates no acute osseous or superficial soft tissue abnormalities. The trachea is midline. The cardiac silhouette and mediastinum are within normal limits. No pneumothorax, pleural effusions, or consolidations. CT of the head revealed: IMPRESSION: 1. No acute intracranial abnormality. V/Q scan: IMPRESSION: Low probability for PE. EKG revealed sinus tachycardia, left atrial enlargement and nonspecific ST-T changes Telemetry shows sinus rhythm Patient is a 44-year-old female who presented with dizziness/presyncope. Have shortness of breath. Blood pressure was high on arrival. Presentation he has consider hypertensive emergency and COPD exacerbation. Does have history of multiple lung problems. Has had pneumonia/empyema before. Has had COPD exacerbations before. Does have chronic respiratory failure and on home oxygen. Acute coronary syndrome is not considered at this point. Hypertensive emergency COPD exacerbation Acute Respiratory failure Diabetes mellitus History of substance abuse Pulmonary Hypertension. Cardiac suggestion for management: Manage on Tele Follow-up electrolytes and kidney function tests and correct abnormalities Control blood pressure Increase Atorvastatin to 80 mg HS Pulmonary follow up Further evaluation and management depends on the above and clinical course A total of 55 minutes was spent reviewing the patient record, examining the patient, making a diagnostic and therapeutic plan, discussing this plan with medical personnel, following up on diagnostic studies and following the patient for clinical stability excluding any and all procedures. At least 50% of this time was spent in direct, [id number] contact. Thank you for allowing me to participate in this patient's care. Further recommendations will depend on patient's clinical course. Please do not hesitate to contact me if you have any questions or concerns. This medical document was created using electronic medical record system with [employer] computerized dictation system. Although this document has been carefully reviewed, there may still be some phonetic and typographical errors. These areas are purely typographical due to the imperfection of the software programs, and do not reflect any compromise in the patient's medical care. Plan discussed with: Patient, Other (nurse) OLIVIA LUJAN MD Nov 13, 2024 19:29
[2024-11-13] MEDS: ATORVASTATIN 20 MG TAB PO SCH (22:39)
[2024-11-14] VITALS (18 sets, daily range): BP systolic 143–154; BP diastolic 78–88; PULSE 71–92; RESP 14–20; TEMP 97.4–98.7; O2SAT 91–100
--- NOTE | 2024-11-14 08:24 | DVHPN2 ---
Progress Note - Dictate Date Seen: Nov 14, 2024 Medical Necessity Reason Pt with a Central, PICC or Fol: No vital signs Vital Sign Date Time Temp Pulse Resp B/P (MAP) Pulse Ox O2 Delivery O2 Flow Rate FiO2 11/14/24 06:25 79 14 96 11/14/24 06:11 Nasal Cannula* 4 36 11/14/24 05:00 98.1 148/80 (102) 98.1 Total Intake and Output 11/13/24 11/13/24 11/14/24 15:00 23:00 07:00 Intake Total 2000 ml 1200 ml Balance 2000 ml 1200 ml medications Current Medications Medications Dose Ordered Sig/Mata Route Start Time Stop Time Status Last Admin Dose Admin Ondansetron HCl 4 mg Q4HP PRN IV 11/10/24 23:45 Enoxaparin Sodium 40 mg DAILY SC 11/11/24 10:00 11/13/24 09:20 40 MG Methadone HCl 120 mg DAILY PO 11/11/24 10:00 11/13/24 09:25 120 MG Alprazolam 0.25 mg BID PO 11/11/24 10:00 11/13/24 22:40 0.25 MG Aspirin 81 mg DAILY PO 11/11/24 10:00 11/13/24 09:21 81 MG Clonidine HCl 0.1 mg DAILY PO 11/11/24 10:00 11/13/24 09:24 0.1 MG Furosemide 20 mg DAILY PO 11/11/24 10:00 11/13/24 09:22 20 MG Metoprolol Tartrate 25 mg BID PO 11/11/24 10:00 11/13/24 22:39 25 MG Pantoprazole Sodium 40 mg DAILY PO 11/11/24 10:00 11/13/24 09:23 40 MG Patient Own Medication 1 aer DAILY IN 11/11/24 10:00 11/13/24 09:20 1 AER Lisinopril 10 mg DAILY PO 11/11/24 10:00 11/13/24 09:22 10 MG Acetaminophen 500 mg Q6HP PRN PO 11/11/24 00:30 Hold 11/11/24 15:29 500 MG Azithromycin 250 ml @ 125 mls/hr DAILY IV 11/12/24 10:00 11/13/24 11:20 125 MLS/HR Nifedipine 60 mg DAILY PO 11/12/24 10:00 11/13/24 09:24 60 MG Ipratropium [place] 0.5 mg Q6HR NEB 11/12/24 00:00 11/14/24 06:09 0.5 MG Levalbuterol HCl 1.25 mg Q6HR NEB 11/12/24 00:00 11/14/24 06:09 1.25 MG Ipratropium [place] 0.5 mg Q4HP PRN NEB 11/11/24 23:30 Levalbuterol HCl 1.25 mg Q4HPRN PRN NEB 11/11/24 23:30 Tramadol HCl 50 mg Q6HP PRN PO 11/12/24 10:30 11/13/24 21:45 50 MG Methylprednisolone Sodium Succinate 40 mg BID IV 11/12/24 12:30 11/13/24 22:39 40 MG Atorvastatin Calcium 80 mg HS PO 11/13/24 22:00 11/13/24 22:39 80 MG laboratory and microbiology Laboratory Tests 11/11/24 05:15 Test 11/11/24 05:15 Range/Units Serum Glucose 174 H 74-106 mg/dL Assessment/Plan Patient is a 44-year-old female who presented with dizziness and presyncope. She found her on blood pressure to be 213/109 and decided to come to the hospital. In emergency room, the blood pressure was 189/96. Patient is admitted with hypertensive urgency/emergency. Cardiology is called for cardiac aspects of care. Patient denies chest pains.. Patient is known to our practice from previous admissions. Does have long history of pulmonary problems. She has a had repeated respiratory failures from before and is on home oxygen. She never followed as outpatient with us in the office. Obese patient, not in acute distress. Not using accessory muscles of breathing. No JVD. Mucosa is pink and wet. No carotid bruit. Cardiac: Regular, no thrill/gallop. Chest: Scattered rhonchi in the lungs is heard. Abdomen: Bowel sounds positive. Abdomen is soft. There is no hepatomegaly. There was no mass. There was no edema. 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 She is status post cholecystectomy/appendectomy. She quit smoking two years ago. There is no relevant family history. Echocardiogram of September 2022 reported ejection fraction of 60 65%, normal diastolic, trace TR and right ventricular systolic pressure of 30 mm Hg Echocardiogram of August 30, 2024 revealed ejection fraction of 60-65%, mild biatrial enlargement, mild right ventricular enlargement, good right ventricular systolic pressure and right ventricular systolic pressure 55 mm Hg Creat: 1.24 - 1.23 Potassium: 3.8 - 3.8 LDL: 174 BNP: 282.78 Troponin (high sensitive): 7 - 7 - 6 D-dimer: <0.19 Urine toxicology was positive for benzodiazepine Chest x-ray reported: Findings/Impression: Frontal chest radiograph demonstrates no acute osseous or superficial soft tissue abnormalities. The trachea is midline. The cardiac silhouette and mediastinum are within normal limits. No pneumothorax, pleural effusions, or consolidations. CT of the head revealed: IMPRESSION: 1. No acute intracranial abnormality. V/Q scan: IMPRESSION: Low probability for PE. EKG revealed sinus tachycardia, left atrial enlargement and nonspecific ST-T changes Telemetry shows sinus rhythm Patient is a 44-year-old female who presented with dizziness/presyncope. Have shortness of breath. Blood pressure was high on arrival. Presentation he has consider hypertensive emergency and COPD exacerbation. Does have history of multiple lung problems. Has had pneumonia/empyema before. Has had COPD exacerbations before. Does have chronic respiratory failure and on home oxygen. Acute coronary syndrome is not considered at this point. Hypertensive emergency COPD exacerbation Acute Respiratory failure Diabetes mellitus History of substance abuse Pulmonary Hypertension. Cardiac suggestion for management: Manage on Tele Follow-up electrolytes and kidney function tests and correct abnormalities Control blood pressure Atorvastatin 80 mg HS Cardiac haynes, stable Pulmonary follow up Further evaluation and management depends on the above and clinical course A total of 55 minutes was spent reviewing the patient record, examining the patient, making a diagnostic and therapeutic plan, discussing this plan with medical personnel, following up on diagnostic studies and following the patient for clinical stability excluding any and all procedures. At least 50% of this time was spent in direct, [id number] contact. Thank you for allowing me to participate in this patient's care. Further recommendations will depend on patient's clinical course. Please do not hesitate to contact me if you have any questions or concerns. This medical document was created using electronic medical record system with [employer] computerized dictation system. Although this document has been carefully reviewed, there may still be some phonetic and typographical errors. These areas are purely typographical due to the imperfection of the software programs, and do not reflect any compromise in the patient's medical care. Plan discussed with: Patient, Other (nurse) OLIVIA LUJAN MD Nov 14, 2024 08:24
--- NOTE | 2024-11-14 12:03 | DVHPN2 ---
Reviewed: Care Plan, H&P, Labs, Medications, Previous Orders, Radiology Changes from previous H/P or p: No Changes Objective Vitals Vital Signs Date Time Temp Pulse Resp B/P (MAP) Pulse Ox O2 Delivery O2 Flow Rate FiO2 11/14/24 11:23 76 14 100 11/14/24 10:22 159/91 11/14/24 09:00 97.4 97.4 11/14/24 06:11 Nasal Cannula* 4 36 Intake/Output Intake and Output 11/14/24 07:00 Intake Total 3200 ml Balance 3200 ml Intake Oral 3200 ml # Voids 10 Medications Current Medications Medications Dose Ordered Sig/Mata Route Start Time Stop Time Status Last Admin Dose Admin Ondansetron HCl 4 mg Q4HP PRN IV 11/10/24 23:45 Enoxaparin Sodium 40 mg DAILY SC 11/11/24 10:00 11/14/24 09:20 40 MG Methadone HCl 120 mg DAILY PO 11/11/24 10:00 11/14/24 10:25 120 MG Alprazolam 0.25 mg BID PO 11/11/24 10:00 11/14/24 11:30 0.25 MG Aspirin 81 mg DAILY PO 11/11/24 10:00 11/14/24 09:21 81 MG Clonidine HCl 0.1 mg DAILY PO 11/11/24 10:00 11/14/24 09:22 0.1 MG Furosemide 20 mg DAILY PO 11/11/24 10:00 11/14/24 09:21 20 MG Metoprolol Tartrate 25 mg BID PO 11/11/24 10:00 11/14/24 09:22 25 MG Pantoprazole Sodium 40 mg DAILY PO 11/11/24 10:00 11/14/24 09:21 40 MG Patient Own Medication 1 aer DAILY IN 11/11/24 10:00 11/14/24 11:31 1 AER Lisinopril 10 mg DAILY PO 11/11/24 10:00 11/14/24 09:23 10 MG Acetaminophen 500 mg Q6HP PRN PO 11/11/24 00:30 Hold 11/11/24 15:29 500 MG Azithromycin 250 ml @ 125 mls/hr DAILY IV 11/12/24 10:00 11/14/24 09:38 125 MLS/HR Nifedipine 60 mg DAILY PO 11/12/24 10:00 11/14/24 09:22 60 MG Ipratropium [place] 0.5 mg Q6HR NEB 11/12/24 00:00 11/14/24 11:10 0.5 MG Levalbuterol HCl 1.25 mg Q6HR NEB 11/12/24 00:00 11/14/24 11:10 1.25 MG Ipratropium [place] 0.5 mg Q4HP PRN NEB 11/11/24 23:30 Levalbuterol HCl 1.25 mg Q4HPRN PRN NEB 11/11/24 23:30 Tramadol HCl 50 mg Q6HP PRN PO 11/12/24 10:30 11/13/24 21:45 50 MG Methylprednisolone Sodium Succinate 40 mg BID IV 11/12/24 12:30 11/14/24 09:20 40 MG Atorvastatin Calcium 80 mg HS PO 11/13/24 22:00 11/13/24 22:39 80 MG Laboratory Results Laboratory Tests 11/11/24 05:15 Urinalysis Test 11/10/24 20:45 Urine Color Light-yellow (Yellow) Urine Clarity Clear (Clear) Urine pH 6.0 (5.0-9.0) Urine Specific [place] 1.012 (1.001-1.035) Urine Protein Negative (Negative) Urine Ketones Negative (Negative) Urine Blood Negative /uL (Negative) Urine Nitrite Negative (Negative) Urine Bilirubin Negative (Negative) Urine Urobilinogen Normal mg/dL (Negative) Urine Leukocyte Esterase Trace /uL (Negative) Urine RBC 2 /hpf (0 - 4) Urine Microscopic WBC 7 /HPF (0-5) H Urine Squamous Epithelial Cells Few /hpf (<5) Urine Bacteria None seen /hpf (None Seen) Urine Glucose Normal mg/dL (Normal) Urine Test Negative (Negative) Microbiology Microbiology Date/Time Source Procedure Growth Status 11/11/24 04:00 Nose MRSA Screen - Final Complete 11/10/24 23:49 Blood Blood Culture - Preliminary NO GROWTH AFTER 72 HOURS OF INCUBATION. Resulted 11/10/24 20:45 Voided Urine Urine Culture - Final Complete Labs and/or images reviewed: Labs reviewed by me, Image(s) reviewed by me Assessment/Plan Assessment/Plan Acute on chronic respiratory failure consult by Dr. Saba appreciated COPD exacerbation, Solu-Medrol Community-acquired pneumonia: Azithromycin Acute on chronic diastolic congestive heart failure ejection fraction 55 %, consult by Dr. 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 History of emphysema/COPD/asthma, on home oxygen at 2-5 L/min History of opiate dependence, currently on methadone History of OH with no stent placement History of CVA High Level of anxiety: Xanax 1 mg PO TID History of severe pneumonia complicated with empyema with requirement of thoracotomy and intubation two weeks ago Time spent 50 minutes Advanced care planning time 20 minutes Patient is refusing to be discharged home, claiming she cannot walk Physical therapy ordered Patient currently on room air ANALI Hopkins at bedside Plan discussed with: Patient Date of Service: Nov 14, 2024 Billing Provider: FESTUS MURRIETA MD Common Visit Codes: [id number] INP/OBS CARE(HIGH) FESTUS MURRIETA MD Nov 14, 2024 12:03
[2024-11-14] MEDS: ALPRAZolam 0.5 MG TAB PO SCH (19:36)
--- NOTE | 2024-11-14 21:25 | DVHPN2 ---
Progress Note - Dictate Date Seen: Nov 14, 2024 Medical Necessity Reason Pt with a Central, PICC or Fol: No Subjective Patient seen and examined at bedside. Remains on supplemental oxygen Overnight events reviewed. vital signs Vital Sign Date Time Temp Pulse Resp B/P (MAP) Pulse Ox O2 Delivery O2 Flow Rate FiO2 11/14/24 20:00 Nasal Cannula* 2 28 11/14/24 20:00 81 11/14/24 18:29 14 100 11/14/24 17:00 97.8 143/78 (99) 97.8 Total Intake and Output 11/13/24 11/13/24 11/14/24 15:00 23:00 07:00 Intake Total 2000 ml 1200 ml Balance 2000 ml 1200 ml medications Current Medications Medications Dose Ordered Sig/Mata Route Start Time Stop Time Status Last Admin Dose Admin Ondansetron HCl 4 mg Q4HP PRN IV 11/10/24 23:45 Enoxaparin Sodium 40 mg DAILY SC 11/11/24 10:00 11/14/24 09:20 40 MG Methadone HCl 120 mg DAILY PO 11/11/24 10:00 11/14/24 10:25 120 MG Aspirin 81 mg DAILY PO 11/11/24 10:00 11/14/24 09:21 81 MG Clonidine HCl 0.1 mg DAILY PO 11/11/24 10:00 11/14/24 09:22 0.1 MG Furosemide 20 mg DAILY PO 11/11/24 10:00 11/14/24 09:21 20 MG Metoprolol Tartrate 25 mg BID PO 11/11/24 10:00 11/14/24 09:22 25 MG Pantoprazole Sodium 40 mg DAILY PO 11/11/24 10:00 11/14/24 09:21 40 MG Patient Own Medication 1 aer DAILY IN 11/11/24 10:00 11/14/24 11:31 1 AER Lisinopril 10 mg DAILY PO 11/11/24 10:00 11/14/24 09:23 10 MG Acetaminophen 500 mg Q6HP PRN PO 11/11/24 00:30 Hold 11/11/24 15:29 500 MG Azithromycin 250 ml @ 125 mls/hr DAILY IV 11/12/24 10:00 11/14/24 09:38 125 MLS/HR Nifedipine 60 mg DAILY PO 11/12/24 10:00 11/14/24 09:22 60 MG Ipratropium [place] 0.5 mg Q6HR NEB 11/12/24 00:00 11/14/24 18:21 0.5 MG Levalbuterol HCl 1.25 mg Q6HR NEB 11/12/24 00:00 11/14/24 18:21 1.25 MG Ipratropium [place] 0.5 mg Q4HP PRN NEB 11/11/24 23:30 Levalbuterol HCl 1.25 mg Q4HPRN PRN NEB 11/11/24 23:30 Tramadol HCl 50 mg Q6HP PRN PO 11/12/24 10:30 11/14/24 16:26 50 MG Methylprednisolone Sodium Succinate 40 mg BID IV 11/12/24 12:30 11/14/24 09:20 40 MG Atorvastatin Calcium 80 mg HS PO 11/13/24 22:00 11/13/24 22:39 80 MG Alprazolam 1 mg TID PO 11/14/24 20:00 11/14/24 19:36 1 MG objective Gen.: Patient lying in bed in no apparent distress. On supplemental oxygen. Head: Normocephalic, atraumatic. Eyes: EOMI/PERRLA. Ears: Normal hearing. Normal anatomy. Neck/trachea: Trachea midline, supple. Nose: Normal external anatomy. Mouth: Moist mucous membranes. Chest: Decreased air entry bilaterally. No wheezing. No rhonchi. Cardiovascular: Positive S1, positive S2. Regular rate and rhythm. Abdomen: Positive bowel sounds in all 4 quadrants. Soft, non-tender, non- distended. : Deferred. Rectal: Deferred. Skin: Warm, dry. Intact. Extremities: 2+ radial pulses bilaterally. No lower extremity edema. Neuro: Awake, alert, oriented x3. No gross motor or sensory deficits. Cranial nerves II through XII intact. Gait not assessed. laboratory and microbiology Laboratory Tests 11/11/24 05:15 Test 11/11/24 05:15 Range/Units Serum Glucose 174 H 74-106 mg/dL Assessment/Plan Impression: Acute on chronic hypoxic respiratory failure Dependence on supplemental oxygen COPD exacerbation Community-acquired pneumonia Hx of nicotine dependence Acute on chronic diastolic congestive heart failure (HFpEF, LVEF 55%, RVSP 55 mmHg) Chronic kidney disease Recent dx of ovarian cancer Events: Remains on supplemental oxygen, on 4 -->2 LPM NC Taper O2 as tolerated Improved O2 requirements Continue bronchodilators Continue IV steroids - Solu-Medrol 40 mg BID Continue antibiotics Incentive spirometry Diurese as tolerated w/ Lasix 20 mg QD Monitor renal function. Monitor electrolytes. Supplement as necessary. Labs and imaging reviewed. Rest of plan as noted below. Plan: Supplemental oxygen Titrate to keep O2 sats above 92%. Continue bronchodilators. Continue antibiotics IV steroids Monitor renal function. Monitor electrolytes. Supplement as necessary. Monitor ins and outs. GI prophylaxis - Protonix DVT prophylaxis - Lovenox. Prognosis: Guarded given patient's multiple co-morbidities. Rest of plan per hospitalist and other consultants. Thank you, Dr. Reyez, for allowing me to participate in this patient's care. Further recommendations will depend on the patient's clinical course. Please do not hesitate to contact me if you have any questions or concerns. This medical document was created using an electronic medical record system with [employer] dictation system. Although these documentations are being carefully reviewed, there may still be some phonetic and typographical changes. The errors are purely typographical, due to imperfection on the software program, and do not reflect any compromise in the patient's medical care. Plan discussed with: Patient, Other (ANALI Bah) NATHALY NARAYAN MD Nov 14, 2024 21:25
[2024-11-15] VITALS (18 sets, daily range): BP systolic 132–161; BP diastolic 73–94; PULSE 68–100; RESP 14–20; TEMP 97.8–98.2; O2SAT 95–100
--- NOTE | 2024-11-15 07:55 | DVHPN2 ---
Progress Note - Dictate Date Seen: Nov 15, 2024 Medical Necessity Reason Pt with a Central, PICC or Fol: No vital signs Vital Sign Date Time Temp Pulse Resp B/P (MAP) Pulse Ox O2 Delivery O2 Flow Rate FiO2 11/15/24 06:19 72 14 99 11/15/24 06:09 Nasal Cannula 2.0 11/15/24 06:09 28 11/15/24 05:00 98.2 148/85 (106) 98.2 Total Intake and Output 11/14/24 11/14/24 11/15/24 15:00 23:00 07:00 Intake Total 730 ml 2400 ml 800 ml Output Total 1900 ml Balance 730 ml 500 ml 800 ml medications Current Medications Medications Dose Ordered Sig/Mata Route Start Time Stop Time Status Last Admin Dose Admin Ondansetron HCl 4 mg Q4HP PRN IV 11/10/24 23:45 Enoxaparin Sodium 40 mg DAILY SC 11/11/24 10:00 11/14/24 09:20 40 MG Methadone HCl 120 mg DAILY PO 11/11/24 10:00 11/14/24 10:25 120 MG Aspirin 81 mg DAILY PO 11/11/24 10:00 11/14/24 09:21 81 MG Clonidine HCl 0.1 mg DAILY PO 11/11/24 10:00 11/14/24 09:22 0.1 MG Furosemide 20 mg DAILY PO 11/11/24 10:00 11/14/24 09:21 20 MG Metoprolol Tartrate 25 mg BID PO 11/11/24 10:00 11/14/24 21:51 25 MG Pantoprazole Sodium 40 mg DAILY PO 11/11/24 10:00 11/14/24 09:21 40 MG Patient Own Medication 1 aer DAILY IN 11/11/24 10:00 11/14/24 11:31 1 AER Lisinopril 10 mg DAILY PO 11/11/24 10:00 11/14/24 09:23 10 MG Acetaminophen 500 mg Q6HP PRN PO 11/11/24 00:30 Hold 11/11/24 15:29 500 MG Azithromycin 250 ml @ 125 mls/hr DAILY IV 11/12/24 10:00 11/14/24 09:38 125 MLS/HR Nifedipine 60 mg DAILY PO 11/12/24 10:00 11/14/24 09:22 60 MG Ipratropium [place] 0.5 mg Q6HR NEB 11/12/24 00:00 11/15/24 06:09 0.5 MG Levalbuterol HCl 1.25 mg Q6HR NEB 11/12/24 00:00 11/15/24 06:09 1.25 MG Ipratropium [place] 0.5 mg Q4HP PRN NEB 11/11/24 23:30 Levalbuterol HCl 1.25 mg Q4HPRN PRN NEB 11/11/24 23:30 Tramadol HCl 50 mg Q6HP PRN PO 11/12/24 10:30 11/15/24 05:14 50 MG Methylprednisolone Sodium Succinate 40 mg BID IV 11/12/24 12:30 11/14/24 21:50 40 MG Atorvastatin Calcium 80 mg HS PO 11/13/24 22:00 11/14/24 21:51 80 MG Alprazolam 1 mg TID PO 11/14/24 20:00 11/15/24 07:13 1 MG laboratory and microbiology Laboratory Tests 11/11/24 05:15 Test 11/11/24 05:15 Range/Units Serum Glucose 174 H 74-106 mg/dL Assessment/Plan Patient is a 44-year-old female who presented with dizziness and presyncope. She found her on blood pressure to be 213/109 and decided to come to the hospital. In emergency room, the blood pressure was 189/96. Patient is admitted with hypertensive urgency/emergency. Cardiology is called for cardiac aspects of care. Patient denies chest pains.. Patient is known to our practice from previous admissions. Does have long history of pulmonary problems. She has a had repeated respiratory failures from before and is on home oxygen. She never followed as outpatient with us in the office. Obese patient, not in acute distress. Not using accessory muscles of breathing. No JVD. Mucosa is pink and wet. No carotid bruit. Cardiac: Regular, no thrill/gallop. Chest: Scattered rhonchi in the lungs is heard. Abdomen: Bowel sounds positive. Abdomen is soft. There is no hepatomegaly. There was no mass. There was no edema. 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 She is status post cholecystectomy/appendectomy. She quit smoking two years ago. There is no relevant family history. Echocardiogram of September 2022 reported ejection fraction of 60 65%, normal diastolic, trace TR and right ventricular systolic pressure of 30 mm Hg Echocardiogram of August 30, 2024 revealed ejection fraction of 60-65%, mild biatrial enlargement, mild right ventricular enlargement, good right ventricular systolic pressure and right ventricular systolic pressure 55 mm Hg Creat: 1.24 - 1.23 Potassium: 3.8 - 3.8 LDL: 174 BNP: 282.78 Troponin (high sensitive): 7 - 7 - 6 D-dimer: <0.19 Urine toxicology was positive for benzodiazepine Chest x-ray reported: Findings/Impression: Frontal chest radiograph demonstrates no acute osseous or superficial soft tissue abnormalities. The trachea is midline. The cardiac silhouette and mediastinum are within normal limits. No pneumothorax, pleural effusions, or consolidations. CT of the head revealed: IMPRESSION: 1. No acute intracranial abnormality. V/Q scan: IMPRESSION: Low probability for PE. EKG revealed sinus tachycardia, left atrial enlargement and nonspecific ST-T changes Telemetry shows sinus rhythm Patient is a 44-year-old female who presented with dizziness/presyncope. Have shortness of breath. Blood pressure was high on arrival. Presentation he has consider hypertensive emergency and COPD exacerbation. Does have history of multiple lung problems. Has had pneumonia/empyema before. Has had COPD exacerbations before. Does have chronic respiratory failure and on home oxygen. Acute coronary syndrome is not considered at this point. Hypertensive emergency COPD exacerbation Acute Respiratory failure Diabetes mellitus History of substance abuse Pulmonary Hypertension. Cardiac suggestion for management: Manage on Tele Follow-up electrolytes and kidney function tests and correct abnormalities Control blood pressure Atorvastatin 80 mg HS Cardiac haynes, stable Pulmonary follow up Further evaluation and management depends on the above and clinical course A total of 55 minutes was spent reviewing the patient record, examining the patient, making a diagnostic and therapeutic plan, discussing this plan with medical personnel, following up on diagnostic studies and following the patient for clinical stability excluding any and all procedures. At least 50% of this time was spent in direct, [id number] contact. Thank you for allowing me to participate in this patient's care. Further recommendations will depend on patient's clinical course. Please do not hesitate to contact me if you have any questions or concerns. This medical document was created using electronic medical record system with [employer] computerized dictation system. Although this document has been carefully reviewed, there may still be some phonetic and typographical errors. These areas are purely typographical due to the imperfection of the software programs, and do not reflect any compromise in the patient's medical care. Plan discussed with: Patient, Other (nurse) OLIVIA LUJAN MD Nov 15, 2024 07:55
--- NOTE | 2024-11-15 11:33 | DVHPN2 ---
Reviewed: Care Plan, H&P, Labs, Medications, Previous Orders, Radiology Changes from previous H/P or p: No Changes Objective Vitals Vital Signs Date Time Temp Pulse Resp B/P (MAP) Pulse Ox O2 Delivery O2 Flow Rate FiO2 11/15/24 10:42 164/93 11/15/24 10:41 68 11/15/24 09:00 97.8 20 98 97.8 11/15/24 08:00 Nasal Cannula* 2 28 Intake/Output Intake and Output 11/15/24 07:00 Intake Total 3930 ml Output Total 1900 ml Balance 2030 ml Intake Oral 3680 ml IV Total 250 ml Output Urine Total 1900 ml # Voids 5 Medications Current Medications Medications Dose Ordered Sig/Mata Route Start Time Stop Time Status Last Admin Dose Admin Ondansetron HCl 4 mg Q4HP PRN IV 11/10/24 23:45 Enoxaparin Sodium 40 mg DAILY SC 11/11/24 10:00 11/15/24 09:38 40 MG Methadone HCl 120 mg DAILY PO 11/11/24 10:00 11/15/24 10:54 120 MG Aspirin 81 mg DAILY PO 11/11/24 10:00 11/15/24 09:42 81 MG Clonidine HCl 0.1 mg DAILY PO 11/11/24 10:00 11/15/24 09:42 0.1 MG Furosemide 20 mg DAILY PO 11/11/24 10:00 11/15/24 09:42 20 MG Metoprolol Tartrate 25 mg BID PO 11/11/24 10:00 11/15/24 09:41 25 MG Pantoprazole Sodium 40 mg DAILY PO 11/11/24 10:00 11/15/24 09:41 40 MG Patient Own Medication 1 aer DAILY IN 11/11/24 10:00 11/15/24 09:38 1 AER Lisinopril 10 mg DAILY PO 11/11/24 10:00 11/15/24 09:42 10 MG Acetaminophen 500 mg Q6HP PRN PO 11/11/24 00:30 Hold 11/11/24 15:29 500 MG Azithromycin 250 ml @ 125 mls/hr DAILY IV 11/12/24 10:00 11/14/24 09:38 125 MLS/HR Nifedipine 60 mg DAILY PO 11/12/24 10:00 11/15/24 09:43 60 MG Ipratropium [place] 0.5 mg Q6HR NEB 11/12/24 00:00 11/15/24 06:09 0.5 MG Levalbuterol HCl 1.25 mg Q6HR NEB 11/12/24 00:00 11/15/24 06:09 1.25 MG Ipratropium [place] 0.5 mg Q4HP PRN NEB 11/11/24 23:30 Levalbuterol HCl 1.25 mg Q4HPRN PRN NEB 11/11/24 23:30 Tramadol HCl 50 mg Q6HP PRN PO 11/12/24 10:30 11/15/24 05:14 50 MG Methylprednisolone Sodium Succinate 40 mg BID IV 11/12/24 12:30 11/15/24 09:37 40 MG Atorvastatin Calcium 80 mg HS PO 11/13/24 22:00 11/14/24 21:51 80 MG Alprazolam 1 mg TID PO 11/14/24 20:00 11/15/24 07:13 1 MG Laboratory Results Laboratory Tests 11/11/24 05:15 Urinalysis Test 11/10/24 20:45 Urine Color Light-yellow (Yellow) Urine Clarity Clear (Clear) Urine pH 6.0 (5.0-9.0) Urine Specific [place] 1.012 (1.001-1.035) Urine Protein Negative (Negative) Urine Ketones Negative (Negative) Urine Blood Negative /uL (Negative) Urine Nitrite Negative (Negative) Urine Bilirubin Negative (Negative) Urine Urobilinogen Normal mg/dL (Negative) Urine Leukocyte Esterase Trace /uL (Negative) Urine RBC 2 /hpf (0 - 4) Urine Microscopic WBC 7 /HPF (0-5) H Urine Squamous Epithelial Cells Few /hpf (<5) Urine Bacteria None seen /hpf (None Seen) Urine Glucose Normal mg/dL (Normal) Urine Test Negative (Negative) Microbiology Microbiology Date/Time Source Procedure Growth Status 11/11/24 04:00 Nose MRSA Screen - Final Complete 11/10/24 23:49 Blood Blood Culture - Preliminary NO GROWTH AFTER 72 HOURS OF INCUBATION. Resulted 11/10/24 20:45 Voided Urine Urine Culture - Final Complete Labs and/or images reviewed: Labs reviewed by me, Image(s) reviewed by me Assessment/Plan Assessment/Plan Acute on chronic respiratory failure consult by Dr. Saba appreciated COPD exacerbation, Solu-Medrol Community-acquired pneumonia: Azithromycin Acute on chronic diastolic congestive heart failure ejection fraction 55 %, consult by Dr. 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 History of emphysema/COPD/asthma, on home oxygen at 2-5 L/min History of opiate dependence, currently on methadone History of [place] with no stent placement History of CVA Bood cultures contaminated High Level of anxiety: Xanax 1 mg PO TID History of severe pneumonia complicated with empyema with requirement of thoracotomy and intubation two weeks ago Time spent 50 minutes Advanced care planning time 20 minutes Patient is refusing to be discharged home, claiming she cannot walk Physical therapy ordered Patient currently on room air ANALI Hopkins at bedside Possible discharge tomorrow Plan discussed with: Patient My Orders Orders - FESTUS MURRIETA MD Procedure Category Date Status Time Pt Request For Service PT 11/14/24 Logged 12:01 Alprazolam Tablet PHA 11/14/24 In Process (Xanax Tablet) 20:00 Date of Service: Nov 15, 2024 Billing Provider: FESTUS MURRIETA MD Common Visit Codes: [id number] INP/OBS CARE(HIGH) FESTUS MURRIETA MD Nov 15, 2024 11:33
[2024-11-15] MEDS: predniSONE 20 MG TAB PO ONE (12:20)
[2024-11-15] MEDS: AZITHROMYCIN 250 MG TAB PO ONE (12:20)
--- NOTE | 2024-11-15 19:24 | DVHPN2 ---
Progress Note - Dictate Date Seen: Nov 15, 2024 Medical Necessity Reason Pt with a Central, PICC or Fol: No Subjective Patient seen and examined at bedside. Remains on supplemental oxygen Overnight events reviewed. vital signs Vital Sign Date Time Temp Pulse Resp B/P (MAP) Pulse Ox O2 Delivery O2 Flow Rate FiO2 11/15/24 18:43 89 18 100 11/15/24 18:35 Nasal Cannula* 2 28 11/15/24 17:00 97.9 132/76 (94) 97.9 Total Intake and Output 11/14/24 11/14/24 11/15/24 15:00 23:00 07:00 Intake Total 730 ml 2400 ml 800 ml Output Total 1900 ml Balance 730 ml 500 ml 800 ml medications Current Medications Medications Dose Ordered Sig/Mata Route Start Time Stop Time Status Last Admin Dose Admin Ondansetron HCl 4 mg Q4HP PRN IV 11/10/24 23:45 Enoxaparin Sodium 40 mg DAILY SC 11/11/24 10:00 11/15/24 09:38 40 MG Methadone HCl 120 mg DAILY PO 11/11/24 10:00 11/15/24 10:54 120 MG Aspirin 81 mg DAILY PO 11/11/24 10:00 11/15/24 09:42 81 MG Clonidine HCl 0.1 mg DAILY PO 11/11/24 10:00 11/15/24 09:42 0.1 MG Furosemide 20 mg DAILY PO 11/11/24 10:00 11/15/24 09:42 20 MG Metoprolol Tartrate 25 mg BID PO 11/11/24 10:00 11/15/24 09:41 25 MG Pantoprazole Sodium 40 mg DAILY PO 11/11/24 10:00 11/15/24 09:41 40 MG Patient Own Medication 1 aer DAILY IN 11/11/24 10:00 11/15/24 09:38 1 AER Lisinopril 10 mg DAILY PO 11/11/24 10:00 11/15/24 09:42 10 MG Nifedipine 60 mg DAILY PO 11/12/24 10:00 11/15/24 09:43 60 MG Ipratropium [place] 0.5 mg Q6HR NEB 11/12/24 00:00 11/15/24 18:35 0.5 MG Levalbuterol HCl 1.25 mg Q6HR NEB 11/12/24 00:00 11/15/24 18:35 1.25 MG Ipratropium [place] 0.5 mg Q4HP PRN NEB 11/11/24 23:30 Levalbuterol HCl 1.25 mg Q4HPRN PRN NEB 11/11/24 23:30 Tramadol HCl 50 mg Q6HP PRN PO 11/12/24 10:30 11/15/24 05:14 50 MG Atorvastatin Calcium 80 mg HS PO 11/13/24 22:00 11/14/24 21:51 80 MG Alprazolam 1 mg TID PO 11/14/24 20:00 11/15/24 14:54 1 MG Prednisone 20 mg DAILY PO 11/16/24 10:00 Azithromycin 500 mg DAILY PO 11/16/24 10:00 objective Gen.: Patient lying in bed in no apparent distress. On supplemental oxygen. Head: Normocephalic, atraumatic. Eyes: EOMI/PERRLA. Ears: Normal hearing. Normal anatomy. Neck/trachea: Trachea midline, supple. Nose: Normal external anatomy. Mouth: Moist mucous membranes. Chest: Decreased air entry bilaterally. No wheezing. No rhonchi. Cardiovascular: Positive S1, positive S2. Regular rate and rhythm. Abdomen: Positive bowel sounds in all 4 quadrants. Soft, non-tender, non- distended. : Deferred. Rectal: Deferred. Skin: Warm, dry. Intact. Extremities: 2+ radial pulses bilaterally. No lower extremity edema. Neuro: Awake, alert, oriented x3. No gross motor or sensory deficits. Cranial nerves II through XII intact. Gait not assessed. laboratory and microbiology Laboratory Tests 11/11/24 05:15 Test 11/11/24 05:15 Range/Units Serum Glucose 174 H 74-106 mg/dL Assessment/Plan Impression: Acute on chronic hypoxic respiratory failure Dependence on supplemental oxygen COPD exacerbation Community-acquired pneumonia Hx of nicotine dependence Acute on chronic diastolic congestive heart failure (HFpEF, LVEF 55%, RVSP 55 mmHg) Chronic kidney disease Recent dx of ovarian cancer Events: Remains on supplemental oxygen, on 2 LPM NC Taper O2 as tolerated Improved O2 requirements Continue Trelogy Continue bronchodilators Continue IV steroids - Solu-Medrol 40 mg BID Continue antibiotics Incentive spirometry Diurese as tolerated w/ Lasix 20 mg QDaily Monitor renal function. Monitor electrolytes. Supplement as necessary. Labs and imaging reviewed. Rest of plan as noted below. Plan: Supplemental oxygen Titrate to keep O2 sats above 92%. Continue bronchodilators. Continue antibiotics IV steroids Monitor renal function. Monitor electrolytes. Supplement as necessary. Monitor ins and outs. GI prophylaxis - Protonix DVT prophylaxis - Lovenox. Prognosis: Guarded given patient's multiple co-morbidities. Rest of plan per hospitalist and other consultants. Thank you, Dr. Reyez, for allowing me to participate in this patient's care. Further recommendations will depend on the patient's clinical course. Please do not hesitate to contact me if you have any questions or concerns. This medical document was created using an electronic medical record system with [employer] dictation system. Although these documentations are being carefully reviewed, there may still be some phonetic and typographical changes. The errors are purely typographical, due to imperfection on the software program, and do not reflect any compromise in the patient's medical care. Dietary Evaluation Review Comments: 1) cardiac diet 2) Continue current plan of care Expected Outcomes/Goals: To meet >75% estimated needs Fu 3-5 days Plan discussed with: Other (ANALI Bah) NATHALY NARAYAN MD Nov 15, 2024 19:24
[2024-11-16] VITALS (17 sets, daily range): BP systolic 135–161; BP diastolic 72–97; PULSE 65–78; RESP 16–20; TEMP 97.6–98.6; O2SAT 95–100
--- NOTE | 2024-11-16 06:36 | DVHPN2 ---
Progress Note - Dictate Date Seen: Nov 16, 2024 Medical Necessity Reason Pt with a Central, PICC or Fol: No vital signs Vital Sign Date Time Temp Pulse Resp B/P (MAP) Pulse Ox O2 Delivery O2 Flow Rate FiO2 11/16/24 05:00 98.0 68 19 151/78 (102) 97 98.0 11/16/24 00:04 Nasal Cannula* 4 36 Total Intake and Output 11/15/24 11/15/24 11/16/24 15:00 23:00 07:00 Intake Total 1790 ml 1775 ml Output Total 975 ml Balance 1790 ml 800 ml medications Current Medications Medications Dose Ordered Sig/Mata Route Start Time Stop Time Status Last Admin Dose Admin Ondansetron HCl 4 mg Q4HP PRN IV 11/10/24 23:45 Enoxaparin Sodium 40 mg DAILY SC 11/11/24 10:00 11/15/24 09:38 40 MG Methadone HCl 120 mg DAILY PO 11/11/24 10:00 11/15/24 10:54 120 MG Aspirin 81 mg DAILY PO 11/11/24 10:00 11/15/24 09:42 81 MG Clonidine HCl 0.1 mg DAILY PO 11/11/24 10:00 11/15/24 09:42 0.1 MG Furosemide 20 mg DAILY PO 11/11/24 10:00 11/15/24 09:42 20 MG Metoprolol Tartrate 25 mg BID PO 11/11/24 10:00 11/15/24 21:16 25 MG Pantoprazole Sodium 40 mg DAILY PO 11/11/24 10:00 11/15/24 09:41 40 MG Patient Own Medication 1 aer DAILY IN 11/11/24 10:00 11/15/24 09:38 1 AER Lisinopril 10 mg DAILY PO 11/11/24 10:00 11/15/24 09:42 10 MG Nifedipine 60 mg DAILY PO 11/12/24 10:00 11/15/24 09:43 60 MG Ipratropium [place] 0.5 mg Q6HR NEB 11/12/24 00:00 11/16/24 00:04 0.5 MG Levalbuterol HCl 1.25 mg Q6HR NEB 11/12/24 00:00 11/16/24 00:04 1.25 MG Ipratropium [place] 0.5 mg Q4HP PRN NEB 11/11/24 23:30 Levalbuterol HCl 1.25 mg Q4HPRN PRN NEB 11/11/24 23:30 Tramadol HCl 50 mg Q6HP PRN PO 11/12/24 10:30 11/15/24 05:14 50 MG Atorvastatin Calcium 80 mg HS PO 11/13/24 22:00 11/15/24 21:16 80 MG Alprazolam 1 mg TID PO 11/14/24 20:00 11/15/24 21:16 1 MG Prednisone 20 mg DAILY PO 11/16/24 10:00 Azithromycin 500 mg DAILY PO 11/16/24 10:00 laboratory and microbiology Laboratory Tests 11/11/24 05:15 Test 11/11/24 05:15 Range/Units Serum Glucose 174 H 74-106 mg/dL Assessment/Plan Patient is a 44-year-old female who presented with dizziness and presyncope. She found her on blood pressure to be 213/109 and decided to come to the hospital. In emergency room, the blood pressure was 189/96. Patient is admitted with hypertensive urgency/emergency. Cardiology is called for cardiac aspects of care. Patient denies chest pains.. Patient is known to our practice from previous admissions. Does have long history of pulmonary problems. She has a had repeated respiratory failures from before and is on home oxygen. She never followed as outpatient with us in the office. Obese patient, not in acute distress. Not using accessory muscles of breathing. No JVD. Mucosa is pink and wet. No carotid bruit. Cardiac: Regular, no thrill/gallop. Chest: Scattered rhonchi in the lungs is heard. Abdomen: Bowel sounds positive. Abdomen is soft. There is no hepatomegaly. There was no mass. There was no edema. 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 She is status post cholecystectomy/appendectomy. She quit smoking two years ago. There is no relevant family history. Echocardiogram of September 2022 reported ejection fraction of 60 65%, normal diastolic, trace TR and right ventricular systolic pressure of 30 mm Hg Echocardiogram of August 30, 2024 revealed ejection fraction of 60-65%, mild biatrial enlargement, mild right ventricular enlargement, good right ventricular systolic pressure and right ventricular systolic pressure 55 mm Hg Creat: 1.24 - 1.23 Potassium: 3.8 - 3.8 LDL: 174 BNP: 282.78 Troponin (high sensitive): 7 - 7 - 6 D-dimer: <0.19 Urine toxicology was positive for benzodiazepine Chest x-ray reported: Findings/Impression: Frontal chest radiograph demonstrates no acute osseous or superficial soft tissue abnormalities. The trachea is midline. The cardiac silhouette and mediastinum are within normal limits. No pneumothorax, pleural effusions, or consolidations. CT of the head revealed: IMPRESSION: 1. No acute intracranial abnormality. V/Q scan: IMPRESSION: Low probability for PE. EKG revealed sinus tachycardia, left atrial enlargement and nonspecific ST-T changes Telemetry shows sinus rhythm Patient is a 44-year-old female who presented with dizziness/presyncope. Have shortness of breath. Blood pressure was high on arrival. Presentation he has consider hypertensive emergency and COPD exacerbation. Does have history of multiple lung problems. Has had pneumonia/empyema before. Has had COPD exacerbations before. Does have chronic respiratory failure and on home oxygen. Acute coronary syndrome is not considered at this point. Hypertensive emergency COPD exacerbation Acute Respiratory failure Diabetes mellitus History of substance abuse Pulmonary Hypertension. Cardiac suggestion for management: Manage on Tele Follow-up electrolytes and kidney function tests and correct abnormalities Control blood pressure Atorvastatin 80 mg HS Cardiac haynes, stable Pulmonary follow up Further evaluation and management depends on the above and clinical course A total of 55 minutes was spent reviewing the patient record, examining the patient, making a diagnostic and therapeutic plan, discussing this plan with medical personnel, following up on diagnostic studies and following the patient for clinical stability excluding any and all procedures. At least 50% of this time was spent in direct, [id number] contact. Thank you for allowing me to participate in this patient's care. Further recommendations will depend on patient's clinical course. Please do not hesitate to contact me if you have any questions or concerns. This medical document was created using electronic medical record system with [employer] dictation system. Although this document has been carefully reviewed, there may still be some phonetic and typographical errors. These areas are purely typographical due to the imperfection of the software programs, and do not reflect any compromise in the patient's medical care. Dietary Evaluation Review Comments: 1) cardiac diet 2) Continue current plan of care Expected Outcomes/Goals: To meet >75% estimated needs Fu 3-5 days Plan discussed with: Patient, Other (nurse) OLIVIA LUJAN MD Nov 16, 2024 06:36
[2024-11-16] MEDS: AZITHROMYCIN 250 MG TAB PO SCH (09:19)
[2024-11-16] MEDS: predniSONE 20 MG TAB PO SCH (09:21)
--- NOTE | 2024-11-16 11:32 | DVHPN2 ---
Reviewed: Care Plan, H&P, Labs, Medications, Previous Orders, Radiology Changes from previous H/P or p: No Changes Objective Vitals Vital Signs Date Time Temp Pulse Resp B/P (MAP) Pulse Ox O2 Delivery O2 Flow Rate FiO2 11/16/24 10:00 96 Nasal Cannula* 2 28 11/16/24 09:21 165/99 11/16/24 09:20 77 11/16/24 09:00 98.0 20 98.0 Intake/Output Intake and Output 11/16/24 07:00 Intake Total 3565 ml Output Total 975 ml Balance 2590 ml Intake Oral 3565 ml Output Urine Total 975 ml # Voids 6 # Bowel Movements 2 Medications Current Medications Medications Dose Ordered Sig/Mata Route Start Time Stop Time Status Last Admin Dose Admin Ondansetron HCl 4 mg Q4HP PRN IV 11/10/24 23:45 Enoxaparin Sodium 40 mg DAILY SC 11/11/24 10:00 11/16/24 09:16 40 MG Methadone HCl 120 mg DAILY PO 11/11/24 10:00 11/16/24 09:15 120 MG Aspirin 81 mg DAILY PO 11/11/24 10:00 11/16/24 09:20 81 MG Clonidine HCl 0.1 mg DAILY PO 11/11/24 10:00 11/16/24 09:16 0.1 MG Furosemide 20 mg DAILY PO 11/11/24 10:00 11/16/24 09:21 20 MG Metoprolol Tartrate 25 mg BID PO 11/11/24 10:00 11/16/24 09:20 25 MG Pantoprazole Sodium 40 mg DAILY PO 11/11/24 10:00 11/16/24 09:17 40 MG Patient Own Medication 1 aer DAILY IN 11/11/24 10:00 11/16/24 09:22 1 AER Lisinopril 10 mg DAILY PO 11/11/24 10:00 11/16/24 09:17 10 MG Nifedipine 60 mg DAILY PO 11/12/24 10:00 11/16/24 09:18 60 MG Ipratropium [place] 0.5 mg Q6HR NEB 11/12/24 00:00 11/16/24 06:42 0.5 MG Levalbuterol HCl 1.25 mg Q6HR NEB 11/12/24 00:00 11/16/24 06:43 1.25 MG Ipratropium [place] 0.5 mg Q4HP PRN NEB 11/11/24 23:30 Levalbuterol HCl 1.25 mg Q4HPRN PRN NEB 11/11/24 23:30 Tramadol HCl 50 mg Q6HP PRN PO 11/12/24 10:30 11/15/24 05:14 50 MG Atorvastatin Calcium 80 mg HS PO 11/13/24 22:00 11/15/24 21:16 80 MG Alprazolam 1 mg TID PO 11/14/24 20:00 11/16/24 06:55 1 MG Prednisone 20 mg DAILY PO 11/16/24 10:00 11/16/24 09:21 20 MG Azithromycin 500 mg DAILY PO 11/16/24 10:00 11/16/24 09:19 500 MG Laboratory Results Laboratory Tests 11/11/24 05:15 Urinalysis Test 11/10/24 20:45 Urine Color Light-yellow (Yellow) Urine Clarity Clear (Clear) Urine pH 6.0 (5.0-9.0) Urine Specific [place] 1.012 (1.001-1.035) Urine Protein Negative (Negative) Urine Ketones Negative (Negative) Urine Blood Negative /uL (Negative) Urine Nitrite Negative (Negative) Urine Bilirubin Negative (Negative) Urine Urobilinogen Normal mg/dL (Negative) Urine Leukocyte Esterase Trace /uL (Negative) Urine RBC 2 /hpf (0 - 4) Urine Microscopic WBC 7 /HPF (0-5) H Urine Squamous Epithelial Cells Few /hpf (<5) Urine Bacteria None seen /hpf (None Seen) Urine Glucose Normal mg/dL (Normal) Urine Test Negative (Negative) Microbiology Microbiology Date/Time Source Procedure Growth Status 11/11/24 04:00 Nose MRSA Screen - Final Complete 11/10/24 23:49 Blood Blood Culture - Final NO GROWTH AFTER 5 DAYS OF INCUBATION. Complete 11/10/24 20:45 Voided Urine Urine Culture - Final Complete Labs and/or images reviewed: Labs reviewed by me, Image(s) reviewed by me Assessment/Plan Assessment/Plan Acute on chronic respiratory failure consult by Dr. Saba appreciated COPD exacerbation, Solu-Medrol Community-acquired pneumonia: Azithromycin Acute on chronic diastolic congestive heart failure ejection fraction 55 %, consult by Dr. 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 History of emphysema/COPD/asthma, on home oxygen at 2-5 L/min History of opiate dependence, currently on methadone History of SC with no stent placement History of CVA Bood cultures contaminated High Level of anxiety: Xanax 1 mg PO TID History of severe pneumonia complicated with empyema with requirement of thoracotomy and intubation two weeks ago Patient complains of dizziness and extreme weakness unable to walk; physical therapy recommended [facility] facility placement for rehab, orders placed Plan discussed with: Patient My Orders Orders - FESTUS MURRIETA MD Procedure Category Date Status Time Prednisone Tablet PHA 11/16/24 In Process 10:00 Azithromycin Tablet PHA 11/16/24 In Process (Zithromax Tablet) 10:00 Dietary NOTICE 11/15/24 Transmitted Recommendations 12:19 Date of Service: Nov 16, 2024 Billing Provider: FESTUS MURRIETA MD Common Visit Codes: [id number] INP/OBS CARE(HIGH) FESTUS MURRIETA MD Nov 16, 2024 11:32
--- NOTE | 2024-11-16 11:38 | DVHDS2 ---
Discharge Summary Date of Admission Nov 10, 2024 at 23:39 Date of Discharge: Nov 16, 2024 Admitting Diagnosis Shortness of breath Wounds: None Labs/Diagnostic Data: Laboratory Results Test 11/11/24 16:07 11/11/24 09:51 11/11/24 05:15 11/10/24 23:49 Influenza Type A Antigen Negative (Negative) Influenza Type B Antigen Negative (Negative) SARS-CoV-2 Antigen (Rapid) Negative (NEGATIVE) Prothrombin Time 11.4 sec (9.3-11.8) Prothrombin Time INR 1.08 (0.9-1.15) Activated Partial Thromboplast Time 26.1 SEC (24.5-34.5) D-Dimer, Quantitative < 0.19 mg/L FEU (0.0-0.49) White Blood Count 7.8 10^3/uL (4.4-10.8) Red Blood Count 4.10 10^6/uL (4.0-5.20) Hemoglobin 10.7 g/dL (12.2-16.2) Hematocrit 32.8 % (36.0-46.0) Mean Corpuscular Volume 79.9 fL (80.0-100.0) Mean Corpuscular Hemoglobin 26.2 pg (28.0-32.0) Mean Corpuscular Hemoglobin Concent 32.8 g/dL (32.0-36.0) Red Cell Distribution Width 17.6 % (11.8-14.3) Platelet Count 244 10^3/uL (140-450) Mean Platelet Volume 7.2 fL (6.9-10.8) Neutrophils (%) (Auto) 91.9 % (37.0-80.0) Lymphocytes (%) (Auto) 7.0 % (10.0-50.0) Monocytes (%) (Auto) 0.8 % (0.0-12.0) Eosinophils (%) (Auto) 0.1 % (0.0-7.0) Basophils (%) (Auto) 0.2 % (0.0-2.0) Neutrophils # (Auto) 7.2 10 ^3/uL (1.6-8.6) Lymphocytes # (Auto) 0.6 10 ^3/uL (0.4-5.4) Monocytes # (Auto) 0.1 10 ^3/uL (0-1.3) Eosinophils # (Auto) 0 10 ^3/uL (0-0.8) Basophils # (Auto) 0 10 ^3/uL (0-0.2) Nucleated Red Blood Cells 0.1 % Sodium Level 136 mmol/L (136-145) Potassium Level 3.8 mmol/L (3.5-5.1) Chloride Level 98 mmol/L (98-107) Carbon Dioxide Level 27 mmol/L (20-31) Anion Gap 11 (5-15) Blood Urea Nitrogen 14 mg/dL (9-23) Creatinine 1.23 mg/dL (0.550-1.02) Glomerular Filtration Rate Calc 55 mL/min (>90) BUN/Creatinine Ratio 11.4 (10.0-20.0) Serum Glucose 174 mg/dL (74-106) Calcium Level 10.1 mg/dL (8.7-10.4) Total Bilirubin 0.3 mg/dL (0.2-1.0) Aspartate Amino Transferase (AST) 14 U/L (13-40) Alanine Aminotransferase (ALT) 16 U/L (7-40) Alkaline Phosphatase 121 U/L (46-116) Total Protein 7.1 g/dL (5.7-8.2) Albumin 4.3 g/dL (3.2-4.8) Lipase 30 U/L (12-53) Triglycerides Level 116 mg/dL (< 150) Cholesterol Level 236 mg/dL (< 200) LDL Cholesterol 174 mg/dL (< 100) HDL Cholesterol 40 mg/dL (40-59) Test 11/10/24 21:08 11/10/24 20:45 11/10/24 18:10 11/10/24 17:23 Troponin I High Sensitivity 6 ng/L (</=34) Urine Color Light-yellow (Yellow) Urine Clarity Clear (Clear) Urine pH 6.0 (5.0-9.0) Urine Specific [place] 1.012 (1.001-1.035) Urine Protein Negative (Negative) Urine Ketones Negative (Negative) Urine Blood Negative /uL (Negative) Urine Nitrite Negative (Negative) Urine Bilirubin Negative (Negative) Urine Urobilinogen Normal mg/dL (Negative) Urine Leukocyte Esterase Trace /uL (Negative) Urine RBC 2 /hpf (0 - 4) Urine Microscopic WBC 7 /HPF (0-5) Urine Squamous Epithelial Cells Few /hpf (<5) Urine Bacteria None seen /hpf (None Seen) Urine Glucose Normal mg/dL (Normal) Urine Test Negative (Negative) Urine Opiates Screen Neg (NEGATIVE) Urine Fentanyl Screen Neg (NEGATIVE) Urine Barbiturates Screen Neg (NEGATIVE) Urine Phencyclidine Screen Neg (NEGATIVE) Urine Amphetamines Screen Neg (NEGATIVE) Urine Benzodiazepines Screen Pos (NEGATIVE) Urine Cocaine Screen Neg (NEGATIVE) Urine Cannabinoids Screen Neg (NEGATIVE) Platelet Estimate Adequate Clumped Platelets Few Large Platelets Few Lactic Acid Level 0.9 mmol/L (0.4-2.0) B-Type Natriuretic Peptide 282.78 pg/mL (0-100) POC Glucose 110 mg/dl (70-106) Other Laboratory Tests 11/11/24 05:15 Brief Hx & Hospital Course: 4-year-old female with multiple medical problems including hypertension history of ovarian cancer chronic pancreatitis secondary to sphincter of Oddi dysfunction status post biliary stent emphysema COPD SD with a no stent placement history of CVA came in for shortness of breaths. Found to have acute CHF exacerbation ejection fraction 55 percent seen by embroidery patternmaker Dr. Baker. Also had community-acquired pneumonia treated with azithromycin seen by Dr. Saba COPD exacerbation treated with a Solu-Medrol patient on methadone for chronic opiate dependence. Patient was given Xanax for higher level of anxiety patient has a history of severe pneumonia complicated with empyema requiring thoracotomy and intubation two weeks ago. Patient claims she was very dizzy and unable to walk and physical therapist recommended [facility] facility placement for rehab for physical therapy. Orders placed. Consults/Reason for consult Pulmonology Dr. Saba Pulmonology Dr. Tapia Operations or Procedures None Condition at Discharge: Fair Final Diagnosis/Problems List Acute on chronic respiratory failure consult by Dr. Saba appreciated COPD exacerbation, Solu-Medrol Community-acquired pneumonia: Azithromycin Acute on chronic diastolic congestive heart failure ejection fraction 55 %, consult by Dr. 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 History of emphysema/COPD/asthma, on home oxygen at 2-5 L/min History of opiate dependence, currently on methadone History of [place] with no stent placement History of CVA Bood cultures contaminated High Level of anxiety: Xanax 1 mg PO TID History of severe pneumonia complicated with empyema with requirement of thoracotomy and intubation two weeks ago Discharge Disposition: Intermediate Facility Discharge Instruct/Medications Diet: Cardiac 2g Na,low cholest Activity: Light activity Follow Up/Referral: [facility] up with [facility] Medications: see list 39 (Time taken for discharge summary 39 minutes) Discharge Statement: "Patient was advised to return to the ER or call 911 if any headaches, dizziness, shortness of breath, chest pain, abdominal pain, bleeding, fevers, or worsening of medical condition. Patient was counseled about treatment plan, medications, possible side effects, patientverbalized understanding. All questions were answered to the best of my ability. This discharge took greater then 30 minutes in planning, reviewing documentation, counseling the patient, and discussing with other team members." ASSESSMENT ASSESSMENT Hospital Course Marginally improved Assessment Acute on chronic respiratory failure consult by Dr. Saba appreciated COPD exacerbation, Solu-Medrol Community-acquired pneumonia: Azithromycin Acute on chronic diastolic congestive heart failure ejection fraction 55 %, consult by Dr. 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
--- NOTE | 2024-11-16 23:04 | DVHPN2 ---
Progress Note - Dictate Date Seen: Nov 16, 2024 Medical Necessity Reason Pt with a Central, PICC or Fol: No Subjective Patient seen and examined at bedside. Remains on supplemental oxygen Overnight events reviewed. vital signs Vital Sign Date Time Temp Pulse Resp B/P (MAP) Pulse Ox O2 Delivery O2 Flow Rate FiO2 11/16/24 22:30 68 141/78 11/16/24 21:00 98.2 19 100 98.2 11/16/24 18:38 Nasal Cannula 2.0 11/16/24 18:38 28 Total Intake and Output 11/15/24 11/15/24 11/16/24 15:00 23:00 07:00 Intake Total 1790 ml 1775 ml Output Total 975 ml Balance 1790 ml 800 ml medications Current Medications Medications Dose Ordered Sig/Mata Route Start Time Stop Time Status Last Admin Dose Admin Ondansetron HCl 4 mg Q4HP PRN IV 11/10/24 23:45 Enoxaparin Sodium 40 mg DAILY SC 11/11/24 10:00 11/16/24 09:16 40 MG Methadone HCl 120 mg DAILY PO 11/11/24 10:00 11/16/24 09:15 120 MG Aspirin 81 mg DAILY PO 11/11/24 10:00 11/16/24 09:20 81 MG Clonidine HCl 0.1 mg DAILY PO 11/11/24 10:00 11/16/24 09:16 0.1 MG Furosemide 20 mg DAILY PO 11/11/24 10:00 11/16/24 09:21 20 MG Metoprolol Tartrate 25 mg BID PO 11/11/24 10:00 11/16/24 22:30 25 MG Pantoprazole Sodium 40 mg DAILY PO 11/11/24 10:00 11/16/24 09:17 40 MG Patient Own Medication 1 aer DAILY IN 11/11/24 10:00 11/16/24 09:22 1 AER Lisinopril 10 mg DAILY PO 11/11/24 10:00 11/16/24 09:17 10 MG Nifedipine 60 mg DAILY PO 11/12/24 10:00 11/16/24 09:18 60 MG Ipratropium [place] 0.5 mg Q6HR NEB 11/12/24 00:00 11/16/24 18:42 0.5 MG Levalbuterol HCl 1.25 mg Q6HR NEB 11/12/24 00:00 11/16/24 18:42 1.25 MG Ipratropium [place] 0.5 mg Q4HP PRN NEB 11/11/24 23:30 Levalbuterol HCl 1.25 mg Q4HPRN PRN NEB 11/11/24 23:30 Tramadol HCl 50 mg Q6HP PRN PO 11/12/24 10:30 11/16/24 21:11 50 MG Atorvastatin Calcium 80 mg HS PO 11/13/24 22:00 11/16/24 22:28 80 MG Alprazolam 1 mg TID PO 11/14/24 20:00 11/16/24 22:28 1 MG Prednisone 20 mg DAILY PO 11/16/24 10:00 11/16/24 09:21 20 MG Azithromycin 500 mg DAILY PO 11/16/24 10:00 11/16/24 09:19 500 MG objective Gen.: Patient lying in bed in no apparent distress. On supplemental oxygen. Head: Normocephalic, atraumatic. Eyes: EOMI/PERRLA. Ears: Normal hearing. Normal anatomy. Neck/trachea: Trachea midline, supple. Nose: Normal external anatomy. Mouth: Moist mucous membranes. Chest: Decreased air entry bilaterally. No wheezing. No rhonchi. Cardiovascular: Positive S1, positive S2. Regular rate and rhythm. Abdomen: Positive bowel sounds in all 4 quadrants. Soft, non-tender, non- distended. : Deferred. Rectal: Deferred. Skin: Warm, dry. Intact. Extremities: 2+ radial pulses bilaterally. No lower extremity edema. Neuro: Awake, alert, oriented x3. No gross motor or sensory deficits. Cranial nerves II through XII intact. Gait not assessed. laboratory and microbiology Laboratory Tests 11/11/24 05:15 Test 11/11/24 05:15 Range/Units Serum Glucose 174 H 74-106 mg/dL Assessment/Plan Impression: Acute on chronic hypoxic respiratory failure Dependence on supplemental oxygen COPD exacerbation Community-acquired pneumonia Hx of nicotine dependence Acute on chronic diastolic congestive heart failure (HFpEF, LVEF 55%, RVSP 55 mmHg) Chronic kidney disease Recent dx of ovarian cancer Events: Remains on supplemental oxygen, on 2 LPM NC Taper O2 as tolerated Continue Trelegy Continue bronchodilators Continue steroids - prednisone PO Continue antibiotics Incentive spirometry Diurese as tolerated w/ Lasix 20 mg q. daily Monitor renal function. Monitor electrolytes. Supplement as necessary. Physical therapy. Labs and imaging reviewed. Rest of plan as noted below. Plan: Supplemental oxygen Titrate to keep O2 sats above 92%. Continue bronchodilators. Continue antibiotics Continue steroids Monitor renal function. Monitor electrolytes. Supplement as necessary. Monitor ins and outs. GI prophylaxis - Protonix DVT prophylaxis - Lovenox. Prognosis: Guarded given patient's multiple co-morbidities. Rest of plan per hospitalist and other consultants. Thank you, Dr. Reyez, for allowing me to participate in this patient's care. Further recommendations will depend on the patient's clinical course. Please do not hesitate to contact me if you have any questions or concerns. This medical document was created using an electronic medical record system with [employer] dictation system. Although these documentations are being carefully reviewed, there may still be some phonetic and typographical changes. The errors are purely typographical, due to imperfection on the software program, and do not reflect any compromise in the patient's medical care. Dietary Evaluation Review Comments: 1) cardiac diet 2) Continue current plan of care Expected Outcomes/Goals: To meet >75% estimated needs Fu 3-5 days Plan discussed with: Patient, Other (ANALI Ovalles) NATHALY NARAYAN MD Nov 16, 2024 23:04
[2024-11-17] VITALS (15 sets, daily range): BP systolic 128–148; BP diastolic 62–84; PULSE 68–99; RESP 16–22; TEMP 97.9–98.9; O2SAT 96–100
--- NOTE | 2024-11-17 06:38 | DVHPN2 ---
Progress Note - Dictate Date Seen: Nov 17, 2024 Medical Necessity Reason Pt with a Central, PICC or Fol: No vital signs Vital Sign Date Time Temp Pulse Resp B/P (MAP) Pulse Ox O2 Delivery O2 Flow Rate FiO2 11/17/24 01:00 98.1 68 18 146/83 (104) 96 98.1 11/17/24 00:15 Nasal Cannula 2.0 11/17/24 00:15 28 Total Intake and Output 11/16/24 11/16/24 11/17/24 15:00 23:00 07:00 Intake Total 2115 ml 850 ml Output Total 2000 ml Balance 2115 ml -1150 ml medications Current Medications Medications Dose Ordered Sig/Mata Route Start Time Stop Time Status Last Admin Dose Admin Ondansetron HCl 4 mg Q4HP PRN IV 11/10/24 23:45 Enoxaparin Sodium 40 mg DAILY SC 11/11/24 10:00 11/16/24 09:16 40 MG Methadone HCl 120 mg DAILY PO 11/11/24 10:00 11/16/24 09:15 120 MG Aspirin 81 mg DAILY PO 11/11/24 10:00 11/16/24 09:20 81 MG Clonidine HCl 0.1 mg DAILY PO 11/11/24 10:00 11/16/24 09:16 0.1 MG Furosemide 20 mg DAILY PO 11/11/24 10:00 11/16/24 09:21 20 MG Metoprolol Tartrate 25 mg BID PO 11/11/24 10:00 11/16/24 22:30 25 MG Pantoprazole Sodium 40 mg DAILY PO 11/11/24 10:00 11/16/24 09:17 40 MG Patient Own Medication 1 aer DAILY IN 11/11/24 10:00 11/16/24 09:22 1 AER Lisinopril 10 mg DAILY PO 11/11/24 10:00 11/16/24 09:17 10 MG Nifedipine 60 mg DAILY PO 11/12/24 10:00 11/16/24 09:18 60 MG Ipratropium [place] 0.5 mg Q6HR NEB 11/12/24 00:00 11/17/24 00:15 0.5 MG Levalbuterol HCl 1.25 mg Q6HR NEB 11/12/24 00:00 11/17/24 00:15 1.25 MG Ipratropium [place] 0.5 mg Q4HP PRN NEB 11/11/24 23:30 Levalbuterol HCl 1.25 mg Q4HPRN PRN NEB 11/11/24 23:30 Tramadol HCl 50 mg Q6HP PRN PO 11/12/24 10:30 11/17/24 04:26 50 MG Atorvastatin Calcium 80 mg HS PO 11/13/24 22:00 11/16/24 22:28 80 MG Alprazolam 1 mg TID PO 11/14/24 20:00 11/17/24 06:08 1 MG Prednisone 20 mg DAILY PO 11/16/24 10:00 11/16/24 09:21 20 MG Azithromycin 500 mg DAILY PO 11/16/24 10:00 11/16/24 09:19 500 MG laboratory and microbiology Laboratory Tests 11/11/24 05:15 Test 11/11/24 05:15 Range/Units Serum Glucose 174 H 74-106 mg/dL Assessment/Plan Patient is a 44-year-old female who presented with dizziness and presyncope. She found her on blood pressure to be 213/109 and decided to come to the hospital. In emergency room, the blood pressure was 189/96. Patient is admitted with hypertensive urgency/emergency. Cardiology is called for cardiac aspects of care. Patient denies chest pains.. Patient is known to our practice from previous admissions. Does have long history of pulmonary problems. She has a had repeated respiratory failures from before and is on home oxygen. She never followed as outpatient with us in the office. Obese patient, not in acute distress. Not using accessory muscles of breathing. No JVD. Mucosa is pink and wet. No carotid bruit. Cardiac: Regular, no thrill/gallop. Chest: Scattered rhonchi in the lungs is heard. Abdomen: Bowel sounds positive. Abdomen is soft. There is no hepatomegaly. There was no mass. There was no edema. 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 She is status post cholecystectomy/appendectomy. She quit smoking two years ago. There is no relevant family history. Echocardiogram of September 2022 reported ejection fraction of 60 65%, normal diastolic, trace TR and right ventricular systolic pressure of 30 mm Hg Echocardiogram of August 30, 2024 revealed ejection fraction of 60-65%, mild biatrial enlargement, mild right ventricular enlargement, good right ventricular systolic pressure and right ventricular systolic pressure 55 mm Hg Creat: 1.24 - 1.23 Potassium: 3.8 - 3.8 LDL: 174 BNP: 282.78 Troponin (high sensitive): 7 - 7 - 6 D-dimer: <0.19 Urine toxicology was positive for benzodiazepine Chest x-ray reported: Findings/Impression: Frontal chest radiograph demonstrates no acute osseous or superficial soft tissue abnormalities. The trachea is midline. The cardiac silhouette and mediastinum are within normal limits. No pneumothorax, pleural effusions, or consolidations. CT of the head revealed: IMPRESSION: 1. No acute intracranial abnormality. V/Q scan: IMPRESSION: Low probability for PE. EKG revealed sinus tachycardia, left atrial enlargement and nonspecific ST-T changes Telemetry shows sinus rhythm Patient is a 44-year-old female who presented with dizziness/presyncope. Have shortness of breath. Blood pressure was high on arrival. Presentation he has consider hypertensive emergency and COPD exacerbation. Does have history of multiple lung problems. Has had pneumonia/empyema before. Has had COPD exacerbations before. Does have chronic respiratory failure and on home oxygen. Acute coronary syndrome is not considered at this point. Hypertensive emergency COPD exacerbation Acute Respiratory failure Diabetes mellitus History of substance abuse Pulmonary Hypertension. Cardiac suggestion for management: Manage on Tele Follow-up electrolytes and kidney function tests and correct abnormalities Control blood pressure Atorvastatin 80 mg HS Cardiac haynes, stable Pulmonary follow up Further evaluation and management depends on the above and clinical course A total of 55 minutes was spent reviewing the patient record, examining the patient, making a diagnostic and therapeutic plan, discussing this plan with medical personnel, following up on diagnostic studies and following the patient for clinical stability excluding any and all procedures. At least 50% of this time was spent in direct, [id number] contact. Thank you for allowing me to participate in this patient's care. Further recommendations will depend on patient's clinical course. Please do not hesitate to contact me if you have any questions or concerns. This medical document was created using electronic medical record system with [employer] dictation system. Although this document has been carefully reviewed, there may still be some phonetic and typographical errors. These areas are purely typographical due to the imperfection of the software programs, and do not reflect any compromise in the patient's medical care. Dietary Evaluation Review Comments: 1) cardiac diet 2) Continue current plan of care Expected Outcomes/Goals: To meet >75% estimated needs Fu 3-5 days Plan discussed with: Patient, Other (nurse) OLIVIA LUJAN MD Nov 17, 2024 06:38
--- NOTE | 2024-11-17 10:49 | DVHPN2 ---
Reviewed: Care Plan, H&P, Labs, Medications, Previous Orders, Radiology Changes from previous H/P or p: No Changes Objective Vitals Vital Signs Date Time Temp Pulse Resp B/P (MAP) Pulse Ox O2 Delivery O2 Flow Rate FiO2 11/17/24 10:11 148/84 11/17/24 06:54 69 18 98 11/17/24 06:48 Nasal Cannula* 2 28 11/17/24 01:00 98.1 98.1 Intake/Output Intake and Output 11/17/24 07:00 Intake Total 2965 ml Output Total 2000 ml Balance 965 ml Intake Oral 2965 ml Output Urine Total 2000 ml # Voids 4 # Bowel Movements 1 Medications Current Medications Medications Dose Ordered Sig/Mata Route Start Time Stop Time Status Last Admin Dose Admin Ondansetron HCl 4 mg Q4HP PRN IV 11/10/24 23:45 Enoxaparin Sodium 40 mg DAILY SC 11/11/24 10:00 11/17/24 09:45 40 MG Methadone HCl 120 mg DAILY PO 11/11/24 10:00 11/17/24 09:42 120 MG Aspirin 81 mg DAILY PO 11/11/24 10:00 11/17/24 09:45 81 MG Clonidine HCl 0.1 mg DAILY PO 11/11/24 10:00 11/17/24 09:45 0.1 MG Furosemide 20 mg DAILY PO 11/11/24 10:00 11/17/24 09:44 20 MG Metoprolol Tartrate 25 mg BID PO 11/11/24 10:00 11/16/24 22:30 25 MG Pantoprazole Sodium 40 mg DAILY PO 11/11/24 10:00 11/17/24 09:45 40 MG Patient Own Medication 1 aer DAILY IN 11/11/24 10:00 11/17/24 10:10 1 AER Lisinopril 10 mg DAILY PO 11/11/24 10:00 11/17/24 10:11 10 MG Nifedipine 60 mg DAILY PO 11/12/24 10:00 11/17/24 09:43 60 MG Ipratropium [place] 0.5 mg Q6HR NEB 11/12/24 00:00 11/17/24 06:47 0.5 MG Levalbuterol HCl 1.25 mg Q6HR NEB 11/12/24 00:00 11/17/24 06:48 1.25 MG Ipratropium [place] 0.5 mg Q4HP PRN NEB 11/11/24 23:30 Levalbuterol HCl 1.25 mg Q4HPRN PRN NEB 11/11/24 23:30 Tramadol HCl 50 mg Q6HP PRN PO 11/12/24 10:30 11/17/24 04:26 50 MG Atorvastatin Calcium 80 mg HS PO 11/13/24 22:00 11/16/24 22:28 80 MG Alprazolam 1 mg TID PO 11/14/24 20:00 11/17/24 06:08 1 MG Prednisone 20 mg DAILY PO 11/16/24 10:00 11/17/24 09:45 20 MG Azithromycin 500 mg DAILY PO 11/16/24 10:00 11/17/24 10:10 500 MG Laboratory Results Laboratory Tests 11/11/24 05:15 Urinalysis Test 11/10/24 20:45 Urine Color Light-yellow (Yellow) Urine Clarity Clear (Clear) Urine pH 6.0 (5.0-9.0) Urine Specific [place] 1.012 (1.001-1.035) Urine Protein Negative (Negative) Urine Ketones Negative (Negative) Urine Blood Negative /uL (Negative) Urine Nitrite Negative (Negative) Urine Bilirubin Negative (Negative) Urine Urobilinogen Normal mg/dL (Negative) Urine Leukocyte Esterase Trace /uL (Negative) Urine RBC 2 /hpf (0 - 4) Urine Microscopic WBC 7 /HPF (0-5) H Urine Squamous Epithelial Cells Few /hpf (<5) Urine Bacteria None seen /hpf (None Seen) Urine Glucose Normal mg/dL (Normal) Urine Test Negative (Negative) Microbiology Microbiology Date/Time Source Procedure Growth Status 11/11/24 04:00 Nose MRSA Screen - Final Complete 11/10/24 23:49 Blood Blood Culture - Final NO GROWTH AFTER 5 DAYS OF INCUBATION. Complete 11/10/24 20:45 Voided Urine Urine Culture - Final Complete Labs and/or images reviewed: Labs reviewed by me, Image(s) reviewed by me Assessment/Plan Assessment/Plan Acute on chronic respiratory failure consult by Dr. Saba appreciated COPD exacerbation, Solu-Medrol Community-acquired pneumonia: Azithromycin Acute on chronic diastolic congestive heart failure ejection fraction 55 %, consult by Dr. 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 History of emphysema/COPD/asthma, on home oxygen at 2-5 L/min History of opiate dependence, currently on methadone History of NH with no stent placement History of CVA Bood cultures contaminated High Level of anxiety: Xanax 1 mg PO TID History of severe pneumonia complicated with empyema with requirement of thoracotomy and intubation two weeks ago Patient complains of dizziness and extreme weakness unable to walk; physical therapy recommended halfway facility placement for rehab, orders placed special services agent working on authorization placement for halfway facility No new complaints Plan discussed with: Patient My Orders Orders - FESTUS MURRIETA MD Procedure Category Date Status Time Discharge DISCHARGE 11/16/24 Transmitted 11:26 * Manager Payment CONS 11/16/24 Transmitted Consult Date of Service: Nov 17, 2024 Billing Provider: FESTUS MURRIETA MD Common Visit Codes: [id number] INP/OBS CARE(HIGH) FESTUS MURRIETA MD Nov 17, 2024 10:49
--- NOTE | 2024-11-17 20:07 | DVHPN2 ---
Progress Note - Dictate Date Seen: Nov 17, 2024 Medical Necessity Reason Pt with a Central, PICC or Fol: No Subjective Patient seen and examined at bedside. Remains on supplemental oxygen Overnight events reviewed. vital signs Vital Sign Date Time Temp Pulse Resp B/P (MAP) Pulse Ox O2 Delivery O2 Flow Rate FiO2 11/17/24 18:32 99 20 100 11/17/24 18:22 Nasal Cannula 2.0 11/17/24 18:22 28 11/17/24 16:30 98.9 130/77 (94) 98.9 Total Intake and Output 11/16/24 11/16/24 11/17/24 15:00 23:00 07:00 Intake Total 2115 ml 850 ml Output Total 2000 ml Balance 2115 ml -1150 ml medications Current Medications Medications Dose Ordered Sig/Mata Route Start Time Stop Time Status Last Admin Dose Admin Ondansetron HCl 4 mg Q4HP PRN IV 11/10/24 23:45 Enoxaparin Sodium 40 mg DAILY SC 11/11/24 10:00 11/17/24 09:45 40 MG Methadone HCl 120 mg DAILY PO 11/11/24 10:00 11/17/24 09:42 120 MG Aspirin 81 mg DAILY PO 11/11/24 10:00 11/17/24 09:45 81 MG Clonidine HCl 0.1 mg DAILY PO 11/11/24 10:00 11/17/24 09:45 0.1 MG Furosemide 20 mg DAILY PO 11/11/24 10:00 11/17/24 09:44 20 MG Metoprolol Tartrate 25 mg BID PO 11/11/24 10:00 11/17/24 10:00 25 MG Pantoprazole Sodium 40 mg DAILY PO 11/11/24 10:00 11/17/24 09:45 40 MG Patient Own Medication 1 aer DAILY IN 11/11/24 10:00 11/17/24 10:10 1 AER Lisinopril 10 mg DAILY PO 11/11/24 10:00 11/17/24 10:11 10 MG Nifedipine 60 mg DAILY PO 11/12/24 10:00 11/17/24 09:43 60 MG Ipratropium [place] 0.5 mg Q6HR NEB 11/12/24 00:00 11/17/24 18:22 0.5 MG Levalbuterol HCl 1.25 mg Q6HR NEB 11/12/24 00:00 11/17/24 18:22 1.25 MG Ipratropium [place] 0.5 mg Q4HP PRN NEB 11/11/24 23:30 Levalbuterol HCl 1.25 mg Q4HPRN PRN NEB 11/11/24 23:30 Tramadol HCl 50 mg Q6HP PRN PO 11/12/24 10:30 11/17/24 04:26 50 MG Atorvastatin Calcium 80 mg HS PO 11/13/24 22:00 11/16/24 22:28 80 MG Alprazolam 1 mg TID PO 11/14/24 20:00 11/17/24 14:06 1 MG Prednisone 20 mg DAILY PO 11/16/24 10:00 11/17/24 09:45 20 MG Azithromycin 500 mg DAILY PO 11/16/24 10:00 11/17/24 10:10 500 MG objective Gen.: Patient lying in bed in no apparent distress. On supplemental oxygen. Head: Normocephalic, atraumatic. Eyes: EOMI/PERRLA. Ears: Normal hearing. Normal anatomy. Neck/trachea: Trachea midline, supple. Nose: Normal external anatomy. Mouth: Moist mucous membranes. Chest: Decreased air entry bilaterally. No wheezing. No rhonchi. Cardiovascular: Positive S1, positive S2. Regular rate and rhythm. Abdomen: Positive bowel sounds in all 4 quadrants. Soft, non-tender, non- distended. : Deferred. Rectal: Deferred. Skin: Warm, dry. Intact. Extremities: 2+ radial pulses bilaterally. No lower extremity edema. Neuro: Awake, alert, oriented x3. No gross motor or sensory deficits. Cranial nerves II through XII intact. Gait not assessed. laboratory and microbiology Laboratory Tests 11/11/24 05:15 Test 11/11/24 05:15 Range/Units Serum Glucose 174 H 74-106 mg/dL Assessment/Plan Impression: Acute on chronic hypoxic respiratory failure Dependence on supplemental oxygen COPD exacerbation Community-acquired pneumonia Hx of nicotine dependence Acute on chronic diastolic congestive heart failure (HFpEF, LVEF 55%, RVSP 55 mmHg) Chronic kidney disease Recent dx of ovarian cancer Events: Remains on supplemental oxygen, on 2 LPM NC Taper O2 as tolerated Continue Trelegy Continue bronchodilators Continue steroids - prednisone PO Continue antibiotics Incentive spirometry Diurese as tolerated w/ Lasix 20 mg q. daily Monitor renal function. Monitor electrolytes. Supplement as necessary. Anxiolytic PRN. Methadone for pain control Avoid oversedation Continue physical therapy. Awaiting SNF placement. Recommend outpatient PFTs and 6MWT. Labs and imaging reviewed. Rest of plan as noted below. Plan: Supplemental oxygen Titrate to keep O2 sats above 92%. Continue bronchodilators. Continue antibiotics Continue steroids Monitor renal function. Monitor electrolytes. Supplement as necessary. Monitor ins and outs. GI prophylaxis - Protonix DVT prophylaxis - Lovenox. Prognosis: Guarded given patient's multiple co-morbidities. Rest of plan per hospitalist and other consultants. Thank you, Dr. Reyez, for allowing me to participate in this patient's care. Further recommendations will depend on the patient's clinical course. Please do not hesitate to contact me if you have any questions or concerns. This medical document was created using an electronic medical record system with [employer] dictation system. Although these documentations are being carefully reviewed, there may still be some phonetic and typographical changes. The errors are purely typographical, due to imperfection on the software program, and do not reflect any compromise in the patient's medical care. Dietary Evaluation Review Comments: 1) cardiac diet 2) Continue current plan of care Expected Outcomes/Goals: To meet >75% estimated needs Fu 3-5 days Plan discussed with: Patient, Other (ANALI Ovalles) NATHALY NARAYAN MD Nov 17, 2024 20:07
[2024-11-18] VITALS (21 sets, daily range): BP systolic 116–135; BP diastolic 66–88; PULSE 66–88; RESP 17–20; TEMP 97.5–99.3; O2SAT 91–100
--- NOTE | 2024-11-18 06:36 | DVHPN2 ---
Progress Note - Dictate Date Seen: Nov 18, 2024 Medical Necessity Reason Pt with a Central, PICC or Fol: No vital signs Vital Sign Date Time Temp Pulse Resp B/P (MAP) Pulse Ox O2 Delivery O2 Flow Rate FiO2 11/18/24 05:00 97.9 76 20 116/88 (97) 100 97.9 11/18/24 00:07 Nasal Cannula 4.0 11/18/24 00:07 36 Total Intake and Output 11/17/24 11/17/24 11/18/24 15:00 23:00 07:00 Intake Total 1180 ml 640 ml Balance 1180 ml 640 ml medications Current Medications Medications Dose Ordered Sig/Mata Route Start Time Stop Time Status Last Admin Dose Admin Ondansetron HCl 4 mg Q4HP PRN IV 11/10/24 23:45 Enoxaparin Sodium 40 mg DAILY SC 11/11/24 10:00 11/17/24 09:45 40 MG Methadone HCl 120 mg DAILY PO 11/11/24 10:00 11/17/24 09:42 120 MG Aspirin 81 mg DAILY PO 11/11/24 10:00 11/17/24 09:45 81 MG Clonidine HCl 0.1 mg DAILY PO 11/11/24 10:00 11/17/24 09:45 0.1 MG Furosemide 20 mg DAILY PO 11/11/24 10:00 11/17/24 09:44 20 MG Metoprolol Tartrate 25 mg BID PO 11/11/24 10:00 11/17/24 21:07 25 MG Pantoprazole Sodium 40 mg DAILY PO 11/11/24 10:00 11/17/24 09:45 40 MG Patient Own Medication 1 aer DAILY IN 11/11/24 10:00 11/17/24 10:10 1 AER Lisinopril 10 mg DAILY PO 11/11/24 10:00 11/17/24 10:11 10 MG Nifedipine 60 mg DAILY PO 11/12/24 10:00 11/17/24 09:43 60 MG Ipratropium [place] 0.5 mg Q6HR NEB 11/12/24 00:00 11/18/24 00:07 0.5 MG Levalbuterol HCl 1.25 mg Q6HR NEB 11/12/24 00:00 11/18/24 00:07 1.25 MG Ipratropium [place] 0.5 mg Q4HP PRN NEB 11/11/24 23:30 Levalbuterol HCl 1.25 mg Q4HPRN PRN NEB 11/11/24 23:30 Tramadol HCl 50 mg Q6HP PRN PO 11/12/24 10:30 11/17/24 04:26 50 MG Atorvastatin Calcium 80 mg HS PO 11/13/24 22:00 11/17/24 21:07 80 MG Alprazolam 1 mg TID PO 11/14/24 20:00 11/18/24 06:02 1 MG Prednisone 20 mg DAILY PO 11/16/24 10:00 11/17/24 09:45 20 MG Azithromycin 500 mg DAILY PO 11/16/24 10:00 11/17/24 10:10 500 MG laboratory and microbiology Laboratory Tests 11/11/24 05:15 Test 11/11/24 05:15 Range/Units Serum Glucose 174 H 74-106 mg/dL Assessment/Plan Patient is a 44-year-old female who presented with dizziness and presyncope. She found her on blood pressure to be 213/109 and decided to come to the hospital. In emergency room, the blood pressure was 189/96. Patient is admitted with hypertensive urgency/emergency. Cardiology is called for cardiac aspects of care. Patient denies chest pains.. Patient is known to our practice from previous admissions. Does have long history of pulmonary problems. She has a had repeated respiratory failures from before and is on home oxygen. She never followed as outpatient with us in the office. Obese patient, not in acute distress. Not using accessory muscles of breathing. No JVD. Mucosa is pink and wet. No carotid bruit. Cardiac: Regular, no thrill/gallop. Chest: Scattered rhonchi in the lungs is heard. Abdomen: Bowel sounds positive. Abdomen is soft. There is no hepatomegaly. There was no mass. There was no edema. 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 She is status post cholecystectomy/appendectomy. She quit smoking two years ago. There is no relevant family history. Echocardiogram of September 2022 reported ejection fraction of 60 65%, normal diastolic, trace TR and right ventricular systolic pressure of 30 mm Hg Echocardiogram of August 30, 2024 revealed ejection fraction of 60-65%, mild biatrial enlargement, mild right ventricular enlargement, good right ventricular systolic pressure and right ventricular systolic pressure 55 mm Hg Creat: 1.24 - 1.23 Potassium: 3.8 - 3.8 LDL: 174 BNP: 282.78 Troponin (high sensitive): 7 - 7 - 6 D-dimer: <0.19 Urine toxicology was positive for benzodiazepine Chest x-ray reported: Findings/Impression: Frontal chest radiograph demonstrates no acute osseous or superficial soft tissue abnormalities. The trachea is midline. The cardiac silhouette and mediastinum are within normal limits. No pneumothorax, pleural effusions, or consolidations. CT of the head revealed: IMPRESSION: 1. No acute intracranial abnormality. V/Q scan: IMPRESSION: Low probability for PE. EKG revealed sinus tachycardia, left atrial enlargement and nonspecific ST-T changes Telemetry shows sinus rhythm Patient is a 44-year-old female who presented with dizziness/presyncope. Have shortness of breath. Blood pressure was high on arrival. Presentation he has consider hypertensive emergency and COPD exacerbation. Does have history of multiple lung problems. Has had pneumonia/empyema before. Has had COPD exacerbations before. Does have chronic respiratory failure and on home oxygen. Acute coronary syndrome is not considered at this point. Hypertensive emergency COPD exacerbation Acute Respiratory failure Diabetes mellitus History of substance abuse Pulmonary Hypertension. Cardiac suggestion for management: Manage on Tele Follow-up electrolytes and kidney function tests and correct abnormalities Control blood pressure Atorvastatin 80 mg HS Cardiac haynes, stable Pulmonary follow up Further evaluation and management depends on the above and clinical course A total of 55 minutes was spent reviewing the patient record, examining the patient, making a diagnostic and therapeutic plan, discussing this plan with medical personnel, following up on diagnostic studies and following the patient for clinical stability excluding any and all procedures. At least 50% of this time was spent in direct, [id number] contact. Thank you for allowing me to participate in this patient's care. Further recommendations will depend on patient's clinical course. Please do not hesitate to contact me if you have any questions or concerns. This medical document was created using electronic medical record system with [employer] dictation system. Although this document has been carefully reviewed, there may still be some phonetic and typographical errors. These areas are purely typographical due to the imperfection of the software programs, and do not reflect any compromise in the patient's medical care. Dietary Evaluation Review Comments: 1) cardiac diet 2) Continue current plan of care Expected Outcomes/Goals: To meet >75% estimated needs Fu 3-5 days Plan discussed with: Patient, Other (nurse) OLIVIA LUJAN MD Nov 18, 2024 06:36
[2024-11-19] VITALS (12 sets, daily range): BP systolic 126–159; BP diastolic 80–89; PULSE 69–83; RESP 14–20; TEMP 97.3–98.1; O2SAT 94–100
--- NOTE | 2024-11-19 04:05 | DVHPN2 ---
Progress Note - Dictate Date Seen: Nov 18, 2024 Medical Necessity Reason Pt with a Central, PICC or Fol: No Subjective Patient seen and examined at bedside. Remains on supplemental oxygen Overnight events reviewed. vital signs Vital Sign Date Time Temp Pulse Resp B/P (MAP) Pulse Ox O2 Delivery O2 Flow Rate FiO2 11/19/24 01:00 98.0 72 18 132/80 (97) 98 98.0 11/18/24 23:47 Nasal Cannula* 3 32 Total Intake and Output 11/18/24 11/18/24 11/19/24 15:00 23:00 07:00 Intake Total 700 ml Balance 700 ml medications Current Medications Medications Dose Ordered Sig/Mata Route Start Time Stop Time Status Last Admin Dose Admin Ondansetron HCl 4 mg Q4HP PRN IV 11/10/24 23:45 Enoxaparin Sodium 40 mg DAILY SC 11/11/24 10:00 11/18/24 08:44 40 MG Methadone HCl 120 mg DAILY PO 11/11/24 10:00 11/18/24 08:43 120 MG Aspirin 81 mg DAILY PO 11/11/24 10:00 11/18/24 08:42 81 MG Clonidine HCl 0.1 mg DAILY PO 11/11/24 10:00 11/18/24 10:05 0.1 MG Furosemide 20 mg DAILY PO 11/11/24 10:00 11/18/24 08:43 20 MG Metoprolol Tartrate 25 mg BID PO 11/11/24 10:00 11/18/24 21:26 25 MG Pantoprazole Sodium 40 mg DAILY PO 11/11/24 10:00 11/18/24 08:42 40 MG Patient Own Medication 1 aer DAILY IN 11/11/24 10:00 11/18/24 10:03 1 AER Lisinopril 10 mg DAILY PO 11/11/24 10:00 11/18/24 10:03 10 MG Nifedipine 60 mg DAILY PO 11/12/24 10:00 11/18/24 10:08 60 MG Ipratropium [place] 0.5 mg Q6HR NEB 11/12/24 00:00 11/18/24 23:47 0.5 MG Levalbuterol HCl 1.25 mg Q6HR NEB 11/12/24 00:00 11/18/24 23:47 1.25 MG Ipratropium [place] 0.5 mg Q4HP PRN NEB 11/11/24 23:30 Levalbuterol HCl 1.25 mg Q4HPRN PRN NEB 11/11/24 23:30 Tramadol HCl 50 mg Q6HP PRN PO 11/12/24 10:30 11/18/24 20:16 50 MG Atorvastatin Calcium 80 mg HS PO 11/13/24 22:00 11/18/24 21:21 80 MG Alprazolam 1 mg TID PO 11/14/24 20:00 11/18/24 21:50 1 MG Prednisone 20 mg DAILY PO 11/16/24 10:00 11/18/24 08:41 20 MG Azithromycin 500 mg DAILY PO 11/16/24 10:00 11/18/24 08:42 500 MG objective Gen.: Patient lying in bed in no apparent distress. On supplemental oxygen. Head: Normocephalic, atraumatic. Eyes: EOMI/PERRLA. Ears: Normal hearing. Normal anatomy. Neck/trachea: Trachea midline, supple. Nose: Normal external anatomy. Mouth: Moist mucous membranes. Chest: Decreased air entry bilaterally. No wheezing. No rhonchi. Cardiovascular: Positive S1, positive S2. Regular rate and rhythm. Abdomen: Positive bowel sounds in all 4 quadrants. Soft, non-tender, non- distended. : Deferred. Rectal: Deferred. Skin: Warm, dry. Intact. Extremities: 2+ radial pulses bilaterally. No lower extremity edema. Neuro: Awake, alert, oriented x3. No gross motor or sensory deficits. Cranial nerves II through XII intact. Gait not assessed. laboratory and microbiology Laboratory Tests 11/11/24 05:15 Test 11/11/24 05:15 Range/Units Serum Glucose 174 H 74-106 mg/dL Assessment/Plan Impression: Acute on chronic hypoxic respiratory failure Dependence on supplemental oxygen COPD exacerbation Community-acquired pneumonia Hx of nicotine dependence Acute on chronic diastolic congestive heart failure (HFpEF, LVEF 55%, RVSP 55 mmHg) Chronic kidney disease Recent dx of ovarian cancer Events: Remains on supplemental oxygen, on 3 LPM [place] Taper O2 as tolerated Continue Trelegy Continue bronchodilators Continue steroids - prednisone PO Continue antibiotics Incentive spirometry Blood pressure control On statin Diurese as tolerated w/ Lasix 20 mg q. daily Monitor renal function. Monitor electrolytes. Supplement as necessary. Anxiolytic PRN. Methadone for pain control Avoid oversedation Continue physical therapy. Awaiting SNF placement. Recommend outpatient PFTs and 6MWT. Labs and imaging reviewed. Rest of plan as noted below. Plan: Supplemental oxygen Titrate to keep O2 sats above 92%. Continue bronchodilators. Continue antibiotics Continue steroids Monitor renal function. Monitor electrolytes. Supplement as necessary. Monitor ins and outs. GI prophylaxis - Protonix DVT prophylaxis - Lovenox. Prognosis: Guarded given patient's multiple co-morbidities. Rest of plan per hospitalist and other consultants. Thank you, Dr. Reyez, for allowing me to participate in this patient's care. Further recommendations will depend on the patient's clinical course. Please do not hesitate to contact me if you have any questions or concerns. This medical document was created using an electronic medical record system with [employer] dictation system. Although these documentations are being carefully reviewed, there may still be some phonetic and typographical changes. The errors are purely typographical, due to imperfection on the software program, and do not reflect any compromise in the patient's medical care. Dietary Evaluation Review Comments: 1) cardiac diet 2) Continue current plan of care Expected Outcomes/Goals: To meet >75% estimated needs Fu 3-5 days Plan discussed with: Patient, Other (RN) NATHALY NARAYAN MD Nov 19, 2024 04:05
--- NOTE | 2024-11-19 06:24 | DVHPN2 ---
Progress Note - Dictate Medical Necessity Reason Pt with a Central, PICC or Fol: No vital signs Vital Sign Date Time Temp Pulse Resp B/P (MAP) Pulse Ox O2 Delivery O2 Flow Rate FiO2 11/19/24 06:19 99 Nasal Cannula 3.0 11/19/24 06:19 32 11/19/24 06:16 78 14 11/19/24 05:00 98.1 159/82 (107) 98.1 Total Intake and Output 11/18/24 11/18/24 11/19/24 15:00 23:00 07:00 Intake Total 700 ml 1800 ml Balance 700 ml 1800 ml medications Current Medications Medications Dose Ordered Sig/Mata Route Start Time Stop Time Status Last Admin Dose Admin Ondansetron HCl 4 mg Q4HP PRN IV 11/10/24 23:45 Enoxaparin Sodium 40 mg DAILY SC 11/11/24 10:00 11/18/24 08:44 40 MG Methadone HCl 120 mg DAILY PO 11/11/24 10:00 11/18/24 08:43 120 MG Aspirin 81 mg DAILY PO 11/11/24 10:00 11/18/24 08:42 81 MG Clonidine HCl 0.1 mg DAILY PO 11/11/24 10:00 11/18/24 10:05 0.1 MG Furosemide 20 mg DAILY PO 11/11/24 10:00 11/18/24 08:43 20 MG Metoprolol Tartrate 25 mg BID PO 11/11/24 10:00 11/18/24 21:26 25 MG Pantoprazole Sodium 40 mg DAILY PO 11/11/24 10:00 11/18/24 08:42 40 MG Patient Own Medication 1 aer DAILY IN 11/11/24 10:00 11/18/24 10:03 1 AER Lisinopril 10 mg DAILY PO 11/11/24 10:00 11/18/24 10:03 10 MG Nifedipine 60 mg DAILY PO 11/12/24 10:00 11/18/24 10:08 60 MG Ipratropium [place] 0.5 mg Q6HR NEB 11/12/24 00:00 11/19/24 06:16 0.5 MG Levalbuterol HCl 1.25 mg Q6HR NEB 11/12/24 00:00 11/19/24 06:16 1.25 MG Ipratropium [place] 0.5 mg Q4HP PRN NEB 11/11/24 23:30 Levalbuterol HCl 1.25 mg Q4HPRN PRN NEB 11/11/24 23:30 Tramadol HCl 50 mg Q6HP PRN PO 11/12/24 10:30 11/18/24 20:16 50 MG Atorvastatin Calcium 80 mg HS PO 11/13/24 22:00 11/18/24 21:21 80 MG Alprazolam 1 mg TID PO 11/14/24 20:00 11/19/24 06:05 1 MG Prednisone 20 mg DAILY PO 11/16/24 10:00 11/18/24 08:41 20 MG Azithromycin 500 mg DAILY PO 11/16/24 10:00 11/18/24 08:42 500 MG laboratory and microbiology Laboratory Tests 11/11/24 05:15 Test 11/11/24 05:15 Range/Units Serum Glucose 174 H 74-106 mg/dL Dietary Evaluation Review Comments: 1) cardiac diet 2) Continue current plan of care Expected Outcomes/Goals: To meet >75% estimated needs Fu 3-5 days ARIE HOOVER COPYWRITER Nov 19, 2024 06:24
--- NOTE | 2024-11-19 10:21 | DVHPN2 ---
Reviewed: Care Plan, H&P, Labs, Medications, Previous Orders, Radiology Changes from previous H/P or p: No Changes Objective Vitals Vital Signs Date Time Temp Pulse Resp B/P (MAP) Pulse Ox O2 Delivery O2 Flow Rate FiO2 11/19/24 10:10 96 Nasal Cannula 2.0 11/19/24 10:10 28 11/19/24 09:57 97.3 77 20 11/19/24 09:35 152/88 Intake/Output Intake and Output 11/19/24 07:00 Intake Total 2500 ml Balance 2500 ml Intake Oral 2500 ml # Voids 9 # Bowel Movements 2 Medications Current Medications Medications Dose Ordered Sig/Mata Route Start Time Stop Time Status Last Admin Dose Admin Ondansetron HCl 4 mg Q4HP PRN IV 11/10/24 23:45 Enoxaparin Sodium 40 mg DAILY SC 11/11/24 10:00 11/19/24 09:33 40 MG Methadone HCl 120 mg DAILY PO 11/11/24 10:00 11/19/24 09:12 120 MG Aspirin 81 mg DAILY PO 11/11/24 10:00 11/19/24 09:34 81 MG Clonidine HCl 0.1 mg DAILY PO 11/11/24 10:00 11/19/24 09:34 0.1 MG Furosemide 20 mg DAILY PO 11/11/24 10:00 11/19/24 09:34 20 MG Metoprolol Tartrate 25 mg BID PO 11/11/24 10:00 11/19/24 09:35 25 MG Pantoprazole Sodium 40 mg DAILY PO 11/11/24 10:00 11/19/24 09:33 40 MG Patient Own Medication 1 aer DAILY IN 11/11/24 10:00 11/19/24 09:32 1 AER Lisinopril 10 mg DAILY PO 11/11/24 10:00 11/19/24 09:33 10 MG Nifedipine 60 mg DAILY PO 11/12/24 10:00 11/19/24 09:34 60 MG Ipratropium [place] 0.5 mg Q6HR NEB 11/12/24 00:00 11/19/24 06:16 0.5 MG Levalbuterol HCl 1.25 mg Q6HR NEB 11/12/24 00:00 11/19/24 06:16 1.25 MG Ipratropium [place] 0.5 mg Q4HP PRN NEB 11/11/24 23:30 Levalbuterol HCl 1.25 mg Q4HPRN PRN NEB 11/11/24 23:30 Tramadol HCl 50 mg Q6HP PRN PO 11/12/24 10:30 11/18/24 20:16 50 MG Atorvastatin Calcium 80 mg HS PO 11/13/24 22:00 11/18/24 21:21 80 MG Alprazolam 1 mg TID PO 11/14/24 20:00 11/19/24 06:05 1 MG Prednisone 20 mg DAILY PO 11/16/24 10:00 11/19/24 09:33 20 MG Azithromycin 500 mg DAILY PO 11/16/24 10:00 11/19/24 09:33 500 MG Laboratory Results Laboratory Tests 11/11/24 05:15 Urinalysis Test 11/10/24 20:45 Urine Color Light-yellow (Yellow) Urine Clarity Clear (Clear) Urine pH 6.0 (5.0-9.0) Urine Specific [place] 1.012 (1.001-1.035) Urine Protein Negative (Negative) Urine Ketones Negative (Negative) Urine Blood Negative /uL (Negative) Urine Nitrite Negative (Negative) Urine Bilirubin Negative (Negative) Urine Urobilinogen Normal mg/dL (Negative) Urine Leukocyte Esterase Trace /uL (Negative) Urine RBC 2 /hpf (0 - 4) Urine Microscopic WBC 7 /HPF (0-5) H Urine Squamous Epithelial Cells Few /hpf (<5) Urine Bacteria None seen /hpf (None Seen) Urine Glucose Normal mg/dL (Normal) Urine Test Negative (Negative) Microbiology Microbiology Date/Time Source Procedure Growth Status 11/11/24 04:00 Nose MRSA Screen - Final Complete 11/10/24 23:49 Blood Blood Culture - Final NO GROWTH AFTER 5 DAYS OF INCUBATION. Complete 11/10/24 20:45 Voided Urine Urine Culture - Final Complete Labs and/or images reviewed: Labs reviewed by me, Image(s) reviewed by me Assessment/Plan Assessment/Plan Acute on chronic respiratory failure consult by Dr. Saba appreciated COPD exacerbation, Solu-Medrol Community-acquired pneumonia: Azithromycin Acute on chronic diastolic congestive heart failure ejection fraction 55 %, consult by Dr. 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 History of emphysema/COPD/asthma, on home oxygen at 2-5 L/min History of opiate dependence, currently on methadone History of [place] with no stent placement History of CVA Bood cultures contaminated High Level of anxiety: Xanax 1 mg PO TID History of severe pneumonia complicated with empyema with requirement of thoracotomy and intubation two weeks ago Patient is waiting for transportation to group home facility No new complaints Plan discussed with: Patient Date of Service: Nov 19, 2024 Billing Provider: FESTUS MURRIETA MD Common Visit Codes: [id number] INP/OBS CARE(HIGH) FESTUS MURRIETA MD Nov 19, 2024 10:21
--- NOTE | 2024-11-19 13:25 | DVHPN2 ---
Progress Note - Dictate Date Seen: Nov 19, 2024 Medical Necessity Reason Pt with a Central, PICC or Fol: No Subjective Seen and examined at the bedside within telemetry. Remains cardiac stable. Chart reviewed. vital signs Vital Sign Date Time Temp Pulse Resp B/P (MAP) Pulse Ox O2 Delivery O2 Flow Rate FiO2 11/19/24 11:42 80 14 99 11/19/24 10:10 Nasal Cannula 2.0 11/19/24 10:10 28 11/19/24 09:57 97.3 11/19/24 09:35 152/88 Total Intake and Output 11/18/24 11/18/24 11/19/24 15:00 23:00 07:00 Intake Total 700 ml 1800 ml Balance 700 ml 1800 ml medications Current Medications Medications Dose Ordered Sig/Mata Route Start Time Stop Time Status Last Admin Dose Admin Ondansetron HCl 4 mg Q4HP PRN IV 11/10/24 23:45 Enoxaparin Sodium 40 mg DAILY SC 11/11/24 10:00 11/19/24 09:33 40 MG Methadone HCl 120 mg DAILY PO 11/11/24 10:00 11/19/24 09:12 120 MG Aspirin 81 mg DAILY PO 11/11/24 10:00 11/19/24 09:34 81 MG Clonidine HCl 0.1 mg DAILY PO 11/11/24 10:00 11/19/24 09:34 0.1 MG Furosemide 20 mg DAILY PO 11/11/24 10:00 11/19/24 09:34 20 MG Metoprolol Tartrate 25 mg BID PO 11/11/24 10:00 11/19/24 09:35 25 MG Pantoprazole Sodium 40 mg DAILY PO 11/11/24 10:00 11/19/24 09:33 40 MG Patient Own Medication 1 aer DAILY IN 11/11/24 10:00 11/19/24 09:32 1 AER Lisinopril 10 mg DAILY PO 11/11/24 10:00 11/19/24 09:33 10 MG Nifedipine 60 mg DAILY PO 11/12/24 10:00 11/19/24 09:34 60 MG Ipratropium [place] 0.5 mg Q6HR NEB 11/12/24 00:00 11/19/24 11:30 0.5 MG Levalbuterol HCl 1.25 mg Q6HR NEB 11/12/24 00:00 11/19/24 11:30 1.25 MG Ipratropium [place] 0.5 mg Q4HP PRN NEB 11/11/24 23:30 Levalbuterol HCl 1.25 mg Q4HPRN PRN NEB 11/11/24 23:30 Tramadol HCl 50 mg Q6HP PRN PO 11/12/24 10:30 11/18/24 20:16 50 MG Atorvastatin Calcium 80 mg HS PO 11/13/24 22:00 11/18/24 21:21 80 MG Alprazolam 1 mg TID PO 11/14/24 20:00 11/19/24 06:05 1 MG Prednisone 20 mg DAILY PO 11/16/24 10:00 11/19/24 09:33 20 MG Azithromycin 500 mg DAILY PO 11/16/24 10:00 11/19/24 09:33 500 MG laboratory and microbiology Laboratory Tests 11/11/24 05:15 Test 11/11/24 05:15 Range/Units Serum Glucose 174 H 74-106 mg/dL Assessment/Plan Patient is a 44-year-old female who presented with dizziness and presyncope. She found her on blood pressure to be 213/109 and decided to come to the hospital. In emergency room, the blood pressure was 189/96. Patient is admitted with hypertensive urgency/emergency. Cardiology is called for cardiac aspects of care. Patient denies chest pains.. Patient is known to our practice from previous admissions. Does have long history of pulmonary problems. She has a had repeated respiratory failures from before and is on home oxygen. She never followed as outpatient with us in the office. Obese patient, not in acute distress. Not using accessory muscles of breathing. No JVD. Mucosa is pink and wet. No carotid bruit. Cardiac: Regular, no thrill/gallop. Chest: Scattered rhonchi in the lungs is heard. Abdomen: Bowel sounds positive. Abdomen is soft. There is no hepatomegaly. There was no mass. There was no edema. 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 She is status post cholecystectomy/appendectomy. She quit smoking two years ago. There is no relevant family history. Echocardiogram of September 2022 reported ejection fraction of 60 65%, normal diastolic, trace TR and right ventricular systolic pressure of 30 mm Hg Echocardiogram of August 30, 2024 revealed ejection fraction of 60-65%, mild biatrial enlargement, mild right ventricular enlargement, good right ventricular systolic pressure and right ventricular systolic pressure 55 mm Hg Creat: 1.24 - 1.23 Potassium: 3.8 - 3.8 LDL: 174 BNP: 282.78 Troponin (high sensitive): 7 - 7 - 6 D-dimer: <0.19 Urine toxicology was positive for benzodiazepine Chest x-ray reported: Findings/Impression: Frontal chest radiograph demonstrates no acute osseous or superficial soft tissue abnormalities. The trachea is midline. The cardiac silhouette and mediastinum are within normal limits. No pneumothorax, pleural effusions, or consolidations. CT of the head revealed: IMPRESSION: 1. No acute intracranial abnormality. V/Q scan: IMPRESSION: Low probability for PE. EKG revealed sinus tachycardia, left atrial enlargement and nonspecific ST-T changes Telemetry shows sinus rhythm Patient is a 44-year-old female who presented with dizziness/presyncope. Have shortness of breath. Blood pressure was high on arrival. Presentation he has consider hypertensive emergency and COPD exacerbation. Does have history of multiple lung problems. Has had pneumonia/empyema before. Has had COPD exacerbations before. Does have chronic respiratory failure and on home oxygen. Acute coronary syndrome is not considered at this point. Hypertensive emergency COPD exacerbation Acute Respiratory failure Diabetes mellitus History of substance abuse Pulmonary Hypertension. Cardiac suggestion for management: Manage on Tele Follow-up electrolytes and kidney function tests and correct abnormalities Control blood pressure Atorvastatin 80 mg HS Cardiac haynes, stable Pulmonary follow up Further evaluation and management depends on the above and clinical course A total of 55 minutes was spent reviewing the patient record, examining the patient, making a diagnostic and therapeutic plan, discussing this plan with medical personnel, following up on diagnostic studies and following the patient for clinical stability excluding any and all procedures. At least 50% of this time was spent in direct, [id number] contact. Thank you for allowing me to participate in this patient's care. Further recommendations will depend on patient's clinical course. Please do not hesitate to contact me if you have any questions or concerns. This medical document was created using electronic medical record system with [employer] computerized dictation system. Although this document has been carefully reviewed, there may still be some phonetic and typographical errors. These areas are purely typographical due to the imperfection of the software programs, and do not reflect any compromise in the patient's medical care. Dietary Evaluation Review Comments: 1) cardiac diet 2) Continue current plan of care Expected Outcomes/Goals: To meet >75% estimated needs Fu 3-5 days Plan discussed with: Patient ARIE HOOVER [employer] Nov 19, 2024 13:25
--- NOTE | 2024-11-19 23:11 | DVHPN2 ---
Progress Note - Dictate Date Seen: Nov 19, 2024 Medical Necessity Reason Pt with a Central, PICC or Fol: No Subjective Patient seen and examined at bedside. Remains on supplemental oxygen Overnight events reviewed. vital signs Vital Sign Date Time Temp Pulse Resp B/P (MAP) Pulse Ox O2 Delivery O2 Flow Rate FiO2 11/19/24 13:00 97.9 78 20 126/89 (101) 96 97.9 11/19/24 10:10 Nasal Cannula 2.0 11/19/24 10:10 28 Total Intake and Output 11/18/24 11/18/24 11/19/24 15:00 23:00 07:00 Intake Total 700 ml 1800 ml Balance 700 ml 1800 ml objective Gen.: Patient lying in bed in no apparent distress. On supplemental oxygen. Head: Normocephalic, atraumatic. Eyes: EOMI/PERRLA. Ears: Normal hearing. Normal anatomy. Neck/trachea: Trachea midline, supple. Nose: Normal external anatomy. Mouth: Moist mucous membranes. Chest: Decreased air entry bilaterally. No wheezing. No rhonchi. Cardiovascular: Positive S1, positive S2. Regular rate and rhythm. Abdomen: Positive bowel sounds in all 4 quadrants. Soft, non-tender, non- distended. : Deferred. Rectal: Deferred. Skin: Warm, dry. Intact. Extremities: 2+ radial pulses bilaterally. No lower extremity edema. Neuro: Awake, alert, oriented x3. No gross motor or sensory deficits. Cranial nerves II through XII intact. Gait not assessed. laboratory and microbiology Laboratory Tests 11/11/24 05:15 Test 11/11/24 05:15 Range/Units Serum Glucose 174 H 74-106 mg/dL Assessment/Plan Impression: Acute on chronic hypoxic respiratory failure Dependence on supplemental oxygen COPD exacerbation Community-acquired pneumonia Hx of nicotine dependence Acute on chronic diastolic congestive heart failure (HFpEF, LVEF 55%, RVSP 55 mmHg) Chronic kidney disease Recent dx of ovarian cancer Events: Remains on supplemental oxygen, on 3 LPM NC Taper O2 as tolerated Continue bronchodilators Continue steroids Continue antibiotics Incentive spirometry Continue diuresis w/ Lasix Monitor renal function. Monitor electrolytes. Supplement as necessary. Methadone for pain control Avoid oversedation Continue physical therapy. Awaiting SNF placement. Patient is stable for discharge from the pulmonary standpoint. Follow up in 1-2 weeks in Pulmonary Clinic. Recommend outpatient PFTs and 6MWT. Labs and imaging reviewed. Rest of plan as noted below. Plan: Supplemental oxygen Titrate to keep O2 sats above 92%. Continue bronchodilators. Continue antibiotics Continue steroids Monitor renal function. Monitor electrolytes. Supplement as necessary. Monitor ins and outs. GI prophylaxis - Protonix DVT prophylaxis - Lovenox. Prognosis: Guarded given patient's multiple co-morbidities. Rest of plan per hospitalist and other consultants. Thank you, Dr. Reyez, for allowing me to participate in this patient's care. Further recommendations will depend on the patient's clinical course. Please do not hesitate to contact me if you have any questions or concerns. This medical document was created using an electronic medical record system with [employer] dictation system. Although these documentations are being carefully reviewed, there may still be some phonetic and typographical changes. The errors are purely typographical, due to imperfection on the software program, and do not reflect any compromise in the patient's medical care. Dietary Evaluation Review Comments: 1) cardiac diet 2) Continue current plan of care Expected Outcomes/Goals: To meet >75% estimated needs Fu 3-5 days Plan discussed with: Patient, Other (RN Kurtis) NATHALY NARAYAN MD Nov 19, 2024 23:11
== END 2024-11-19 15:00 | DRG 241 ==
LOC: ER 16:57 → OVERFLOW 23:39 → TELE-WESTW 23:43
PROVIDERS: ADMIT Family Medicine; ATTEND Family Medicine
DX: K29.70 Gastritis, unspecified, without bleeding (principal); J96.21 Acute and chronic respiratory failure with hypoxia; I50.33 Acute on chronic diastolic (congestive) heart failure; J15.69 Pneumonia due to other Gram-negative bacteria; I27.20 Pulmonary hypertension, unspecified; D69.6 Thrombocytopenia, unspecified; I13.0 Hypertensive heart and chronic kidney disease with heart failure and stage 1 through stage 4 chronic kidney disease, or unspecified chronic kidney disease; J44.0 Chronic obstructive pulmonary disease with (acute) lower respiratory infection; J15.9 Unspecified bacterial pneumonia; J44.1 Chronic obstructive pulmonary disease with (acute) exacerbation; E11.22 Type 2 diabetes mellitus with diabetic chronic kidney disease; Z20.822 Contact with and (suspected) exposure to COVID-19; I16.1 Hypertensive emergency; N39.0 Urinary tract infection, site not specified; K86.1 Other chronic pancreatitis; J43.9 Emphysema, unspecified; F41.9 Anxiety disorder, unspecified; I25.10 Atherosclerotic heart disease of native coronary artery without angina pectoris; E66.9 Obesity, unspecified; N18.30 Chronic kidney disease, stage 3 unspecified; I25.2 Old myocardial infarction; Z99.81 Dependence on supplemental oxygen; Z90.49 Acquired absence of other specified parts of digestive tract; Z79.899 Other long term (current) drug therapy; Z86.73 Personal history of transient ischemic attack (TIA), and cerebral infarction without residual deficits; Z79.891 Long term (current) use of opiate analgesic; Z79.82 Long term (current) use of aspirin; Z82.49 Family history of ischemic heart disease and other diseases of the circulatory system; Z80.51 Family history of malignant neoplasm of kidney; Z87.891 Personal history of nicotine dependence; Z85.43 Personal history of malignant neoplasm of ovary; Z98.61 Coronary angioplasty status; Z68.33 Body mass index [BMI] 33.0-33.9, adult
CPT/HCPCS: 36415; 70450; 71045; 78582; 80053; 80061; 80307; 81001; 81025; 82962; 83605; 83690; 83880; 84484; 85025; 85379; 85610; 85730; 87040; 87077; 87081; 87086; 87186; 87426; 87804; 93005; 93306; 94640; 96374; 97110; 97116; 97163; 97530; G0378; J1885